=== PATIENT | female | born 1960 | race Caucasian/White ===

== ENCOUNTER 2016-09-19 15:50 | Emergency (ER) | payer BC ==
[2016-09-19 15:56] VITALS: BP 130/85
== END 2016-09-19 17:21 | disposition left against medical advice (07) ==
LOC: ED 15:50
DX: R10.30 Lower abdominal pain, unspecified (principal); Z53.21 Procedure and treatment not carried out due to patient leaving prior to being seen by health care provider
CPT/HCPCS: 99281

== ENCOUNTER 2016-09-19 17:24 | Emergency (ER) | payer BC ==
[2016-09-19 18:00] VITALS: BP 112/83
[2016-09-19] MEDS ORDERED: Ondansetron ODT TAB* 4 MG PO ONE (18:15)
[2016-09-19] MEDS ORDERED: Ketorolac INJ* 60 MG/2 ML VIAL IM ONE (18:15)
--- NOTE | 2016-09-19 18:58 | RAD ---
INDICATION: LEFT flank pain. History of kidney stones. COMPARISON: July 18, 2016 CT. TECHNIQUE: Multidetector CT images were obtained from the lung bases to the ischial tuberosities. Evaluation of the viscera is limited without IV contrast. Multiplanar reformation. REPORT: Mild peripheral and posterior airspace consolidation at the RIGHT lung base new compared with the prior exam most suspicious for atelectasis or possibly small inflammatory infiltrate at the anterior basal segment of the RIGHT lower lobe. Negative for pleural effusions. Decreased density of the liver consistent with fatty infiltration with focal subcapsular and gallbladder fossa sparing. Unremarkable gallbladder, pancreas, spleen. Small splenule visualized anterior to the spleen. Negative for CT abnormality of the upper GI, small bowel, or medially extending appendix. Moderate diverticulosis of the sigmoid colon without findings of diverticulitis. Negative for ascites, free air, hernias. Normal adrenal glands. Multiple bilateral small bilateral renal stones measuring 4 mm or smaller similar to the prior exam. Negative for hydronephrosis or ureteral stones. Cortical cyst mid pole LEFT kidney . Largely decompressed urinary bladder without abnormality. Unremarkable uterus and adnexal regions. Negative for lymphadenopathy. Normal diameter abdominal aorta and iliac arteries. Physiologic distention of the IVC. Negative for suspicious osseous lesions. IMPRESSION: 1. Fatty infiltration of the liver. 2. Nephrolithiasis without evidence for a ureteral stone or hydronephrosis. Previous distal LEFT ureteral stone is no longer visualized with associated resolution of previous LEFT hydronephrosis. 3. Normal appendix documented. Sigmoid diverticulosis without findings of diverticulitis.
--- NOTE | 2016-09-19 20:06 | UC ---
ajay Xie Timothy, scribed for Zhanna Pedraza MD on 09/19/16 at 1809 . Complaint Female HPI - HPI Summary HPI Summary: Shirley Barker is a 55 yo female presenting to [facility] with 7/10 lower back ache for the past week, worse on the left than the right and frequent and burning urination with left groin pain since 09/16/16. Per triage, she saw Dr. Harris on 09/16/16 for a complaint of right lower back pain, and has scheduled imaging on 09/23/16 for the right kidney. She has self-medicated with 1 percocet at 1700 today. She states that she has kidney stones frequently. She was seen by the ED earlier, but left due to long wait times. She states she vomited up an oxycoton earlier today. Her Hx includes "stiff heart", tachycardia, murmur, palpitations, HTN, migraines, temporal lobe seizures, asthma, pneumonia, sleep apnea, breast cancer and mastectomy, kidney stones, fibromylagia, depression, and anxiety. She is a former smoker. - History Of Current Complaint Stated Complaint: BACK PAIN,BURNING FREQ URINATING Time Seen by Provider: 09/19/16 17:47 Hx Obtained From: Patient ?: No Onset/Duration: Gradual Onset, Lasting Days, Still Present Timing: Constant, Lasting Days Severity Initially: Moderate Severity Currently: Moderate Pain Intensity: 7 Pain Scale Used: 0-10 Numeric Character: Burning Associated Signs And Symptoms: Positive: Back Pain. Negative: Fever, Nausea, Vomiting(# Of Episodes =) - Risk Factors Ectopic Risk Factor: Negative Ovarian Torsion Risk Factor: Negative - Allergies/Home Medications Allergies/Adverse Reactions: Allergies Allergy/AdvReac Type Severity Reaction Status Date / Time Penicillin V Allergy Severe Unknown Verified 09/19/16 17:49 [From Penicillin VK Reaction Potassium] Details Iodinated Contrast Media Allergy Mild Rash Verified 09/19/16 17:49 [CONTRAST DYE] Morphine Allergy Mild Rash And Verified 09/19/16 17:49 Itching Sulfa Drugs Allergy Mild Rash Verified 09/19/16 17:49 Molds & Smuts Allergy Hives Verified 09/19/16 17:49 Pregabalin [From Lyrica] AdvReac Severe See Comment Verified 09/19/16 17:49 Tramadol [From Ultram] AdvReac Severe See Comment Verified 09/19/16 17:49 Cyproheptadine AdvReac Intermediate See Comment Verified 09/19/16 17:49 [From Periactin] Chocolate AdvReac Headache Verified 09/19/16 17:49 Coconut Flavor AdvReac Headache Verified 09/19/16 17:49 Onion AdvReac Headache Verified 09/19/16 17:49 PMH/Surg Hx/FS Hx/Imm Hx Endocrine History Of: Reports: Thyroid Disease Denies: Diabetes Cardiovascular History Of: Reports: Cardiac Disorders - "stiff heart", tachycardia, Hypertension Denies: Pacemaker/ICD Respiratory History Of: Reports: Asthma, Pneumonia Denies: COPD GI/ History Of: Reports: Kidney Stones Denies: Ulcer, Renal Disease Neurological History Of: Reports: Seizures - Temporal Lobe Seizures, Migraine Psychological History Of: Reports: Anxiety, Depression Cancer History Of: Reports: Breast Cancer - 2001 Right - Surgical History Surgical History: Yes Surgery Procedure, Year, and Place: HX BREAST CA. - Rt MASECTOMY. HX BREAST IMPLANTS- SILICONE. KIDNEY STONES. CYST REMOVED FROM L-5 DONE IN [place] BY DR. BEASLEY in MARCH of 2015. 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 Lives: With Family Alcohol Use: Rare Substance Use Type: None Substance Use Comment - Amount & Last Used: oxycodone Smoking Status (MU): Former Smoker Type: Cigarettes When Did the Patient Quit Smoking/Using Tobacco: 1992 - Immunization History Most Recent Influenza Vaccination: never Most Recent Tetanus Shot: 2009 Most Recent Pneumonia Vaccination: unknown Review of Systems Constitutional: Negative Skin: Negative Eyes: Negative ENT: Negative Respiratory: Negative Cardiovascular: Negative Gastrointestinal: Vomiting Genitourinary: Dysuria, Frequency Motor: Negative Neurovascular: Negative Musculoskeletal: Other: - lower left back pain, some lower right back pain, radiating to groin Neurological: Negative Psychological: Negative All Other Systems Reviewed And Are Negative: Yes Physical Exam Triage Information Reviewed: Yes Appearance: Well-Appearing, Well-Nourished, Pain Distress Vital Signs: Initial Vital Signs Temp 98.9 F 09/19/16 17:52 Pulse 83 09/19/16 17:52 Resp 18 09/19/16 17:52 BP 112/83 09/19/16 17:52 Pulse Ox 99 09/19/16 17:52 Vital Signs Reviewed: Yes Eyes: Positive: Conjunctiva Clear ENT: Positive: Hearing grossly normal. Negative: Muffled/hoarse voice Neck: Positive: Supple, Nontender Respiratory: Positive: Lungs clear, Normal breath sounds, No respiratory distress Cardiovascular: Positive: RRR, No Murmur, Pulses Normal, Brisk Capillary Refill Abdomen Description: Positive: Nontender - left midquadrant tenderness, No Organomegaly, Soft, CVA Tenderness (L). Negative: CVA Tenderness (R), Distended , Guarding, McBurney's Point Tenderness, Peritoneal Signs, Pulsatile Mass Bowel Sounds: Positive: Present Musculoskeletal: Positive: Strength Intact, ROM Intact Neurological: Positive: Alert, Muscle Tone Normal Psychological Exam: Normal Skin Exam: Normal Diagnostics - Radiology CT A/P Xray Interpretation: No Acute Changes - IMPRESSION: 1. Fatty infiltration of the liver. 2. Nephrolithiasis without evidence for a ureteral stone or hydronephrosis. Previous distal LEFT ureteral stone is no longer visualized with associated resolution of previous LEFT hydronephrosis. 3. Normal appendix documented. Sigmoid diverticulosis without findings of diverticulitis. Radiology Interpretation Completed By: Radiologist Complaint Female Dx - Course Course Of Treatment: Shirley Barker is a 55 yo female presenting to [facility] with back pain, frequency and dysuria. Dr. Harris had ordered imaging for her right kidney for the . After review of her completely neg UA and CT, she will be discharged home with left flank pain, and instructions to follow up with Dr. Harris. UA results: Color: yellow. Character: clear. Odor: none. Bilirubin: negative. Urobinogen: normal. Ketones: negative. Ascorbic acid: negative. Glucose: negative. Protein: negative. Blood: negative. pH: 5. Nitrite: negative. Leukocytes: normal. Specific gravity: 1.015 - Differential Dx/Diagnosis Differential Diagnosis/HQI/PQRI: Ureteral Stone, Urinary Tract Infection, Other - pyelonephritis, diverticulitis Provider Diagnoses: Left flank pain. nephrolithiasis without obstruction or ureteral stone. fatty liver. atelectasis right base. diverticulosis Discharge - Discharge Plan Condition: Stable Disposition: HOME Patient Education Materials: Kidney Stones (ED), Flank Pain (ED) Referrals: Robby [facility] [employer] [Primary Care Provider] - Juan R Harris MD [Medical Doctor] - 2 Days Additional Instructions: You have multiple small kidney stones that are still up in the kidney. You do not have any stone in the ureter or any blockage of the kidney (no hydronephrosis). Follow up with Dr. Harris regarding your visit to urgent care within two days. Return to urgent care or the emergency department with any new or recurring symptoms. The documentation as recorded by the ajay dutta Timothy accurately reflects the service I personally performed and the decisions made by , Zhanna Pedraza MD.
== END 2016-09-19 19:11 | disposition home or self-care (01) ==
LOC: UCEAST 17:24
DX: N20.0 Calculus of kidney (principal); Z87.442 Personal history of urinary calculi; K57.30 Diverticulosis of large intestine without perforation or abscess without bleeding; K76.0 Fatty (change of) liver, not elsewhere classified; J98.11 Atelectasis; Z88.6 Allergy status to analgesic agent; Z88.0 Allergy status to penicillin; Z88.2 Allergy status to sulfonamides; Z91.041 Radiographic dye allergy status; Z87.891 Personal history of nicotine dependence
CPT/HCPCS: 74176; 81002; 96372; 99212; A9270-GY; G0463; J1885

== ENCOUNTER 2016-09-27 15:14 | Emergency (ER) | payer BC ==
[2016-09-27] MEDS ORDERED: NS 0.9% 1000 ML* 1,000 ML IV ONE (19:21)
[2016-09-27] MEDS ORDERED: Ondansetron INJ* 2 MG/ML VIAL IV ONE (19:21)
[2016-09-27] MEDS ORDERED: Morphine INJ* 4 MG/ML 1 ML CARPUJECT IV ONE (19:21)
--- NOTE | 2016-09-27 19:29 | ED ---
Abdominal Pain/Female - HPI Summary HPI Summary: PT PRESENTED TO ER FOR ABD PAINS FOR THE PAST ONE WEEK. PT HAD DIVERTICULOSIS AND WENT TO UC AND WAS REFFERED HERE TO HAVE CT TO R/O DIVERTICULITIS. PT STILL COMPLAINING OF ABD PAINS. - History of Current Complaint Chief Complaint: EDGeneral Stated Complaint: ABD PAIN Time Seen by Provider: 09/27/16 19:12 Hx Obtained From: Patient ?: No Onset/Duration: Gradual Onset, Lasting Days Timing: Constant Severity Initially: Moderate Severity Currently: Moderate Pain Intensity: 8 Pain Scale Used: 0-10 Numeric Location: Discrete At: LLQ Radiates: No Radiates to: Flank Character: Dull Aggravating Factor(s): Movement Alleviating Factor(s): Nothing Associated Signs and Symptoms: Positive: Decreased Appetite - Risk Factors Ectopic Risk Factor: Negative Allergies/Adverse Reactions: Allergies Allergy/AdvReac Type Severity Reaction Status Date / Time Penicillin V Allergy Severe Unknown Verified 09/23/16 11:19 [From Penicillin VK Reaction Potassium] Details Iodinated Contrast Media Allergy Mild Rash Verified 09/23/16 11:19 [CONTRAST DYE] Morphine Allergy Mild Rash And Verified 09/23/16 11:19 Itching Sulfa Drugs Allergy Mild Rash Verified 09/23/16 11:19 Molds & Smuts Allergy Hives Verified 09/23/16 11:19 Pregabalin [From Lyrica] AdvReac Severe See Comment Verified 09/23/16 11:19 Tramadol [From Ultram] AdvReac Severe See Comment Verified 09/23/16 11:19 Cyproheptadine AdvReac Intermediate See Comment Verified 09/23/16 11:19 [From Periactin] Chocolate AdvReac Headache Verified 09/23/16 11:19 Coconut Flavor AdvReac Headache Verified 09/23/16 11:19 Onion AdvReac Headache Verified 09/23/16 11:19 PMH/Surg Hx/FS Hx/Imm Hx Endocrine/Hematology History: Reports: Hx Thyroid Disease Denies: Hx Diabetes Cardiovascular History: Reports: Hx Hypertension, Other Cardiovascular Problems/ Disorders - "stiff heart" effecting tricuspid valve functioning; States she has Tachyca Denies: Hx Pacemaker/ICD Respiratory History: Reports: Hx Asthma, Hx Pneumonia, Hx Sleep Apnea Denies: Hx Chronic Obstructive Pulmonary Disease (COPD) GI History: Denies: Hx Ulcer History: Reports: Hx Kidney Stones Denies: Hx Dialysis, Hx Renal Disease Musculoskeletal History: Reports: Hx Fibromyalgia, Other Musculoskeletal History - Chronic Pain Denies: Hx Rheumatoid Arthritis, Hx Osteoporosis Sensory History: Denies: Hx Hearing Aid Neurological History: Reports: Hx Migraine, Hx Seizures - Temporal Lobe Seizures Psychiatric History: Reports: Hx Anxiety, Hx Depression Denies: Hx Panic Disorder - Cancer History Cancer Type, Location and Year: BREAST CANCER Hx Chemotherapy: No Hx Radiation Therapy: No - Surgical History Surgery Procedure, Year, and Place: HX BREAST CA. - Rt MASECTOMY. HX BREAST IMPLANTS- SILICONE. KIDNEY STONES. CYST REMOVED FROM L-5 DONE [address] [place] BY DR. BEASLEY in MARCH of 2015. - Immunization History Date of Tetanus Vaccine: Unknown Date of Influenza Vaccine: None in Fall 2011 Infectious Disease History: No Infectious Disease History: Denies: Hx Clostridium Difficile, Hx Hepatitis, Hx Human Immunodeficiency Virus (HIV), Hx of Known/Suspected MRSA, Hx Shingles, Hx Tuberculosis, Hx Known/ Suspected VRE, Hx Known/Suspected VRSA, History Other Infectious Disease, Traveled Outside the in Last 30 Days - Family History Known Family History: Negative: Cardiac Disease, Hypertension, Diabetes - Social History Alcohol Use: Rare Substance Use Type: Reports: None Substance Use Comment - Amount & Last Used: oxycodone Smoking Status (MU): Former Smoker Type: Cigarettes Review of Systems Positive: Abdominal Pain All Other Systems Reviewed And Are Negative: Yes Physical Exam Triage Information Reviewed: Yes Vital Signs On Initial Exam: Initial Vitals Temp Pulse Resp BP Pulse Ox 98.9 F 86 20 146/89 99 09/27/16 15:46 09/27/16 15:46 09/27/16 15:46 09/27/16 15:46 09/27/16 15:46 Vital Signs Reviewed: Yes Appearance: Positive: Well-Appearing Skin: Positive: Warm Head/Face: Positive: Normal Head/Face Inspection ENT: Positive: Normal ENT inspection Neck: Positive: Supple Respiratory/Lung Sounds: Positive: Clear to Auscultation, Breath Sounds Present Cardiovascular: Positive: Normal, RRR, Pulses are Symmetrical in both Upper and Lower Extremities Abdomen Description: Positive: Other: - TENDERNESS LF LOWER QUADRANT. Bowel Sounds: Positive: Present Musculoskeletal: Positive: Normal Neurological: Positive: Normal Diagnostics - Vital Signs Vital Signs Temp Pulse Resp BP Pulse Ox 09/27/16 18:44 99.4 F 83 20 153/87 97 09/27/16 17:48 100.0 F 93 20 152/82 98 09/27/16 16:39 99.6 F 82 20 127/69 100 09/27/16 15:49 98.9 F 86 20 146/89 99 09/27/16 15:46 98.9 F 86 20 146/89 99 - Laboratory Result Diagrams: 09/27/16 19:35 09/27/16 19:35 Lab Statement: Any lab studies that have been ordered have been reviewed, and results considered in the medical decision making process. - CT CT ABD/PEL CT Interpretation Completed By: Radiologist - 1. Hepatic steatosis. 2. Nonobstructive, bilateral renal calculi 3. Diverticulosis of the sigmoid colon. No CT evidence of acute diverticulitis. 4. No interval change since September 19, 2016 Abdominal Pain Fem Course/Dx - Course Course Of Treatment: PT STILL C/O ABD PAIN AND WANTS TO BE ADMITTED. DISCUSSED WITH DR. GAVIN AND HE RECOMMENDED TO DO A [facility] ADMISSION BUT PT REFUSED AND WANTED TO BE D/C. sO, ADVISED PT TO FOLLOWUP WITH PCP AND GI WITHIN THE NEXT 3-4 DAYS. - Diagnoses Differential Diagnosis: Positive: Diverticulitis Provider Diagnoses: Nonspecific abdominal pain - Provider Notifications Discussed Care Of Patient With: DR. GAVIN, WHO ADVISED A [facility] ADMISSION. Time Discussed With Above Provider: 22:30 Discharge - Discharge Plan Condition: Stable Disposition: HOME Prescriptions: Pantoprazole Sodium [Protonix] 40 mg PO ONCE #30 tab Patient Education Materials: Abdominal Pain (ED) Referrals: Santos Aguilar MD [Medical Doctor] - 4 Days (Follow up with Dr. aguilar, security business analyst, within the next 4 days. ) Radha Marinelli NP [Primary Care Provider] - Addendum entered and electronically signed by Erin French PA 09/30/16 08: 13: ED Addendum Addendum: Patient culture grew Enterococcus faecalis 10-25,000. Called patient and not having UTI symptoms. Patient currently on cipro and flagyl for diverticulitis.
[2016-09-27] MEDS ORDERED: HYDROmorphone INJ* 1 MG/ML CARPUJECT SYRINGE IV SLOW PU ONE ×2 (19:53→21:36)
[2016-09-27 19:54] LABS: Hematocrit 39 % (35-47); Hemoglobin 13.1 g/dl (12.0-16.0); Mean Corpuscular HGB Conc 33 g/dl (31-36); Mean Corpuscular Hemoglobin 29 pg (27-31); Mean Corpuscular Volume 88 fL (80-97); Mean Platelet Volume 10 um3 (7.4-10.4); Red Blood Count 4.47 10^6/ul (4.0-5.4); Red Cell Distribution Width 14 % (10.5-15); White Blood Count 6.2 10^3/ul (3.5-10.8)
[2016-09-27 20:12] LABS: Albumin 4.5 g/dL (3.2-5.2); BUN/Creatinine Ratio 15.7 (8-20); C Reactive Protein 3.69 mg/L (< 5.00); EGFR African American 63.2 (>60); EGFR Non-African American 49.2 (>60); Globulin 2.7 g/dL (2-4); Potassium 3.6 mmol/L (3.5-5.0); Total Bilirubin 0.3 mg/dL (0.2-1.0); Total Protein 7.2 g/dL (6.4-8.9)
[2016-09-27 20:52] LABS: Urine Bacteria Absent (Absent); Urine Bilirubin Negative (Negative); Urine Glucose Negative (Negative); Urine Nitrite Negative (Negative)
[2016-09-27 21:50] VITALS: BP 126/77
[2016-09-27 21:59] LABS: Calcium 9.3 mg/dL (8.6-10.3)
--- NOTE | 2016-09-27 22:08 | RAD ---
INDICATION: Diverticulitis COMPARISON: ; CT September 19, 2016 TECHNIQUE: Axial source images were obtained from the hemidiaphragms to the symphysis pubis following administration of oral contrast only as requested by the ED. Coronal and sagittal reconstructed images were acquired. Lung bases: The lung bases are clear. Liver: The noncontrast CT appearance of the liver is remarkable for suspected mild hepatic steatosis. Gallbladder: There are no calcified gallstones. There is no evidence of wall thickening or pericholecystic fluid. Spleen: The spleen is normal in size. There are no masses identified on noncontrast evaluation. Pancreas: There is no focal pancreatic mass or ductal dilatation. Adrenal glands: There is no evidence of adrenal mass. Kidneys: There are numerous, bilateral, nonobstructive renal calculi is recently described, unchanged. There is a probable cyst in the midpole region of the left kidney. Entity is incompletely evaluated without intravenous contrast. Adenopathy: There is no evidence of adenopathy by size criteria. Fluid collections: There are no free or localized fluid collections. Vessels:There are no significant atherosclerotic changes involving the aorta. There is no focal aneurysm. The iliac vessels are normal in caliber. The IVC appears normal. GI tract: There are no acute CT bowel findings. There is no obstruction. The stomach and small bowel appear normal. There are moderate diverticula of the sigmoid colon. There is no CT evidence of acute diverticulitis. Pelvic organs: The uterus and adnexa appear normal Bladder: There are no bladder masses. Abdominal and pelvic soft tissues: The extraperitoneal abdominal and pelvic soft tissues appear normal.. Osseous structures: There are no acute osseous findings. Other: None IMPRESSION: 1. Hepatic steatosis. 2. Nonobstructive, bilateral renal calculi 3. Diverticulosis of the sigmoid colon. No CT evidence of acute diverticulitis. 4. No interval change since September 19, 2016
== END 2016-09-27 22:55 | disposition home or self-care (01) ==
LOC: ED 15:14
DX: R10.9 Unspecified abdominal pain (principal); Z87.891 Personal history of nicotine dependence; Z88.0 Allergy status to penicillin; Z88.5 Allergy status to narcotic agent; Z88.2 Allergy status to sulfonamides
CPT/HCPCS: 36415; 74176; 80053; 81003; 81015; 83605; 83690; 84484; 84702; 85025; 86140; 87077; 87086; 87186; 99284; J1170; J2270; J2405

== ENCOUNTER 2017-01-27 18:29 | Emergency (ER) | payer BC ==
[2017-01-27 19:28] VITALS: BP 134/83
--- NOTE | 2017-01-27 19:57 | UC ---
Ear Complaint HPI - HPI Summary HPI Summary: 3 weeks of right ear pain seen PCP, rx with FLonase no has multiple small ulceration on sides of tongue and throat no fevers - History of Current Complaint Chief Complaint: UCEar Stated Complaint: EAR PAIN,ST,BLISTERS IN MOUTH Time Seen by Provider: 01/27/17 19:45 Hx Obtained From: Patient ?: No Onset/Duration: Lasting Days - sores in mouth, Lasting Weeks - 3weeks right ear pain, Still Present Severity Initially: Mild Severity Currently: Moderate Pain Intensity: 7 Pain Scale Used: 0-10 Numeric Aggravating Factors: Nothing Alleviating Factors: Nothing Related History: Seasonal Allergies - Allergies/Home Medications Allergies/Adverse Reactions: Allergies Allergy/AdvReac Type Severity Reaction Status Date / Time Penicillin V Allergy Severe Unknown Verified 01/27/17 19:29 [From Penicillin VK Reaction Potassium] Details Iodinated Contrast Media Allergy Mild Rash Verified 01/27/17 19:29 [CONTRAST DYE] Morphine Allergy Mild Rash And Verified 01/27/17 19:29 Itching Sulfa Drugs Allergy Mild Rash Verified 01/27/17 19:29 Molds & Smuts Allergy Hives Verified 01/27/17 19:29 Pregabalin [From Lyrica] AdvReac Severe See Comment Verified 01/27/17 19:29 Tramadol [From Ultram] AdvReac Severe See Comment Verified 01/27/17 19:29 Cyproheptadine AdvReac Intermediate See Comment Verified 01/27/17 19:29 [From Periactin] Chocolate AdvReac Headache Verified 01/27/17 19:29 Coconut Flavor AdvReac Headache Verified 01/27/17 19:29 Onion AdvReac Headache Verified 01/19/17 14:27 Home Medications: Home Medications DULoxetine CAP* [Cymbalta CAP*] 01/27/17 [History Confirmed 01/27/17] PMH/Surg Hx/FS Hx/Imm Hx Previously Healthy: No Endocrine History Of: Reports: Thyroid Disease Denies: Diabetes Cardiovascular History Of: Reports: Cardiac Disorders, Hypertension Denies: Pacemaker/ICD Respiratory History Of: Reports: Asthma, Pneumonia Denies: COPD GI/ History Of: Reports: Kidney Stones Denies: Ulcer, Renal Disease Neurological History Of: Reports: Seizures - Temporal Lobe Seizures, Migraine Psychological History Of: Reports: Anxiety, Depression Cancer History Of: Reports: Breast Cancer - 2002 Right - Surgical History Surgical History: Yes Surgery Procedure, Year, and Place: HX BREAST CA. - Rt MASECTOMY. HX BREAST IMPLANTS- SILICONE. KIDNEY STONES. CYST REMOVED FROM L-5 DONE IN [place] BY DR. BEASLEY in MARCH of 2015. LT LUMPECTOMY - Family History Known Family History: Negative: Cardiac Disease, Hypertension, Diabetes Family History: no reported cardio vascular issues in family lineage - Social History Occupation: Employed Full-time Lives: With Family Alcohol Use: Weekly Alcohol Amount: 1-2 Substance Use Type: None Substance Use Comment - Amount & Last Used: oxycodone Smoking Status (MU): Former Smoker Type: Cigarettes When Did the Patient Quit Smoking/Using Tobacco: 1992 - Immunization History Most Recent Influenza Vaccination: never Most Recent Tetanus Shot: 2009 Most Recent Pneumonia Vaccination: unknown Review of Systems Constitutional: Chills, Fatigue Skin: Negative Eyes: Negative ENT: Ear Ache - right Respiratory: Negative Cardiovascular: Negative Gastrointestinal: Negative Genitourinary: Negative Motor: Negative Neurovascular: Negative Musculoskeletal: Negative Neurological: Negative Psychological: Negative All Other Systems Reviewed And Are Negative: Yes Physical Exam Triage Information Reviewed: Yes Appearance: Ill-Appearing - mild, Pain Distress, Obese Vital Signs: Initial Vital Signs Temp 97.9 F 01/27/17 19:24 Pulse 81 01/27/17 19:24 Resp 12 01/27/17 19:24 BP 134/83 01/27/17 19:24 Pulse Ox 100 01/27/17 19:24 Vital Signs Reviewed: Yes Eye Exam: Normal Eyes: Positive: Conjunctiva Clear ENT Exam: Normal ENT: Positive: Normal ENT inspection, Hearing grossly normal, Pharyngeal erythema - erythema and ulceration along edges of tongue, Nasal congestion, Nasal drainage, TMs normal Dental Exam: Normal Neck exam: Normal Neck: Positive: Supple, Nontender, No Lymphadenopathy Respiratory Exam: Normal Respiratory: Positive: Chest non-tender, Lungs clear, Normal breath sounds, No respiratory distress, No accessory muscle use Cardiovascular Exam: Normal Cardiovascular: Positive: RRR, No Murmur, Pulses Normal, Brisk Capillary Refill Musculoskeletal Exam: Normal Musculoskeletal: Positive: Strength Intact, ROM Intact, No Edema Neurological Exam: Normal Neurological: Positive: Alert, Muscle Tone Normal Psychological Exam: Normal Skin Exam: Normal Ear Complaint Course/Dx - Course Course Of Treatment: amoxicillin, ibuprofen, magic mouth wash, follow with pcp - Differential Dx/Diagnosis Differential Diagnosis/HQI/PQRI: Otitis Externa, Otitis Media Provider Diagnoses: Right serrous otitis , gingival stomatitis Discharge - Discharge Plan Condition: Stable Disposition: HOME Prescriptions: Azithromycin TAB* [Zithromax TAB (Z-LALO) 250 mg #6 tabs] 2 tab PO DAILY #1 lalo Magic Mouth Was-ELAINE/MAAL/LIDO* 5 ml SWISH SPIT QID #240 ml Patient Education Materials: Serous Otitis Media (ED), Gingivostomatitis (ED) Referrals: Radha Marinelli [employer]EL ENGRAVER [Primary Care Provider] - 1 Week
== END 2017-01-27 20:11 | disposition home or self-care (01) ==
LOC: UCEAST 18:29
DX: H65.91 Unspecified nonsuppurative otitis media, right ear (principal); K05.10 Chronic gingivitis, plaque induced; E07.9 Disorder of thyroid, unspecified; Z88.5 Allergy status to narcotic agent; Z88.0 Allergy status to penicillin; Z88.2 Allergy status to sulfonamides; Z91.041 Radiographic dye allergy status; I10 Essential (primary) hypertension; J45.909 Unspecified asthma, uncomplicated; Z87.442 Personal history of urinary calculi; G40.909 Epilepsy, unspecified, not intractable, without status epilepticus; G43.909 Migraine, unspecified, not intractable, without status migrainosus; F41.9 Anxiety disorder, unspecified; F32.9 Major depressive disorder, single episode, unspecified; E66.9 Obesity, unspecified; Z85.3 Personal history of malignant neoplasm of breast; Z90.11 Acquired absence of right breast and nipple; Z87.891 Personal history of nicotine dependence
CPT/HCPCS: 99212; G0463

== ENCOUNTER 2017-02-21 15:04 | Day surgery (SDC) | payer BC ==
--- NOTE | 2017-02-21 14:48 | HP ---
CC: Tammy Sibley MD; Petra Lilly MD * ADMITTING HISTORY AND PHYSICAL: DATE OF ADMISSION: 02/21/17 ADMITTING DIAGNOSES: 1. Left ureteral calculus. 2. Left hydronephrosis. PLANNED PROCEDURE: Left ureteroscopy, possible laser and stent insertion. SURGEON: Juan R Harris MD ADMITTING HISTORY AND PHYSICAL: Shirley Powers is a 56-year-old lady with a history of recurrent bilateral renal calculi. She was evaluated for left flank pain and was noted to have what appears to be a 5-mm to 6-mm calculus in the left distal ureter with mild left hydronephrosis. She had been on Flomax 0.4 mg in an effort to try and promote passage of the calculus, but continues to have episodic left flank pain and is now being brought in for left ureteroscopy, possible laser and stent insertion. PAST MEDICAL HISTORY: Fairly extensive and is significant for: 1. Recurrent renal calculi. 2. Asthma. 3. Depression/anxiety. 4. History of spinal stenosis. 5. Breast cancer. 6. Fibromyalgia. 7. PTSD. MEDICATIONS ON ADMISSION: Include: 1. Cephalexin 500 mg t.i.d. 2. Gabapentin 300 mg q.h.s. and 100 mg q.a.m. 3. Cymbalta 1 tablet daily. 4. Flomax 0.4 mg once a day. 5. Topamax 100 mg b.i.d. 6. [place] Thyroid twice a day. 7. Diltiazem 1 tablet daily. ALLERGIES AND INTOLERANCES: 1. SULFA. 2. PENICILLIN. 3. INTRAVENOUSLY ADMINISTERED IODINATED CONTRAST. 4. LYRICA. 5. ULTRAM. 6. MORPHINE. REVIEW OF SYSTEMS: She denies any chest pain or shortness of breath. She has a history of diverticulitis approximately 6 months ago. PHYSICAL EXAMINATION GENERAL: Reveals a pleasant, uncomfortable-appearing, middle-aged lady. VITAL SIGNS: Blood pressure 132/96, pulse 77 per minute and regular, temperature 97.7, oxygen saturation 98% on room air. LUNGS: Clear bilaterally. CARDIOVASCULAR: Regular rate and rhythm. S1, S2. ABDOMEN: Soft with left flank tenderness. IMPRESSION: A 56-year-old lady with bilateral renal calculi and what appears to be a partially obstructing calculus in the left distal ureter. PLAN: Plan is for left ureteroscopy, possible laser and stent insertion. [id number]/[facility] #: [id number] [facility]PITAL[facility]bie
[~2017-02-21 15:04] MED LIST: Buffered Lidocaine 0.9% SYRIN* 5 ML/SYR SYRINGE INTRADERM ONE; Dexamethasone IV* 4 MG/ML 1 ML (4 MG) IV SLOW PU ONE; Famotidine IV* 10 MG/ML 2 ML (20 mg) IV ONE
[2017-02-21] MEDS ORDERED: Levofloxacin 500 MG IVPREMIX(* 500 MG/100 ML BAG IVPB ONE (15:13)
[2017-02-21] MEDS ORDERED: Buffered Lidocaine 0.9% SYRIN* 5 ML/SYR SYRINGE ONE (15:13)
[2017-02-21] MEDS ORDERED: Iohexol 180 (CONTRAST) 10 ML SDV IV ONE (15:49)
[2017-02-21] MEDS ORDERED: Dexamethasone IV* 4 MG/ML 1 ML (4 MG) ONE (15:50)
[2017-02-21] MEDS ORDERED: Famotidine IV* 10 MG/ML 2 ML (20 mg) ONE (15:50)
[2017-02-21] MEDS ORDERED: Midazolam* 1 MG/ML 2 ML VIAL (2 MG) ONE (16:40)
[2017-02-21] MEDS ORDERED: fentaNYL* 50 MCG/ML 5 ML VIAL (250 MCG VIAL) ONE (16:40)
[2017-02-21] MEDS ORDERED: Propofol* 10 MG/ML 20 ML BTL IV PUSH ONE (16:40)
[2017-02-21] MEDS ORDERED: Lidocaine 2% PF * 5 ML VIAL ONE (16:40)
[2017-02-21] MEDS ORDERED: HYDROcodone/ACETAMIN 5-325 MG* 1 TAB PO PRN (16:49)
[2017-02-21] MEDS ORDERED: PROCHLORPERAZINE INJ 5 MG/ML 2 ML VIAL IV PRN (16:49)
[2017-02-21] MEDS ORDERED: Ondansetron INJ* 2 MG/ML VIAL ONE (17:37)
[2017-02-21] MEDS ORDERED: EPHEDrine (Pressors)* 50 MG/ML VIAL ONE (18:05)
[2017-02-21] MEDS ORDERED: fentaNYL* 50 MCG/ML 2 ML VIAL (100 MCG VIAL) ONE ×2 (18:34→18:52)
[2017-02-21] MEDS: fentaNYL* 50 MCG/ML 2 ML VIAL (100 MCG VIAL) IV PRN ×4 (18:36→19:16)
[2017-02-21] MEDS ORDERED: oxyCODONE/Acetamin 5/325 MG* TAB ONE ×2 (18:39→19:53)
[2017-02-21] MEDS: oxyCODONE/Acetamin 5/325 MG* TAB PO PRN ×2 (18:45→19:54)
--- NOTE | 2017-02-21 19:22 | RAD ---
INDICATION: Left ureteral stent placement COMPARISON: None FINDINGS: 15 seconds of fluoroscopy were provided for the urology department. Fluoroscopic spot imaging of the abdomen were obtained for operative control and show left ureteral stent placement in expected position . CPT II Codes: 6045F (fluoro time doc)
[2017-02-21 19:53] VITALS: BP 120/60
[2017-02-21] MEDS ORDERED: Solifenacin(NF) 5 MG TAB PO ONE (20:00)
--- NOTE | 2017-02-21 20:42 | RAD ---
INDICATION: Stent insertion COMPARISON: KUB September 23, 2016 TECHNIQUE: A single view of the abdomen is submitted. FINDINGS: Bones: There are no acute bony findings. Soft tissues: The soft tissues appear normal. The psoas margins are sharp. Bowel gas pattern: Normal Calcifications: There are no abnormal calcifications. Other: There is a left ureteral stent in expected position IMPRESSION: LEFT URETERAL STENT PLACEMENT.
--- NOTE | 2017-02-22 08:37 | OP ---
CC: Radha Marinelli NP * DATE OF OPERATION: 02/21/17 - SDS DATE OF : [birth year] - AGE/SEX: 56 years/female. SURGEON: Juan R Harris MD ANESTHESIOLOGIST: David Phelan MD ANESTHESIA: General. PRE-OP DIAGNOSES: 1. Left hydronephrosis. 2. Left ureteral calculus. POST-OP DIAGNOSES: 1. Left hydronephrosis. 2. Left ureteral calculus. OPERATIVE PROCEDURE: Cystoscopy, left retrograde pyelogram, left ureteral dilatation, and left ureteroscopy, and left stent insertion. STENT USED: 7-Gambian stent, left ureter. OPERATIVE FINDINGS: 1. Left hydronephrosis. 2. Obstructing calculus, left distal ureter with associated stricture, left ureter. INDICATIONS: Shirley Barker is a 56-year-old lady with a history of recurrent renal calculi. She was recently evaluated and noted to have an obstructing calculus in the left distal ureter. DESCRIPTION OF PROCEDURE: After induction of general anesthesia, the patient was placed on dorsal lithotomy position. Sequential compression devices were in place and functioning. Initial cystoscopy revealed a normal-appearing bladder. Clear efflux of urine was noted from the right ureter. There was no efflux noted from the left ureter, suggesting a complete obstruction. Hydrophilic guidewire was introduced into the left orifice. Initially resistance was encountered about 1 cm above the ureterovesical junction and the wire was then manipulated proximally. An open ended catheter was advanced. The ureter was noted to be very narrow and even the 4-Gambian open-ended catheter was not easy to advance beyond the [id number] ureter. The 6-Gambian semi-rigid ureteroscope was introduced and advanced under direct vision. About a centimeter above the ureterovesical junction, a stricture was noted and the calculus could be seen just proximal to the stricture in the ureter. The ureter was dilated to 8-Gambian and the ureteroscope was reintroduced. In spite of this, it was not easy to negotiate the ureteroscope beyond the calculus and I did not want to risk traumatizing the ureter by forcing it. I made a decision to place a stent to allow for passive dilatation of the ureter, and then to repeat a ureteroscopy in a few weeks so as to minimize any potential trauma to the ureter. A 7-Gambian stent was introduced and positioned under fluoroscope with good proximal and distal positioning obtained. The bladder was emptied. The patient tolerated the procedure satisfactorily and was transferred back to the recovery area in stable condition. The plan being to bring her back within the next 1 to 2 weeks for a repeat ureteroscopy after the ureter has been allowed to dilate with the indwelling stent. [id number]/[facility] #: [id number] MTDD
== END 2017-02-21 20:15 | disposition home or self-care (01) ==
LOC: OR 15:04
PROVIDERS: ATTEND Urology
PROC: BT1FZZZ Fluoroscopy of Left Kidney, Ureter and Bladder (ICD-10-PCS; 2017-02-21)
PROC: 0T778DZ Dilation of Left Ureter with Intraluminal Device, Via Natural or Artificial Opening Endoscopic (ICD-10-PCS; principal; 2017-02-21 17:00)
DX: N13.2 Hydronephrosis with renal and ureteral calculous obstruction (principal); J45.909 Unspecified asthma, uncomplicated; Z85.3 Personal history of malignant neoplasm of breast; F43.10 Post-traumatic stress disorder, unspecified; Z79.899 Other long term (current) drug therapy; Z88.0 Allergy status to penicillin; Z88.2 Allergy status to sulfonamides
CPT/HCPCS: 74000; 74420; A9270-GY; J1100; J1956; J2250; J2405; J2704; J3010

== ENCOUNTER 2017-03-06 10:50 | Day surgery (SDC) | payer BC ==
[~2017-03-06 10:50] MED LIST changes: +Buffered Lidocaine 0.9% SYRIN* 5 ML/SYR SYRINGE ONE; -Dexamethasone IV* 4 MG/ML 1 ML (4 MG) IV SLOW PU ONE; -Famotidine IV* 10 MG/ML 2 ML (20 mg) IV ONE; +Levofloxacin 500 MG IVPREMIX(* 500 MG/100 ML BAG IVPB ONE; +Sodium Citrate/Citric Acid* 15 ML UDC ONE; +Sodium Citrate/Citric Acid* 15 ML UDC PO ONE
[2017-03-06] MEDS ORDERED: Iohexol 180 (CONTRAST) 10 ML SDV IV ONE (11:34)
[2017-03-06] MEDS ORDERED: fentaNYL* 50 MCG/ML 2 ML VIAL (100 MCG VIAL) ONE (12:40)
[2017-03-06] MEDS ORDERED: Propofol* 10 MG/ML 20 ML BTL IV PUSH ONE ×2 (12:45→13:11)
[2017-03-06] MEDS ORDERED: Lidocaine 2% PF * 5 ML VIAL ONE (12:45)
[2017-03-06] MEDS ORDERED: fentaNYL* 50 MCG/ML 2 ML VIAL (100 MCG VIAL) IV PRN (13:09)
[2017-03-06] MEDS ORDERED: DiMENhydriNATE IV* 50 MG/ML VIAL IV PUSH PRN (13:09)
[2017-03-06] MEDS ORDERED: oxyCODONE/Acetamin 5/325 MG* TAB ONE (13:35)
[2017-03-06 13:47] VITALS: BP 120/76
--- NOTE | 2017-03-07 11:10 | OP ---
CC: Radha Marinelli NP; Juan R Harris MD OPERATIVE SUMMARY: DATE OF OPERATION: 03/06/17 DATE OF : [birth year] AGE: 56 years, female. SURGEON: Juan R Harris MD ANESTHESIOLOGIST: Dr. Martinez. ANESTHESIA: General. PRE-OP DIAGNOSES: 1. Left ureteral calculus. 2. Left ureteral stricture. POST-OP DIAGNOSES: 1. Left ureteral calculus. 2. Left ureteral stricture. OPERATIVE PROCEDURE: Cystoscopy, left stent removal, left retrograde pyelogram, left ureteroscopy a nd stone removal, and left stent insertion. COMPLICATIONS: None. STENT USED: 7-Kyrgyz stent, left ureter. INDICATIONS: Shirley Barker is a 56-year-old lady who had undergone left stent insertion and had been noted at that time to have a stricture and a calculus in the left ureter. OPERATIVE FINDINGS: 1. Stricture, left distal ureter. 2. Two calculi in left distal to mid ureter with mild left hydronephrosis. POSTOPERATIVE CONDITION: Stable. DESCRIPTION OF PROCEDURE: After induction of general anesthesia, the patient was placed in dorsal l ithotomy position. Sequential compression devices were in place and functioning. Initial cystoscop y revealed a normal-appearing bladder. The previously placed left stent was removed. Left retrogra de pyelogram revealed mild fullness of the left collecting system. A 6-Kyrgyz semi-rigid ureterosco pe was introduced and advanced under direct vision. A stricture was noted in the distal 3 to 4 cm o f the left ureter. The ureteroscope was carefully advanced through the narrowed area and about 4 cm from the ureterovesical junction an approximately 3-mm calculus was noted. This was engaged using a 3-pronged grasper and removed. The ureteroscope was advanced more proximally and in the mid urete r an additional 3 to 4 mm calculus was noted. This was also removed. No additional calculi were no alfonzo. Once both the calculi had been removed successfully, a new 7-Kyrgyz stent was introduced and po sitioned under fluoroscopy with good proximal and distal positioning obtained. The bladder was empt ied. The patient tolerated the procedure satisfactorily and was transferred back to recovery area i n stable condition. [id number]/[facility] #: [id number]
--- NOTE | 2017-03-08 10:53 | RAD ---
Indication: Left renal calculi 8 seconds of fluoroscopy time was used. 8 spot images demonstrates placement of a left ureteral stent. IMPRESSION: Fluoroscopic services provided for referring physician. CPT II Codes: 6045F
== END 2017-03-06 14:10 | disposition home or self-care (01) ==
LOC: OR 10:50
PROVIDERS: ATTEND Urology
DX: N13.2 Hydronephrosis with renal and ureteral calculous obstruction (principal); N13.1 Hydronephrosis with ureteral stricture, not elsewhere classified; J45.909 Unspecified asthma, uncomplicated; R00.0 Tachycardia, unspecified; I10 Essential (primary) hypertension; Z87.891 Personal history of nicotine dependence; E03.9 Hypothyroidism, unspecified; G47.33 Obstructive sleep apnea (adult) (pediatric)
CPT/HCPCS: 74420; 82365; 88300; A9270-GY; C1876; J1580; J1956; J2704; J3010

== ENCOUNTER 2017-04-14 15:54 | Inpatient (IN) | payer BC ==
[2017-04-14] MEDS ORDERED: Aspirin Low Dose CHEW TAB* 81 MG PO ONE (17:29)
[2017-04-14 18:07] LABS: Hematocrit 40 % (35-47); Hemoglobin 13.2 g/dl (12.0-16.0); Mean Corpuscular HGB Conc 33 g/dl (31-36); Mean Corpuscular Hemoglobin 29 pg (27-31); Mean Corpuscular Volume 90 fL (80-97); Mean Platelet Volume 10 um3 (7.4-10.4); Red Cell Distribution Width 14 % (10.5-15); White Blood Count 6.5 10^3/ul (3.5-10.8)
[2017-04-14 18:26] LABS: Albumin 4.2 g/dL (3.2-5.2); Calcium 9.1 mg/dL (8.6-10.3); EGFR African American 84.7 (>60); EGFR Non-African American 65.8 (>60); Globulin 2.8 g/dL (2-4); Potassium 3.9 mmol/L (3.5-5.0); Total Bilirubin 0.4 mg/dL (0.2-1.0)
--- NOTE | 2017-04-14 19:00 | RAD ---
INDICATION: Chest pain COMPARISON: Chest x-ray dated October 21, 2013 TECHNIQUE: Single AP portable view of the chest was obtained. FINDINGS: Image quality is compromised due to the relative inferiority of a portable chest x-ray. The heart and mediastinum exhibit normal size and contour. The lungs are grossly clear. There is no evidence of a large pleural effusion. Visualized bones are normal for the patient's age. IMPRESSION: No radiographic evidence for acute cardiopulmonary abnormality on this portable chest x-ray.
--- NOTE | 2017-04-14 19:24 | ED ---
Jeff Xie Rebecca, scribed for Sarahi Salinas MD on 04/14/17 at 1733 . HPI Chest Pain - HPI Summary HPI Summary: Pt is a 56 y/o F who presents to ED c/o CP. Pain began at 1415 today while at the foreclosure specialist's office and has been constant since onset. Pain is currently moderate, ranked 5/10. Sx aggravated and alleviated by nothing. 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 Pt reports that while at the foreclosure specialist's office, she auscultated crackles and has an abnormal EKG so she sent her to [facility] ED. PMHx HTN, HLD and stiff heart syndrome. No PMHx ND. Is not on any blood thinners. - History of Current Complaint Chief Complaint: EDChestPainROMI Time Seen by Provider: 04/14/17 17:21 Hx Obtained From: Patient Onset/Duration: Still Present Time of Onset: 14:15 Timing: Constant Current Severity: Moderate Pain Intensity: 5 Pain Scale Used: 0-10 Numeric Aggravating Factor(s): Nothing Alleviating Factor(s): Nothing Associated Signs and Symptoms: Positive: Negative - Additional Pertinent History Primary Care Physician: MARIN - Allergy/Home Medications Allergies/Adverse Reactions: Allergies Allergy/AdvReac Type Severity Reaction Status Date / Time Penicillin V Allergy Severe Unknown Verified 04/14/17 16:07 [From Penicillin VK Reaction Potassium] Details Iodinated Contrast Media Allergy Mild Rash Verified 04/14/17 16:07 [CONTRAST DYE] Morphine Allergy Mild Nausea Verified 04/14/17 16:07 Sulfa Drugs Allergy Mild Rash Verified 04/14/17 16:07 Molds & Smuts Allergy Hives Verified 04/14/17 16:07 Pregabalin [From Lyrica] AdvReac Severe See Comment Verified 04/14/17 16:07 Tramadol [From Ultram] AdvReac Severe See Comment Verified 04/14/17 16:07 Cyproheptadine AdvReac Intermediate See Comment Verified 04/14/17 16:07 [From Periactin] Chocolate AdvReac Headache Verified 04/14/17 16:07 Coconut Flavor AdvReac Headache Verified 04/14/17 16:07 Onion AdvReac Headache Verified 04/14/17 16:07 Home Medications: Home Medications BuPROPion XL* [Bupropion XL*] 300 mg PO DAILY 04/14/17 [History Confirmed ] LORazepam TAB(*) [Ativan 0.5 MG TAB (*)] 0.5 mg PO TID PRN 04/14/17 [History Confirmed 04/14/17] SUMAtriptan TAB* [Imitrex TAB*] 100 mg PO BID PRN 04/14/17 [History Confirmed ] Thyroid [[place] Thyroid] 60 mg PO DAILY 04/14/17 [History Confirmed 04/14/17] metFORMIN* [Glucophage 500 MG TAB *] 500 mg PO DAILY 04/14/17 [History Confirmed 04/14/17] PMH/Surg Hx/FS Hx/Imm Hx Endocrine/Hematology History: Reports: Hx Diabetes - pre diabetic a1c within normal limits borderline, Hx Thyroid Disease - on meds pt. states controlled Cardiovascular History: Reports: Hx Hypertension - pt. 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 martino Denies: Hx Pacemaker/ICD Respiratory History: Reports: Hx Asthma - last episode 3 months ago r/t air contaim at work, Hx Pneumonia, Hx Sleep Apnea, Other Respiratory Problems/ Disorders - pnuemonia 2 months ago Denies: Hx Chronic Obstructive Pulmonary Disease (COPD) GI History: Reports: Hx Gastroesophageal Reflux Disease, Hx Hiatal Hernia, Hx Irritable Bowel - constipation and diarrhea no meds Denies: Hx Ulcer History: Reports: Hx Kidney Stones - recurring stones since 1999, Other Problems/Disorders - kidney function studies impaired Denies: Hx Dialysis, Hx Renal Disease Musculoskeletal History: Reports: Hx Arthritis - osteo, Hx Fibromyalgia, Hx Tendonitis - torn legament right wrist 02/2016, Other Musculoskeletal History - Chronic Pain Denies: Hx Rheumatoid Arthritis, Hx Osteoporosis Sensory History: Reports: Hx Contacts or Glasses - reading Denies: Hx Hearing Aid Opthamlomology History: Reports: Hx Contacts or Glasses - reading Neurological History: Reports: Hx Migraine, 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 - Rt MASECTOMY 2001. HX BREAST IMPLANTS- SILICONE [id number] bilat. KIDNEY STONES removed starting in 1999 x 3. CYST REMOVED FROM L-5 DONE IN [place] BY DR. BEASLEY in MARCH of 2015. LT LUMPECTOMY 2002 Hx Anesthesia Reactions: No - slow to awaken after several surgeries - Immunization History Date of Tetanus Vaccine: Unknown Date of Influenza Vaccine: None in Fall 2011 Infectious Disease History: Denies: Hx Clostridium Difficile, Hx Hepatitis, Hx Human Immunodeficiency Virus (HIV), Hx of Known/Suspected MRSA, Hx Shingles, Hx Tuberculosis, Hx Known/ Suspected VRE, Hx Known/Suspected VRSA, History Other Infectious Disease, Traveled Outside the [place] in Last 30 Days - Family History Known Family History: Negative: Cardiac Disease, Hypertension, Diabetes Family History: no reported cardio vascular issues in family lineage - Social History Alcohol Use: Occasionally Alcohol Amount: 1-2 drinks per week Substance Use Type: Reports: None Substance Use Comment - Amount & Last Used: oxycodone Smoking Status (MU): Never Smoked Tobacco Type: Cigarettes Have You Smoked in the Last Year: No Review of Systems Negative: Fever Positive: Chest Pain All Other Systems Reviewed And Are Negative: Yes Physical Exam - Summary Physical Exam Summary: General: Well appearing, no pain distress Skin: Warm, Skin Color Reflects Adequate Perfusion, Dry Eyes: EOMI, MONICA ENT: Pharynx normal, TMs normal Neck: Supple, nontender Respiratory: CTA, breath sounds present, no rhonchi, no wheezes, no rales Cardiovascular: RRR, no murmur, no rub, no gallop Abdomen: Soft, nontender, Non-distended, no guarding, no rebound Bowel: Present Musculoskeletal: DANIEL, No edema Neuro: Sensory/motor intact, A&Ox3, CN intact 2-12 Psych: Affect/mood appropriate Triage Information Reviewed: Yes Vital Signs On Initial Exam: Initial Vitals Temp Pulse Resp BP Pulse Ox 98.6 F 87 16 129/80 98 04/14/17 16:04 04/14/17 16:04 04/14/17 16:04 04/14/17 16:04 04/14/17 16:04 Vital Signs Reviewed: Yes Diagnostics - Vital Signs Vital Signs Temp Pulse Resp BP Pulse Ox 04/14/17 16:04 98.6 F 87 16 129/80 98 - Laboratory Lab Results: Lab Results 04/14/17 04/14/17 04/14/17 Range/Units 17:57 17:57 17:57 WBC 6.5 (3.5-10.8) 10^3/ul RBC 4.50 (4.0-5.4) 10^6/ul Hgb 13.2 (12.0-16.0) g/dl Hct 40 (35-47) % MCV 90 (80-97) fL MCH 29 (27-31) pg MCHC 33 (31-36) g/dl RDW 14 (10.5-15) % Plt Count 218 (150-450) 10^3/ul MPV 10 (7.4-10.4) um3 Neut % (Auto) 56.6 (38-83) % Lymph % (Auto) 33.3 (25-47) % Dillon % (Auto) 7.7 (1-9) % Eos % (Auto) 1.6 (0-6) % Baso % (Auto) 0.8 (0-2) % Absolute Neuts (auto) 3.7 (1.5-7.7) 10^3/ul Absolute Lymphs (auto) 2.2 (1.0-4.8) 10^3/ul Absolute Monos (auto) 0.5 (0-0.8) 10^3/ul Absolute Eos (auto) 0.1 (0-0.6) 10^3/ul Absolute Basos (auto) 0.1 (0-0.2) 10^3/ul Absolute Nucleated RBC 0 10^3/ul Nucleated RBC % 0.1 Sodium 137 (133-145) mmol/L Potassium 3.9 (3.5-5.0) mmol/L Chloride 105 (101-111) mmol/L Carbon Dioxide 26 (22-32) mmol/L Anion Gap 6 (2-11) mmol/L BUN 16 (6-24) mg/dL Creatinine 0.89 (0.51-0.95) mg/dL Est GFR ( Amer) 84.7 (>60) Est GFR (Non-Af Amer) 65.8 (>60) BUN/Creatinine Ratio 18.0 (8-20) Glucose 94 (70-100) mg/dL Lactic Acid 0.7 (0.5-2.0) mmol/L Calcium 9.1 (8.6-10.3) mg/dL Total Bilirubin 0.40 (0.2-1.0) mg/dL AST 22 (13-39) U/L ALT 26 (7-52) U/L Alkaline Phosphatase 65 (34-104) U/L Troponin I 0.00 (<0.04) ng/mL Total Protein 7.0 (6.4-8.9) g/dL Albumin 4.2 (3.2-5.2) g/dL Globulin 2.8 (2-4) g/dL Albumin/Globulin Ratio 1.5 (1-3) Result Diagrams: 04/14/17 17:57 04/14/17 17:57 Lab Statement: Any lab studies that have been ordered have been reviewed, and results considered in the medical decision making process. - Radiology CXR Xray Interpretation: No Acute Changes - No radiographic evidence for acute cardiopulmonary abnormality on this portable chest x-ray. Radiology Interpretation Completed By: Radiologist - EKG 1558 Cardiac Rate: NL - 85 bpm EKG Rhythm: Sinus Rhythm EKG Interpretation: Anterior T wave inversions EKG Comparison: No Significant Change - T wave inversions are new as compared with EKG on 09/01 Chest Pain Course/Dx - Course Course Of Treatment: 56 yo female with cp at cardiologists office with new ekg changes pt accepted for admission by Dr. Benz - Diagnoses Provider Diagnoses: Chest pain Discharge - Discharge Plan Condition: Stable Disposition: ADMITTED TO [facility] The documentation as recorded by the Jeff dutta Rebecca accurately reflects the service I personally performed and the decisions made by , Sarahi Salinas MD.
[2017-04-14] MEDS ORDERED: SUMAtriptan TAB* 100 MG PO PRN (20:43)
[2017-04-14] MEDS ORDERED: Dextrose 50% Syringe 50 ML* 25 GM/50 ML SYRINGE IV PUSH PRN (20:59)
[2017-04-14] MEDS: Atenolol TAB* 25 MG PO SCH (22:23)
[2017-04-14] MEDS: DULoxetine DR CAP* 30 MG CAP.DR PO SCH (22:23)
[2017-04-14] MEDS: LORazepam TAB(*) 0.5 MG PO PRN (22:23)
[2017-04-14] MEDS: Gabapentin CAP(*) 300 MG PO SCH (22:24)
[2017-04-14] MEDS: oxyCODONE TAB* 5 MG TAB PO PRN (22:25)
[2017-04-14] MEDS: Insulin LISPRO* 1 UNITS UNIT SUBCUT SCH (22:56)
--- NOTE | 2017-04-15 00:18 | HP ---
CC: Radha Marinelli NP; Petra Lilly MD * HISTORY AND PHYSICAL: DATE OF ADMISSION: 04/14/17 CHIEF COMPLAINT: Chest discomfort. HISTORY OF PRESENT ILLNESS: The patient is a 56-year-old woman, who was just seeing her bag shop worker today when her bag shop worker did an EKG and said it was slightly different from prior ones. It had inverted Ts in several leads. She then started feeling chest pain. The pain was actually initially on the left side below her left breast. It then moved to the top of her left side of her chest. It was worse when she coughed and was 7/10 in severity. Now, it is 3/ 10 in severity without any coughing. She said she then got dizzy, and they checked her blood sugar, it was 70, so they gave her some sugar. Her then drove her to the emergency department. Dr. Lilly wanted to evaluate it. She had some shortness of breath and some sweating with it as well. She said the sweating has actually been going on for over a month. She has occasional palpitations. She has also had nausea and vomiting, but said not with this, but prior to this. In the ED, the patient was evaluated and her initial troponin was 0.00. Her EKG did show the new flipped T waves. They were in leads V2 and V3. PAST MEDICAL HISTORY: Significant for asthma, anxiety, depression, nephrolithiasis, mild stenosis, tachycardia, hypothyroidism, fibromyalgia, breast cancer and posttraumatic stress disorder. PAST SURGICAL HISTORY: Back surgery, right mastectomy, left lumpectomy, nephrolithiasis and cystoscopy with stenting. CURRENT MEDICATIONS: 1. Lorazepam 0.5 mg 3 times a day as needed. 2. [place] Thyroid 60 mg daily. 3. Cholecalciferol 5000 units daily. 4. Bupropion 300 mg daily. 5. Atenolol 25 mg twice daily. 6. Gabapentin 300 mg at bedtime. 7. Duloxetine 1 tablet twice daily. 8. Metformin 500 mg daily. 9. Imitrex 100 mg twice a day as needed. 10. [place]-3 fatty acids 1 capsule daily. 11. Oxycodone 5 mg every 4 hours as needed. ALLERGIES: She has an allergy/adverse reaction to PENICILLIN, LYRICA, ULTRAM, PERIACTIN, INTRAVENOUS DYE, MORPHINE, SULFA DRUGS, CHOCOLATE, COCONUT, MOLD and ONION. FAMILY HISTORY: Mother had colon cancer. Father had pancreatic cancer. SOCIAL HISTORY: Ex-tobacco, occasional alcohol. She is . Surrogate decision maker is her , Twan Barker. REVIEW OF SYSTEMS: A 14-point review of systems was completed with the patient. All pertinent positives and negatives are in the history of present illness, otherwise negative. PHYSICAL EXAMINATION GENERAL: A pleasant woman, lying in bed, in no acute distress. VITAL SIGNS: Temperature 98 degrees, heart rate 89 beats per minute, respiratory rate 18 breaths per minute, blood pressure 103/75, pulse ox 97% on room air. HEENT: Normocephalic, atraumatic. Pupils equal, round, and reactive to light. Moist mucous membranes. NECK: Supple. No JVD, bruits, palpable thyroid, or lymphadenopathy. CHEST: Clear to auscultation and percussion bilaterally. CARDIOVASCULAR: S1 and S2 appreciated. ABDOMEN: Positive bowel sounds in all 4 quadrants. Soft, nontender, nondistended. No hepatosplenomegaly. EXTREMITIES: No cyanosis, clubbing or edema. +2 peripheral pulses bilaterally. NEURO: Alert and oriented x3. Moves all extremities. SKIN: No rashes or abnormalities. LABORATORY DATA/DIAGNOSTIC DATA: Sodium 137, potassium 3.9, chloride 105, CO2 26, BUN 16, creatinine 0.89, glucose is 94, troponin is 0.00. White count is 6.5, hemoglobin is 13.2, hematocrit 40, platelets 218. EKG shows normal sinus rhythm at 85 beats per minute, questionable left axis deviation or left anterior hemiblock, flipped Ts in V2 and V3. Chest x-ray was interpreted by Radiology as no radiographic evidence for acute cardiopulmonary abnormality on this portable chest x-ray. ASSESSMENT AND PLAN: 1. Chest pain, does not sound like it is cardiac, extremely atypical, slight change in her EKG, but I think this is unlikely to be secondary to a coronary artery disease. We will cycle her troponins. I have spoken to Cardiology to see her in the morning because she was sent over by the bag shop worker. I think when she rules out she probably can go home safely and follow with her bag shop worker as an outpatient. I think this is likely more anxiety than anything else at this juncture. 2. Hypothyroidism, stable, continue Synthroid. 3. Diabetes, hold metformin, fingerstick with sliding scale insulin. 4. Hypertension, good control, continue current regimen. 5. DVT prophylaxis, heparin subcu. 6. FEN, consistent carb diet. 8. The patient is a full code. TIME SPENT: Over 75 minutes were spent on this H and P, more than 40 minutes of which was spent in direct [id number] contact with the patient in evaluation , physical exam, counseling, and coordination of care. [id number]/[facility] #: [id number] MAGALIE
[2017-04-15] MEDS: LORazepam TAB(*) 0.5 MG PO PRN ×2 (05:40→15:08)
[2017-04-15] MEDS: Insulin LISPRO* 1 UNITS UNIT SUBCUT SCH ×4 (07:51→20:30)
[2017-04-15] MEDS: Thyroid TAB* 30 MG PO SCH (08:49)
[2017-04-15] MEDS: DULoxetine DR CAP* 30 MG CAP.DR PO SCH ×2 (08:50→20:29)
[2017-04-15] MEDS: Cholecalciferol TAB* 1000 UNITS PO SCH (08:50)
[2017-04-15] MEDS: BuPROPion XL* 300 MG TAB.XL PO SCH (08:51)
[2017-04-15] MEDS: Atenolol TAB* 25 MG PO SCH ×2 (08:51→20:29)
--- NOTE | 2017-04-15 11:40 | RAD ---
Indication: Pneumonia. CT of the abdomen and pelvis was performed without IV contrast. Coronal and sagittal reconstructed images were obtained. There is small mediastinal lymph nodes with 5 mm precarinal lymph nodes. Heart demonstrates no pericardial effusion. Trachea and major bronchi appear patent. The lung camp demonstrate no pleural fluid, and nodules or masses. No alveolar consolidation is noted. No pleural fluid is identified. Bilateral breast implants are noted. Hepatic steatosis is noted. IMPRESSION: No definite evidence of pneumonia is noted.
[2017-04-15] MEDS: oxyCODONE TAB* 5 MG TAB PO PRN ×3 (11:49→20:28)
[2017-04-15] MEDS: Enoxaparin(*) 40 MG/0.4 ML SYR SUBCUT SCH (11:50)
--- NOTE | 2017-04-15 14:13 | PN ---
Subjective Date of Service: 04/15/17 Interval History: Patient seen this morning. CP developed at Cardiology appointment and subsequent EKG had changes. Has numerous complaints this morning including persistent chest pain although this is improved. Is worse with coughing. Reports ongoing fatigue, often feels tired after showering in the morning. Says she has had night sweats for a few months. Reports hx of PNA diagnosed in the past with CT scan when infiltrate has not shown up on CXR, symptoms improved with ABx. Family History: Unchanged from Admission Social History: Unchanged from Admission Past Medical History: Unchanged from Admission Objective Active Medications: Atenolol (Tenormin Tab*) 25 mg PO BID ASHLEY Bupropion HCl (Bupropion Xl*) 300 mg PO DAILY ASHLEY Cholecalciferol (Vitamin D Tab*) 5,000 units PO DAILY ASHLYE Dextrose (D50w Syringe 50 Ml*) 12.5 gm IV PUSH .FOR FS < 60 - SS PRN Duloxetine HCl (Cymbalta Cap*) 30 mg PO BID ASHLEY Enoxaparin Sodium (Lovenox(*)) 40 mg SUBCUT Q24H ASHLEY Gabapentin (Neurontin Cap(*)) 300 mg PO BEDTIME ASHLEY Insulin Human Lispro (Humalog*) 0 units SUBCUT ACHS ASHLEY Lorazepam (Ativan Tab(*)) 0.5 mg PO TID PRN Oxycodone HCl (Roxycodone Tab*) 5 mg PO Q4H PRN Sumatriptan Succinate (Imitrex Tab*) 100 mg PO BID PRN Thyroid (Thyroid Tab*) 60 mg PO DAILY FOR[facility]LY [facility], [facility]1983 Vital Signs 04/15/17 04/15/17 11:32 11:49 Temperature 98.7 F Pulse Rate 81 Respiratory 16 16 Rate Blood Pressure 113/57 (mmHg) O2 Sat by Pulse 97 Oximetry Oxygen Devices in Use Now: None Appearance: Middle-aged, F, laying in bed in NAD Eyes: No Scleral Icterus Ears/Nose/Mouth/Throat: Mucous Membranes Moist Neck: NL Appearance and Movements; NL JVP Respiratory: Symmetrical Chest Expansion and Respiratory Effort, Clear to Auscultation Cardiovascular: NL Sounds; No Murmurs; No JVD, RRR Abdominal: NL Sounds; No Tenderness; No Distention Lymphatic: No Cervical Adenopathy Extremities: No Edema Skin: No Rash or Ulcers Neurological: Alert and Oriented x 3 Result Diagrams: 04/14/17 17:57 08/11/17 17:57 Assess/Plan/Problems-Billing Assessment: Chest pain, cough in a 56 yo F with hx of hypothyroidism, anxiety, depression, tachycardia, ?pre-diabetes - Patient Problems (1) Chest pain Current Visit: Yes Comment: Current pain does not seem consistent with cardiac pain, however does have new T wave inversions on EKG. Troponins have been negative. Continue to monitor on tele. Plan for stress test on Monday as per Cardiology. CT and procalitonin negative, does not seem to have any active pulmonary infection. (2) Hypothyroidism Current Visit: No Comment: Continue home dose of armour thyroid. (3) Prediabetes Current Visit: Yes Comment: Patient states she was placed on Metformin because of her weight and borderline elevated sugars. Continue HISS for now, has not needed. (4) Anxiety and depression Current Visit: No Comment: Continue Cymbalta and Bupropion (5) DVT prophylaxis Current Visit: No Comment: SQ heparin
[2017-04-15] MEDS ORDERED: Acetaminophen TAB* 325 MG PO PRN (14:33)
[2017-04-15] MEDS: Gabapentin CAP(*) 300 MG PO SCH (20:28)
[2017-04-16] MEDS: Insulin LISPRO* 1 UNITS UNIT SUBCUT SCH ×2 (07:14→11:12)
[2017-04-16] MEDS: Ondansetron ODT TAB* 4 MG PO SCH (07:19)
[2017-04-16] MEDS: Cholecalciferol TAB* 1000 UNITS PO SCH (08:27)
[2017-04-16] MEDS: DULoxetine DR CAP* 30 MG CAP.DR PO SCH ×2 (08:27→20:14)
[2017-04-16] MEDS: BuPROPion XL* 300 MG TAB.XL PO SCH (08:27)
[2017-04-16] MEDS: Atenolol TAB* 25 MG PO SCH ×2 (08:30→20:14)
[2017-04-16] MEDS: Thyroid TAB* 30 MG PO SCH (08:30)
[2017-04-16] MEDS: oxyCODONE TAB* 5 MG TAB PO PRN ×4 (08:34→22:48)
--- NOTE | 2017-04-16 09:11 | PN ---
Subjective Date of Service: 04/16/17 Interval History: Patient seen this morning. Says she did not sleep well overnight due to her roommate. Denies fever or chills. Still with dry cough. Chest pain still present but just a light ache. Reviewed CT and blood work, understands she has no infection but "hoping she did" as antibiotics may make her feel better. Said her sister who is a nurse looked up side effects of atenolol and dry cough was listed, wondering if this is the cause of her cough over the past few days. I told her I thought a viral infection was much more likely. Family History: Unchanged from Admission Social History: Unchanged from Admission Past Medical History: Unchanged from Admission Objective Active Medications: Acetaminophen (Tylenol Tab*) 650 mg PO Q6H PRN Atenolol (Tenormin Tab*) 25 mg PO BID ASHLEY Bupropion HCl (Bupropion Xl*) 300 mg PO DAILY ASHLEY Cholecalciferol (Vitamin D Tab*) 5,000 units PO DAILY ASHLEY Dextrose (D50w Syringe 50 Ml*) 12.5 gm IV PUSH .FOR FS < 60 - SS PRN Duloxetine HCl (Cymbalta Cap*) 30 mg PO BID ASHLEY Enoxaparin Sodium (Lovenox(*)) 40 mg SUBCUT Q24H ASHLEY Gabapentin (Neurontin Cap(*)) 300 mg PO BEDTIME ASHLEY Insulin Human Lispro (Humalog*) 0 units SUBCUT ACHS ASHLEY Lorazepam (Ativan Tab(*)) 0.5 mg PO TID PRN Ondansetron HCl (Zofran Odt Tab*) 4 mg PO 0730 ASHLEY Oxycodone HCl (Roxycodone Tab*) 5 mg PO Q4H PRN Sumatriptan Succinate (Imitrex Tab*) 100 mg PO BID PRN Thyroid (Thyroid Tab*) 60 mg PO DAILY ASHLEY Vital Signs 04/15/17 04/15/17 04/15/17 11:32 11:49 11:53 Temperature 98.7 F 98.8 F Pulse Rate 81 77 Respiratory 16 16 16 Rate Blood Pressure 113/57 105/69 (mmHg) O2 Sat by Pulse 97 97 Oximetry 04/16/17 04/16/17 04/16/17 07:24 08:00 08:34 Temperature 98.5 F Pulse Rate 74 Respiratory 18 16 18 Rate Blood Pressure 109/59 (mmHg) O2 Sat by Pulse 97 Oximetry Oxygen Devices in Use Now: None Appearance: Middle-aged, F, laying in bed in NAD Eyes: No Scleral Icterus Ears/Nose/Mouth/Throat: Mucous Membranes Moist Neck: NL Appearance and Movements; NL JVP Respiratory: Symmetrical Chest Expansion and Respiratory Effort, Clear to Auscultation Cardiovascular: NL Sounds; No Murmurs; No JVD, RRR Abdominal: NL Sounds; No Tenderness; No Distention Lymphatic: No Cervical Adenopathy Extremities: No Edema Skin: No Rash or Ulcers Neurological: Alert and Oriented x 3 Result Diagrams: 04/14/17 17:57 04/14/17 17:57 Assess/Plan/Problems-Billing Assessment: Chest pain, cough in a 56 yo F with hx of hypothyroidism, anxiety, depression, tachycardia, ?pre-diabetes - Patient Problems (1) Chest pain Current Visit: Yes Comment: Current pain does not seem consistent with cardiac pain, however does have new T wave inversions on EKG. Troponins have been negative. Continue to monitor on tele. Plan for stress test on Monday as per Cardiology. CT and procalitonin negative, does not seem to have any active pulmonary infection. (2) Hypothyroidism Current Visit: No Comment: Continue home dose of armour thyroid. (3) Prediabetes Current Visit: Yes Comment: Patient states she was placed on Metformin because of her weight and borderline elevated sugars. Continue HISS for now, has not needed. (4) Anxiety and depression Current Visit: No Comment: Continue Cymbalta, Bupropion and prn ativan. (5) DVT prophylaxis Current Visit: No Comment: SQ heparin
[2017-04-16] MEDS: Enoxaparin(*) 40 MG/0.4 ML SYR SUBCUT SCH (10:58)
--- NOTE | 2017-04-16 12:21 | CONS ---
CC: Petra Lilly MD; Zuri Lopez MD * CARDIOLOGY CONSULTATION: DATE OF CONSULT: 04/15/17 INDICATION FOR CONSULTATION: Chest pain. HISTORY OF PRESENT ILLNESS: The patient is a 56-year-old female with a history of diabetes, sleep apnea, obesity, who was admitted to the hospital with chest pain. The patient was seen by Dr. ePtra Lilly at her office on Monday, . While patient was in the office, patient started having chest pain. She described it as severe pain in the center of her chest radiating to her back. It did not radiate anywhere else. She did have some diaphoresis and shortness of breath. The patient did have a blood glucose level checked in our office and it was registered at 70. The patient had an EKG in our office, which showed normal sinus rhythm with T wave inversions in the anterior leads. The patient was sent to the emergency room for evaluation. The patient was admitted to the hospital overnight. The patient continued to have intermittent chest pain overnight. She had no other changes in her EKG. Her troponin levels have been normal overnight. In speaking with the patient today, the patient is placing her hand over her chest during the interview. The patient states that she has continued to have chest pain. It is worse with deep inspiration, it is worse with cough. She denies any radiation of the chest pain to her jaw or shoulder. The patient denies any shortness of breath. She has not had any further episodes of diaphoresis except for the one in my office. The patient does have a history of frequent pneumonia, which in the past had been treated with antibiotics. She has not had any chest pain associated with her episodes of pneumonia, mostly shortness of breath. PAST MEDICAL HISTORY: Significant for asthma, anxiety, depression, diabetes, fibromyalgia, breast cancer. PAST SURGICAL HISTORY: Right mastectomy, left lumpectomy, frequent kidney stones with cystoscopies. OUTPATIENT MEDICATIONS: 1. Lorazepam 0.5 mg as needed. 2. [place] Thyroid 60 mg a day. 3. Calciferol 5000 units a day. 4. Bupropion 300 mg a day. 5. Atenolol 25 mg b.i.d. 6. Gabapentin 300 mg q.h.s. 7. Duloxetine 10 mg twice a day. 8. Metformin 500 mg daily. 9. Imitrex 100 mg twice a day. 10. Oxycodone p.r.n. ALLERGIES: PENICILLIN, LYRICA, IVP DYE, MORPHINE. FAMILY HISTORY: Mother had colon cancer, father had pancreatic cancer. SOCIAL HISTORY: She is , she is a previous smoker. She quit many years ago. Occasional alcohol intake. PHYSICAL EXAM: Height is 5 feet 4 inches, weight 201 pounds, temperature 98.5, heart rate is 76, respiratory rate is 18, blood pressure 109/57, oxygen saturation 97% on room air. Sclerae anicteric. Oropharynx is pink without erythema. Carotids are 2+ without bruits. JVD is normal. Thyroid is normal. Cardiac Exam: S1, S2, without any murmurs, rubs or gallops. Lungs: Clear to auscultation bilaterally. There is no dullness to percussion. Abdomen: Obese , soft, nontender, nondistended with normoactive bowel sounds. Extremities: Show no edema. She has 2+ pulses throughout. Patient is awake, alert, oriented. She moves all 4 extremities equally. DIAGNOSTIC STUDIES/LAB DATA: Chemistries within normal limits. Troponins are negative x3. AST and ALT are normal. CBC within normal limits. EKG demonstrates normal sinus rhythm with T wave inversions in leads V3, V4 and V5, which are new compared to EKG a year ago. In May of 2016, the patient underwent an exercise nuclear stress test, which demonstrated normal perfusion and no evidence of LV dysfunction. Her EF was 58%. The patient had an echocardiogram in June of 2015, which showed an ejection fraction of 55%, left ventricular hypertrophy, mild tricuspid regurgitation. IMPRESSION: This is a 56-year-old female with a history of diabetes, who came to Dr. Lilly's office for evaluation of her cardiac status. While in the office, she did have chest pain and she had an EKG which showed new T wave inversions to the anterior leads. The patient is ruled out for a myocardial infarction. Her troponin levels are negative. PLAN/RECOMMENDATIONS: For now, my recommendation is the patient be evaluated with a chemical nuclear stress test. Even though she had an evaluation in May of 2016, I think it is important to repeat this study given her presentation and changes in her EKG. This has been described in great detail to the patient and she is willing to proceed. This case was discussed with Sony Person. [id number]/[facility] #: [id number] [facility] CENTERRobbie
[2017-04-16] MEDS: Gabapentin CAP(*) 300 MG PO SCH (20:13)
[2017-04-16] MEDS: LORazepam TAB(*) 0.5 MG PO PRN (20:14)
[2017-04-17] MEDS: oxyCODONE TAB* 5 MG TAB PO PRN ×2 (03:47→11:56)
[2017-04-17] MEDS: LORazepam TAB(*) 0.5 MG PO PRN (03:47)
[2017-04-17] MEDS: Ondansetron ODT TAB* 4 MG PO SCH (08:25)
--- NOTE | 2017-04-17 10:12 | RAD ---
HISTORY: Chest pain, EKG changes, shortness of breath, obesity, diabetes COMPARISONS: None TECHNIQUE: A 1 day stress/rest myocardial perfusion study was performed, with pharmacologic stress. The stress portion was monitored by Dr. Joseph. Gated SPECT imaging was performed, with CT-based attenuation correction DOSE: Stress: Technetium 99m tetrofosmin, 25.34 millicuries, injected at 8:54 AM on April 17, 2017 Rest: Technetium 99m tetrofosmin, 10.4 millicuries, injected at 7:24 AM on April 17, 2017 Pharmacologic agent: Lexiscan FINDINGS: CARDIAC MONITORING: Baseline T-wave inversions EF: 67 % TID: 1.25 MOTION: Normal motion, with normal wall thickening. PERFUSION: There are no definite fixed or reversible perfusion defects. There is a fixed defect of the septum on the attenuation corrected images which may be artifactual. OTHER: None IMPRESSION: NO DEFINITE FIXED OR REVERSIBLE PERFUSION DEFECTS ASSESSMENT: LOW RISK. Based on imaging criteria from ACC/AHA 2002. Guideline Update for the Management of Patient's with Chronic Stable Angina, table 23. Noninvasive Risk Stratification.
--- NOTE | 2017-04-17 10:50 | DCNOTE ---
Patient seen this morning. Still some chest pain, stable. No new complaints. On exam, RRR, s1 and s2 present, no m/g/r, lungs CTA B/L, abd obese, soft, NTND , BS+ NST negative. Plan to discharge home today with PCP and Cardiology f/u
[2017-04-17] MEDS: BuPROPion XL* 300 MG TAB.XL PO SCH (11:50)
[2017-04-17] MEDS: Cholecalciferol TAB* 1000 UNITS PO SCH (11:50)
[2017-04-17] MEDS: DULoxetine DR CAP* 30 MG CAP.DR PO SCH (11:50)
[2017-04-17] MEDS: Atenolol TAB* 25 MG PO SCH (11:50)
[2017-04-17] MEDS: Thyroid TAB* 30 MG PO SCH (11:50)
[2017-04-17] MEDS: Enoxaparin(*) 40 MG/0.4 ML SYR SUBCUT SCH (11:52)
[2017-04-17 12:57] VITALS: BP 123/67
[2017-04-17] MEDS ORDERED: Regadenoson* 0.4 MG/5 ML SYRINGE ONE (14:08)
--- NOTE | 2017-04-18 02:38 | DS ---
CC: Radha Marinelli NP; Dr. Petra Lilly * DISCHARGE SUMMARY: DATE OF ADMISSION: 04/14/17 DATE OF DISCHARGE: 04/17/17 PCP: Radha Marinelli NP PRINCIPAL DISCHARGE DIAGNOSIS: Chest pain. SECONDARY DIAGNOSES: 1. Asthma. 2. Anxiety. 3. Depression. 4. Tachycardia. 5. Hypothyroidism. 6. Fibromyalgia. 7. Chronic pain. JUDICIAL REGISTRAR DURING HOSPITALIZATION: Dr. Judd Sanz, Cardiology. STUDIES DONE DURING HOSPITALIZATION: 1. Chest x-ray, impression: No radiographic evidence for acute cardiopulmonary abnormality on this portable chest x-ray. 2. CT of the chest without contrast, impression: No definite evidence of pneumonia is noted. 3. Nuclear cardiac stress test, impression: No definite fixed or reversible perfusion defects. Assessment: Low risk. DISCHARGE MEDICATION REGIMEN: 1. Oxycodone 5 mg by mouth every 4 hours as needed for pain. 2. Fish oil 1 capsule by mouth daily. 3. Sumatriptan 100 mg by mouth 2 times daily as needed for migraine. 4. Metformin 500 mg by mouth daily. 5. Duloxetine 1 tablet by mouth 2 times daily. 6. Gabapentin 300 mg by mouth at bedtime. 7. Atenolol 25 mg by mouth 2 times daily. 8. Bupropion 300 mg by mouth daily. 9. Vitamin D3 5000 units by mouth daily. 10. Thyroid 60 mg by mouth daily. 11. Lorazepam 0.5 mg by mouth 3 times daily as needed for anxiety. HISTORY OF PRESENT ILLNESS AND HOSPITAL SUMMARY: Please see the full history and physical by Dr. Ajit Vang for full details. Briefly, Ms. Gio Barker is a 56-year-old female who presented to the hospital after she was sent in by Dr. Lilly's office, where she was for a routine visit when she developed chest pain as well as a cough. EKG was done there that showed some T- wave inversions in the anterior leads that was not there presently. She was sent to the hospital for further evaluation. Her chest pain persisted throughout most of the hospitalization, it was worse with coughing. The patient underwent additional imaging with CT scan that was also negative for any signs of infection. She was monitored on telemetry and troponins were trended, they remained negative. She was evaluated by Dr. Sanz, who felt that with her EKG changes, we should keep her until the weekend for a cardiac stress test, which was done on 04/17/17 and was unremarkable. It was felt the patient' s symptoms are likely due to a viral infection and perhaps some costochondritis. She will be discharged home with outpatient followup with her PCP and Dr. Lilly. No medication changes were made at this time. TIME SPENT: Total time spent on this discharge was 45 minutes. This is a summary of the hospitalization. Please see the full medical record for further details. [id number]/[facility] #: [id number] MAGALIE
== END 2017-04-17 12:30 | disposition home or self-care (01) | DRG 723 ==
LOC: ED 15:54 → MEDTELE 19:20 → OBSVTOIN 04-15 10:12 → MEDTELE 04-17 00:26
PROVIDERS: ADMIT Internal Medicine; ATTEND Hospitalist
PROC: 4A12XM4 Monitoring of Cardiac Stress, External Approach (ICD-10-PCS; principal; 2017-04-17)
DX: B34.9 Viral infection, unspecified (principal); E11.9 Type 2 diabetes mellitus without complications; I10 Essential (primary) hypertension; M94.0 Chondrocostal junction syndrome [Tietze]; E78.5 Hyperlipidemia, unspecified; Z88.0 Allergy status to penicillin; Z88.2 Allergy status to sulfonamides; Z91.041 Radiographic dye allergy status; K21.9 Gastro-esophageal reflux disease without esophagitis; K58.9 Irritable bowel syndrome, unspecified; Z87.442 Personal history of urinary calculi; M19.90 Unspecified osteoarthritis, unspecified site; M79.7 Fibromyalgia; G43.909 Migraine, unspecified, not intractable, without status migrainosus; F41.9 Anxiety disorder, unspecified; F32.9 Major depressive disorder, single episode, unspecified; Z85.3 Personal history of malignant neoplasm of breast; Z72.89 Other problems related to lifestyle; E03.9 Hypothyroidism, unspecified; F43.10 Post-traumatic stress disorder, unspecified; Z80.0 Family history of malignant neoplasm of digestive organs; Z87.891 Personal history of nicotine dependence; G47.30 Sleep apnea, unspecified; E66.9 Obesity, unspecified; Z87.01 Personal history of pneumonia (recurrent); J45.909 Unspecified asthma, uncomplicated; R00.0 Tachycardia, unspecified; G89.29 Other chronic pain; Z79.84 Long term (current) use of oral hypoglycemic drugs; Z68.34 Body mass index [BMI] 34.0-34.9, adult
CPT/HCPCS: 36415; 71010; 71250; 78452; 80053; 83605; 84145; 84484; 85025; 93005; 93017; 94660; 94760; A9270-GY; A9502; J1650; J2785

== ENCOUNTER 2017-05-22 16:55 | Emergency (ER) | payer BC, OTHER ==
--- NOTE | 2017-05-22 17:21 | UC ---
Lower Extremity/Ankle HPI - HPI Summary HPI Summary: 56 YEAR OLD FEMALE PRESENTS WITH COMPLAINS OF RIGHT ANKLE PAIN SECONDARY TO A FALL. - History of Current Complaint Stated Complaint: ankle injury Time Seen by Provider: 05/22/17 17:20 Hx Obtained From: Patient Onset/Duration: Sudden Onset Severity Initially: Moderate Severity Currently: Moderate Pain Scale Used: 0-10 Numeric - 5 Aggravating Factor(s): Standing Alleviating Factor(s): Rest - Allergies/Home Medications Allergies/Adverse Reactions: Allergies Allergy/AdvReac Type Severity Reaction Status Date / Time Penicillin V Allergy Severe Unknown Verified 05/22/17 17:26 [From Penicillin VK Reaction Potassium] Details Iodinated Contrast Media Allergy Mild Rash Verified 05/22/17 17:26 [CONTRAST DYE] Morphine Allergy Mild Nausea Verified 05/22/17 17:26 Sulfa Drugs Allergy Mild Rash Verified 05/22/17 17:26 Molds & Smuts Allergy Hives Verified 05/22/17 17:26 Pregabalin [From Lyrica] AdvReac Severe See Comment Verified 05/22/17 17:26 Tramadol [From Ultram] AdvReac Severe See Comment Verified 05/22/17 17:26 Cyproheptadine AdvReac Intermediate See Comment Verified 05/22/17 17:26 [From Periactin] Chocolate AdvReac Headache Verified 05/22/17 17:26 Coconut Flavor AdvReac Headache Verified 05/22/17 17:26 Onion AdvReac Headache Verified 05/22/17 17:26 PMH/Surg Hx/FS Hx/Imm Hx Previously Healthy: Yes - Surgical History Surgical History: Yes Surgery Procedure, Year, and Place: HX BREAST CA. - Rt MASECTOMY 2001. HX BREAST IMPLANTS- SILICONE [id number] bilat. KIDNEY STONES removed starting in 1999 x 3. CYST REMOVED FROM L-5 DONE IN [place] BY DR. BEASLEY in MARCH of 2015. LT LUMPECTOMY 2001 - Family History Known Family History: Negative: Cardiac Disease, Hypertension, Diabetes Family History: no reported cardio vascular issues in family lineage - Social History Alcohol Use: Occasionally Alcohol Amount: 1-2 drinks per week Substance Use Type: None Substance Use Comment - Amount & Last Used: oxycodone Smoking Status (MU): Former Smoker Type: Cigarettes Amount Used/How Often: about 1 pack a week Have You Smoked in the Last Year: No When Did the Patient Quit Smoking/Using Tobacco: 1992 - Immunization History Most Recent Influenza Vaccination: never Most Recent Tetanus Shot: 2009 Most Recent Pneumonia Vaccination: received in past Review of Systems Constitutional: Negative Skin: Negative Eyes: Negative ENT: Negative Respiratory: Negative Cardiovascular: Negative Gastrointestinal: Negative Genitourinary: Negative Motor: Negative Neurovascular: Negative Musculoskeletal: Other: - RIHGHT ANKLE PAIN/SWELLING Neurological: Negative Psychological: Negative All Other Systems Reviewed And Are Negative: Yes Physical Exam Triage Information Reviewed: Yes Eye Exam: Normal ENT Exam: Normal Dental Exam: Normal Neck exam: Normal Neck: Positive: 1 Respiratory Exam: Normal Cardiovascular Exam: Normal Abdominal Exam: Normal Musculoskeletal: Positive: Other: - RIGHT ANKLE PAIN/SWELLING Neurological Exam: Normal Psychological Exam: Normal Skin Exam: Normal Lower Extremity Course/Dx - Differential Dx/Diagnosis Provider Diagnoses: RIGHT ANKLE SPRAIN Discharge - Discharge Plan Condition: Stable Disposition: HOME Prescriptions: Ibuprofen TAB* [Motrin TAB* 800 MG] 800 mg PO TID PRN #30 tab PRN Reason: Pain Patient Education Materials: Ankle Sprain (ED) Referrals: Radha Marinelli NP [Primary Care Provider] - Kelli Krishnamurthy MD [Medical Doctor] -
[2017-05-22 17:26] VITALS: BP 136/86
--- NOTE | 2017-05-22 17:56 | RAD ---
HISTORY: Fall, right ankle and foot injury COMPARISONS: None VIEWS: 3, Frontal, lateral, and oblique views of the right ankle and of the right foot FINDINGS: BONE DENSITY: Normal. BONES: There is no displaced fracture. JOINTS: There is osteoarthritis of the first MTP joint ALIGNMENT: There is a valgus. SOFT TISSUES: Unremarkable. OTHER FINDINGS: None. IMPRESSION: HALLUX VALGUS WITH OSTEOARTHRITIS OF THE FIRST MTP JOINT. NO ACUTE OSSEOUS INJURY OF THE RIGHT ANKLE ARE OF THE RIGHT FOOT.. IF SYMPTOMS PERSIST, RECOMMEND REPEAT IMAGING.
== END 2017-05-22 18:17 | disposition home or self-care (01) ==
LOC: UCEAST 16:55
DX: S93.401A Sprain of unspecified ligament of right ankle, initial encounter (principal); W19.XXXA Unspecified fall, initial encounter; Y93.9 Activity, unspecified; Y92.9 Unspecified place or not applicable; Z90.11 Acquired absence of right breast and nipple; Z85.3 Personal history of malignant neoplasm of breast; Z87.442 Personal history of urinary calculi; Z88.5 Allergy status to narcotic agent; Z88.0 Allergy status to penicillin; Z88.2 Allergy status to sulfonamides; Z91.041 Radiographic dye allergy status; Z87.891 Personal history of nicotine dependence
CPT/HCPCS: 99212; G0463

== ENCOUNTER 2017-06-12 13:40 | Emergency (ER) | payer BC | END 2017-06-12 14:35 | disposition left against medical advice (07) | LOC: UCEAST 13:40 | DX: S89.90XA Unspecified injury of unspecified lower leg, initial encounter (principal); X58.XXXA Exposure to other specified factors, initial encounter; Y93.9 Activity, unspecified; Y92.9 Unspecified place or not applicable; Z53.21 Procedure and treatment not carried out due to patient leaving prior to being seen by health care provider ==

== ENCOUNTER 2017-12-02 11:51 | Emergency (ER) | payer BC ==
[2017-12-02] MEDS ORDERED: NS 0.9% 1000 ML* 3,000 ML IV ONE (12:18)
[2017-12-02] MEDS ORDERED: Dexamethasone IV* 4 MG/ML 1 ML (4 MG) IV SLOW PU ONE (12:19)
[2017-12-02 12:43] LABS: ABS Basophils 0.1 10^3/ul (0-0.2); ABS Eosinophils 0.1 10^3/ul (0-0.6); ABS Lymphocytes 2.1 10^3/ul (1.0-4.8); ABS Monocytes 0.4 10^3/ul (0-0.8); ABS Neutrophils 3.6 10^3/ul (1.5-7.7); ABS Nucleated RBC 0 10^3/ul; Eosinophil % 1.7 % (0-6); Hematocrit 42 % (35-47); Hemoglobin 13.9 g/dl (12.0-16.0); Mean Corpuscular HGB Conc 33 g/dl (31-36); Mean Corpuscular Hemoglobin 30 pg (27-31); Mean Corpuscular Volume 90 fL (80-97); Mean Platelet Volume 9.5 um3 (7.4-10.4); Nucleated Red Blood Cells % 0.2; Platelet Count 235 10^3/ul (150-450); Red Blood Count 4.64 10^6/ul (4.0-5.4); Red Cell Distribution Width 14 % (10.5-15); White Blood Count 6.3 10^3/ul (3.5-10.8)
[2017-12-02 12:45] LABS: INR 0.81 (0.77-1.02)
[2017-12-02 12:45] LABS: Urine Appearance Cloudy; Urine Blood Negative (Negative); Urine Color Yellow; Urine Ketones Negative (Negative); Urine Protein Negative (Negative); Urine Specific Gravity 1.016 (1.010-1.030); Urine Urobilinogen Negative (Negative)
[2017-12-02 12:54] LABS: EGFR Non-African American 63.4 (>60)
[2017-12-02] MEDS ORDERED: Meclizine TAB* 12.5 MG PO ONE (13:58)
--- NOTE | 2017-12-02 14:21 | RAD ---
Indication: Dizziness and cramping. Asthma. Pneumonia 2 months ago. Pneumonia 2 months ago. Comparison: No relevant prior exams available on the [facility] [place]. Technique: April 15, 2017 CT. April 14, 2017 chest radiograph. Report: Accounting for superimposed soft tissues including bilateral breast augmentation prostheses the lungs and pleural spaces are clear. Negative for pneumothorax. The heart, pulmonary vasculature, and mediastinal contours are unremarkable. IMPRESSION: No evidence for acute intrathoracic disease.
--- NOTE | 2017-12-02 14:38 | RAD ---
Indication: Dizziness, headache, off balance. Comparison: August 20, 2004 MRI. Technique: Noncontrast CT vertex of skull through foramen magnum. Report: The sulci, ventricles, and basal cisterns are normal for age. Perez matter white matter differentiation is preserved without evidence for edema. No intra or extra axial hemorrhage, mass, or fluid collection detected. Unremarkable visualized orbital contents. Unremarkable calvarium and skull base. Unremarkable scalp. The visualized paranasal sinuses and mastoid air spaces are clear. IMPRESSION: Negative unenhanced head CT.
[2017-12-02 16:28] VITALS: BP 136/64
--- NOTE | 2017-12-02 18:51 | ED ---
Otoniel Xie Natalie, scribed for Remy Augustin MD on 12/02/17 at 1230 . Neurological HPI - HPI Summary HPI Summary: The pt is a 56 y/o F presenting to the [facility] from [facility] c/o muscle spasms all over body starting yesterday. The cramping started in her toes , and has worsened today moving to her shoulders, calves, back, and buttocks. Pt additionally c/o dizziness, shaking, headache, nausea, unsteady gait, and gagging. She has taken potassium and magnesium pills [employer]. She has had similar episodes before, and has been tested for Cushings syndrome because of a lump in the posterior of her head. Results showed hypocortisolism. She has an appointment on 12/22/[address] Finn concerning possible Addisons disease. She has gotten Botox for migraines two days ago to some relief. - History of Current Complaint Chief Complaint: EDDizziness Stated Complaint: CRAMPING NASUEA Time Seen by Provider: 12/02/17 12:10 Hx Obtained From: Patient Onset/Duration: Sudden Onset, Started hours ago - starting yesterday, Still Present Timing: Constant Onset Severity: Severe Current Severity: Severe Neurological Deficit Location: Generalized Pain Intensity: 9 Pain Scale Used: 0-10 Numeric Character: Dizzy, Other: - nausea, muscle spasms in toes, calves, shoulders, and buttocks Aggravating: Nothing Alleviating: Nothing Associated Signs and Symptoms: Positive: Unsteady Gait, Headache, Nausea/ Vomiting - Additional Pertinent History Primary Care Physician: [id number] - Allergy/Home Medications Allergies/Adverse Reactions: Allergies Allergy/AdvReac Type Severity Reaction Status Date / Time cyproheptadine Allergy Nausea And Verified 12/02/17 11:57 [From Periactin] Vomiting Iodinated Contrast- Oral and Allergy Rash Verified 12/02/17 11:57 IV Dye Penicillins Allergy Unknown Verified 12/02/17 11:57 Reaction Details pregabalin [From Lyrica] Allergy suicidal Verified 12/02/17 11:57 Sulfa (Sulfonamide Allergy Rash Verified 12/02/17 11:57 Antibiotics) tramadol Allergy psychosis Verified 12/02/17 11:57 chocolate flavor AdvReac Headache Verified 12/02/17 11:57 morphine AdvReac Nausea Verified 12/02/17 11:57 mold Allergy Hives Uncoded 12/02/17 11:57 coconut flavor AdvReac Headache Uncoded 12/02/17 11:57 onion AdvReac Headache Uncoded 12/02/17 11:57 Home Medications: Home Medications Atenolol TAB* [Tenormin TAB* 50 MG] 25 mg PO BID 12/02/17 [History Confirmed ] BuPROPion XL* [Bupropion XL*] 300 mg PO DAILY 12/02/17 [History Confirmed ] Clindamycin Cap(NF) [Clindamycin Cap 300 mg Cap(NF)] 150 mg PO Q6H 12/02/17 [ History Confirmed 12/02/17] DULoxetine DR CAP* [Cymbalta CAP*] 30 mg PO QAM 12/02/17 [History Confirmed ] DULoxetine DR CAP* [Cymbalta CAP*] 60 mg PO BEDTIME 12/02/17 [History Confirmed 12/02/17] Diflunisal TAB* [Dolobid TAB*] 500 mg PO Q8H PRN 12/02/17 [History Confirmed ] LORazepam TAB(*) [Ativan 0.5 MG TAB (*)] 0.5 mg PO TID PRN 12/02/17 [History Confirmed 12/02/17] Meloxicam(NF) [Mobic(NF)] 7.5 mg PO BID PRN 12/02/17 [History Confirmed 12/02/17 ] SUMAtriptan TAB* [Imitrex TAB*] 100 mg PO DAILY PRN 12/02/17 [History Confirmed 12/02/17] Terbinafine HCl 250 mg PO DAILY 12/02/17 [History Confirmed 12/02/17] oxyCODONE TAB* [Roxycodone TAB 5 mg*] 5 mg PO Q6H PRN 12/02/17 [History Confirmed 12/02/17] PMH/Surg Hx/FS Hx/Imm Hx Previously Healthy: No Endocrine/Hematology History: Denies: Hx Diabetes - pre diabetic a1c within normal limits borderline,HX of , Hx Thyroid Disease Cardiovascular History: Reports: Hx Angina, Hx Hypertension, Other Cardiovascular Problems/Disorders - 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 gunner Denies: Hx Pacemaker/ICD Respiratory History: Reports: Hx Asthma - last episode 3 months ago r/t air contaim at work, Hx Pneumonia, Hx Sleep Apnea, Other Respiratory Problems/ Disorders - pnuemonia 2 months ago Denies: Hx Chronic Obstructive Pulmonary Disease (COPD) GI History: Reports: Hx Diverticulosis, Hx Gastroesophageal Reflux Disease, Hx Hiatal Hernia, Hx Irritable Bowel - constipation and diarrhea no meds Denies: Hx Ulcer History: Reports: Hx Kidney Stones, Other Problems/Disorders - kidney function studies impaired Denies: Hx Dialysis, Hx Renal Disease Musculoskeletal History: Reports: Hx Arthritis - osteo, Hx Fibromyalgia, Hx Orthopedic Injury - LEFT PATELLA DISLOCATION WITH LIGAMENT TEAR, Hx Tendonitis - torn legament right wrist 02/2016, Other Musculoskeletal History - Chronic Pain Denies: Hx Rheumatoid Arthritis, Hx Osteoporosis Sensory History: Reports: Hx Contacts or Glasses - reading Denies: Hx Hearing Aid Opthamlomology History: Reports: Hx Contacts or Glasses - reading Neurological History: Reports: Hx Migraine, Hx Seizures - 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 L4-5 - CYST REMOVED. KIDNEY STONES Hx Anesthesia Reactions: No - slow to awaken after several surgeries - Immunization History Date of Tetanus Vaccine: Unknown Date of Influenza Vaccine: None in Fall 2011 Infectious Disease History: No Infectious Disease History: Denies: Hx Clostridium Difficile, Hx Hepatitis, Hx Human Immunodeficiency Virus (HIV), Hx of Known/Suspected MRSA, Hx Shingles, Hx Tuberculosis, Hx Known/ Suspected VRE, Hx Known/Suspected VRSA, History Other Infectious Disease, Traveled Outside the [place] in Last 30 Days - Family History Known Family History: Negative: Cardiac Disease, Hypertension, Diabetes Family History: no reported cardio vascular issues in family lineage - Social History Alcohol Use: None Alcohol Amount: 1-2 monthly Substance Use Type: Reports: None Substance Use Comment - Amount & Last Used: oxycodone Smoking Status (MU): Former Smoker Type: Cigarettes Amount Used/How Often: about 1 pack a week Have You Smoked in the Last Year: No Review of Systems Positive: Nausea, Other - gagging Neurological: Other - dizziness, body shaking, muscle spasms in toes, calves, shoulders, buttocks Positive: Headache All Other Systems Reviewed And Are Negative: Yes Physical Exam Triage Information Reviewed: Yes Vital Signs On Initial Exam: Initial Vitals Temp Pulse Resp BP Pulse Ox 97.8 F 91 20 113/94 100 12/02/17 11:55 12/02/17 11:55 12/02/17 11:55 12/02/17 11:55 12/02/17 11:55 Vital Signs Reviewed: Yes Appearance: Positive: Well-Appearing, No Pain Distress Skin: Positive: Warm, Skin Color Reflects Adequate Perfusion, Dry Head/Face: Positive: Normal Head/Face Inspection Eyes: Positive: EOMI, MONICA ENT: Positive: Normal ENT inspection, Other - positive rhinorrhea Neck: Positive: Supple, Nontender Respiratory/Lung Sounds: Positive: Clear to Auscultation, Breath Sounds Present Cardiovascular: Positive: RRR Abdomen Description: Positive: Nontender, Soft Bowel Sounds: Positive: Present Musculoskeletal: Positive: Normal, Strength/ROM Intact Neurological: Positive: Normal, Sensory/Motor Intact, Alert, Oriented to Person Place, Time Psychiatric: Positive: Affect/Mood Appropriate Diagnostics - Vital Signs Vital Signs Temp Pulse Resp BP Pulse Ox 12/02/17 11:55 97.8 F 91 20 113/94 100 - Laboratory Lab Results: Lab Results 12/02/17 12/02/17 12/02/17 Range/Units 12:10 12:18 12:18 WBC (3.5-10.8) 10^3/ul RBC (4.0-5.4) 10^6/ul Hgb (12.0-16.0) g/dl Hct (35-47) % MCV (80-97) fL MCH (27-31) pg MCHC (31-36) g/dl RDW (10.5-15) % Plt Count (150-450) 10^3/ul MPV (7.4-10.4) um3 Neut % (Auto) (38-83) % Lymph % (Auto) (25-47) % [place] % (Auto) (0-7) % Eos % (Auto) (0-6) % Baso % (Auto) (0-2) % Absolute Neuts (auto) (1.5-7.7) 10^3/ul Absolute Lymphs (auto) (1.0-4.8) 10^3/ul Absolute Monos (auto) (0-0.8) 10^3/ul Absolute Eos (auto) (0-0.6) 10^3/ul Absolute Basos (auto) (0-0.2) 10^3/ul Absolute Nucleated RBC 10^3/ul Nucleated RBC % INR (Anticoag Therapy) 0.81 (0.77-1.02) APTT 30.6 (26.0-36.3) seconds Sodium 140 (139-145) mmol/L Potassium 4.1 (3.5-5.0) mmol/L Chloride 104 (101-111) mmol/L Carbon Dioxide 29 (22-32) mmol/L Anion Gap 7 (2-11) mmol/L BUN 19 (6-24) mg/dL Creatinine 0.92 (0.51-0.95) mg/dL Est GFR ( Amer) 81.5 (>60) Est GFR (Non-Af Amer) 63.4 (>60) BUN/Creatinine Ratio 20.7 H (8-20) Glucose 105 H (70-100) mg/dL Lactic Acid (0.5-2.0) mmol/L Calcium 9.4 (8.6-10.3) mg/dL Total Bilirubin 0.40 (0.2-1.0) mg/dL AST 24 (13-39) U/L ALT 33 (7-52) U/L Alkaline Phosphatase 67 (34-104) U/L Troponin I 0.00 (<0.04) ng/mL C-Reactive Protein 4.02 (< 5.00) mg/L Total Protein 6.9 (6.4-8.9) g/dL Albumin 4.3 (3.2-5.2) g/dL Globulin 2.6 (2-4) g/dL Albumin/Globulin Ratio 1.7 (1-3) Lipase 40 (11.0-82.0) U/L TSH 2.30 (0.34-5.60) mcIU/mL Cortisol 5.84 mcg/dL Urine Color Yellow Urine Appearance Cloudy Urine pH 7.0 (5-9) Ur Specific [place] 1.016 (1.010-1.030) Urine Protein Negative (Negative) Urine Ketones Negative (Negative) Urine Blood Negative (Negative) Urine Nitrate Negative (Negative) Urine Bilirubin Negative (Negative) Urine Urobilinogen Negative (Negative) Ur Leukocyte Esterase Negative (Negative) Urine Glucose Negative (Negative) Urine Ascorbic Acid * A (Negative) 12/02/17 12/02/17 Range/Units 12:18 12:18 WBC 6.3 (3.5-10.8) 10^3/ul RBC 4.64 (4.0-5.4) 10^6/ul Hgb 13.9 (12.0-16.0) g/dl Hct 42 (35-47) % MCV 90 (80-97) fL MCH 30 (27-31) pg MCHC 33 (31-36) g/dl RDW 14 (10.5-15) % Plt Count 235 (150-450) 10^3/ul MPV 9.5 (7.4-10.4) um3 Neut % (Auto) 57.9 (38-83) % Lymph % (Auto) 33.0 (25-47) % [place] % (Auto) 6.5 (0-7) % Eos % (Auto) 1.7 (0-6) % Baso % (Auto) 0.9 (0-2) % Absolute Neuts (auto) 3.6 (1.5-7.7) 10^3/ul Absolute Lymphs (auto) 2.1 (1.0-4.8) 10^3/ul Absolute Monos (auto) 0.4 (0-0.8) 10^3/ul Absolute Eos (auto) 0.1 (0-0.6) 10^3/ul Absolute Basos (auto) 0.1 (0-0.2) 10^3/ul Absolute Nucleated RBC 0 10^3/ul Nucleated RBC % 0.2 INR (Anticoag Therapy) (0.77-1.02) APTT (26.0-36.3) seconds Sodium (139-145) mmol/L Potassium (3.5-5.0) mmol/L Chloride (101-111) mmol/L Carbon Dioxide (22-32) mmol/L Anion Gap (2-11) mmol/L BUN (6-24) mg/dL Creatinine (0.51-0.95) mg/dL Est GFR ( Amer) (>60) Est GFR (Non-Af Amer) (>60) BUN/Creatinine Ratio (8-20) Glucose (70-100) mg/dL Lactic Acid 0.8 (0.5-2.0) mmol/L Calcium (8.6-10.3) mg/dL Total Bilirubin (0.2-1.0) mg/dL AST (13-39) U/L ALT (7-52) U/L Alkaline Phosphatase (34-104) U/L Troponin I (<0.04) ng/mL C-Reactive Protein (< 5.00) mg/L Total Protein (6.4-8.9) g/dL Albumin (3.2-5.2) g/dL Globulin (2-4) g/dL Albumin/Globulin Ratio (1-3) Lipase (11.0-82.0) U/L TSH (0.34-5.60) mcIU/mL Cortisol mcg/dL Urine Color Urine Appearance Urine pH (5-9) Ur Specific [place] (1.010-1.030) Urine Protein (Negative) Urine Ketones (Negative) Urine Blood (Negative) Urine Nitrate (Negative) Urine Bilirubin (Negative) Urine Urobilinogen (Negative) Ur Leukocyte Esterase (Negative) Urine Glucose (Negative) Urine Ascorbic Acid (Negative) Result Diagrams: 12/02/17 12:18 12/02/17 12:18 Lab Statement: Any lab studies that have been ordered have been reviewed, and results considered in the medical decision making process. - Radiology Chest XR Xray Interpretation: No Acute Changes - No evidence for acute intrathoracic disease. ED physician has reviewed this report. Radiology Interpretation Completed By: Radiologist - CT Brain CT CT Interpretation: No Acute Changes CT Interpretation Completed By: Radiologist - EKG 14:03 Cardiac Rate: NL EKG Rhythm: Sinus Rhythm - [address] Segment: Non-Specific - Non-specific anterior leads. Ectopy: None EKG Comparison: No Significant Change - Similar to prior on 04/16/17 Course/Dx - Course Course Of Treatment: Medications reviewed. Allergies noted. INITIALLY SODIUM OF 111 REPORTED FROM [facility]. TREAT FOR THIS AND POSSIBLE ADRENAL CRISIS STARTED. DR ZHONG, ICU, SAW THE PATIENT IN THE ED WHE OUR SODIUM CAME BACK NORMAL. IT IS MOST LIKELY THE [facility] SODIUM WAS INCORRECT. DIZZINESS IMPROVED WITH MECLIZINE. LESS CRAMPS IN ED AFETER IVF. F/U PMD; RETURN IF WORSE. - Diagnoses Provider Diagnoses: Dizziness, Muscle cramps Discharge - Sign-Out/Discharge Documenting (check all that apply): Discharge - Discharge Plan Condition: Stable Disposition: HOME Discharge Disposition Comment: The pt will be discharged home under stable conditions. Prescriptions: Meclizine HCl [Motion Sickness Relief] 25 mg PO Q6H PRN #20 tablet PRN Reason: Dizziness Patient Education Materials: Dizziness (ED), Muscle Cramp (ED) Referrals: Zuri Lopez MD [Primary Care Provider] - Additional Instructions: FOLLOW UP WITH YOUR DOCTOR. RETURN TO THE EMERGENCY DEPARTMENT FOR ANY WORSENING OF YOUR CONDITION OR QUESTIONS OR CONCERNS. - Billing Disposition and Condition Condition: STABLE Disposition: HOME The documentation as recorded by the Otoniel dutta Natalie accurately reflects the service I personally performed and the decisions made by me, Remy Augustin MD.
== END 2017-12-02 16:27 | disposition home or self-care (01) ==
LOC: ED 11:51
DX: R42 Dizziness and giddiness (principal); R25.2 Cramp and spasm; R51 Headache; R11.2 Nausea with vomiting, unspecified; Z87.891 Personal history of nicotine dependence
CPT/HCPCS: 36415; 70450; 71045; 80053; 81003; 82024; 82533; 83605; 83690; 84443; 84484; 85025; 85610; 85730; 86140; 93005; 96361; 96374; 99282; A9270-GY; J1100

== ENCOUNTER → 2018-02-22 14:53 | Day surgery (SDC) | payer BC ==
--- NOTE | 2018-02-21 22:58 | HP ---
CC: Dr. Joey Rincon; Dr. Petra Lilly; Dr. Sotero Finn; Jenny Ortiz NP , [facility] * ADMITTING HISTORY AND PHYSICAL: DATE OF ADMISSION: 02/22/18 ADMITTING DIAGNOSES: 1. Right hydronephrosis. 2. Calculus, right mid ureter. PLANNED PROCEDURE: Right ureteroscopy, possible laser and stent insertion. SURGEON: Dr. Harris. HISTORY OF PRESENT ILLNESS: Shirley Zaman is a 57-year-old lady with a history of recurrent renal calculi. She had originally been evaluated approximately 10 days ago for right-sided flank pain, vomiting, and gross hematuria. She had been noted to have right hydronephrosis and had been managed conservatively, but recently has been having increasing right flank pain and also left-sided pain and a CT scan was obtained, which revealed 5-mm calculus in the mid right ureter with right hydronephrosis. She was given the option of continuing conservative management, but because this has been going on for more than 10 days and because of the severity of the pain, she would like to proceed with right ureteroscopy. PAST MEDICAL HISTORY: Fairly extensive and includes: 1. History of recently diagnosed immune deficiency for which she has been seeing Dr. Rincon, also primary osteoarthritis of the shoulder region. 2. Tricuspid valve disorder (nonrheumatic). 3. Palpitations. 4. BRCA2 gene mutation positive. 5. History of chronic diastolic heart failure. 6. Obstructive sleep apnea. 7. Gastroesophageal reflux. 8. History of recurrent renal calculi. 9. History of spinal stenosis of lumbar region. 10. Common variable agammaglobulinemia. MEDICATIONS ON ADMISSION: Include: 1. Meloxicam 7.5 mg 1 tablet twice daily as needed for pain. 2. Atenolol 25 mg b.i.d. 3. Zofran 4 mg every 8 hours as needed for nausea. 4. Omeprazole 20 mg a day. 5. Wellbutrin XL 300 mg daily. 6. Lorazepam 0.5 mg 1 tablet up to 3 times a day if needed. 7. Nucynta twice a day for pain. 8. Cymbalta 60 mg q.h.s. and 30 mg q.a.m. 9. Meclizine 25 mg q.6 hours as needed for dizziness. 10. Oxycodone p.r.n. ALLERGIES AND INTOLERANCES: SULFA, PENICILLIN, INTRAVENOUS CONTRAST, ULTRAM. PHYSICAL EXAMINATION GENERAL: Reveals a pleasant, anxious, uncomfortable appearing middle-aged lady. VITAL SIGNS: Blood pressure is 150/90, pulse 97 per minute and regular, oxygen saturation 97% on room air, temperature 96.9. LUNGS: Clear bilaterally. CARDIOVASCULAR: Regular rate and rhythm. S1, S2. ABDOMEN: Soft with right flank tenderness. IMPRESSION: A 57-year-old lady with episodic right flank pain and gross hematuria and a 5-mm calculus in the mid right ureter. PLAN: Right ureteroscopy, possible laser and stent insertion. [id number]/[facility]PS #: [id number] [facility] CENTERRobbie
[~2018-02-22 14:53] MED LIST changes: -Buffered Lidocaine 0.9% SYRIN* 5 ML/SYR SYRINGE INTRADERM ONE; +Gentamicin ADULT (*) 160 MG in NS 0.9% 100 ML* 100 ML IVPB ONE; +Iohexol 180 (CONTRAST) 10 ML SDV IV ONE; +Lidocaine 2% PF * 5 ML VIAL ONE; +Naloxone* 0.4 MG/ML 1 ML VIAL IV PRN; +Ondansetron SYRINGE* 4 MG/2 ML SYRINGE (from 40mg/20ml vial) IV PRN; +Propofol* 10 MG/ML 20 ML BTL IV PUSH ONE; +fentaNYL* 50 MCG/ML 2 ML VIAL (100 MCG VIAL) IV PRN; +fentaNYL* 50 MCG/ML 2 ML VIAL (100 MCG VIAL) ONE
--- NOTE | 2018-02-22 18:30 | RAD ---
INDICATION: Right ureteroscopy and stent insertion. COMPARISON: There are no prior studies available for comparison. TECHNIQUE: 11 seconds of intermittent fluoroscopic guidance were provided and 6 spot films of the abdomen were centered on the right side. FINDINGS: There is partial opacification of the right renal collecting system. Subsequently there is placement of a double-J stent catheter on the right side which demonstrates normal course. IMPRESSION: INTRAOPERATIVE CONTROL FILMS. CPT II Codes: G9500
[2018-02-22 19:03] VITALS: BP 127/72
--- NOTE | 2018-02-22 19:59 | RAD ---
Indication: Right ureteral stent placement. Single view of the abdomen demonstrates right ureteral stent in place. Calcification overlying the left psoas margin appears to be quite dense and is consistent with a metallic foreign body. Clinical correlation is suggested. This was not present on prior study of February 13, 2018. IMPRESSION: Right ureteral stent in place. There is a very dense metallic fragment overlying the left psoas margin which was not identified previously. Metallic artifact cannot BE excluded.
--- NOTE | 2018-02-23 15:16 | OP ---
CC: Radha Marinelli, MARIA ELENA; Jenny Ortiz, LEROY; Dr. Lilly * DATE OF OPERATION: 02/22/18 - [facility] DATE OF : 62 SURGEON: Dr. Harris. ANESTHESIOLOGIST: Dr. Martinez. ANESTHESIA: General. PRE-OP DIAGNOSES: 1. Right hydronephrosis. 2. Calculus, right ureter. POST-OP DIAGNOSES: 1. Right hydronephrosis. 2. Calculus, right ureter, plus multiple calculi, right ureter. OPERATIVE PROCEDURE: Cystoscopy, right retrograde pyelogram, right ureteroscopy , and laser lithotripsy of right ureteral calculi, and right stent insertion. COMPLICATIONS: None. STENT USED: 8-Salvadorean stent, right ureter. POSTOPERATIVE CONDITION: Stable. OPERATIVE FINDINGS: Multiple calculi, right mid ureter with right hydronephrosis, and fairly narrow right ureter. INDICATIONS: Shirley Zaman is a 57-year-old lady with a history of recurrent bilateral renal calculi. She was evaluated for recurrent episodes of gross hematuria and right flank pain. DESCRIPTION OF PROCEDURE: After induction of general anesthesia, the patient was placed in dorsal lithotomy position. Sequential compression devices were in place and functioning. Initial cystoscopy revealed a normal-appearing bladder. Right retrograde pyelogram revealed fullness of the right collecting system and proximal ureter. A 6-Salvadorean semi-rigid ureteroscope was introduced and advanced under direct vision into the right ureter. The entire ureter was fairly narrow and the ureteroscope was carefully manipulated to the level of the mid ureter where there were multiple ureteral calculi noted. Some of these were about 5 to 6 mm in size and using a 550 micron Holmium laser, these were broken up into small fragments. All of the sizeable fragments were removed. The ureteroscope was advanced more proximally to make sure there were no additional large calculi, and none were noted. The ureteroscope was carefully withdrawn under direct vision and an 8- Salvadorean stent was introduced and positioned under fluoroscopy with good proximal and distal positioning obtained. My plan is to leave the stent in for at least a week or so to allow for passive dilatation of the ureter so that any remaining small fragments should be easier to pass after the stent removal. The patient tolerated the procedure satisfactorily and was transferred back to the recovery area in stable condition. [id number]/[facility] #: [id number] [facility]
== END | disposition home or self-care (01) ==
LOC: OR 14:53
PROVIDERS: ATTEND Urology
DX: N20.1 Calculus of ureter (principal); N13.30 Unspecified hydronephrosis; Z79.899 Other long term (current) drug therapy; Z51.81 Encounter for therapeutic drug level monitoring; Z88.2 Allergy status to sulfonamides; Z88.0 Allergy status to penicillin; Z88.8 Allergy status to other drugs, medicaments and biological substances; Z91.041 Radiographic dye allergy status
CPT/HCPCS: 74018; 74420; 82365; 88300; A9270-GY; J1580; J1956; J2704; J3010

== ENCOUNTER 2018-03-06 08:04 | Emergency (ER) | payer BC ==
--- NOTE | 2018-03-06 08:42 | UC ---
Truncal Trauma HPI - HPI Summary HPI Summary: Patient is a 57-year-old female who tripped and fell on an uneven sidewalk yesterday afternoon. She landed on her chest and abdomen. Platelets of bilateral lower rib pain upper abdominal pain and neck pain. She denies any jaw pain or dental injury. Not short of breath but her pain markedly increases with a deep breath. - History Of Current Complaint Chief Complaint: UCChestPain Stated Complaint: RIB INJURY Time Seen by Provider: 03/06/18 08:22 Hx Obtained From: Patient Onset/Duration: Sudden Onset Onset Of Pain: Immediate Severity Initially: Severe Severity Currently: Severe Pain Intensity: 7 Pain Scale Used: 0-10 Numeric Mechanism Of Injury: Fall From A Standing Position Aggravating Factor(s): Movement, Deep Breathing Alleviating factor(s): Nothing, OTC Medication Associated Signs And Symptoms: Positive: Chest Pain, Abdominal Pain - Allergies/Home Medications Allergies/Adverse Reactions: Allergies Allergy/AdvReac Type Severity Reaction Status Date / Time cyproheptadine Allergy Nausea And Verified 03/02/18 11:32 [From Periactin] Vomiting Iodinated Contrast- Oral and Allergy Rash Verified 03/02/18 11:32 IV Dye Penicillins Allergy Unknown Verified 03/02/18 11:32 Reaction Details pregabalin [From Lyrica] Allergy suicidal Verified 03/02/18 11:32 Sulfa (Sulfonamide Allergy Rash Verified 03/02/18 11:32 Antibiotics) tramadol Allergy psychosis Verified 03/02/18 11:32 chocolate flavor AdvReac Headache Verified 03/02/18 11:32 morphine AdvReac Nausea Verified 03/02/18 11:32 mold Allergy Hives Uncoded 03/02/18 11:32 coconut flavor AdvReac Headache Uncoded 03/02/18 11:32 onion AdvReac Headache Uncoded 03/02/18 11:32 Home Medications: Home Medications Ibuprofen TAB* [Motrin TAB* 600 MG] 03/06/18 [History] Pramipexole TAB* [Mirapex TAB*] 03/06/18 [History] PMH/Surg Hx/FS Hx/Imm Hx Endocrine History: Other Other Endocrine History: pre diabetic Cardiovascular History: Hypertension, Other Other Cardiovascular History: no rheumatic valvular disease GI/ History: Kidney Stones Cancer History: Breast Cancer - Surgical History Surgical History: Yes Surgery Procedure, Year, and Place: RIGHT MASTECTOMY left lumpectomy. L4-5 - CYST REMOVED. KIDNEY STONES - 02/19, surgical removal w/ stent placement w/ Dr Falk - Family History Known Family History: Negative: Cardiac Disease, Hypertension, Diabetes Family History: no reported cardio vascular issues in family lineage - Social History Alcohol Use: None Alcohol Amount: 1 drink per week Substance Use Type: Prescribed Substance Use Comment - Amount & Last Used: oxycodone-follows with pain clinic Smoking Status (MU): Former Smoker Type: Cigarettes Amount Used/How Often: about 1 pack a week Have You Smoked in the Last Year: No When Did the Patient Quit Smoking/Using Tobacco: quit 1992 - Immunization History Most Recent Influenza Vaccination: never Most Recent Tetanus Shot: 2009 Most Recent Pneumonia Vaccination: received in past Review of Systems Constitutional: Negative Skin: Negative Eyes: Negative ENT: Negative Respiratory: Negative Cardiovascular: Chest Pain Gastrointestinal: Abdominal Pain Genitourinary: Negative Motor: Negative Neurovascular: Negative Musculoskeletal: Arthralgia Neurological: Negative Psychological: Negative Is Patient Immunocompromised?: No All Other Systems Reviewed And Are Negative: Yes Physical Exam Triage Information Reviewed: Yes Appearance: Well-Appearing, No Pain Distress, Well-Nourished Vital Signs: Initial Vital Signs Temp 97.3 F 03/06/18 08:12 Pulse 90 03/06/18 08:12 Resp 16 03/06/18 08:12 BP 150/89 03/06/18 08:12 Pulse Ox 100 03/06/18 08:12 Vital Signs Reviewed: Yes Eyes: Positive: Conjunctiva Clear ENT: Positive: Normal ENT inspection Neck: Positive: Tenderness @ - c2-c7 midline Respiratory: Positive: No respiratory distress, No accessory muscle use. Negative: Chest non-tender Cardiovascular: Positive: RRR, No Murmur Abdomen Description: Negative: Nontender - tender left UQ >RUQ, CVA Tenderness ( R), CVA Tenderness (L) Musculoskeletal: Positive: No Edema Neurological: Positive: Alert Psychological Exam: Normal Skin Exam: Normal Diagnostics - Radiology No standard instances Xray Interpretation: No Acute Changes - ct CS-no fx CT ABD/PELVIS- no liver or splenic injury Bilat ribs and PA chest XR -no fx Truncal Trauma Course/Dx - Differential Dx/Diagnosis Provider Diagnoses: blunt abdominal trauma. rib /chest contusion. cervical strain Discharge - Sign-Out/Discharge Documenting (check all that apply): Discharge/Admit/Transfer - Discharge Plan Condition: Stable Disposition: HOME Patient Education Materials: Cervical Strain (ED), Blunt Abdominal Injury (ED) , Rib Contusion (ED) Forms: *Work Release Referrals: Radha Marinelli NP [Primary Care Provider] - 3 Days (recheck later this week or early next) Additional Instructions: take you pain pill as directed RECHECK FOR NEW OR WORSENING SYMPTOMS - Billing Disposition and Condition Condition: STABLE Disposition: Home
--- NOTE | 2018-03-06 09:26 | RAD ---
HISTORY: fall rib injury COMPARISONS: None TECHNIQUE: Multiple contiguous axial CT scans were obtained of the cervical spine without intravenous contrast, with coronal and sagittal multiplanar reformations. FINDINGS: BRAIN: The visualized brain is unremarkable CENTRAL CANAL: Evaluation of the central canal is limited on CT technique; however, there is no obvious canalicular mass or epidural hemorrhage. ALIGNMENT: There is straightening of the cervical lordosis. VERTEBRAL BODIES: The odontoid process is intact. The atlantoaxial intervals are symmetric. The vertebral bodies are normal in attenuation, without fracture. JOINTS: There is mild osteoarthritis of the uncovertebral joints. MUSCULATURE: Unremarkable INTERVERTEBRAL DISCS: There is diffuse loss of intervertebral disc height. AXIAL IMAGES: C2-C3: There is no osseous neural foraminal narrowing or central canal stenosis. C3-C4: There is no osseous neural foraminal narrowing or central canal stenosis. C4-C5: There is no osseous neural foraminal narrowing or central canal stenosis. C5-C6: There is no osseous neural foraminal narrowing or central canal stenosis. C6-C7: There is no osseous neural foraminal narrowing or central canal stenosis. C7-T1: There is no osseous neural foraminal narrowing or central canal stenosis. SOFT TISSUES: The visualized soft tissues of the neck are unremarkable. The prevertebral fat stripe is preserved. OTHER: None. IMPRESSION: NO ACUTE OSSEOUS INJURY TO THE CERVICAL SPINE.
[2018-03-06 09:51] VITALS: BP 133/78
--- NOTE | 2018-03-06 09:54 | RAD ---
HISTORY: fall, chest trauma COMPARISONS: None relevant VIEWS: 8, Frontal and oblique views of the left and right hemithorax. FINDINGS: There is no displaced rib fracture or pneumothorax. The visualized lungs are clear. A right ureteral stent is noted. IMPRESSION: NO DISPLACED RIB FRACTURE OR PNEUMOTHORAX.
--- NOTE | 2018-03-06 10:40 | RAD ---
INDICATION: Fell on sidewalk. COMPARISON: Noncontrast CT abdomen pelvis February 21, 2018 TECHNIQUE: Noncontrast axial source images were obtained from the hemidiaphragms to the symphysis pubis. There are coronal and sagittal reconstructions. This examination was ordered using a renal stone protocol which is performed without oral or intravenous contrast and therefore has inherent limitations when used to evaluate other intra-abdominal or intrapelvic pathology. Consider conventional contrast enhanced imaging if clinically. Lung bases: The lung bases are clear. There are bilateral breast implants Liver: The liver is enlarged with findings of hepatic steatosis. There is an incompletely characterized, low suspicion 1 cm hypodensity in the inferior right hepatic lobe, unchanged. Gallbladder: There are no calcified gallstones. There is no evidence of wall thickening or pericholecystic fluid.. Spleen: The spleen is normal in size. The noncontrast CT appearance is normal. Pancreas: Noncontrast imaging shows no pancreatic mass or ductal dilitation. Adrenal glands: No masses are identified. Kidneys/Bladder: There are multiple nonobstructive lower pole left renal calculi. There is interval stenting of the right kidney with resolution of hydronephrotic changes. Adenopathy: There is no evidence of intraperitoneal or retroperitoneal adenopathy. Evaluation is limited without oral contrast. Fluid collections: There are no free or localized fluid collections. Vessels: The aorta and iliac vessels are normal in caliber. There are no significant atherosclerotic changes. The IVC appears normal Pelvic organs: The uterus and adnexa appear normal GI tract: Evaluation of the bowel is limited without oral contrast. The stomach, small bowel, and lower GI tract appear grossly normal. There are no obstructive findings. The metallic density at the level of the cecum is no longer present. Soft tissues: No soft tissue abnormalities of the extraperitoneal abdomen or pelvis are identified. Osseous structures: There are no acute osseous findings. IMPRESSION: 1. Noncontrast imaging demonstrates no acute CT findings. 2. Interval placement of right ureteral stent with resolution of hydronephrotic changes. Nonobstructive left-sided nephrolithiasis. 3. Hepatomegaly with hepatic steatosis
== END 2018-03-06 10:57 | disposition home or self-care (01) ==
LOC: UCEAST 08:04
DX: S20.219A Contusion of unspecified front wall of thorax, initial encounter (principal); S39.91XA Unspecified injury of abdomen, initial encounter; S16.1XXA Strain of muscle, fascia and tendon at neck level, initial encounter; I10 Essential (primary) hypertension; Z88.0 Allergy status to penicillin; Z88.2 Allergy status to sulfonamides; Z91.041 Radiographic dye allergy status; Z88.8 Allergy status to other drugs, medicaments and biological substances; Z87.891 Personal history of nicotine dependence; W01.0XXA Fall on same level from slipping, tripping and stumbling without subsequent striking against object, initial encounter; Y92.480 Sidewalk as the place of occurrence of the external cause
CPT/HCPCS: 71111; 72125; 74176; 99213; G0463

== ENCOUNTER 2019-01-20 14:19 | Emergency (ER) | payer BC ==
--- OUTSIDE RECORDS SUMMARY | 2019-01-20 14:54 | XMS REPORT | Continuity of Care Document ---
:1960 External Reference #:[id number] Author Name Chester Coronado M.D. Address [address] [facility] [place] [address] Care Team Providers Name Role Phone Tammy Sibley M.D. Primary Care Physician Unavailable Payers Date Identification Numbers Payment Provider Subscriber Policy Number: [id number] [facility] Shirley Powers PayID: [id number] [address] [address] [place] [address] Advance Directives Description No Information Available Problems Active Problems Provider Date Essential hypertension Onset: Tachycardia Onset: Anxiety Onset: Moderate depression Onset: Spasm of back muscles Onset: Muscle spasms of head AND/OR neck Onset: Rosacea Onset: Acid reflux Onset: Restless legs Onset: Hypercholesterolemia Onset: Migraine Onset: Malignant neoplasm of female breast Onset: Note: 2001 Third [oculomotor] nerve palsy, left eye Chester Coronado M.D. 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 Prazosin HCL Unknown 1mg Capsules Sumatriptan Succinate Unknown 100mg Tablets Ondansetron HCL take 1 tablet by Unknown 4mg Tablets mouth every 8 hours if needed for nausea Lidocaine apply to affected Unknown 5% Ointment area three times a day Cyclobenzaprine HCL take 1 tablet by Unknown 5mg mouth three times Tablets a day if needed Meloxicam take 1 tablet by Unknown 7.5mg Tablets mouth twice a day with food or milk Aczone Unknown 7.5% Gel Lorazepam take 1/2 to 1 Unknown 1mg Tablets tablet by mouth three times a day if needed for anxiety Buspirone HCL take 1 tablet by Unknown 15mg Tablets mouth twice a day Atenolol Unknown 50mg Tablets Pramipexole Unknown Dihydrochloride 0.125mg Tablets Duloxetine HCL take 1 capsule by Unknown 60mg Caps DR mouth once daily Part Bupropion Hydrochloride take 1 tablet by Unknown ER (XL) mouth daily 300mg Tablets ER 24HR Oxycodone HCL take 1 tablet by Unknown 5mg Tablets mouth every 4 hours if needed for pain Nucynta ER take 1 tablet by Unknown 150mg Tablets ER mouth twice a day 12HR if needed Rosuvastatin Calcium take 1 tablet by Unknown 5mg mouth at bedtime Tablets Doxycycline Hyclate Unknown 50mg Capsules Immunizations Description No Information Available Vital Signs Description No Information Available Results Description No Information Available Procedures Date Code Description Status 09/26/2005 37752 Determination Of Refractive State Completed 09/26/2005 88807 Est Patient Comprehensive Exam Completed 09/21/2005 94662 Rescheduled Appointment Completed 06/10/2004 49813 Determination Of Refractive State Completed Encounters Type Date Location Provider Dx Diagnosis Office Visit 06/10/2004 Jacques Billings, 372.72 Conjunctival 9:00a , mateusz Crow. Hemorrhage Plan of Treatment 01/03/2019 - Chester Coronado M.D.H49.02 Third [oculomotor] nerve palsy, left eyeComments:Smoking can increase the risk of developing or worsening any eye related disease, as well as affect your overall health. If you are a smoker, we strongly recommend that you quit.If you are not a smoker, we strongly recommend that you do not start.Follow up:1 Week Follow Up DIPLOPIA CHECK At your next visit, we are not planning to dilate your eyes. However, if you have any changes in your vision or new symptoms, there are certain situations that require us to dilate your eyes. If Dr. Coronado requests any additional testing , that may require extra time.If you have any questions before your next appointment, please call our office at .
--- OUTSIDE RECORDS SUMMARY | 2019-01-20 14:55 | XMS REPORT | Continuity of Care Document ---
:1960 External Reference #:[id number] Author Name Anny Chanel Care Team Providers Name Role Phone Radha Marinelli NP Primary Care Physician Unavailable Payers Date Identification Numbers Payment Provider Subscriber Effective: Policy Number: [id number] [employer] Shirley 2015 Junie PayID: [id number] [address] [address] [place] [address] Expires: 2016 PayID: [id number] Bankruptcy Shirley Zaman [address] [address] Advance Directives Description No Information Available Problems Active Problems Provider Date Chronic diastolic heart failure Petra Lilly M.D. Onset: 12/18/2015 Tricuspid valve disorder, Petra Lilly M.D. Onset: 09/29/2017 non-rheumatic Obstructive sleep apnea syndrome Samira Nino DNP, RN, Onset: 12/18/2015 [facility] BRCA2 gene mutation positive Robby Carbajal NP Onset: 10/04/2016 Refractory migraine Adilia Dawson M.D. Onset: 09/15/2014 Spinal stenosis of lumbar region Twan Deras M.D. Onset: 11/13/2014 Kidney stone Petra Lilly M.D. Onset: 09/17/2015 Obesity Samantha Oconnell MD Onset: 09/23/2015 Gastroesophageal reflux disease Samantha Oconnell MD Onset: 09/23/2015 Dyspnea Petra Lilly M.D. Onset: 10/27/2015 Hypersomnia Samira Nino DNP, RN, Onset: 12/18/2015 [facility] Sprain of cruciate ligament of knee Nito Cardoza MD Onset: 07/14/2017 Electrocardiogram abnormal Petra Lilly M.D. Onset: 07/25/2017 Unspecified injury of muscle(s) and Vijay Hugo MD Onset: 08/11/2017 tendon(s) of the rotator cuff of right shoulder, subsequent encounter Knee joint effusion Nito Cardoza MD Onset: 08/25/2017 Sprain of other ligament of right Nito Cardoza MD Onset: 08/25/2017 ankle, subsequent encounter Palpitations Petra Lilly M.D. Onset: 09/29/2017 Localized, primary osteoarthritis of Vijay Hugo MD Onset: 11/21/2017 the shoulder region Preoperative cardiovascular Petra Lilly M.D. Onset: 12/04/2017 examination Essential hypertension Petra Lilly M.D. Onset: 11/09/2018 Family History Date Family Member(s) Observation Comments General Hyperlipidemia General [place] Maternal aunt age 52 General Breast Cancer General Lupus General Rheumatoid Arthritis General Sleep Apnea General Kidney Cancer Father Pancreatic Cancer age 52 Father Lupus Father Rheumatoid Arthritis Mother Colon Cancer age 66 Siblings 3 1 Brother - Bladder Cancer (doing well), High cholesterol 1 Brother - High Cholesterol 1 Sister - Early onset Parkinson's Disease Social History Type Date Description Comments Sex Unknown Marital Status Lives With Occupation Currently Working Occupation [employer] Tobacco Use Start: Unknown End: Former Cigarette Unknown Smoker Tobacco Use Start: Unknown Quit in 1992 Smoking Status Reviewed: 12/31/18 Quit in 1992 ETOH Use Currently consumes 1-2 per week (wine alcohol coolers), sometimes none. Tobacco Use Start: Unknown End: Patient is a former Unknown smoker Recreational Drug Use Denies Drug Use Quit in her 20s Tobacco Use Start: Unknown End: Patient is a former Quit in 1992 Unknown smoker Exercise Type/Frequency Does not exercise Allergies, Adverse Reactions, Alerts Active Allergies Reaction Severity Comments Date Penicillin unknown 02/11/2013 Ultram Urticaria 02/11/2013 Periactin Urticaria 02/11/2013 Contrast Dye Urticaria 02/11/2013 Lyrica mental issuses 11/13/2014 Chocolate, Coconut 06/05/2015 Molds hives 06/05/2015 Metoprolol diarrhea 09/17/2015 Topiramate kidney stones 07/31/2017 Abilifdeandre manic 12/21/2018 Medications Active Medications SIG Qnty Indications Ordering Date Provider Rosuvastatin Calcium take 1 tablet by 90tabs E78.2 Radha Marinelli, 2018 5mg mouth at bedtime N.P. Tablets Lidocaine apply externally 50ml R07.89 Radha Marinelli, 03/12/2018 5% Ointment three times a day as N.P. needed Duloxetine HCL take 1 capsule by Lila Courtney, 01/03/2018 60mg Caps mouth daily ( MD DR Kirk downs since 6 months ago) Buspirone HCL take 1 tablet by Lila Courtney, 12/22/2017 15mg mouth twice a MD Tablets day(Taken only in PM) takes as needed Atenolol 1/2 by mouth twice a 90tabs R00.0 Petra Lilly, 09/29/2017 50mg Tablets day M.D. Pramipexole take 1-2 tablets by 30tabs G25.81 Radha Marinelli, 09/26/2017 Dihydrochloride mouth once daily 1 N.P. 0.125mg hour before bedtime Tablets Zofran take 1 tablet by 30tabs Radha Marinelli, 06/01/2017 4mg Tablets mouth every 8 hours N.P. as needed for nausea Omeprazole 1 by mouth every day 30caps Radha Marinelli, 05/12/2017 20mg Capsules as needed N.P. DR Dunbar injected q 3 months Adilia Dawson, 11/14/2013 100Unit Solution for intractable M.D. Rec migraines Sumatriptan Succinate 1 tab as needed 12tabs Adilia Dawson, 04/10/2013 migraine headache; M.D. 100mg Tablets may repeat after two hours, max 2 a day, max 2 days a week mdd 2.. Flexeril take 1-2po [id number] 60tabs Adilia Dawson, 05/03/2012 5mg Tablets prn muscle spasm M.D. Nucynta ER take 1 by mouth Unknown 150mg Tablets twice a day ER 12HR Prazosin HCL 1 @ at bedtime Unknown 1mg Capsules Uricalm 1 po as needed when Unknown passing kidney stone (not taking) Meloxicam 1 by mouth as needed Unknown 7.5mg Tablets Bupropion 1 tablet po daily Am Sherwin Lila, Hydrochloride ER (XL) 300mg Tablets ER 24HR Aspercreme Max Roll-On apply daily as Unknown Arthritis Strength needed 16% Liquid Ivig IV infusion every 3 Unknown weeks for immunoglobulin therapy Oxycodone HCL prn Unknown 5mg Tablets Bipap vs Cpap,( hasnt been Unknown Device using d/t freezing face) Vitamin D-3 1 by mouth every Unknown 5000Units day- Not taking on a Capsules daily bases. 12/21/18 Lorazepam Take 1 Tablet By Unknown 0.5mg Tablets Mouth 3 Times A Day If Needed For Anxiety ( taken 1/2 tablet po as needed) History Medications Nystatin 4 milliliters four 120ml B37.0 Radha Marinelli, 01/30/2018 - 373207Ykoj/ML times a day, swish N.P. 03/22/2018 Suspension and swallow for 14 days (pt not using) Doxycycline Hyclate take 1 tablet by Simon Tyler, 12/15/2017 - mouth twice a day 11/08/2018 100mg Tablets Cyclobenzaprine HCL take 1 tablet by Angel, 12/13/2017 - 5mg mouth three times Jenny, 11/08/2018 Tablets a day as Needed ( [facility] taking 1 tablet po as needed every 3 days) Meloxicam take one tab twice 30tabs M79.7 Wan Salazar, 11/20/2017 - 7.5mg Tablets daily as needed M.D. 03/22/2018 for pain, avoid other nsaids Doxycycline Hyclate one po bid x 7 14tabs L03.115 Radha Marinelli, 2017 - days N.P. 11/07/2017 100mg Tablets Mupirocin apply intranasally 44gm J34.81 Radha Marinelli, 10/31/2017 - 2% Ointment bid for 5 days5 N.P. 11/08/2018 Ketoconazole apply once daily 60units B35.3 Radha Marinelli, 10/31/2017 - 2% Cream to affected area N.P. 10/07/2018 Wellbutrin XL 1 po qd in am 90tabs Lila Courtney, 08/03/2017 - 100 MD 11/08/2018 Tablets ER 24HR Caltrate 600+D Plus take one 180units Wan Salazar, 07/16/2017 - Minerals capsule/tablet by Chloe 09/28/2017 [id number] mouth twice daily Chewtabs B12 Fast Dissolve sl daily 90tabs Wan Salazar, 07/05/2017 - Chloe 12/18/2018 5000mcg Tablets Dispers Naltrexone HCL 4.5 mg compounded 15gm M79.1 Wan Salazar, 07/05/2017 - Powder in capsules by Chloe 07/25/2017 mouth every day ( pt stop taking ) Celebrex 1 by mouth every 30caps M79.7 Zuri 05/22/2017 - 200mg Capsules day Chloe Lopez 11/20/2017 Zofran take 1 tablet by 30tabs Radha Marinelli, 05/12/2017 - 4mg Tablets mouth every 8 N.P. 05/26/2017 hours as needed for nausea Cipro 1 by mouth twice a 28tabs R10.84 Radha Marinelli, 05/05/2017 - 500mg Tablets day for 14 days N.P. 05/19/2017 Metronidazole one tablet by 21tabs R10.84 Radha Marinelli, 05/05/2017 - 500mg mouth 3 times N.P. 05/12/2017 Tablets daily for 7 days Gabapentin one po tid ( Pt 90caps N95.1 Radha Marinelli, 02/09/2017 - 300mg stop taking 1 week N.P. 07/25/2017 Capsules ago ) Nystatin 4 milliliters four 120ml B37.0 Radha Marinelli, 02/09/2017 - 706264Adpf/ML times a day, swish N.P. 07/30/2017 Suspension and swallow for 14 days (pt not using) Cephalexin 1 by mouth three 30caps H66.91 Rdaha Marinelli, 02/09/2017 - 500mg times a day for 10 N.P. 02/19/2017 Capsules days Tizanidine HCL take 1 to by mouth 30caps Z00.00 Adilia Dawson, 01/23/2017 - 2mg at bed time,prn M.D. 03/22/2018 Capsules muscle spasm while botox is wearing off.(no longer taking per pt) Metformin HCL Not Taking 30tabs R73.01 Radha Marinelli, 01/09/2017 - 500mg N.P. 07/25/2017 Tablets Medrol 6 by mouth day 1, 21units M25.511 Radha Marinelli, 11/23/2016 - 4mg TBPK 5 by mouth day 2, N.P. 11/29/2016 4 by mouth day 3, 3 by mouth day 4, 2 by mouth day 5, 1 by mouth day 6 Valium 1 tablet by mouth 1tabs M54.5 Radha Marinelli, 09/30/2016 - 10mg Tablets 30 minutes before N.P. 10/01/2016 mri Cipro 1 by mouth twice a 20tabs Radha Marinelli, 09/28/2016 - 500mg Tablets day for 10 days N.P. 10/08/2016 Metronidazole one tablet by 21tabs Radha Marinelli, 09/28/2016 - 500mg mouth 3 times N.P. 10/05/2016 Tablets daily for 7 days Levaquin 1 by mouth daily 10tabs J18.9 Radha Marinelli, 09/20/2016 - 500mg Tablets for 10 days N.P. 09/28/2016 Benzonatate one by mouth three 30caps J18.9 Radha Marinelli, 09/20/2016 - 200mg times daily as N.P. 10/04/2016 Capsules needed for cough Benzonatate take one or two 20caps J01.90 Robby Carbajal NP 06/15/2016 - 100mg capsules every 8 06/27/2016 Capsules hours as needed for cough. Doxycycline Hyclate one tablet twice 20caps J01.90 Robby Carbajal NP 2015 - daily for 10 days. 06/25/2016 100mg Capsules Azelastine HCL spray 2 spray in 30ml J01.90 Robby Carbajal NP 06/15/2016 - (Nasal) each nostril two 06/27/2016 0.1% Solution times a day as needed [place] 1 by mouth q6 hour 25tabs Magdalene 04/21/2016 - 5-325mg Tablets as needed pain Osorio, M.D. 06/15/2016 Atenolol 1 by mouth twice a 180tabs R00.0 Petra Graysonsher, 09/17/2015 - 25mg Tablets day M.D. 09/29/2017 Cardizem CD 1 by mouth once a 30caps R00.0 Petra Lilly, 08/17/2015 - 120mg Caps day, Pt not taking M.D. 09/18/2015 ER 24HR Toprol XL 1 and 1/2 by 90tabs R94.39 Petra Lilly, 07/22/2015 - 25mg Tablets mouth every day M.D. 08/17/2015 ER 24HR Prednisone 1 po 13 hrs before 3tabs Twan Deras, 11/26/2014 - 50mg Tablets ct contrast, then M.D. 12/03/2014 1 po [address] contrast, then 1 po [address] contrast [place] Thyroid 1 by mouth twice 90tabs Twan Deras, 11/13/2014 - 30mg day M.D. 06/03/2015 Tablets Topamax 1 by mouth twice a Adilia Dawson, 09/15/2014 - 100mg Tablets day ( Not Taking ) M.D. 01/09/2017 Depakote ER take 1 po q am, 90tabs Adilia Dawson, 10/22/2012 - 250mg and 2 po qpm M.D. 02/15/2013 Tablets ER 24HR Nitrofurantoin take 1 capsule by Unknown - Monohyd Macro mouth twice a day 04/10/2017 100mg for 7 days Capsules Nitrofurantoin take 1 capsule by Unknown - Monohyd Macro mouth twice a day 03/24/2017 100mg for 7 days Capsules Fish Oil 1 by mouth Unknown - 500mg Capsules qd.....(hasnt been 12/18/2017 taking per pt d/t makes sick to stomache) Cymbalta 1 tabs qhs and 1 Unknown - 30mg Caps tab q am 01/11/2018 Part Oxycodone HCL 1 capsule every 8 Unknown - 5mg hours as needed 07/24/2017 Capsules for pain (stop taking 1 month ago) Naproxen DR Take 1 tab tid as Unknown - 500mg directed 01/22/[address] Oxycodone HCL 1-2 tabs by mouth Unknown - 5mg every 4-6 hours as 09/20/2016 Capsules needed pain Flonase Allergy spray 1 spray in Unknown - Relief each nostril twice 12/18/2017 50mcg/Act daily OTC As Suspension needed ( ran out ) Aripiprazole take 1 tablet by Unknown - 5mg mouth once daily 05/05/2016 Tablets Bactrim DS 1 by mouth twice a Unknown - 800-160mg day 05/11/2016 Tablets Vesicare Unknown - 10mg Tablets 04/10/2017 Hydrocodone-Acetamino 1 po every 4-6 Unknown - phen hours for back and 12/03/2017 7.5-325mg Tablets neck pain Magnesium 1 by mouth every Unknown - 500mg Tablets day 01/30/2018 Meclizine HCL hasnt cotton picker from [place], - 25mg phar steven Del Toro MD 11/08/2018 Tablets Terbinafine HCL take 1 tablet by Unknown - 250mg mouth once daily ( 03/19/2018 Tablets stop taking 1 week ago ) Rexulti 1 by mouth every Unknown - 4mg Tablets day 05/10/2018 Biotin 1 tab daily otc Unknown - 5000mcg Capsules 12/18/2018 Nucynta ER 1 by mouth twice a Unknown - Tablets ER day 02/28/2018 12HR Clindamycin HCL take one tab twice Unknown - daily 02/28/2018 Capsules Nucynta 1 1/2 tabs twice Unknown - Tablets a day 12/18/2018 Nucynta ER 1 tab by mouth Unknown - 100mg twice a day (pill 12/17/2018 Tablets ER 12HR bottle with 150mg pills) Neurontin 1 tab po bid 60caps Unknown - 100mg 06/03/2014 Capsules Abilify 1 po qd at hs 30tabs Unknown - 5mg Tablets 01/09/2017 Paxil 1 tab qam 30tabs Unknown - 10mg Tablets 02/09/2017 Phentermine HCL 1/2 po bid 30caps Unknown - 30mg 11/14/2013 Capsules Vicodin take 1 po q6 hours 240tabs Unknown - 5-300mg Tablets prn for pain. 08/14/2013 Ibuprofen 1 po Q6 prn pain 90tabs Unknown - 600mg Tablets 02/02/2014 Tizanidine HCL 1 cap po hs prn 150caps Unknown - 2mg insomnia 11/13/2014 Capsules Voltaren Apply topically to Unknown - 1% Gel shoulder prn 05/22/2015 Naproxen taking 2 po q 4 Unknown - 250mg Tablets days (self 02/02/2014 perscribed) Acetaminophen take 2 po every Unknown - 500mg 4th day (self 02/02/2014 Tablets perscribed) Topamax 1 by mouth twice a 60tabs Unknown - 50mg Tablets day 09/15/2014 Phentermine HCL 1/2 bid Unknown - 30mg 11/13/2014 Capsules Butrans topical patch 4units Unknown - 5mcg/HR Patches every week 05/22/2015 Weekly Clonidine HCL 1 by mouth qd 30tabs Unknown - 0.1mg 05/31/2015 Tablets Oxycodone HCL 1 by mouth q4-6 Unknown - 5mg hours prn pain 04/20/2016 Capsules Vitamin D3 Maximum 1 by mouth every Unknown - Strength day(pt has not 10/25/2016 5000Unit been taking) Capsules Chromium Picolinate one tab twice a Unknown - Ultra day 05/22/2015 500mcg Tablets [place] Thyroid take one by mouth Unknown - 60mg in the morning 04/20/2017 Tablets Ciprofloxacin HCL take 1 tablet by Unknown - 500mg mouth twice a day 09/06/2015 Tablets until gone Nitrofurantoin 1 by mouth twice a Unknown - Macrocrystal day 10/26/2015 100mg Capsules Vesicare 1 by mouth every Unknown - 10mg Tablets day 10/26/2015 Fish Oil 1 by mouth every Unknown - 1000mg day(patient has 10/25/2016 Capsules not been taking) Medications Administered in Office Medication SIG Qnty Indications Ordering Provider Date Technetium TC 99M Tetrofosmin, Davin Gillette, 12/11/2018 Per Unit Dose Up To 40 [facility] Triamcinolone (Kenalog) Nito Cardoza MD 09/07/2018 Injection No Injection Wan Salazar M.D. 05/10/2018 Injection No Injection Wan Salazar M.D. 05/10/2018 Injection Triamcinolone (Kenalog) Nito Cardoza MD 01/12/2018 Injection Triamcinolone (Kenalog) Nito Cardoza MD 10/27/2017 Injection Depomedrol 40MG Vijay Hugo MD 09/15/2017 Injection Celestone 3 mg and 3mg Vijay Hugo MD 08/11/2017 Injection Injection Onabotulinumtoxin A, Twan Eli M.D. 10/25/2016 1 Unit Injection Injection Onabotulinumtoxin A, Twan Eli M.D. 06/24/2016 1 Unit Injection Technetium TC 99M Tetrofosmin, Davin Gillette, 05/24/2016 Per Unit Dose Up To 40 [facility].D., [facility] In[facility] Injection Onabotulinumtoxin AAdilia M.D. 03/09/2016 1 Unit Injection Injection Onabotulinumtoxin A, Adilia Dawson M.D. 12/07/2015 1 Unit Injection Injection Onabotulinumtoxin A, Adilia Dawson M.D. 09/07/2015 1 Unit Injection Inj, Regadenoson, 0.1 MG Judd Sanz M.D. 07/17/2015 Injection Technetium TC 99M Tetrofosmin, Judd Sanz M.D. 07/17/2015 Per Unit Dose Up To 40 Millicuries Injection Technetium TC 99M Tetrofosmin, WARD Marquez 07/17/2015 Per Unit Dose Up To 40 Millicuries Injection Injection Onabotulinumtoxin A, Adilia Dawson M.D. 06/01/2015 1 Unit Injection Injection Onabotulinumtoxin A, Jenny Redmond NP 02/17/2015 1 Unit Injection Injection Onabotulinumtoxin A, Adilia Dawson M.D. 09/15/2014 1 Unit Injection Injection Onabotulinumtoxin A, Adilia Dawson M.D. 06/04/2014 1 Unit Injection Injection Onabotulinumtoxin A, Adilia Dawson M.D. 02/20/2014 1 Unit Injection Injection Onabotulinumtoxin A, Adilia Dawson M.D. 11/14/2013 1 Unit Injection Injection Onabotulinumtoxin AAdilia M.D. 08/14/2013 1 Unit Injection Injection Onabotulinumtoxin AAdilia M.D. 05/16/2013 1 Unit Injection Injection Onabotulinumtoxin AAdilia M.D. 02/11/2013 1 Unit Injection Injection Onabotulinumtoxin AAdilia M.D. 10/22/2012 1 Unit Injection Injection Onabotulinumtoxin AAdilia M.D. 07/18/2012 1 Unit Injection Injection Onabotulinumtoxin AAdilia M.D. 04/16/2012 1 Unit Injection Immunizations Description No Information Available Vital Signs Date Vital Result Comment 12/31/2018 3:20pm Height 64 inches 5'4" Weight 200.12 lb Heart Rate 83 /min BP Systolic 110 mmHg BP Diastolic 69 mmHg Body Temperature 98.9 F O2 % BldC Oximetry 95 % BMI (Body Mass Index) 34.3 kg/m2 12/21/2018 10:32am Height 64 inches 5'4" Weight 200.00 lb Heart Rate 68 /min BP Systolic Sitting 106 mmHg BP Diastolic Sitting 62 mmHg Respiratory Rate 14 /min O2 % BldC Oximetry 96 % BMI (Body Mass Index) 34.3 kg/m2 12/19/2018 9:09am Height 64 inches 5'4" Weight 202.00 lb Heart Rate 82 /min BP Systolic Sitting 142 mmHg BP Diastolic Sitting 90 mmHg BMI (Body Mass Index) 34.7 kg/m2 12/17/2018 3:04pm Height 64 inches 5'4" Weight 204.00 lb with shoes Heart Rate 80 /min BP Systolic Sitting 150 mmHg Lue reg cuff BP Diastolic Sitting 100 mmHg Lue reg cuff BP Systolic Standing 150 mmHg Lue reg cuff BP Diastolic Standing 100 mmHg Lue reg cuff Respiratory Rate 16 /min BMI (Body Mass Index) 35.0 kg/m2 11/09/2018 2:23pm Height 64 inches 5'4" Weight 199.00 lb with out shoes Heart Rate 64 /min BP Systolic Sitting 162 mmHg Lue reg cuff BP Diastolic Sitting 100 mmHg Lue reg cuff BP Systolic Standing 154 mmHg Lue reg cuff BP Diastolic Standing 100 mmHg Lue reg cuff Respiratory Rate 16 /min BMI (Body Mass Index) 34.2 kg/m2 Ejection Fraction 55-60% date 09/21/2017 echo 10/03/2018 9:21am Height 64 inches 5'4" Weight 199.00 lb Heart Rate 80 /min BP Systolic Sitting 105 mmHg BP Diastolic Sitting 74 mmHg Body Temperature 99.5 F O2 % BldC Oximetry 96 % BMI (Body Mass Index) 34.2 kg/m2 09/07/2018 1:13pm Height 64 inches 5'4" Weight 200.00 lb BP Systolic 127 mmHg BP Diastolic 82 mmHg Respiratory Rate 17 /min Pain Level 5 BMI (Body Mass Index) 34.3 kg/m2 07/06/2018 1:08pm Height 64 inches 5'4" Weight 200.00 lb Heart Rate 84 /min Respiratory Rate 12 /min Body Temperature 98.6 F Pain Level 7 BMI (Body Mass Index) 34.3 kg/m2 05/10/2018 3:48pm Height 64 inches 5'4" Weight 213.50 lb Heart Rate 87 /min BP Systolic Sitting 124 mmHg BP Diastolic Sitting 82 mmHg Pain Level 4 O2 % BldC Oximetry 97 % BMI (Body Mass Index) 36.6 kg/m2 03/23/2018 4:33pm Height 64 inches 5'4" Weight 212.00 lb Heart Rate 88 /min BP Systolic Sitting 122 mmHg BP Diastolic Sitting 86 mmHg Pain Level 6 O2 % BldC Oximetry 96 % BMI (Body Mass Index) 36.4 kg/m2 03/12/2018 10:06am Heart Rate 98 /min BP Systolic 132 mmHg BP Diastolic 80 mmHg Body Temperature 98.2 F O2 % BldC Oximetry 97 % 03/08/2018 10:40am Height 63 inches 5'3" Weight 202.00 lb Heart Rate 83 /min BP Systolic 128 mmHg BP Diastolic 80 mmHg Body Temperature 97.1 F O2 % BldC Oximetry 98 % BMI (Body Mass Index) 35.8 kg/m2 02/28/2018 4:46pm Height 63 inches 5'3" Weight 210.00 lb Heart Rate 90 /min BP Systolic Sitting 112 mmHg BP Diastolic Sitting 74 mmHg Respiratory Rate 14 /min Pain Level 5 BMI (Body Mass Index) 37.2 kg/m2 01/30/2018 3:39pm Height 63 inches 5'3" Weight 210.00 lb Heart Rate 89 /min BP Systolic 110 mmHg BP Diastolic 68 mmHg Body Temperature 98.0 F O2 % BldC Oximetry 97 % BMI (Body Mass Index) 37.2 kg/m2 01/12/2018 10:39am Height 64 inches 5'4" Weight 207.00 lb Heart Rate 78 /min Respiratory Rate 16 /min Pain Level 4 BMI (Body Mass Index) 35.5 kg/m2 01/05/2018 9:01am Height 64 inches 5'4" Weight 207.00 lb BP Systolic Sitting 118 mmHg BP Diastolic Sitting 80 mmHg Pain Level 5 at times 05/14 BMI (Body Mass Index) 35.5 kg/m2 12/19/2017 1:46pm Height 64 inches 5'4" Weight 207.00 lb with shoes Heart Rate 88 /min BP Systolic Sitting 110 mmHg Lue lg cuff BP Diastolic Sitting 80 mmHg Lue lg cuff BP Systolic Standing 120 mmHg Lue lg cuff BP Diastolic Standing 80 mmHg Lue lg cuff Respiratory Rate 18 /min BMI (Body Mass Index) 35.5 kg/m2 Ejection Fraction 55-60% date 09/21/17 ECHO 12/15/2017 1:27pm Heart Rate 134 /min BP Systolic 118 mmHg BP Diastolic 80 mmHg Body Temperature 97.2 F O2 % BldC Oximetry 99 % 12/04/2017 3:47pm Height 64 inches 5'4" Weight 205.12 lb Heart Rate 72 /min BP Systolic Sitting 140 mmHg lue reg cuff BP Diastolic Sitting 70 mmHg lue reg cuff BP Systolic Standing 135 mmHg lue lg cuff BP Diastolic Standing 75 mmHg lue lg cuff Respiratory Rate 16 /min BMI (Body Mass Index) 35.2 kg/m2 Ejection Fraction 50-55% echo 09/21/2017 11/21/2017 4:09pm Height 64 inches 5'4" Heart Rate 83 /min BP Systolic 128 mmHg BP Diastolic 76 mmHg Respiratory Rate 16 /min Body Temperature 98.1 F Pain Level 4 11/20/2017 11:35am Height 64 inches 5'4" Weight 204.00 lb Heart Rate 67 /min BP Systolic Sitting 140 mmHg BP Diastolic Sitting 93 mmHg Respiratory Rate 14 /min Pain Level 5 BMI (Body Mass Index) 35.0 kg/m2 10/31/2017 11:29am Weight 198.00 lb Heart Rate 97 /min BP Systolic 130 mmHg BP Diastolic 90 mmHg Body Temperature 98.4 F O2 % BldC Oximetry 98 % 10/27/2017 1:05pm Height 64 inches 5'4" Weight 195.00 lb per pt Heart Rate 94 /min reg Respiratory Rate 16 /min Pain Level 4 left knee, 0/10 right ankle BMI (Body Mass Index) 33.5 kg/m2 09/29/2017 8:42am Height 64 inches 5'4" Weight 206.00 lb w/boots Heart Rate 88 /min BP Systolic Sitting 122 mmHg lue reg cuff BP Diastolic Sitting 92 mmHg lue reg cuff Respiratory Rate 16 /min Pain Level 6 right shoulder BMI (Body Mass Index) 35.4 kg/m2 Ejection Fraction 55-60% 09/21/17 09/26/2017 4:31pm Height 64 inches 5'4" Weight 206.50 lb Heart Rate 84 /min BP Systolic 122 mmHg BP Diastolic 82 mmHg O2 % BldC Oximetry 97 % BMI (Body Mass Index) 35.4 kg/m2 09/15/2017 11:28am Height 64 inches 5'4" Weight 202.00 lb BP Systolic 120 mmHg BP Diastolic 76 mmHg Respiratory Rate 18 /min Pain Level 5 BMI (Body Mass Index) 34.7 kg/m2 08/25/2017 1:00pm Height 64 inches 5'4" Weight 209.00 lb BP Systolic 122 mmHg BP Diastolic 84 mmHg Respiratory Rate 18 /min Body Temperature 96.8 F Pain Level 5 BMI (Body Mass Index) 35.9 kg/m2 08/22/2017 10:01am Height 64 inches 5'4" Weight 209.00 lb Heart Rate 76 /min BP Systolic Sitting 115 mmHg BP Diastolic Sitting 80 mmHg Respiratory Rate 14 /min Pain Level 7 BMI (Body Mass Index) 35.9 kg/m2 08/11/2017 1:45pm Height 64 inches 5'4" Weight 202.00 lb Heart Rate 100 /min BP Systolic Sitting 118 mmHg BP Diastolic Sitting 88 mmHg Body Temperature 99.0 F Pain Level 6 BMI (Body Mass Index) 34.7 kg/m2 07/31/2017 1:39pm Height 64 inches 5'4" Weight 208.00 lb Heart Rate 96 /min BP Systolic Sitting 132 mmHg BP Diastolic Sitting 78 mmHg Respiratory Rate 16 /min BMI (Body Mass Index) 35.7 kg/m2 07/25/2017 2:24pm Height 64 inches 5'4" Weight 206.00 lb without shoes Heart Rate 76 /min BP Systolic Sitting 112 mmHg Lue lg cuff BP Diastolic Sitting 80 mmHg Lue lg cuff BP Systolic Lying Down 110 mmHg Lue lg cuff BP Diastolic Lying Down 74 mmHg Lue lg cuff Respiratory Rate 16 /min Body Temperature 98.7 F O2 % BldC Oximetry 97 % at room air BMI (Body Mass Index) 35.4 kg/m2 Ejection Fraction 55-60% date 06/10/2015 ECHO 07/14/2017 2:47pm Height 64 inches 5'4" Weight 202.00 lb BP Systolic 110 mmHg BP Diastolic 76 mmHg Respiratory Rate 18 /min Pain Level 5 BMI (Body Mass Index) 34.7 kg/m2 07/05/2017 1:57pm Height 64 inches 5'4" Weight 210.00 lb Heart Rate 79 /min BP Systolic Sitting 123 mmHg BP Diastolic Sitting 77 mmHg Respiratory Rate 14 /min Body Temperature 98.7 F Pain Level 7 BMI (Body Mass Index) 36.0 kg/m2 06/20/2017 1:48pm Height 64 inches 5'4" Weight 202.00 lb BP Systolic 132 mmHg BP Diastolic 84 mmHg Respiratory Rate 20 /min Pain Level 7 BMI (Body Mass Index) 34.7 kg/m2 06/13/2017 1:12pm Height 64 inches 5'4" Weight 202.00 lb Heart Rate 87 /min BP Systolic 144 mmHg BP Diastolic 93 mmHg Body Temperature 98.6 F BMI (Body Mass Index) 34.7 kg/m2 06/07/2017 8:06am Height 64 inches 5'4" Weight 202.00 lb Heart Rate 72 /min BP Systolic 128 mmHg BP Diastolic 78 mmHg Respiratory Rate 16 /min Body Temperature 97.9 F Pain Level 4 BMI (Body Mass Index) 34.7 kg/m2 05/30/2017 2:32pm Height 64 inches 5'4" Weight 202.00 lb Heart Rate 96 /min BP Systolic 120 mmHg BP Diastolic 72 mmHg Body Temperature 97.5 F Pain Level 6 BMI (Body Mass Index) 34.7 kg/m2 05/22/2017 11:29am Weight 202.25 lb 05/05/2017 11:16am Weight 203.50 lb Heart Rate 82 /min BP Systolic 130 mmHg BP Diastolic 78 mmHg Body Temperature 99.2 F O2 % BldC Oximetry 98 % 04/21/2017 2:12pm Height 64 inches 5'4" Weight 202.00 lb with shoes Heart Rate 70 /min BP Systolic Sitting 138 mmHg LA reg cuff BP Diastolic Sitting 78 mmHg LA reg cuff BMI (Body Mass Index) 34.7 kg/m2 Ejection Fraction 55% - 60% echo 06/10/15 04/19/2017 1:18pm Height 64 inches 5'4" Weight 201.75 lb Heart Rate 81 /min BP Systolic 110 mmHg BP Diastolic 70 mmHg Body Temperature 99.1 F O2 % BldC Oximetry 98 % BMI (Body Mass Index) 34.6 kg/m2 04/14/2017 2:03pm Height 64 inches 5'4" Weight 200.00 lb no shoes Heart Rate 72 /min BP Systolic Sitting 120 mmHg Lue lrg cuff BP Diastolic Sitting 78 mmHg Lue lrg cuff BP Systolic Standing 116 mmHg Lue lrg cuff BP Diastolic Standing 70 mmHg Lue lrg cuff Respiratory Rate 16 /min BMI (Body Mass Index) 34.3 kg/m2 Ejection Fraction 55-60% 06/10/2015-echo 03/24/2017 2:44pm Weight 202.75 lb Heart Rate 84 /min BP Systolic 120 mmHg BP Diastolic 80 mmHg Body Temperature 98.2 F O2 % BldC Oximetry 98 % 02/17/2017 10:26am Height 64 inches 5'4" Weight 210.00 lb Heart Rate 76 /min BP Systolic Sitting 128 mmHg BP Diastolic Sitting 78 mmHg Respiratory Rate 14 /min BMI (Body Mass Index) 36.0 kg/m2 02/09/2017 10:18am Weight 212.50 lb Heart Rate 85 /min BP Systolic 112 mmHg BP Diastolic 70 mmHg Body Temperature 98.7 F O2 % BldC Oximetry 97 % 01/23/2017 1:23pm Height 64 inches 5'4" Weight 215.00 lb Heart Rate 76 /min BP Systolic Sitting 106 mmHg BP Diastolic Sitting 72 mmHg Respiratory Rate 14 /min BMI (Body Mass Index) 36.9 kg/m2 01/09/2017 12:59pm Heart Rate 91 /min BP Systolic 108 mmHg BP Diastolic 70 mmHg Body Temperature 97.0 F O2 % BldC Oximetry 98 % 11/23/2016 10:09am Heart Rate 84 /min BP Systolic 124 mmHg BP Diastolic 82 mmHg O2 % BldC Oximetry 98 % 10/25/2016 3:15pm Height 64 inches 5'4" Weight 200.00 lb Heart Rate 74 /min BP Systolic Sitting 120 mmHg BP Diastolic Sitting 74 mmHg Respiratory Rate 16 /min BMI (Body Mass Index) 34.3 kg/m2 09/30/2016 9:38am Heart Rate 79 /min BP Systolic 120 mmHg BP Diastolic 80 mmHg Body Temperature 97.6 F O2 % BldC Oximetry 98 % 09/27/2016 2:16pm Heart Rate 76 /min BP Systolic Sitting 132 mmHg BP Diastolic Sitting 78 mmHg Body Temperature 98.0 F O2 % BldC Oximetry 98 % 09/20/2016 3:34pm Height 64 inches 5'4" Heart Rate 75 /min BP Systolic 104 mmHg BP Diastolic 72 mmHg Body Temperature 98.7 F O2 % BldC Oximetry 98 % 08/05/2016 9:11am Height 64 inches 5'4" Heart Rate 84 /min BP Systolic Sitting 122 mmHg LA lrg cuff BP Diastolic Sitting 78 mmHg LA lrg cuff Ejection Fraction 55% - 60% echo 06/10/15 07/26/2016 2:40pm Weight 209.00 lb Heart Rate 80 /min BP Systolic Sitting 118 mmHg BP Diastolic Sitting 80 mmHg O2 % BldC Oximetry 98 % 06/24/2016 10:36am Height 64 inches 5'4" Weight 192.00 lb Heart Rate 84 /min BP Systolic Sitting 108 mmHg BP Diastolic Sitting 72 mmHg BMI (Body Mass Index) 33.0 kg/m2 06/23/2016 11:20am Height 64 inches 5'4" Weight 205.00 lb Pain Level 4 BMI (Body Mass Index) 35.2 kg/m2 06/15/2016 2:07pm Height 64 inches 5'4" Weight 205.00 lb Heart Rate 76 /min BP Systolic 112 mmHg BP Diastolic 72 mmHg Body Temperature 99.1 F O2 % BldC Oximetry 97 % BMI (Body Mass Index) 35.2 kg/m2 05/31/2016 2:40pm Height 64 inches 5'4" Weight 205.00 lb Heart Rate 84 /min BP Systolic Sitting 114 mmHg LA large cuff BP Diastolic Sitting 70 mmHg LA large cuff BP Systolic Standing 112 mmHg LA BP Diastolic Standing 74 mmHg LA Respiratory Rate 16 /min BMI (Body Mass Index) 35.2 kg/m2 Ejection Fraction 55-60% 06/10/15 05/16/2016 11:13am Height 64 inches 5'4" Weight 200.00 lb Heart Rate 60 /min Respiratory Rate 16 /min Pain Level 5 BMI (Body Mass Index) 34.3 kg/m2 05/13/2016 11:26am Height 64 inches 5'4" Weight 200.00 lb Heart Rate 74 /min BP Systolic Sitting 116 mmHg left arm, reg cuff BP Diastolic Sitting 76 mmHg left arm, reg cuff BP Systolic Standing 112 mmHg left arm, reg cuff BP Diastolic Standing 76 mmHg left arm, reg cuff Respiratory Rate 16 /min BMI (Body Mass Index) 34.3 kg/m2 Ejection Fraction 55-60% 06/10/15 04/27/2016 9:11am Height 64 inches 5'4" Weight 200.00 lb Heart Rate 84 /min BP Systolic Sitting 118 mmHg BP Diastolic Sitting 68 mmHg BMI (Body Mass Index) 34.3 kg/m2 04/21/2016 8:53am Height 64 inches 5'4" Weight 202.00 lb Heart Rate 85 /min BP Systolic 103 mmHg BP Diastolic 66 mmHg Pain Level 5 BMI (Body Mass Index) 34.7 kg/m2 03/09/2016 3:15pm Height 64 inches 5'4" Weight 192.00 lb Heart Rate 84 /min BP Systolic Sitting 118 mmHg BP Diastolic Sitting 78 mmHg Respiratory Rate 16 /min BMI (Body Mass Index) 33.0 kg/m2 12/18/2015 3:12pm Height 64 inches 5'4" Weight 200.00 lb w/o shoes Heart Rate 86 /min BP Systolic Sitting 108 mmHg LA reg cuff BP Diastolic Sitting 70 mmHg LA reg cuff BP Systolic Standing 110 mmHg LA reg cuff BP Diastolic Standing 78 mmHg LA reg cuff BMI (Body Mass Index) 34.3 kg/m2 Ejection Fraction 55-60% echo 06/10/15 12/18/2015 9:27am Height 64 inches 5'4" Weight 192.00 lb Heart Rate 84 /min BP Systolic 120 mmHg BP Diastolic 78 mmHg Respiratory Rate 14 /min O2 % BldC Oximetry 98 % BMI (Body Mass Index) 33.0 kg/m2 12/07/2015 3:31pm Height 64 inches 5'4" Weight 192.00 lb Heart Rate 68 /min BP Systolic Sitting 118 mmHg BP Diastolic Sitting 84 mmHg Respiratory Rate 14 /min BMI (Body Mass Index) 33.0 kg/m2 10/27/2015 3:16pm Height 64 inches 5'4" Weight 201.00 lb no shoes Heart Rate 86 /min BP Systolic Sitting 112 mmHg LA lrg cuff BP Diastolic Sitting 72 mmHg LA lrg cuff BP Systolic Standing 114 mmHg LA lrg cuff BP Diastolic Standing 68 mmHg LA lrg cuff Respiratory Rate 16 /min BMI (Body Mass Index) 34.5 kg/m2 Ejection Fraction 55-60% 06/10/15 09/23/2015 8:31am Height 64 inches 5'4" Weight 197.25 lb Heart Rate 92 /min BP Systolic Sitting 124 mmHg BP Diastolic Sitting 64 mmHg Respiratory Rate 18 /min O2 % BldC Oximetry 93 % BMI (Body Mass Index) 33.9 kg/m2 Neck Circumference in inches 15.25 09/17/2015 3:50pm Height 65 inches 5'5" Heart Rate 90 /min reg BP Systolic Sitting 114 mmHg Lue, lg cuff BP Diastolic Sitting 76 mmHg Lue, lg cuff BP Systolic Standing 116 mmHg Lue BP Diastolic Standing 76 mmHg Lue Respiratory Rate 18 /min Ejection Fraction 55-60% as of 06/10/15 echo 09/07/2015 3:23pm Height 65 inches 5'5" Weight 190.00 lb Heart Rate 88 /min BP Systolic Sitting 114 mmHg BP Diastolic Sitting 76 mmHg Respiratory Rate 16 /min BMI (Body Mass Index) 31.6 kg/m2 08/17/2015 2:49pm Height 65 inches 5'5" Heart Rate 66 /min BP Systolic Sitting 124 mmHg LA lg cuff TM BP Diastolic Sitting 82 mmHg LA lg cuff TM BP Systolic Standing 120 mmHg LA lg cuff TM BP Diastolic Standing 70 mmHg LA lg cuff TM Pain Level 3 Ejection Fraction 55-60% date 06/10/15 ECHO 08/03/2015 3:34pm Height 65 inches 5'5" Heart Rate 96 /min reg BP Systolic Sitting 130 mmHg Lue, reg cuff BP Diastolic Sitting 90 mmHg Lue, reg cuff BP Systolic Standing 132 mmHg Lue BP Diastolic Standing 96 mmHg Lue Respiratory Rate 18 /min Ejection Fraction 55-60% as of 06/10/15 echo 07/22/2015 2:43pm Height 65 inches 5'5" Weight 199.00 lb w/o shoes Heart Rate 84 /min irreg BP Systolic Sitting 128 mmHg Lue, lg cuff BP Diastolic Sitting 88 mmHg Lue, lg cuff BP Systolic Standing 130 mmHg Lue BP Diastolic Standing 86 mmHg Lue Respiratory Rate 18 /min BMI (Body Mass Index) 33.1 kg/m2 Ejection Fraction 55-60% as of 06/10/15 echo 06/05/2015 9:59am Height 65 inches 5'5" Weight 195.00 lb with shoes Heart Rate 102 /min BP Systolic 118 mmHg Ra, Lg cuff BP Diastolic 80 mmHg Ra, Lg cuff BP Systolic Sitting 114 mmHg LA, Lg cuff BP Diastolic Sitting 84 mmHg LA, Lg cuff BP Systolic Standing 110 mmHg LA BP Diastolic Standing 84 mmHg LA Respiratory Rate 16 /min BMI (Body Mass Index) 32.4 kg/m2 06/01/2015 3:44pm Height 64 inches 5'4" Weight 193.00 lb Heart Rate 104 /min BP Systolic Sitting 128 mmHg BP Diastolic Sitting 84 mmHg Respiratory Rate 16 /min BMI (Body Mass Index) 33.1 kg/m2 03/23/2015 3:26pm Height 64 inches 5'4" Weight 182.00 lb Heart Rate 110 /min BP Systolic Sitting 116 mmHg BP Diastolic Sitting 86 mmHg Respiratory Rate 16 /min BMI (Body Mass Index) 31.2 kg/m2 02/17/2015 1:12pm Height 64 inches 5'4" Heart Rate 84 /min BP Systolic Sitting 136 mmHg BP Diastolic Sitting 74 mmHg Respiratory Rate 16 /min 12/03/2014 10:54am Height 64 inches 5'4" Weight 197.00 lb Heart Rate 86 /min BP Systolic Sitting 150 mmHg BP Diastolic Sitting 90 mmHg Pain Level 4 back/L buttock & L leg BMI (Body Mass Index) 33.8 kg/m2 11/13/2014 2:28pm Height 64 inches 5'4" Weight 197.00 lb Heart Rate 78 /min BP Systolic Sitting 122 mmHg BP Diastolic Sitting 80 mmHg Pain Level 4 back/neck BMI (Body Mass Index) 33.8 kg/m2 09/15/2014 8:44am Height 64 inches 5'4" Weight 195.00 lb Heart Rate 64 /min BP Systolic Sitting 112 mmHg BP Diastolic Sitting 66 mmHg Respiratory Rate 16 /min BMI (Body Mass Index) 33.5 kg/m2 06/04/2014 1:14pm Height 64 inches 5'4" Weight 199.00 lb Heart Rate 70 /min BP Systolic Sitting 110 mmHg BP Diastolic Sitting 70 mmHg Respiratory Rate 16 /min BMI (Body Mass Index) 34.2 kg/m2 02/20/2014 9:32am Height 64 inches 5'4" Weight 192.00 lb Heart Rate 96 /min BP Systolic Sitting 110 mmHg BP Diastolic Sitting 76 mmHg Respiratory Rate 16 /min BMI (Body Mass Index) 33.0 kg/m2 11/14/2013 8:49am Heart Rate 96 /min BP Systolic Sitting 128 mmHg BP Diastolic Sitting 76 mmHg Respiratory Rate 16 /min 08/14/2013 11:54am Heart Rate 67 /min BP Systolic Sitting 110 mmHg BP Diastolic Sitting 60 mmHg Respiratory Rate 18 /min 02/11/2013 2:16pm Height 64 inches 5'4" Weight 176.00 lb Heart Rate 84 /min BP Systolic 148 mmHg BP Diastolic 80 mmHg Respiratory Rate 12 /min BMI (Body Mass Index) 30.2 kg/m2 Results Test Date Facility Test Result H/L Range Note Lipid Profile 12/24/2018 [facility] Triglycerides 243 mg/dL 1 (Trig/Chol/HDL) [address] [place] [address] [phone] Cholesterol 271 mg/dL 2 HDL Cholesterol 46.1 mg/dL 3 LDL Cholesterol 176 mg/dL 4 Comp Metabolic Panel 12/24/2018 [facility] Sodium 140 mmol/L N 135-145 [address] [place] [address] [phone] Potassium 4.4 mmol/L N 3.5-5.0 Chloride 105 mmol/L N 101-111 Co2 Carbon Dioxide 31 mmol/L N 22-32 Anion Gap 4 mmol/L N 2-11 Glucose 107 mg/dL High 70-100 Blood Urea Nitrogen 19 mg/dL N 6-24 Creatinine 1.07 mg/dL High 0.51-0.95 BUN/Creatinine Ratio 17.8 N 8-20 Calcium 8.9 mg/dL N 8.6-10.3 Total Protein 6.4 g/dL N 6.4-8.9 Albumin 3.9 g/dL N 3.2-5.2 Globulin 2.5 g/dL N 2-4 Albumin/Globulin Ratio 1.6 N 1-3 Total Bilirubin 0.30 mg/dL N 0.2-1.0 Alkaline Phosphatase 64 U/L N 34-104 Alt 21 U/L N 7-52 Ast 17 U/L N 13-39 Egfr Non- 52.9 >60 Egfr 64.0 >60 5 Laboratory test 12/24/2018 [facility] Hemoglobin A1c 5.5 % N 4.0-5.6 [address] (Glyco HGB) [place] [address] [phone] Vitamin B12 323 pg/mL N 180-914 7 Tapentadol 12/07/2018 [facility] Tapentadol >[id number] Cutoff: [address] Urine ng/[place] [address] [phone] N-desmethyltapentadol Present ng/mL Cutoff:25 8 Drug Abuse 20 12/07/2018 [facility] Urine Amphetamine Negative ng/mL [address] [place] [address] [phone] Urine Barbiturates Negative ng/mL 10 Urine Benzodiazepines Presumptive Posi <SEE NOTE> Abnormal 11 ng/mL Urine Cocaine Negative ng/mL 12 Urine Phencyclidine Negative ng/mL Cutoff: 25 Urine Tetrahydrocannabinol Negative ng/mL Cutoff: 50 13 Creatinine, Urine 218.9 mg/dL Specific [place] 1.011 pH 7.5 Oxidants Negative 14 Adulterants Comment Normal Codeine, Ur Not Detected ng/mL Cutoff: 25 15 Bftcorw-5-tueh-glucuronide, Ur Not Detected ng/mL 16 Morphine, Ur Not Detected ng/mL Cutoff: 25 17 Cjtkauiv-1-hkxj-glucuronide, U Not Detected ng/mL 18 6-monoacetylmorphine, Ur Not Detected ng/mL Cutoff: 25 19 Hydrocodone, Ur Not Detected ng/mL Cutoff: 25 20 Norhydrocodone, Ur Not Detected ng/mL Cutoff: 25 21 Dihydrocodeine, Ur Not Detected ng/mL Cutoff: 25 22 Hydromorphone, Ur Not Detected ng/mL Cutoff: 25 23 Sozuvfyddvhte0lpfmavlbtipfdyh Not Detected ng/mL 24 Oxycodone, Ur Present ng/mL Abnormal Cutoff: 25 25 Noroxycodone, Ur Present ng/mL Abnormal Cutoff: 25 26 Oxymorphone, Ur Not Detected ng/mL Cutoff: 25 27 Zzkvewdtpel-9-ixor-glucuronide Present ng/mL Abnormal 28 Noroxymorphone, Ur Present ng/mL Abnormal Cutoff: 25 29 Fentanyl, Ur Not Detected ng/mL Cutoff: 2 30 Norfentanyl, Ur Not Detected ng/mL Cutoff: 2 31 Meperidine, Ur Not Detected ng/mL Cutoff: 25 32 Normeperidine, Ur Not Detected ng/mL Cutoff: 25 33 Naloxone, Ur Not Detected ng/mL Cutoff: 25 34 Sbynjtul-8-srre-glucuronide, U Not Detected ng/mL 35 Methadone, Ur Not Detected ng/mL Cutoff: 25 36 Eddp, Ur Not Detected ng/mL Cutoff: 25 37 Propoxyphene, Ur Not Detected ng/mL Cutoff: 25 38 Norpropoxyphene, Ur Not Detected ng/mL Cutoff: 25 39 Tramadol, Ur Not Detected ng/mL Cutoff: 25 40 O-desmethyltramadol, Ur Not Detected ng/mL Cutoff: 25 41 Tapentadol, Ur Present ng/mL Abnormal Cutoff: 25 42 N-desmethyltapentadol, Ur Present ng/mL Abnormal Cutoff: 50 43 Gugwbycoer-grwm-dendkyoypmt, U Present ng/mL Abnormal 44 Buprenorphine, Ur Not Detected ng/mL Cutoff: 5 45 Norbuprenorphine, Ur Not Detected ng/mL Cutoff: 5 46 Norbuprenorphine glucuronide Not Detected ng/mL Cutoff: 20 47 Opioid Interpretation See Comment 48 Urine Benzodiazepines 12/07/2018 [facility] Urine Lorazepam 243 ng/mL [address] GC/MS [place], [place] [address] [phone] Urine Nordiazepam GC/MS Negative ng/mL 50 Urine Oxazepam GC/MS 107 ng/mL 51 Urine Temazepam GC/MS Negative ng/mL 52 Ur Oh Ethyl Flurazepam GC/MS Negative ng/mL 53 Ur 7 [place] Clonazepam GC/MS Negative ng/mL 54 Ur 7 [place] Flunitrazepam GC/MS Negative ng/mL Cutoff: 50 Ur Alpha Oh Alprazolam GC/MS Negative ng/mL 55 Ur Alpha Oh Triazolam GC/MS Negative ng/mL 56 Ur Benzodiazepine Interp Positive. 57 Laboratory test 10/03/2018 [facility] Cytology SEE RESULT 58, [address] [place] [address] [phone] Comp Metabolic 08/20/2018 [facility] Sodium 139 mmol/L N 135- 14 [address] [place] [address] [phone] Potassium 4.5 mmol/L N 3.5-5.0 Chloride 104 mmol/L N 101-111 Co2 Carbon Dioxide 30 mmol/L N 22-32 Anion Gap 5 mmol/L N 2-11 Glucose 101 mg/dL High 70-100 Blood Urea Nitrogen 19 mg/dL N 6-24 Creatinine 0.90 mg/dL N 0.51-0.95 BUN/Creatinine Ratio 21.1 High 8-20 Calcium 9.2 mg/dL N 8.6-10.3 Total Protein 7.1 g/dL N 6.4-8.9 Albumin 4.3 g/dL N 3.2-5.2 Globulin 2.8 g/dL N 2-4 Albumin/Globulin Ratio 1.5 N 1-3 Total Bilirubin 0.40 mg/dL N 0.2-1.0 Alkaline Phosphatase 72 U/L N 34-104 Alt 26 U/L N 7-52 Ast 23 U/L N 13-39 Egfr Non- 64.8 >60 Egfr 78.4 >60 61 Liver Function 08/20/2018 [facility] Direct 0.10 mg/dL N 0.03- 0.[address] [place] [address] [phone] Indirect Bilirubin 0.3 mg/dL N 0.3-1.0 Immunoglobulins 08/20/2018 [facility] Immunoglobulin G 1100 767 - 62 Serum Quant [address] mg/dL [address] [place] [address] [phone] Immunoglobulin M 70 mg/dL 37 - 286 Immunoglobulin A 207 mg/dL 61 - 356 Comp Metabolic Panel 03/20/2018 [facility] Sodium 140 mmol/L N 135-[address] [place] [address] [phone] Potassium 3.8 mmol/L N 3.5-5.0 Chloride 104 mmol/L N 101-111 Co2 Carbon Dioxide 28 mmol/L N 22-32 Anion Gap 8 mmol/L N 2-11 Glucose 94 mg/dL N 70-100 Blood Urea Nitrogen 16 mg/dL N 6-24 Creatinine 0.93 mg/dL N 0.51-0.95 BUN/Creatinine Ratio 17.2 N 8-20 Calcium 9.2 mg/dL N 8.6-10.3 Total Protein 6.8 g/dL N 6.4-8.9 Albumin 4.2 g/dL N 3.2-5.2 Globulin 2.6 g/dL N 2-4 Albumin/Globulin Ratio 1.6 N 1-3 Total Bilirubin 0.30 mg/dL N 0.2-1.0 Alkaline Phosphatase 95 U/L N 34-104 Alt 26 U/L N 7-52 Ast 20 U/L N 13-39 Egfr Non- 62.4 >60 Egfr 75.5 >60 63 Liver Function 03/20/2018 [facility] Direct 0.00 mg/dL Low 0.03-0.[address] [place] [address] [phone] Laboratory test 03/20/2018 [facility] Folic Acid 9.12 ng/mL > 3.[address] (Folate) [place] [address] [phone] Vitamin B12 738 pg/mL N 180-914 64 Immunoglobulins 03/20/2018 [facility] Immunoglobulin G 970 767 - 65 Serum Quant [address] mg/dL 15[address] [place] [address] [phone] Immunoglobulin M 64 mg/dL 37 - 286 Immunoglobulin A 206 mg/dL 61 - 356 S.Pneumoniae Igg 01/12/2018 [facility] S. pneumoniae 1.4 g/mL >=2.3 AB [address] Type 1 [place] [address] [phone] S. pneumoniae Type 2 IgG AB 25.7 g/mL >=1.0 S. pneumoniae Type 3 IgG AB 3.4 g/mL >=1.8 S. pneumoniae Type 4 IgG AB 1.6 g/mL >=0.6 S. pneumoniae Type 5 IgG AB 1.4 g/mL >=10.7 S. pneumoniae Type 8 IgG AB 0.9 g/mL >=2.9 S. pneumoniae Type 9N IgG AB 0.8 g/mL >=9.2 S. pneumoniae Type 12F IgG AB 2.3 g/mL >=0.6 S. pneumoniae Type 14 IgG AB 5.9 g/mL >=7.0 S. pneumoniae Type 17F IgG AB 2.6 g/mL >=7.8 S. pneumoniae Type 19F IgG AB 6.7 g/mL >=15.0 S. pneumoniae Type 20 IgG AB 0.8 g/mL >=1.3 S. pneumoniae Type 22F IgG AB 6.6 g/mL >=7.2 S. pneumoniae Type 23F IgG AB 5.2 g/mL >=8.0 S. pneumoniae Type 6B IgG AB 0.5 g/mL >=4.7 S. pneumoniae Type 10A IgG AB <0.2 g/mL >=2.9 S. pneumoniae Type 11A IgG AB 1.2 g/mL >=2.4 S. pneumoniae Type 7F IgG AB 2.0 g/mL >=3.2 S. pneumoniae Type 15B IgG AB 1.7 g/mL >=3.3 S. pneumoniae Type 18C IgG AB 3.7 g/mL >=3.3 S. pneumoniae Type 19A IgG AB 0.5 g/mL >=17.1 S. pneumoniae Type 9V IgG AB 5.8 g/mL >=2.6 S. pneumoniae Type 33F IgG AB 7.2 g/mL >=1.7 66 Laboratory test 12/21/2017 [facility] Cortisol 28.81 g/dL 67, 68 finding [address] [place] [address] [phone] Laboratory test 12/21/2017 [facility] Cortisol 26.63 g/dL 69, 70 finding [address] [place] [address] [phone] Laboratory test 12/21/2017 [facility] Cortisol 20.39 g/dL 71, [address] [place] [address] [phone] Comp Metabolic 12/18/2017 [facility] Sodium 139 mmol/L N 139- [address] [place] [address] [phone] Potassium 4.6 mmol/L N 3.5-5.0 Chloride 103 mmol/L N 101-111 Co2 Carbon Dioxide 28 mmol/L N 22-32 Anion Gap 8 mmol/L N 2-11 Glucose 102 mg/dL High 70-100 Blood Urea Nitrogen 16 mg/dL N 6-24 Creatinine 0.96 mg/dL High 0.51-0.95 BUN/Creatinine Ratio 16.7 N 8-20 Calcium 9.3 mg/dL N 8.6-10.3 Total Protein 6.3 g/dL Low 6.4-8.9 Albumin 4.1 g/dL N 3.2-5.2 Globulin 2.2 g/dL N 2-4 Albumin/Globulin Ratio 1.9 N 1-3 Total Bilirubin 0.30 mg/dL N 0.2-1.0 Alkaline Phosphatase 58 U/L N 34-104 Alt 29 U/L N 7-52 Ast 20 U/L N 13-39 Egfr Non- 60.1 >60 Egfr 77.3 >60 73 Inr/Protime 12/02/2017 [facility] Inr 0.81 N 0.77-1.[address] [place] [address] [phone] Laboratory test 12/02/2017 [facility] Partial 30.6 seconds N 26.0-36.[address] [place] [address] [phone] CBC Auto Diff 12/02/2017 [facility] White Blood 6.3 10^3/uL N 3.5-10.[address] [place] [address] [phone] Red Blood Count 4.64 10^6/uL N 4.0-5.4 Hemoglobin 13.9 g/dL N 12.0-16.0 Hematocrit 42 % N 35-47 Mean Corpuscular Volume 90 fL N 80-97 Mean Corpuscular Hemoglobin 30 pg N 27-31 Mean Corpuscular HGB Conc 33 g/dL N 31-36 Red Cell Distribution Width 14 % N 10.5-15 Platelet Count 235 10^3/uL N 150-450 Mean Platelet Volume 9.5 um3 N 7.4-10.4 Abs Neutrophils 3.6 10^3/uL N 1.5-7.7 Abs Lymphocytes 2.1 10^3/uL N 1.0-4.8 Abs Monocytes 0.4 10^3/uL N 0-0.8 Abs Eosinophils 0.1 10^3/uL N 0-0.6 Abs Basophils 0.1 10^3/uL N 0-0.2 Abs Nucleated RBC 0 10^3/uL Granulocyte % 57.9 % N 38-83 Lymphocyte % 33.0 % N 25-47 Monocyte % 6.5 % N 0-7 Eosinophil % 1.7 % N 0-6 Basophil % 0.9 % N 0-2 Nucleated Red Blood Cells % 0.2 Laboratory test 12/02/2017 [facility] Lactic Acid 0.8 mmol/L N 0.5-2.0 74 finding [address] [place] [address] [phone] Troponin-I (TnI) 0.00 ng/mL <0.04 Comp Metabolic Panel 12/02/2017 [facility] Sodium 140 mmol/L N 139-145 [address] [place] [address] [phone] Potassium 4.1 mmol/L N 3.5-5.0 Chloride 104 mmol/L N 101-111 Co2 Carbon Dioxide 29 mmol/L N 22-32 Anion Gap 7 mmol/L N 2-11 Glucose 105 mg/dL High 70-100 Blood Urea Nitrogen 19 mg/dL N 6-24 Creatinine 0.92 mg/dL N 0.51-0.95 BUN/Creatinine Ratio 20.7 High 8-20 Calcium 9.4 mg/dL N 8.6-10.3 Total Protein 6.9 g/dL N 6.4-8.9 Albumin 4.3 g/dL N 3.2-5.2 Globulin 2.6 g/dL N 2-4 Albumin/Globulin Ratio 1.7 N 1-3 Total Bilirubin 0.40 mg/dL N 0.2-1.0 Alkaline Phosphatase 67 U/L N 34-104 Alt 33 U/L N 7-52 Ast 24 U/L N 13-39 Egfr Non- 63.4 >60 Egfr 81.5 >60 75 Laboratory test finding 12/02/2017 [facility] Lipase 40 U/L N 11.0-82.[address] [place] [address] [phone] C Reactive Protein 4.02 mg/L N < 5.00 76 Cortisol 5.84 g/dL 77 TSH (Thyroid Stim Horm) 2.30 mcIU/mL N 0.34-5.60 Acth 19 pg/mL 78 Urinalysis Profile 12/02/2017 [facility] Urine Color Yellow [address] [place] [address] [phone] Urine Appearance Cloudy Urine Specific [place] 1.016 N 1.010-1.030 Urine pH 7.0 N 5-9 Urine Urobilinogen Negative Negative Urine Ketones Negative Negative Urine Protein Negative Negative Urine Leukocytes Negative Negative Urine Blood Negative Negative * * Abnormal Negative 79 Urine Nitrite Negative Negative Urine Bilirubin Negative Negative Urine Glucose Negative Negative Igg Subclasses 11/20/2017 [facility] Total IgG 721 mg/dL Abnormal 767 - [address] [place] [address] [phone] Immunoglobulin G1 372 mg/dL 341 - 894 Immunoglobulin G2 277 mg/dL 171 - 632 Immunoglobulin G3 16.3 mg/dL Abnormal 80 Immunoglobulin G4 11.5 mg/dL 81 Laboratory test 11/20/2017 [facility] Free Cortisol 0.101 Abnormal [address] Serum g/[place] [address] [phone] TSH (Thyroid Stim Horm) 3.62 mcIU/mL N 0.34-5.60 Thyroperoxidase AB 0.34 IU/mL N <9 Immunoglobulin G (Igg) TNP () 83 Comp Metabolic Panel 11/20/2017 [facility] Sodium 138 mmol/L N 133-[address] [place] [address] [phone] Potassium 4.4 mmol/L N 3.5-5.0 Chloride 103 mmol/L N 101-111 Co2 Carbon Dioxide 29 mmol/L N 22-32 Anion Gap 6 mmol/L N 2-11 Glucose 96 mg/dL N 70-100 Blood Urea Nitrogen 21 mg/dL N 6-24 Creatinine 0.97 mg/dL High 0.51-0.95 BUN/Creatinine Ratio 21.6 High 8-20 Calcium 9.2 mg/dL N 8.6-10.3 Total Protein 6.5 g/dL N 6.4-8.9 Albumin 4.1 g/dL N 3.2-5.2 Globulin 2.4 g/dL N 2-4 Albumin/Globulin Ratio 1.7 N 1-3 Total Bilirubin 0.40 mg/dL N 0.2-1.0 Alkaline Phosphatase 62 U/L N 34-104 Alt 29 U/L N 7-52 Ast 22 U/L N 13-39 Egfr Non- 59.6 >60 Egfr 76.7 >60 84 Laboratory test 11/20/2017 [facility] Creatine 113 U/L N 10- [address] Kinase(CK) [place] [address] [phone] Ssa/SSB Abs Igg 11/20/2017 [facility] SS-A/Ro Antibody <0.2 U [address] [place] [address] [phone] SS-B/La Antibody <0.2 U 86 Laboratory test 11/20/2017 [facility] Erythrocyte Sed 17 mm/Hr N 0-[address] [place] [address] [phone] CBC Auto Diff 09/27/2017 [facility] White Blood 7.8 N 3.5- 10.[address] Count 10^3/[place] [address] [phone] Red Blood Count 4.43 10^6/uL N 4.0-5.4 Hemoglobin 13.3 g/dL N 12.0-16.0 Hematocrit 40 % N 35-47 Mean Corpuscular Volume 90 fL N 80-97 Mean Corpuscular Hemoglobin 30 pg N 27-31 Mean Corpuscular HGB Conc 34 g/dL N 31-36 Red Cell Distribution Width 14 % N 10.5-15 Platelet Count 247 10^3/uL N 150-450 Mean Platelet Volume 10 um3 N 7.4-10.4 Abs Neutrophils 4.8 10^3/uL N 1.5-7.7 Abs Lymphocytes 2.3 10^3/uL N 1.0-4.8 Abs Monocytes 0.4 10^3/uL N 0-0.8 Abs Eosinophils 0.2 10^3/uL N 0-0.6 Abs Basophils 0.1 10^3/uL N 0-0.2 Abs Nucleated RBC 0 10^3/uL Granulocyte % 61.9 % N 38-83 Lymphocyte % 29.8 % N 25-47 Monocyte % 5.0 % N 1-9 Eosinophil % 2.2 % N 0-6 Basophil % 1.1 % N 0-2 Nucleated Red Blood Cells % 0 Laboratory test 09/27/2017 [facility] Ferritin 72.5 ng/mL N 11 -[address] [place] [address] [phone] Iron & Iron Binding 09/27/2017 [facility] Iron 133 g/dL N 50 -[address] [place] [address] [phone] Unsaturated Iron Binding 242 g/dL Total Iron Binding Capacity 375 g/dL N 250-450 % Iron Saturation 35 % N 15-55 Hiaa,5- 08/07/2017 [facility] Urine 5Hiaa 3.7 mg/24h <=8.[address] [place] [address] [phone] Urine Collection Duration 24 h Urine Total Volume 1000 mL 88 Urine Vma 24HR 08/07/2017 [facility] Urine Vma, Adult 3.1 mg/ 24h <8.[address] [place] [address] [phone] Urine Collection Duration 24 h Urine Total Volume 1000 mL 89 Catecholamine 24HR 08/07/2017 [facility] Urine Collection 24 h Urine Fract [address] [place] [address] [phone] Urine Total Volume 1000 mL Urine Norepinephrine 47 mcg/24h 15-80 Urine Epinephrine 7.7 mcg/24h <21 Urine Dopamine 134 mcg/24h 65-400 90 Laboratory test 07/07/2017 [facility] Creatine 154 U/L N 10- 223 91 finding 101 [facility] Kinase(CK) [place] [address] [phone] Tick-Borne Panel 07/07/2017 [facility] Babesia microti Negative N Negative PCR Blood [address] [place] [address] [phone] Babesia ducani Negative N Negative Babesia divergens/Mo-1 Negative N Negative 92 Anaplasma phagocytophilum Negative N Negative Ehrlichia chaffeensis Negative N Negative Ehrlichia ewingii/canis Negative N Negative Ehrlichia muris-like Negative N Negative 93 B. miyamotoi PCR, B Negative N Negative 94 Laboratory test 07/07/2017 [facility] T3 Free 3.60 pg/mL N 2.5 -3.9 [address] [place] [address] [phone] Free T4 (Free Thyroxine) 0.75 ng/dL N 0.61-1.12 96 Thyroperoxidase AB 0.34 IU/mL N <9 97 Hla B27 07/07/2017 [facility] Hla B27 Negative N [address] [place], [place] [id number] [phone] Hla B27 Interp See Comment N 99 Celiac Panel 07/07/2017 [facility] Tissue <1.2 U/mL N [address] [place] [address] Ab [phone] Immunoglobulin A 207 mg/dL N 61 - 356 Celiac Interpretation See Comment N 101 Celiac Hla 07/07/2017 [facility] Hla-Dqa1 SEE BELOW N [address] [place] [address] [phone] [id number] SEE BELOW N 103 Celiac Gene Pairs Present? No N Celiac Gene Interpretation See Comment N 104 Immunoglobulins 07/07/2017 [facility] Immunoglobulin G 765 Abnormal 767 - 105 Serum Quant [address] mg/dL 1590 [place] [address] [phone] Immunoglobulin M 67 mg/dL N 37 - 286 Immunoglobulin A 200 mg/dL N 61 - 356 Ssa/SSB Abs Igg 07/07/2017 [facility] SS-A/Ro Antibody <0.2 U N [address] [place] [address] [phone] SS-B/La Antibody <0.2 U N 107 Anca AB Ser If 07/07/2017 [facility] C-Anca Negative N Negative [address] [place], [place] [id number] [phone] P-Anca Negative N Negative 108 Laboratory test 07/07/2017 [facility] Angiotensin 41 U/L N 8 - 53 [address] [place] [place] [address] [phone] Homocysteine 9 mcmol/L N 110 Laboratory test 05/22/2017 [facility] C Reactive 3.08 mg/L N < 5.00 [address] [place] [address] [phone] Cyclic Citrullinated Pep Igg <15.6 U N 112 Anti Nuclear Antibody 0.2 U N 113 Lyme Disease Serology Negative N Negative 114 Rheumatoid Factor <15 IU/mL N <15 115 Erythrocyte Sed Rate 18 mm/Hr N 0-30 Laboratory test 05/05/2017 [facility] Erythrocyte Sed 19 mm/Hr N 0-[address] [place] [address] [phone] C Reactive Protein 7.59 mg/L High < 5.00 116 CBC Auto Diff 05/05/2017 [facility] White Blood 5.8 10^3/uL N 3.5-10.[address] [place] [address] [phone] Red Blood Count 4.37 10^6/uL N 4.0-5.4 Hemoglobin 12.8 g/dL N 12.0-16.0 Hematocrit 38 % N 35-47 Mean Corpuscular Volume 87 fL N 80-97 Mean Corpuscular Hemoglobin 29 pg N 27-31 Mean Corpuscular HGB Conc 34 g/dL N 31-36 Red Cell Distribution Width 14 % N 10.5-15 Platelet Count 226 10^3/uL N 150-450 Mean Platelet Volume 10 um3 N 7.4-10.4 Abs Neutrophils 3.4 10^3/uL N 1.5-7.7 Abs Lymphocytes 1.8 10^3/uL N 1.0-4.8 Abs Monocytes 0.3 10^3/uL N 0-0.8 Abs Eosinophils 0.2 10^3/uL N 0-0.6 Abs Basophils 0.1 10^3/uL N 0-0.2 Abs Nucleated RBC 0 10^3/uL N Granulocyte % 59.0 % N 38-83 Lymphocyte % 31.6 % N 25-47 Monocyte % 5.8 % N 1-9 Eosinophil % 2.7 % N 0-6 Basophil % 0.9 % N 0-2 Nucleated Red Blood Cells % 0 N Comp Metabolic Panel 05/05/2017 [facility] Sodium 139 mmol/L N 133-[address] [place] [address] [phone] Potassium 4.2 mmol/L N 3.5-5.0 Chloride 106 mmol/L N 101-111 Co2 Carbon Dioxide 28 mmol/L N 22-32 Anion Gap 5 mmol/L N 2-11 Glucose 96 mg/dL N 70-100 Blood Urea Nitrogen 15 mg/dL N 6-24 Creatinine 0.86 mg/dL N 0.51-0.95 BUN/Creatinine Ratio 17.4 N 8-20 Calcium 9.1 mg/dL N 8.6-10.3 Total Protein 6.6 g/dL N 6.4-8.9 Albumin 4.1 g/dL N 3.2-5.2 Globulin 2.5 g/dL N 2-4 Albumin/Globulin Ratio 1.6 N 1-3 Total Bilirubin 0.50 mg/dL N 0.2-1.0 Alkaline Phosphatase 64 U/L N 34-104 Alt 32 U/L N 7-52 Ast 23 U/L N 13-39 Egfr Non- 68.5 N >60 Egfr 88.1 N >60 117 [address]uma Key 05/05/2017 [facility] Ebv Capsid Positive N Negative Comprehensive [address] [place] [address] [phone] Ebv Capsid Ag IgM Ab Negative N Negative Fatuma-Key Nuclear Antigen Positive N Negative Fatuma-Key Virus Interp See Comment N 118 Laboratory test 04/19/2017 [facility] TSH (Thyroid 1.29 mcIU/mL N 0.34-5.[address] Stim Horm) [place] [address] [phone] CBC Auto Diff 04/19/2017 [facility] White Blood 5.5 10^3/uL N 3.5-10.[address] [place] [address] [phone] Red Blood Count 4.49 10^6/uL N 4.0-5.4 Hemoglobin 13.0 g/dL N 12.0-16.0 Hematocrit 40 % N 35-47 Mean Corpuscular Volume 88 fL N 80-97 Mean Corpuscular Hemoglobin 29 pg N 27-31 Mean Corpuscular HGB Conc 33 g/dL N 31-36 Red Cell Distribution Width 14 % N 10.5-15 Platelet Count 227 10^3/uL N 150-450 Mean Platelet Volume 11 um3 High 7.4-10.4 Abs Neutrophils 3.1 10^3/uL N 1.5-7.7 Abs Lymphocytes 1.8 10^3/uL N 1.0-4.8 Abs Monocytes 0.4 10^3/uL N 0-0.8 Abs Eosinophils 0.2 10^3/uL N 0-0.6 Abs Basophils 0.1 10^3/uL N 0-0.2 Abs Nucleated RBC 0 10^3/uL N Granulocyte % 55.7 % N 38-83 Lymphocyte % 33.3 % N 25-47 Monocyte % 6.8 % N 1-9 Eosinophil % 3.2 % N 0-6 Basophil % 1.0 % N 0-2 Nucleated Red Blood Cells % 0.1 N Laboratory test 04/19/2017 [facility] Vitamin B12 264 pg/mL N 180-914 [address] [place] [address] [phone] Lyme Disease Serology Negative N Negative 120 Protein 04/19/2017 [facility] Total 6.9 g/dL N 6.3 - Electrophoresis [address] Protein(Pep) 7.9 [place] [address] [phone] Albumin 3.5 g/dL N 3.4-4.7 Alpha-1 Globulin 0.2 g/dL N 0.1-0.3 Alpha-2 Globulin 1.1 g/dL Abnormal 0.6-1.0 Beta Globulin 1.1 g/dL N 0.7-1.2 Gamma Globulin 0.9 g/dL N 0.6-1.6 Albumin/Globulin Ratio 1.05 N Impression See Comment N 121 Laboratory test finding 04/19/2017 [facility] Amylase 27 U/L Low 29-[address] [place] [address] [phone] Lipase 42 U/L N 11.0-82.0 Monospot Negative N Negative 122 CMV Igg/Igm 04/19/2017 [facility] Cytomegalovirus IgG Negative N Negative [address] [place] [address] [phone] Cytomegalovirus IgM Antibody Negative N Negative Laboratory test 04/19/2017 [facility] C Reactive 6.47 mg/L High < 5.00 [address] [place] [address] [phone] Laboratory test 04/14/2017 [facility] Lactic Acid 0.7 N 0.5- 2.0 [address] mmol/[place] [address] [phone] Comp Metabolic 04/14/2017 [facility] Sodium 137 N 133-[address] mmol/[place] [address] [phone] Potassium 3.9 mmol/L N 3.5-5.0 Chloride 105 mmol/L N 101-111 Co2 Carbon Dioxide 26 mmol/L N 22-32 Anion Gap 6 mmol/L N 2-11 Glucose 94 mg/dL N 70-100 Blood Urea Nitrogen 16 mg/dL N 6-24 Creatinine 0.89 mg/dL N 0.51-0.95 BUN/Creatinine Ratio 18.0 N 8-20 Calcium 9.1 mg/dL N 8.6-10.3 Total Protein 7.0 g/dL N 6.4-8.9 Albumin 4.2 g/dL N 3.2-5.2 Globulin 2.8 g/dL N 2-4 Albumin/Globulin Ratio 1.5 N 1-3 Total Bilirubin 0.40 mg/dL N 0.2-1.0 Alkaline Phosphatase 65 U/L N 34-104 Alt 26 U/L N 7-52 Ast 22 U/L N 13-39 Egfr Non- 65.8 N >60 Egfr 84.7 N >60 126 Laboratory test 04/14/2017 [facility] Troponin-I 0.00 ng/mL N <0.[address] (TnI) [place] [address] [phone] CBC Auto Diff 04/14/2017 [facility] White Blood 6.5 N 3.5- 10.[address] Count 10^3/[place] [address] [phone] Red Blood Count 4.50 10^6/uL N 4.0-5.4 Hemoglobin 13.2 g/dL N 12.0-16.0 Hematocrit 40 % N 35-47 Mean Corpuscular Volume 90 fL N 80-97 Mean Corpuscular Hemoglobin 29 pg N 27-31 Mean Corpuscular HGB Conc 33 g/dL N 31-36 Red Cell Distribution Width 14 % N 10.5-15 Platelet Count 218 10^3/uL N 150-450 Mean Platelet Volume 10 um3 N 7.4-10.4 Abs Neutrophils 3.7 10^3/uL N 1.5-7.7 Abs Lymphocytes 2.2 10^3/uL N 1.0-4.8 Abs Monocytes 0.5 10^3/uL N 0-0.8 Abs Eosinophils 0.1 10^3/uL N 0-0.6 Abs Basophils 0.1 10^3/uL N 0-0.2 Abs Nucleated RBC 0 10^3/uL N Granulocyte % 56.6 % N 38-83 Lymphocyte % 33.3 % N 25-47 Monocyte % 7.7 % N 1-9 Eosinophil % 1.6 % N 0-6 Basophil % 0.8 % N 0-2 Nucleated Red Blood Cells % 0.1 N CBC Auto Diff 03/24/2017 [facility] White Blood 7.1 10^3/uL N 3.5-10.[address] [place] [address] [phone] Red Blood Count 4.62 10^6/uL N 4.0-5.4 Hemoglobin 13.4 g/dL N 12.0-16.0 Hematocrit 42 % N 35-47 Mean Corpuscular Volume 90 fL N 80-97 Mean Corpuscular Hemoglobin 29 pg N 27-31 Mean Corpuscular HGB Conc 32 g/dL N 31-36 Red Cell Distribution Width 14 % N 10.5-15 Platelet Count 238 10^3/uL N 150-450 Mean Platelet Volume 11 um3 High 7.4-10.4 Abs Neutrophils 3.9 10^3/uL N 1.5-7.7 Abs Lymphocytes 2.5 10^3/uL N 1.0-4.8 Abs Monocytes 0.4 10^3/uL N 0-0.8 Abs Eosinophils 0.2 10^3/uL N 0-0.6 Abs Basophils 0.1 10^3/uL N 0-0.2 Abs Nucleated RBC 0.01 10^3/uL N Granulocyte % 55.1 % N 38-83 Lymphocyte % 35.5 % N 25-47 Monocyte % 6.1 % N 1-9 Eosinophil % 2.4 % N 0-6 Basophil % 0.9 % N 0-2 Nucleated Red Blood Cells % 0.1 N Comp Metabolic Panel 03/24/2017 [facility] Sodium 140 mmol/L N 133-[address] [place] [address] [phone] Potassium 4.2 mmol/L N 3.5-5.0 Chloride 104 mmol/L N 101-111 Co2 Carbon Dioxide 30 mmol/L N 22-32 Anion Gap 6 mmol/L N 2-11 Glucose 98 mg/dL N 70-100 Blood Urea Nitrogen 17 mg/dL N 6-24 Creatinine 1.21 mg/dL High 0.51-0.95 BUN/Creatinine Ratio 14.0 N 8-20 Calcium 9.4 mg/dL N 8.6-10.3 Total Protein 6.5 g/dL N 6.4-8.9 Albumin 4.1 g/dL N 3.2-5.2 Globulin 2.4 g/dL N 2-4 Albumin/Globulin Ratio 1.7 N 1-3 Total Bilirubin 0.50 mg/dL N 0.2-1.0 Alkaline Phosphatase 70 U/L N 34-104 Alt 28 U/L N 7-52 Ast 20 U/L N 13-39 Egfr Non- 46.2 N >60 Egfr 59.4 N >60 127 Laboratory test 03/24/2017 [facility] Ferritin 57.0 ng/mL N 11 -307 finding [address] [place] [address] [phone] Lyme Disease Serology Negative N Negative 128 Laboratory test 03/06/2017 [facility] Point of 108 mg/dL High 74-106 129 finding 101 [facility] [place] [address] [phone] CBC No Diff 01/02/2017 [facility] White Blood 7.0 N 3.5-10.8 [address] [facility] Count 10^3/[place] [address] [phone] Red Blood Count 4.65 10^6/uL N 4.0-5.4 Hemoglobin 13.4 g/dL N 12.0-16.0 Hematocrit 41 % N 35-47 Mean Corpuscular Volume 88 fL N 80-97 Mean Corpuscular Hemoglobin 29 pg N 27-31 Mean Corpuscular HGB Conc 33 g/dL N 31-36 Red Cell Distribution Width 14 % N 10.5-15 Platelet Count 222 10^3/uL N 150-450 Mean Platelet Volume 10 um3 N 7.4-10.4 Comp Metabolic Panel 01/02/2017 [facility] Sodium 140 mmol/L N 133-145 [address] [place] [address] [phone] Potassium 4.3 mmol/L N 3.5-5.0 Chloride 106 mmol/L N 101-111 Co2 Carbon Dioxide 29 mmol/L N 22-32 Anion Gap 5 mmol/L N 2-11 Glucose 114 mg/dL High 70-100 Blood Urea Nitrogen 17 mg/dL N 6-24 Creatinine 0.96 mg/dL High 0.51-0.95 BUN/Creatinine Ratio 17.7 N 8-20 Calcium 9.1 mg/dL N 8.6-10.3 Total Protein 6.7 g/dL N 6.4-8.9 Albumin 4.1 g/dL N 3.2-5.2 Globulin 2.6 g/dL N 2-4 Albumin/Globulin Ratio 1.6 N 1-3 Total Bilirubin 0.40 mg/dL N 0.2-1.0 Alkaline Phosphatase 70 U/L N 34-104 Alt 32 U/L N 7-52 Ast 23 U/L N 13-39 Egfr Non- 60.3 N >60 Egfr 77.6 N >60 130 Lipid Profile 01/02/2017 [facility] Triglycerides 257 mg/dL N 131 (Trig/Chol/HDL) 101 [place] [address] [phone] Cholesterol 251 mg/dL N 132 HDL Cholesterol 46.5 mg/dL N 133 LDL Cholesterol 153 mg/dL N 134 Iron & Iron Binding 01/02/2017 [facility] Iron 98 g/dL N 50- 212 [address]acity [address] [place] [address] [phone] Unsaturated Iron Binding 311 g/dL N Total Iron Binding Capacity 409 g/dL N 250-450 % Iron Saturation 24 % N 15-55 Laboratory test 01/02/2017 [facility] Folic Acid 13.85 ng/mL N >3.99 finding 101 [facility] (Folate) [place] [address] [phone] Vitamin B12 297 pg/mL N 180-204 135 Vitamin D Total 25(Oh) 24.6 ng/mL Low 30-50 Hemoglobin A1c 5.8 % N Less than 6.0 136 Vitamin B1 (Whole Blood) 160 nmol/L N 70-180 137 Vitamin B6 01/02/2017 [facility] Pyridoxal 5-Phosphate 21 g/L N 5-[address] [place] [address] [phone] Pyridoxic Acid 14 g/L N 3-30 139 Laboratory test 01/02/2017 [facility] Vitamin B1 160 nmol/L N 70-180 [address] [place] [address] [phone] Vitamin B6 01/02/2017 [facility] Pyridoxal 21 g/L N 5-[address] 5[place] [address] [phone] Pyridoxic Acid 14 g/L N 3-30 142 Urine Culture And 09/27/2016 [facility] Urine Culture SEE RESULT [address] [place] [address] [phone] Laboratory test 09/27/2016 [facility] Lipase 35 U/L N 11.0- finding [address] 82.0 [place] [address] [phone] C Reactive Protein 3.69 mg/L N < 5.00 144 Troponin-I (TnI) 0.00 ng/mL N <0.04 145 HCG 2.54 mIU/mL N 146 Comp Metabolic Panel 09/27/2016 [facility] Sodium 137 mmol/L N 133-[address] [place] [address] [phone] Potassium 3.6 mmol/L N 3.5-5.0 Chloride 107 mmol/L N 101-111 Co2 Carbon Dioxide 26 mmol/L N 22-32 Anion Gap 4 mmol/L N 2-11 Glucose 116 mg/dL High 70-100 Blood Urea Nitrogen 18 mg/dL N 6-24 Creatinine 1.15 mg/dL High 0.51-0.95 BUN/Creatinine Ratio 15.7 N 8-20 Total Protein 7.2 g/dL N 6.4-8.9 Albumin 4.5 g/dL N 3.2-5.2 Globulin 2.7 g/dL N 2-4 Albumin/Globulin Ratio 1.7 N 1-3 Total Bilirubin 0.30 mg/dL N 0.2-1.0 Alkaline Phosphatase 78 U/L N 34-104 Alt 22 U/L N 7-52 Ast 17 U/L N 13-39 Egfr Non- 49.2 N >60 Egfr 63.2 N >60 147 Calcium 9.3 mg/dL N 8.6-10.3 CBC Auto Diff 09/27/2016 [facility] White Blood 6.2 10^3/uL N 3.5-10.[address] [place] [address] [phone] Red Blood Count 4.47 10^6/uL N 4.0-5.4 Hemoglobin 13.1 g/dL N 12.0-16.0 Hematocrit 39 % N 35-47 Mean Corpuscular Volume 88 fL N 80-97 Mean Corpuscular Hemoglobin 29 pg N 27-31 Mean Corpuscular HGB Conc 33 g/dL N 31-36 Red Cell Distribution Width 14 % N 10.5-15 Platelet Count 204 10^3/uL N 150-450 Mean Platelet Volume 10 um3 N 7.4-10.4 Abs Neutrophils 3.1 10^3/uL N 1.5-7.7 Abs Lymphocytes 2.5 10^3/uL N 1.0-4.8 Abs Monocytes 0.4 10^3/uL N 0-0.8 Abs Eosinophils 0.1 10^3/uL N 0-0.6 Abs Basophils 0 10^3/uL N 0-0.2 Abs Nucleated RBC 0 10^3/uL N Granulocyte % 50.5 % N 38-83 Lymphocyte % 41.0 % N 25-47 Monocyte % 5.8 % N 1-9 Eosinophil % 2.0 % N 0-6 Basophil % 0.7 % N 0-2 Nucleated Red Blood Cells % 0 N Laboratory test 09/27/2016 [facility] Lactic Acid 1.1 mmol/L N 0.5-2.0 148 finding [address] [place] [address] [phone] Urinalysis 09/27/2016 [facility] Urine Color Yellow N Profile [address] [place] [address] [phone] Urine Appearance Cloudy N Urine Specific [place] 1.017 N 1.010-1.030 Urine pH 7.0 N 5-9 Urine Urobilinogen Negative N Negative Urine Ketones Negative N Negative Urine Protein Negative N Negative Urine Leukocytes Trace Abnormal Negative Urine Blood Negative N Negative * * Abnormal Negative 149 Urine Nitrite Negative N Negative Urine Bilirubin Negative N Negative Urine Glucose Negative N Negative Urine White Blood Cell 1+(6-10/hpf) Abnormal Absent Urine Red Blood Cell 1+(3-5/hpf) Abnormal Absent Urine Bacteria Absent N Absent Urine Squamous Epithelial Cell Present Abnormal Absent Urine Amorphous Crystals Present Abnormal Absent Laboratory test 08/09/2016 [facility] Surgical SEE RESULT [address] [place] [address] [phone] Laboratory test 08/05/2016 [facility] TSH (Thyroid 1.44 mcIU/mL N 0.34- finding [address] Stim Horm) 5.60 [place] [address] [phone] Hepatitis C Antibody Nonreactive N Nonreactive Laboratory test 07/18/2016 [facility] Lactic Acid 1.5 mmol/L N 0.5-2.[address] [place] [address] [phone] Comp Metabolic 07/18/2016 [facility] Sodium 138 mmol/L N 133- [address] [place] [address] [phone] Potassium 4.3 mmol/L N 3.5-5.0 Chloride 109 mmol/L N 101-111 Co2 Carbon Dioxide 23 mmol/L N 22-32 Anion Gap 6 mmol/L N 2-11 Glucose 107 mg/dL High 70-100 Blood Urea Nitrogen 22 mg/dL N 6-24 Creatinine 1.26 mg/dL High 0.51-0.95 BUN/Creatinine Ratio 17.5 N 8-20 Calcium 9.2 mg/dL N 8.6-10.3 Total Protein 7.2 g/dL N 6.4-8.9 Albumin 4.2 g/dL N 3.2-5.2 Globulin 3.0 g/dL N 2-4 Albumin/Globulin Ratio 1.4 N 1-3 Total Bilirubin 0.30 mg/dL N 0.2-1.0 Alkaline Phosphatase 70 U/L N 34-104 Alt 27 U/L N 7-52 Ast 20 U/L N 13-39 Egfr Non- 44.3 N >60 Egfr 56.9 N >60 152 Laboratory test finding 07/18/2016 [facility] Lipase 37 U/L N 11.0-82.[address] [place] [address] [phone] C Reactive Protein 2.83 mg/L N < 5.00 153 CBC Auto Diff 07/18/2016 [facility] White Blood 7.6 10^3/uL N 3.5-10.[address] Count [place], [place] [id number] [phone] Red Blood Count 4.37 10^6/uL N 4.0-5.4 Hemoglobin 12.9 g/dL N 12.0-16.0 Hematocrit 38 % N 35-47 Mean Corpuscular Volume 88 fL N 80-97 Mean Corpuscular Hemoglobin 30 pg N 27-31 Mean Corpuscular HGB Conc 34 g/dL N 31-36 Red Cell Distribution Width 14 % N 10.5-15 Platelet Count 249 10^3/uL N 150-450 Mean Platelet Volume 10 um3 N 7.4-10.4 Abs Neutrophils 4.6 10^3/uL N 1.5-7.7 Abs Lymphocytes 2.3 10^3/uL N 1.0-4.8 Abs Monocytes 0.4 10^3/uL N 0-0.8 Abs Eosinophils 0.2 10^3/uL N 0-0.6 Abs Basophils 0.1 10^3/uL N 0-0.2 Abs Nucleated RBC 0.01 10^3/uL N Granulocyte % 60.8 % N 38-83 Lymphocyte % 29.8 % N 25-47 Monocyte % 5.8 % N 1-9 Eosinophil % 2.7 % N 0-6 Basophil % 0.9 % N 0-2 Nucleated Red Blood Cells % 0.1 N Urinalysis Profile 07/18/2016 [facility] Urine Color Yellow N [address] [place], [place] [id number] [phone] Urine Appearance Cloudy N Urine Specific [place] 1.019 N 1.010-1.030 Urine pH 6.0 N 5-9 Urine Urobilinogen Negative N Negative Urine Ketones Negative N Negative Urine Protein Negative N Negative Urine Leukocytes 1+ Abnormal Negative Urine Blood Negative N Negative * * Abnormal Negative 154 Urine Nitrite Negative N Negative Urine Bilirubin Negative N Negative Urine Glucose Negative N Negative Urine White Blood Cell 2+(11-20/hpf) Abnormal Absent Urine Red Blood Cell Absent N Absent Urine Bacteria Absent N Absent Urine Squamous Epithelial Cell Present Abnormal Absent Urine Culture And 07/18/2016 [facility] Urine Culture SEE RESULT [address] [place] [address] [phone] Urinalysis Profile 07/18/2016 [facility] Urine Color Yellow N [address] [place] [address] [phone] Urine Appearance Clear N Urine Specific [place] 1.011 N 1.010-1.030 Urine pH 7.0 N 5-9 Urine Urobilinogen Negative N Negative Urine Ketones Negative N Negative Urine Protein Negative N Negative Urine Leukocytes Negative N Negative Urine Blood Negative N Negative * * Abnormal Negative 156 Urine Nitrite Negative N Negative Urine Bilirubin Negative N Negative Urine Glucose Negative N Negative Xray 06/08/2016 [facility] MRI Wrist Right <pending> [address] [place] [address] [phone] Laboratory test 05/13/2016 [facility] C Reactive 1.43 mg/L N < [address] Protein 5.00 [place] [address] [phone] Erythrocyte Sed Rate 11 mm/Hr N 0-30 158 Troponin-I (TnI) 0.00 ng/mL N <0.03 159 Basic Metabolic Panel 08/24/2015 [facility] Sodium 141 mmol/L N 133-[address] [place] [address] [phone] Potassium 4.1 mmol/L N 3.5-5.0 Chloride 110 mmol/L N 101-111 Co2 Carbon Dioxide 26 mmol/L N 22-32 Anion Gap 5 mmol/L N 2-11 Glucose 88 mg/dL N 70-100 Blood Urea Nitrogen 14 mg/dL N 6-24 Creatinine 0.97 mg/dL High 0.51-0.95 BUN/Creatinine Ratio 14.4 N 8-20 Calcium 8.6 mg/dL N 8.6-10.3 Egfr Non- 60.1 N >60 Egfr 77.3 N >60 160 Laboratory test 08/24/2015 [facility] TSH (Thyroid 1.14 ?IU/mL N 0.34-5.[address] Stim Horm) [place] [address] [phone] T3 Free 3.20 pg/mL N 2.5-3.9 Free T4 (Free Thyroxine) 0.58 ng/mL Low 0.61-1.12 Urine Culture And Sensitivities SEE RESULT BELOW 161 Protein 08/05/2015 [facility] Total 6.6 g/dL N 6.3 - Electrophoresis 101 [facility] Protein(Pep) 7.9 [place] [address] [phone] Albumin 3.5 g/dL N 3.4-4.7 Alpha-1 Globulin 0.2 g/dL N 0.1-0.3 Alpha-2 Globulin 1.1 g/dL Abnormal 0.6-1.0 Beta Globulin 1.0 g/dL N 0.7-1.2 Gamma Globulin 0.8 g/dL N 0.6-1.6 Albumin/Globulin Ratio 1.12 N Impression See Comment N 162 Comp Metabolic Panel 05/19/2015 [facility] Sodium 139 mmol/L N 133-145 163 [address] [place] [address] [phone] Potassium 4.2 mmol/L N 3.5-5.0 Chloride 109 mmol/L N 101-111 Co2 Carbon Dioxide 24 mmol/L N 22-32 Anion Gap 6 mmol/L N 2-11 Glucose 105 mg/dL High 70-100 Blood Urea Nitrogen 13 mg/dL N 6-24 Creatinine 0.78 mg/dL N 0.51-0.95 BUN/Creatinine Ratio 16.7 N 8-20 Calcium 8.9 mg/dL N 8.6-10.3 Total Protein 6.5 g/dL N 6.4-8.9 Albumin 4.2 g/dL N 3.2-5.2 Globulin 2.3 g/dL N 2-4 Albumin/Globulin Ratio 1.8 N 1-3 Total Bilirubin 0.20 mg/dL N 0.2-1.0 Alkaline Phosphatase 77 U/L N 34-104 Alt 22 U/L N 7-52 Ast 16 U/L N 13-39 Egfr Non- 77.3 N >60 Egfr 99.4 N >60 164 Lipid Profile 05/19/2015 [facility] Triglycerides 216 mg/dL N 165 (Trig/Chol/HDL) [address] [place] [address] [phone] Cholesterol 280 mg/dL N 166 HDL Cholesterol 52.8 mg/dL N 167 LDL Cholesterol 184 mg/dL N 168 Laboratory test 05/19/2015 [facility] C Reactive 1.26 mg/L N < 5.00 169 finding 101 [facility] [place] [address] [phone] Free T4 (Free Thyroxine) 0.60 ng/mL Low 0.61-1.12 170 Vitamin D Total 25(Oh) 31.5 ng/mL N 30-50 Erythrocyte Sed Rate 12 mm/Hr N 0-30 171 Huma (Antinuclear Antibodies) Negative N Negative 172 Laboratory test 05/19/2015 [facility] TSH (Thyroid 2.17 ?IU/mL N 0.34-5.60 [address] Stim Horm) [place] [address] [phone] T3 Free 2.40 pg/mL Low 2.5-3.9 174 CBC Auto Diff 05/19/2015 [facility] White Blood 5.5 10^3/uL N 4.8-10.[address] [place] [address] [phone] Red Blood Count 4.38 10^6/uL N 4.0-5.4 Hemoglobin 13.0 g/dL N 12.0-16.0 Hematocrit 39 % N 35-47 Mean Corpuscular Volume 90 fL N 80-97 Mean Corpuscular Hemoglobin 30 pg N 27-31 Mean Corpuscular HGB Conc 33 g/dL N 31-36 Red Cell Distribution Width 14 % N 10.5-15 Platelet Count 218 10^3/uL N 150-450 Mean Platelet Volume 9 um3 N 7.4-10.4 Abs Neutrophils 3.0 10^3/uL N 1.5-7.7 Abs Lymphocytes 2.1 10^3/uL N 1.0-4.8 Abs Monocytes 0.3 10^3/uL N 0-0.8 Abs Eosinophils 0.1 10^3/uL N 0-0.6 Abs Basophils 0 10^3/uL N 0-0.2 Abs Nucleated RBC 0 10^3/uL N Granulocyte % 54.1 % N 38-83 Lymphocyte % 38.8 % N 25-47 Monocyte % 5.0 % N 1-9 Eosinophil % 1.3 % N 0-6 Basophil % 0.8 % N 0-2 Nucleated Red Blood Cells % 0 N Laboratory test 05/19/2015 [facility] Vitamin D 31.5 ng/mL N 30-[address] Total 25(Oh) [place] [address] [phone] Erythrocyte Sed Rate 12 mm/Hr N 0-30 175 Huma (Antinuclear Antibodies) Negative N Negative 176 CBC Auto Diff 05/19/2015 [facility] White Blood 5.5 10^3/uL N 4.8-10.[address] [place] [address] [phone] Red Blood Count 4.38 10^6/uL N 4.0-5.4 Hemoglobin 13.0 g/dL N 12.0-16.0 Hematocrit 39 % N 35-47 Mean Corpuscular Volume 90 fL N 80-97 Mean Corpuscular Hemoglobin 30 pg N 27-31 Mean Corpuscular HGB Conc 33 g/dL N 31-36 Red Cell Distribution Width 14 % N 10.5-15 Platelet Count 218 10^3/uL N 150-450 Mean Platelet Volume 9 um3 N 7.4-10.4 Abs Neutrophils 3.0 10^3/uL N 1.5-7.7 Abs Lymphocytes 2.1 10^3/uL N 1.0-4.8 Abs Monocytes 0.3 10^3/uL N 0-0.8 Abs Eosinophils 0.1 10^3/uL N 0-0.6 Abs Basophils 0 10^3/uL N 0-0.2 Abs Nucleated RBC 0 10^3/uL N Granulocyte % 54.1 % N 38-83 Lymphocyte % 38.8 % N 25-47 Monocyte % 5.0 % N 1-9 Eosinophil % 1.3 % N 0-6 Basophil % 0.8 % N 0-2 Nucleated Red Blood Cells % 0 N Laboratory test 05/19/2015 [facility] C Reactive 1.26 mg/L N < 5.00 [address] [place] [address] [phone] Free T4 (Free Thyroxine) 0.60 ng/mL Low 0.61-1.12 178 Lipid Profile 05/19/2015 [facility] Triglycerides 216 mg/dL N 179 (Trig/Chol/HDL) [address] [place] [address] [phone] Cholesterol 280 mg/dL N 180 HDL Cholesterol 52.8 mg/dL N 181 LDL Cholesterol 184 mg/dL N 182 Laboratory test 05/19/2015 [facility] TSH (Thyroid 2.17 ?IU/mL N 0.34-5.60 [address] Stim Horm) [place] [address] [phone] T3 Free 2.40 pg/mL Low 2.5-3.9 184 Comp Metabolic Panel 05/19/2015 [facility] Sodium 139 mmol/L N 133-[address] [place] [address] [phone] Potassium 4.2 mmol/L N 3.5-5.0 Chloride 109 mmol/L N 101-111 Co2 Carbon Dioxide 24 mmol/L N 22-32 Anion Gap 6 mmol/L N 2-11 Glucose 105 mg/dL High 70-100 Blood Urea Nitrogen 13 mg/dL N 6-24 Creatinine 0.78 mg/dL N 0.51-0.95 BUN/Creatinine Ratio 16.7 N 8-20 Calcium 8.9 mg/dL N 8.6-10.3 Total Protein 6.5 g/dL N 6.4-8.9 Albumin 4.2 g/dL N 3.2-5.2 Globulin 2.3 g/dL N 2-4 Albumin/Globulin Ratio 1.8 N 1-3 Total Bilirubin 0.20 mg/dL N 0.2-1.0 Alkaline Phosphatase 77 U/L N 34-104 Alt 22 U/L N 7-52 Ast 16 U/L N 13-39 Egfr Non- 77.3 N >60 Egfr 99.4 N >60 185 Laboratory test 11/20/2014 [facility] Activated 31.7 N 26.0- 36.3 [address] [place] [address] Thrombo Time [phone] CBC Auto Diff 11/20/2014 [facility] White Blood 7.4 10^3/uL N 4.8-10.[address] [place] [address] [phone] Red Blood Count 4.67 10^6/uL N 4.0-5.4 Hemoglobin 13.9 g/dL N 12.0-16.0 Hematocrit 42 % N 35-47 Mean Corpuscular Volume 89 fL N 80-97 Mean Corpuscular Hemoglobin 30 pg N 27-31 Mean Corpuscular HGB Conc 33 g/dL N 31-36 Red Cell Distribution Width 14 % N 10.5-15 Platelet Count 229 10^3/uL N 150-450 Mean Platelet Volume 10 um3 N 7.4-10.4 Abs Neutrophils 6.5 10^3/uL N 1.5-7.7 Abs Lymphocytes 0.8 10^3/uL Low 1.0-4.8 Abs Monocytes 0.1 10^3/uL N 0-0.8 Abs Eosinophils 0 10^3/uL N 0-0.6 Abs Basophils 0 10^3/uL N 0-0.2 Abs Nucleated RBC 0 10^3/uL N Granulocyte % 87.9 % High 38-83 Lymphocyte % 10.9 % Low 25-47 Monocyte % 0.9 % Low 1-9 Eosinophil % 0 % N 0-6 Basophil % 0.3 % N 0-2 Nucleated Red Blood Cells % 0 N Laboratory test 11/20/2014 [facility] Blood Urea 15 mg/dL N 6- [address] [place] [address] [phone] Creatinine 11/20/2014 [facility] Creatinine 0.85 mg/dL N 0.51- 0.[address] [place] [address] [phone] Egfr Non- 70.2 N >60 Egfr 90.3 N >60 187 Inr/Protime 11/20/2014 [facility] Inr 0.86 N 0.78-1.[address] [place] [address] [phone] 1 Desirable: <150 Borderline High: 150-199 High: 200-499 Very High: >500 2 Desirable: <200 Borderline High: 200-239 High: >239 3 Low: <40 Desirable: 40-60 High: >60 4 Desirable: <100 Near Optimal: 100-129 Borderline High: 130-159 High: 160-189 Very High: >189 5 Because ethnic data is not always readily available, this report includes an eGFR for both -Americans and non- Americans. The National Kidney Disease Education Program (NKDEP) does not endorse the use of the MDRD equation for patients that are not between the ages of 18 and 70, are , have extremes of body size, muscle mass, or nutritional status, or are non- or non-. According to the National Kidney Foundation, irrespective of diagnosis, the stage of the disease is based on the level of kidney function: Stage Description GFR(mL/min/1.73 m(2)) 1 Kidney damage with normal or decreased GFR 90 2 Kidney damage with mild decrease in GFR 60-89 3 Moderate decrease in GFR 30-59 4 Severe decrease in GFR 15-29 5 Kidney failure <15 (or dialysis) 6 Therapeutic target for the treatment of diabetes mellitus patients is <7% HBA1C, and in selective patients <6.0%. Please refer to [place] [employer] Association diabetic care guidelines for further information. 7 Normal Range 180 to 914 Indeterminate Range 145 to 180 Deficient Range <145 8 ADDITIONAL INFORMATION Testing performed by Liquid Chromatography-Tandem Mass Spectrometry (LC-MS/MS). This test was developed and its performance characteristics determined by [facility] in a manner consistent with CLIA requirements. This test has not been cleared or approved by the U.S. Food and Drug Administration. Test Performed by: [facility] [employer] [facility] [address] [place] [address] 9 REFERENCE VALUE Cutoff: 500 10 REFERENCE VALUE Cutoff: 200 11 Presumptive Positive Drug confirmation to follow. Presumptive Positive means that the screening method is positive, but the test needs to be run by a confirmatory method before being finalized. REFERENCE VALUE Cutoff: 100 12 REFERENCE VALUE Cutoff: 150 13 ADDITIONAL INFORMATION This report is intended for use in clinical monitoring or management of patients. It is not intended for use in employment-related testing. 14 REFERENCE VALUE Cutoff: 200 mg/L 15 Tylenol 3 16 Metabolite of codeine REFERENCE VALUE Cutoff: 100 17 Briana Henderson, Contin; Also a minor metabolite (10%) of codeine and can be seen in low concentrations (<2,000 ng/mL) with poppy seed ingestion. 18 Metabolite of morphine REFERENCE VALUE Cutoff: 100 19 Metabolite of heroin 20 Lortab, [place], Vicodin; Also a very minor metabolite of codeine and impurity (<1%) of oxycodone. 21 Metabolite of hydrocodone 22 Metabolite of hydrocodone 23 Dilaudid, Exalgo; Also a metabolite of hydrocodone and a minor (<5%) metabolite of morphine. 24 Metabolite of hydromorphone REFERENCE VALUE Cutoff: 100 25 Endocet, Percocet, Oxycontin 26 Metabolite of oxycodone 27 Numorphan, Opana; Also a metabolite of oxycodone. 28 Metabolite of oxymorphone REFERENCE VALUE Cutoff: 100 29 Metabolite of oxymorphone 30 Actiq, Duragesic, Fentora 31 Metabolite of fentanyl 32 Demerol 33 Metabolite of meperidine 34 Narcan 35 Metabolite of naloxone REFERENCE VALUE Cutoff: 100 36 Dolophine 37 Metabolite of methadone 38 Darvon, Darvocet 39 Metabolite of propoxyphene 40 Tradol, Ultram, Ultracet 41 Metabolite of tramadol 42 Nucynta 43 Metabolite of tapentadol 44 Metabolite of tapentadol REFERENCE VALUE Cutoff: 100 45 Buprenex, Suboxone 46 Metabolite of buprenorphine 47 Metabolite of buprenorphine 48 Test detected the presence of oxycodone and several metabolites (noroxycodone, noroxymorphone, and yrgsmqbeoug-6-mfch-glucuronide). Suspect use of oxycodone and/or oxymorphone within the past three days. Test detected the presence of tapentadol and two of its metabolites (n-desmethyltapentadol and ltkbtagjzq-ltoz-mzcfzdjyhje). Suspect use of tapentadol within the past three days. ADDITIONAL INFORMATION This test was developed and its performance characteristics determined by [facility] in a manner consistent with CLIA requirements. This test has not been cleared or approved by the U.S. Food and Drug Administration. Test Performed by: [facility] [address] [facility], [place] [address] 49 REFERENCE VALUE Cutoff: 100 50 REFERENCE VALUE Cutoff: 100 51 REFERENCE VALUE Cutoff: 100 52 REFERENCE VALUE Cutoff: 100 53 REFERENCE VALUE Cutoff: 100 54 REFERENCE VALUE Cutoff: 100 55 REFERENCE VALUE Cutoff: 100 56 REFERENCE VALUE Cutoff: 100 57 ADDITIONAL INFORMATION This report is intended for use in clinical monitoring and management of patients. It is not intended for use in employment-related testing. This test was developed and its performance characteristics determined by [facility] in a manner consistent with CLIA requirements. This test has not been cleared or approved by the U.S. Food and Drug Administration. Test Performed by: [facility] [address] [place] [address] 58 [id number] SEE RESULT BELOW Name: SHIRLEY ZAMAN : [address]: Radha Marinelli NP Acct: [id number] Unit: [id number] AGE: 57 Location: [facility] Re10/03/18 SEX: F Status: REG REF SPEC: [id number] TONY: 10/03/18-[address]: Radha Marinelli NP REQ: [id number] RECD: 10/03/18 STATUS: SOUT _ ORDERED: TP IMAGE ANALYS, HPV/Thin Prep, HPV 16/18 GENE COMMENTS: [id number] Negative for Intraepithelial lesion or Malignancy Date Time Test Result Flag (u) Normal Range 10/03/18 1416 @ HPV RNA RFLX GE Negative Negative @ @ The high-risk HPV types detected by the assay include: 16, @ 18, 31, 33, 35, 39, 45, 51, 52, 56, 58, 59, 66, and 68. A. Ectocervical/Endocervical Specimen Adequacy: Satisfactory of evaluation Transformation zone component cannot be definitely identified due to presence of atrophy or other hormonal changes Patient Information: HPV: High risk HPV RNA testing regardless of pap results. HPV 16/18 Genotype Reflex Actual Specimen Date: 10/03/18 Spec Date if unknown: unknown ?: N Post Menopausal?: Y Hysterectomy?: N Previous Abnormal Pap Smears?:N Signed by and Reported on: DENISE Shahid(ASCP) 917 This Pap test was evaluated with the assistance of the [employer] Test Imaging System. Due to cytologic findings at the oracle engineer microscope, comprehensive manual rescreening by a Seed Core Operator may be required. The Pap Smear is a screening test designed to aid in the detection of premalignant and malignant conditions of the uterine cervix. It is not a diagnostic procedure and should not be used as the sole means of detecting cervical cancer. Both false- positive and false- negative reports do occur. Depending on your risk status, a Pap smear should be obtained and evaluated every 1-3 years. END OF REPORT DEPARTMENT OF PATHOLOGY, [address] [place] [address] Ole Martin M.D. Director [facility] # [id number] 60 FAX:[phone] 61 Because ethnic data is not always readily available, this report includes an eGFR for both -Americans and non- Americans. The National Kidney Disease Education Program (NKDEP) does not endorse the use of the MDRD equation for patients that are not between the ages of 18 and 70, are , have extremes of body size, muscle mass, or nutritional status, or are non- or non-. According to the National Kidney Foundation, irrespective of diagnosis, the stage of the disease is based on the level of kidney function: Stage Description GFR(mL/min/1.73 m(2)) 1 Kidney damage with normal or decreased GFR 90 2 Kidney damage with mild decrease in GFR 60-89 3 Moderate decrease in GFR 30-59 4 Severe decrease in GFR 15-29 5 Kidney failure <15 (or dialysis) 62 Test Performed by: [address] [address] 63 Because ethnic data is not always readily available, this report includes an eGFR for both -Americans and non- Americans. The National Kidney Disease Education Program (NKDEP) does not endorse the use of the MDRD equation for patients that are not between the ages of 18 and 70, are , have extremes of body size, muscle mass, or nutritional status, or are non- or non-. According to the National Kidney Foundation, irrespective of diagnosis, the stage of the disease is based on the level of kidney function: Stage Description GFR(mL/min/1.73 m(2)) 1 Kidney damage with normal or decreased GFR 90 2 Kidney damage with mild decrease in GFR 60-89 3 Moderate decrease in GFR 30-59 4 Severe decrease in GFR 15-29 5 Kidney failure <15 (or dialysis) 64 Normal Range 180 to 914 Indeterminate Range 145 to 180 Deficient Range <145 65 Test Performed by: [address] [address] 66 Either of the two following conditions would be consistent with a normal response to Streptococcus pneumoniae vaccination: Antibody concentrations greater than or equal to the reference value for at least 50% of serotypes in either a pre- or post-vaccination sample. Antibody concentrations increased by 2-fold or greater for at least 50% of serotypes when comparing the pre- to the post-vaccination results. Optimal cut-offs (reference values) were derived by measuring serotype-specific IgG antibody levels in an adult cohort of 100 healthy individuals (previously unvaccinated) before and after pneumococcal vaccination and identifying the antibody level for each serotype that included the largest number of individuals with a negative response (below cut-off) pre-vaccination and a positive response (above cut-off) post-vaccination. ADDITIONAL INFORMATION All 23 serotypes assessed by this assay are included in the Pneumovax 23 vaccine. IgG antibody concentrations following Pneumovax 23 administration are a reflection of an individual's humoral immune response to polysaccharide antigens. Serotypes 1, 3, 4, 5, 6A (6), 14, 19F (19), 23F (23), 6B (26), 7F (51), 18C (56), 19A (57) and 9V (68) are included in the Prevnar-13 conjugate vaccine. Antibody concentrations following Prevnar-13 administration are a reflection of an individual's response to protein-conjugated antigens. Serotypes 2, 8, 9N (9), 12F (12), 17F (17), 20, 22F (22), 10A (34), 11A (43), 15B (54) and 33F (70) are present only in the Pneumovax 23 vaccine and not in Prevnar-13. Responses to these 11 serotypes are a reflection of an individual's response to polysaccharide antigens. Serotype 6A is only present in Prevnar-13. This test was developed and its performance characteristics determined by [facility] in a manner consistent with CLIA requirements. This test has not been cleared or approved by the U.S. Food and Drug Administration. Test Performed by: [facility] [address] [address] 67 Comment: 60 minute 68 AM 8.7-22.4 PM <10 69 Comment: 30 minutes 70 AM 8.7-22.4 PM <10 71 Comment: baseline 72 AM 8.7-22.4 PM <10 73 Because ethnic data is not always readily available, this report includes an eGFR for both -Americans and non- Americans. The National Kidney Disease Education Program (NKDEP) does not endorse the use of the MDRD equation for patients that are not between the ages of 18 and 70, are , have extremes of body size, muscle mass, or nutritional status, or are non- or non-. According to the National Kidney Foundation, irrespective of diagnosis, the stage of the disease is based on the level of kidney function: Stage Description GFR(mL/min/1.73 m(2)) 1 Kidney damage with normal or decreased GFR 90 2 Kidney damage with mild decrease in GFR 60-89 3 Moderate decrease in GFR 30-59 4 Severe decrease in GFR 15-29 5 Kidney failure <15 (or dialysis) 74 [facility] Severe Sepsis and Septic Shock Management Bundle Measure requires all lactic acids initially measuring >2.0 mmol/L be repeated. 75 Because ethnic data is not always readily available, this report includes an eGFR for both -Americans and non- Americans. The National Kidney Disease Education Program (NKDEP) does not endorse the use of the MDRD equation for patients that are not between the ages of 18 and 70, are , have extremes of body size, muscle mass, or nutritional status, or are non- or non-. According to the National Kidney Foundation, irrespective of diagnosis, the stage of the disease is based on the level of kidney function: Stage Description GFR(mL/min/1.73 m(2)) 1 Kidney damage with normal or decreased GFR 90 2 Kidney damage with mild decrease in GFR 60-89 3 Moderate decrease in GFR 30-59 4 Severe decrease in GFR 15-29 5 Kidney failure <15 (or dialysis) 76 Acute inflammation: >10.00 77 AM 8.7-22.4 PM <10 78 REFERENCE VALUE 7.2-63 (a.m. collection) Test Performed by: [facility] [address] [place] [address] 79 *Ascorbic acid is present which may interfere with detection of blood. 80 REFERENCE VALUE 18.4 - 106.0 81 REFERENCE VALUE 2.4 - 121.0 Test Performed by: [facility] [address] [place] [address] 82 REFERENCE VALUE 6:00-10:30 AM Collection 0.121-1.065 mcg/dL ADDITIONAL INFORMATION This test was developed and its performance characteristics determined by [facility] in a manner consistent with CLIA requirements. This test has not been cleared or approved by the U.S. Food and Drug Administration. Test Performed by: [facility] [address] [place] [address] 83 Immunoglobulin G (IgG), S was cancelled on 11/21/2017 at 10:09; Reason: Test IGG is cancelled due to be ordered with Test IGGS Test Performed by: [facility] - [address] [address] 84 Because ethnic data is not always readily available, this report includes an eGFR for both -Americans and non- Americans. The National Kidney Disease Education Program (NKDEP) does not endorse the use of the MDRD equation for patients that are not between the ages of 18 and 70, are , have extremes of body size, muscle mass, or nutritional status, or are non- or non-. According to the National Kidney Foundation, irrespective of diagnosis, the stage of the disease is based on the level of kidney function: Stage Description GFR(mL/min/1.73 m(2)) 1 Kidney damage with normal or decreased GFR 90 2 Kidney damage with mild decrease in GFR 60-89 3 Moderate decrease in GFR 30-59 4 Severe decrease in GFR 15-29 5 Kidney failure <15 (or dialysis) 85 REFERENCE VALUE <1.0 (Negative) 86 REFERENCE VALUE <1.0 (Negative) Test Performed by: [facility] - [address] [address] 87 TV: 1000ML START COLLECTION TIME 08/06/17 @0600 END COLLECTION TIME @ 0800 88 ADDITIONAL INFORMATION Liquid Chromatography-Tandem Mass Spectrometry (LC-MS/MS). Values obtained from different assay methods or kits may be different and cannot be used interchangeably. The results cannot be interpreted as absolute evidence for the presence or absence of malignant disease. This test was developed and its performance characteristics determined by [facility] in a manner consistent with CLIA requirements. This test has not been cleared or approved by the U.S. Food and Drug Administration. Test Performed by: [facility] - [address] [address] 89 ADDITIONAL INFORMATION Liquid Chromatography-Tandem Mass Spectrometry (LC-MS/MS). Values obtained from different assay methods or kits may be different and cannot be used interchangeably. The results cannot be interpreted as absolute evidence for the presence or absence of malignant disease. This test was developed and its performance characteristics determined by [facility] in a manner consistent with CLIA requirements. This test has not been cleared or approved by the U.S. Food and Drug Administration. Test Performed by: [facility] - [address] [address] 90 ADDITIONAL INFORMATION This test was developed and its performance characteristics determined by [facility] in a manner consistent with CLIA requirements. This test has not been cleared or approved by the U.S. Food and Drug Administration. Test Performed by: [facility] [employer] [facility] [address] [place] [address] 91 Please check this week 92 ADDITIONAL INFORMATION This test was developed and its performance characteristics determined by [facility] in a manner consistent with CLIA requirements. This test has not been cleared or approved by the U.S. Food and Drug Administration. 93 ADDITIONAL INFORMATION This test was developed and its performance characteristics determined by [facility] in a manner consistent with CLIA requirements. This test has not been cleared or approved by the U.S. Food and Drug Administration. 94 ADDITIONAL INFORMATION This test was developed and its performance characteristics determined by [facility] in a manner consistent with CLIA requirements. This test has not been cleared or approved by the U.S. Food and Drug Administration. Test Performed by: [facility] [employer] [facility] [address] [place] [address] 95 Please check this week 96 Please check this week 97 Please check this week 98 REFERENCE VALUE Not Applicable 99 RESULT: HLA-B27 antigen was not detected. ADDITIONAL INFORMATION Method: Flow Cytometry Performing Laboratory CLIA# [id number] Test Performed by: [facility] [employer] [facility] [address] [place] [address] 100 REFERENCE VALUE <4.0 (Negative) Test Performed by: [place] [address] 101 Negative serology. Celiac disease unlikely. However, approximately 10% of patients with celiac disease are seronegative. Also, patients who are already adhering to a gluten-free diet may be seronegative. If celiac disease is highly clinically suspected, consider HLA-DQ typing. Test Performed by: [place] [id number] RESULT: 01:02,01:03 REFERENCE VALUE Not Applicable 103 RESULT: 06:02,06:03 DQ Serologic Equivalent: 6,6 REFERENCE VALUE Not Applicable 104 The absence of HLA celiac permissive genes would make the presence of celiac disease unlikely. ADDITIONAL INFORMATION Method: Molecular typing of HLA antigens performed using reverse SSOP and/or SSP methods, reported as serological equivalents and low to medium resolution molecular values. Performing Laboratory CLIA# [id number] Test Performed by: [place] [address] 105 Test Performed by: [place] [address] 106 REFERENCE VALUE <1.0 (Negative) 107 REFERENCE VALUE <1.0 (Negative) Test Performed by: [address] [address] 108 Negative for cANCA and pANCA patterns by immunofluorescence. ADDITIONAL INFORMATION This test was developed and its performance characteristics determined by [facility] in a manner consistent with CLIA requirements. This test has not been cleared or approved by the U.S. Food and Drug Administration. Test Performed by: [facility] - [address] [address] 109 Test Performed by: [address] [address] 110 REFERENCE VALUE <=13 (Fasting) ADDITIONAL INFORMATION This test was developed and its performance characteristics determined by [facility] in a manner consistent with CLIA requirements. This test has not been cleared or approved by the U.S. Food and Drug Administration. Test Performed by: [address] [address] 111 Acute inflammation: >10.00 112 REFERENCE VALUE <20.0 (Negative) Test Performed by: [address] [address] 113 REFERENCE VALUE <=1.0 (Negative) Test Performed by: [address] [address] 114 Serologic response to B. burgdorferi infection is not detected, but cannot rule out early infection during which low or undetectable antibody levels to B. burgdorferi may be present. If clinically indicated, a new serum specimen should be submitted in 7-14 days. Test Performed by: [facility] - [address] [address] 115 Test Performed by: [facility] - [address] [address] 116 Acute inflammation: >10.00 117 Because ethnic data is not always readily available, this report includes an eGFR for both -Americans and non- Americans. The National Kidney Disease Education Program (NKDEP) does not endorse the use of the MDRD equation for patients that are not between the ages of 18 and 70, are , have extremes of body size, muscle mass, or nutritional status, or are non- or non-. According to the National Kidney Foundation, irrespective of diagnosis, the stage of the disease is based on the level of kidney function: Stage Description GFR(mL/min/1.73 m(2)) 1 Kidney damage with normal or decreased GFR 90 2 Kidney damage with mild decrease in GFR 60-89 3 Moderate decrease in GFR 30-59 4 Severe decrease in GFR 15-29 5 Kidney failure <15 (or dialysis) 118 RESULT: Results suggest past infection. ADDITIONAL INFORMATION In most populations, at least 90% of the adult population will have been infected with EBV sometime in the past and therefore, will be positive for anti-VCA/IgG and anti- EBNA. Antibodies to EBNA develop 6-8 weeks after primary infection and remain present for life. Presence of VCA/ IgM antibodies indicates recent primary infection with EBV. Test Performed by: [facility] - [address] [address] 119 Normal Range 180 to 914 Indeterminate Range 145 to 180 Deficient Range <145 120 Serologic response to B. burgdorferi infection is not detected, but cannot rule out early infection during which low or undetectable antibody levels to B. burgdorferi may be present. If clinically indicated, a new serum specimen should be submitted in 7-14 days. Test Performed by: [address] [address] 121 RESULT: No apparent monoclonal protein on serum electrophoresis. Test Performed by: [facility] - [facility] [address] [place] [address] 122 Would you like an EBV if Monospot is Negative?: N 123 Test Performed by: [facility] - [facility] [address] [place] [address] 124 Acute inflammation: >10.00 125 [facility] Severe Sepsis and Septic Shock Management Bundle Measure requires all lactic acids initially measuring >2.0 mmol/L be repeated. 126 Because ethnic data is not always readily available, this report includes an eGFR for both -Americans and non- Americans. The National Kidney Disease Education Program (NKDEP) does not endorse the use of the MDRD equation for patients that are not between the ages of 18 and 70, are , have extremes of body size, muscle mass, or nutritional status, or are non- or non-. According to the National Kidney Foundation, irrespective of diagnosis, the stage of the disease is based on the level of kidney function: Stage Description GFR(mL/min/1.73 m(2)) 1 Kidney damage with normal or decreased GFR 90 2 Kidney damage with mild decrease in GFR 60-89 3 Moderate decrease in GFR 30-59 4 Severe decrease in GFR 15-29 5 Kidney failure <15 (or dialysis) 127 Because ethnic data is not always readily available, this report includes an eGFR for both -Americans and non- Americans. The National Kidney Disease Education Program (NKDEP) does not endorse the use of the MDRD equation for patients that are not between the ages of 18 and 70, are , have extremes of body size, muscle mass, or nutritional status, or are non- or non-. According to the National Kidney Foundation, irrespective of diagnosis, the stage of the disease is based on the level of kidney function: Stage Description GFR(mL/min/1.73 m(2)) 1 Kidney damage with normal or decreased GFR 90 2 Kidney damage with mild decrease in GFR 60-89 3 Moderate decrease in GFR 30-59 4 Severe decrease in GFR 15-29 5 Kidney failure <15 (or dialysis) 128 Serologic response to B. burgdorferi infection is not detected, but cannot rule out early infection during which low or undetectable antibody levels to B. burgdorferi may be present. If clinically indicated, a new serum specimen should be submitted in 7-14 days. Test Performed by: [facility] [employer] - [address] [address] 129 Oracle Technical Developer: [id number] 130 Because ethnic data is not always readily available, this report includes an eGFR for both -Americans and non- Americans. The National Kidney Disease Education Program (NKDEP) does not endorse the use of the MDRD equation for patients that are not between the ages of 18 and 70, are , have extremes of body size, muscle mass, or nutritional status, or are non- or non-. According to the National Kidney Foundation, irrespective of diagnosis, the stage of the disease is based on the level of kidney function: Stage Description GFR(mL/min/1.73 m(2)) 1 Kidney damage with normal or decreased GFR 90 2 Kidney damage with mild decrease in GFR 60-89 3 Moderate decrease in GFR 30-59 4 Severe decrease in GFR 15-29 5 Kidney failure <15 (or dialysis) 131 Desirable <150 Borderline high 150-199 High 200-499 Very High >500 132 Desirable <200 Borderline high 200-239 High >239 133 Low <40 Desirable: 40-60 High: >60 134 Desirable: <100 mg/dL Near Optimal: 100-129 mg/dL Borderline High: 130-159 mg/dL High: 160-189 mg/dL Very High: >189 mg/dL 135 Normal Range 180 to 914 Indeterminate Range 145 to 180 Deficient Range <145 136 Therapeutic target for the treatment of diabetes Mellitus patients is <7% HBA1C, and in selective patients <6.0%.Please refer to [place] [employer] Diabetic care guidelines for further information. 137 ADDITIONAL INFORMATION This test was developed and its performance characteristics determined by [facility] in a manner consistent with CLIA requirements. This test has not been cleared or approved by the U.S. Food and Drug Administration. Test Performed by: [facility] [employer] - [facility] [address] [place] [address] 138 ADDITIONAL INFORMATION This test was developed and its performance characteristics determined by [facility] in a manner consistent with CLIA requirements. This test has not been cleared or approved by the U.S. Food and Drug Administration. 139 ADDITIONAL INFORMATION This test was developed and its performance characteristics determined by [facility] in a manner consistent with CLIA requirements. This test has not been cleared or approved by the U.S. Food and Drug Administration. Test Performed by: [facility] - [facility] [employer] [address] [place] [id number] 140 ADDITIONAL INFORMATION This test was developed and its performance characteristics determined by [facility] in a manner consistent with CLIA requirements. This test has not been cleared or approved by the U.S. Food and Drug Administration. Test Performed by: [facility] - [address] [address] 141 ADDITIONAL INFORMATION This test was developed and its performance characteristics determined by [facility] in a manner consistent with CLIA requirements. This test has not been cleared or approved by the U.S. Food and Drug Administration. 142 ADDITIONAL INFORMATION This test was developed and its performance characteristics determined by [facility] in a manner consistent with CLIA requirements. This test has not been cleared or approved by the U.S. Food and Drug Administration. Test Performed by: [facility] - [address] [address] 143 SEE RESULT BELOW Name: SHIRLEY ZARAGOZA : [address]: Momo Jewell MD Acct: [id number] Unit: [id number] AGE: 55 Location: ED Re09/27/16 SEX: F Status: DEP ER SPEC: [id number] TONY: 09/27/16 [facility] DR: Peter Rodriguez MD REQ: [id number] RECD: 09/27/16 STATUS: KARY HUERTA DR: [facility] Radha Marinelli HEALTH DIRECTOR _ SOURCE: URINE SPDESC: ORDERED: Urine Culture Procedure Result Reported Site Urine Culture Final 09/30/16- 0820 ML Organism 1 ENTEROCOCCUS FAECALIS [place] Count 10-25,000 (Moderate) CFU/ML Organism 2 NORMAL JASMIN [place] Count 1-10,000 (Few) CFU/ML 1. ENTEROCOCCUS FAECALIS M.I.C. RX --------- ------ Ampicillin <=2 S Penicillin 2 S Ciprofloxacin >=8 R Gentamicin High Level S Levofloxacin >=8 R Linezolid 2 S Nitrofurantoin <=16 S * Quinupristin/Dalfopristin 4 R * Streptomycin High Level R Tetracycline >=16 R Tigecycline <=0.12 S Vancomycin 1 S Imipenem-Deduced S * Ampicillin/Sulbactam-Deduced S CONTINUED ON NEXT PAGE * ML=Testing performed at Main Lab DEPARTMENT OF PATHOLOGY, [address] [place] [address] Ole Martin M.D. Director MATTHEW # [id number] Patient: SHIRLEY ZARAGOZA [id number] (Continued) Specimen: [id number] Collected: 09/27/16 Received: 09/27/16 (Continued) Procedure Result Reported Site Urine Culture Final (continued) * These antibiotics are not available in the [facility] Formulary Contact the Microbiology Department for any additional antibiotic reporting. * ML - MAIN LAB ([facility]) . END OF REPORT * ML=Testing performed at Main Lab DEPARTMENT OF PATHOLOGY, [address] [place] [address] Ole Martin M.D. Director [facility] # [id number] 144 Acute inflammation: >10.00 145 99th percentile=0.04 ng/mL Troponin results at [facility] and [facility] are not interchangeable. 146 <5.0 Negative 5.0 - 25.0 Indeterminate (Repeat testing recommended after 72 hours) >25.0 Positive Perimenopausal women can display HCG levels of up to 20 mIU/mL 147 Because ethnic data is not always readily available, this report includes an eGFR for both -Americans and non- Americans. The National Kidney Disease Education Program (NKDEP) does not endorse the use of the MDRD equation for patients that are not between the ages of 18 and 70, are , have extremes of body size, muscle mass, or nutritional status, or are non- or non-. According to the National Kidney Foundation, irrespective of diagnosis, the stage of the disease is based on the level of kidney function: Stage Description GFR(mL/min/1.73 m(2)) 1 Kidney damage with normal or decreased GFR 90 2 Kidney damage with mild decrease in GFR 60-89 3 Moderate decrease in GFR 30-59 4 Severe decrease in GFR 15-29 5 Kidney failure <15 (or dialysis) 148 [facility] Severe Sepsis and Septic Shock Management Bundle Measure requires all lactic acids initially measuring >2.0 mmol/L be repeated. 149 *Ascorbic acid is present which may interfere with detection of blood. 150 SEE RESULT BELOW Name: SHIRLEY ALVAREZ : [address]: Nigel Hilliard MD Acct: [id number] Unit: [id number] AGE: 55 Location: ENDO Re08/09/16 SEX: F Status: DEP REF SPEC: [id number] TONY: 08/09/16- SUBM DR: Nigel Hilliard MD REQ: [id number] RECD: 08/09/168464 STATUS: OMER HUERTA DR: Radha Marinelli HEALTH DIRECTOR _ ORDERED: LEVEL IV/2 FINAL DIAGNOSIS 1. Colon, right, biopsy: -- Large intestinal mucosa with no significant pathologic abnormality. -- No evidence of microscopic/lymphocytic colitis, collagenous colitis or other chronic inflammatory bowel process identified. 2. Colon, left, biopsy: -- Large intestinal mucosa with no significant pathologic abnormality. -- No evidence of microscopic/lymphocytic colitis, collagenous colitis or other chronic inflammatory bowel process identified. CLINICAL HISTORY Mother at 66 colorectal cancer, father pancreatic. Bowels - diarrhea after eating without blood POST-OPERATIVE DIAGNOSIS Larynx - narrow; esophagus - UES at 16 cm normal to 39, small hiatal hernia; stomach - normal; duodenum - normal x35. Colonoscopy - normal. Conclusions/Plan: Small hiatal hernia, normal gastric/duodenal mucosa; diverticulosis, normal colon and terminal ileum GROSS DESCRIPTION 1. The specimen is received in formalin labeled, Biopsies Right Colon, and consists of two yellow-white irregular to polypoid soft tissue fragments measuring 0.4 x 0.2 x 0.1 cm and 0.6 x 0.4 x 0.1 cm, which are entirely submitted in one cassette. 2. The specimen is received in formalin labeled, Biopsies Left Colon, and consists of two barboza-white irregular to polypoid soft tissue fragments measuring 0.5 x 0.2 x 0.1 cm and 0.6 x 0.4 x 0.1 cm, which are entirely submitted in one cassette. CONTINUED ON NEXT PAGE * ML=Testing performed at Main Lab DEPARTMENT OF PATHOLOGY, [address] [place] [address] Ole Martin M.D. Director [facility] # [id number] RUN DATE: 08/10/16 [facility] LAB LIVE PAGE 2 Patient: MILA GREENESHIRLEY [id number] (Continued) GROSS DESCRIPTION (Continued) Signed (signature on file) Ole Martin MD 1522 END OF REPORT * ML=Testing performed at Main Lab DEPARTMENT OF PATHOLOGY, [address] [place] [address] Ole Martin M.D. Director [facility] # [id number] [address] [place] [address] Severe Sepsis and Septic Shock Management Bundle Measure requires all lactic acids initially measuring >2.0 mmol/L be repeated. 152 Because ethnic data is not always readily available, this report includes an eGFR for both -Americans and non- Americans. The National Kidney Disease Education Program (NKDEP) does not endorse the use of the MDRD equation for patients that are not between the ages of 18 and 70, are , have extremes of body size, muscle mass, or nutritional status, or are non- or non-. According to the National Kidney Foundation, irrespective of diagnosis, the stage of the disease is based on the level of kidney function: Stage Description GFR(mL/min/1.73 m(2)) 1 Kidney damage with normal or decreased GFR 90 2 Kidney damage with mild decrease in GFR 60-89 3 Moderate decrease in GFR 30-59 4 Severe decrease in GFR 15-29 5 Kidney failure <15 (or dialysis) 153 Acute inflammation: >10.00 154 *Ascorbic acid is present which may interfere with detection of blood. 155 SEE RESULT BELOW Name: SHIRLEY ZARAGOZA : [address]: Cordell Davison MD Acct: [id number] Unit: [id number] AGE: 55 Location: ED Re07/18/16 SEX: F Status: DEP ER SPEC: [id number] TONY: 07/18/16 [facility] DR: Elizabeth HOPPER REQ: [id number] RECD: 07/18/16 STATUS: KARY HUERTA DR: Cordell Carbajal HEALTH DIRECTOR _ SOURCE: URINE SPDESC: ORDERED: Urine Culture Procedure Result Reported Site Urine Culture Final 07/19/16- 0833 ML No growth of clinically significant organisms * ML - [facility] LAB ([facility]) . END OF REPORT * ML=Testing performed at Main Lab DEPARTMENT OF PATHOLOGY, [address] [place] [address] Ole Martin M.D. Director [facility] # [id number] 156 *Ascorbic acid is present which may interfere with detection of blood. 157 Acute inflammation: >10.00 158 Copy Result to: TAMMY SIBLEY ([id number]) 159 Reference Range and Interpretation: TnI (ng/mL) Interpretation Less Than 0.03 ng/mL Not supportive of diagnosis of AK 0.03 - 0.50 ng/mL Indeterminate: suggest serial studies if clinically indicated. Greater than 0.5 ng/mL Consistent with diagnosis of [place] 160 Because ethnic data is not always readily available, this report includes an eGFR for both -Americans and non- Americans. The National Kidney Disease Education Program (NKDEP) does not endorse the use of the MDRD equation for patients that are not between the ages of 18 and 70, are , have extremes of body size, muscle mass, or nutritional status, or are non- or non-. According to the National Kidney Foundation, irrespective of diagnosis, the stage of the disease is based on the level of kidney function: Stage Description GFR(mL/min/1.73 m(2)) 1 Kidney damage with normal or decreased GFR 90 2 Kidney damage with mild decrease in GFR 60-89 3 Moderate decrease in GFR 30-59 4 Severe decrease in GFR 15-29 5 Kidney failure <15 (or dialysis) 161 SEE RESULT BELOW Name: SHIRLEY ZARAGOZA : [address]: Tammy Sibley MD Acct: [id number] Unit: [id number] AGE: 54 Location: [facility] Re08/24/15 SEX: F Status: REG REF SPEC: [id number] TONY: 08/24/15-1539 [facility] DR: Tammy Sibley MD REQ: [id number] RECD: 08/24/15 STATUS: KARY HUERTA DR: Petra Lilly MD _ SOURCE: URINE SPDESC: ORDERED: Urine Culture Procedure Result Reported Site Urine Culture Final 08/26/15- 0846 ML No Growth (<1,000 CFU/mL) * ML - MAIN LAB ([facility]) . END OF REPORT * ML=Testing performed at Main Lab DEPARTMENT OF PATHOLOGY, [address] [place] [address] Ole Martin M.D. Director [facility] # [id number] 162 RESULT: No apparent monoclonal protein on serum electrophoresis. Test Performed by: [place] [address] Cook Supervisor: Remy Garcia II, M.D., Ph.D. 163 PT IS FASTING 164 Because ethnic data is not always readily available, this report includes an eGFR for both -Americans and non- Americans. The National Kidney Disease Education Program (NKDEP) does not endorse the use of the MDRD equation for patients that are not between the ages of 18 and 70, are , have extremes of body size, muscle mass, or nutritional status, or are non- or non-. According to the National Kidney Foundation, irrespective of diagnosis, the stage of the disease is based on the level of kidney function: Stage Description GFR(mL/min/1.73 m(2)) 1 Kidney damage with normal or decreased GFR 90 2 Kidney damage with mild decrease in GFR 60-89 3 Moderate decrease in GFR 30-59 4 Severe decrease in GFR 15-29 5 Kidney failure <15 (or dialysis) 165 Desirable <150 Borderline high 150-199 High 200-499 Very High >500 166 Desirable <200 Borderline high 200-239 High >239 167 Low <40 Desirable: 40-60 High: >60 168 Desirable: <100 mg/dL Near Optimal: 100-129 mg/dL Borderline High: 130-159 mg/dL High: 160-189 mg/dL Very High: >189 mg/dL 169 Acute inflammation: >10.00 170 PT IS FASTING 171 PT IS FASTING 172 PT IS FASTING 173 PT IS FASTING 174 PT IS FASTING 175 PT IS FASTING 176 PT IS FASTING 177 Acute inflammation: >10.00 178 PT IS FASTING 179 Desirable <150 Borderline high 150-199 High 200-499 Very High >500 180 Desirable <200 Borderline high 200-239 High >239 181 Low <40 Desirable: 40-60 High: >60 182 Desirable: <100 mg/dL Near Optimal: 100-129 mg/dL Borderline High: 130-159 mg/dL High: 160-189 mg/dL Very High: >189 mg/dL 183 PT IS FASTING 184 PT IS FASTING 185 Because ethnic data is not always readily available, this report includes an eGFR for both -Americans and non- Americans. The National Kidney Disease Education Program (NKDEP) does not endorse the use of the MDRD equation for patients that are not between the ages of 18 and 70, are , have extremes of body size, muscle mass, or nutritional status, or are non- or non-. According to the National Kidney Foundation, irrespective of diagnosis, the stage of the disease is based on the level of kidney function: Stage Description GFR(mL/min/1.73 m(2)) 1 Kidney damage with normal or decreased GFR 90 2 Kidney damage with mild decrease in GFR 60-89 3 Moderate decrease in GFR 30-59 4 Severe decrease in GFR 15-29 5 Kidney failure <15 (or dialysis) 186 Effective October 31, 2014 at 12:00pm there is an updated reference range. 187 Because ethnic data is not always readily available, this report includes an eGFR for both -Americans and non- Americans. The National Kidney Disease Education Program (NKDEP) does not endorse the use of the MDRD equation for patients that are not between the ages of 18 and 70, are , have extremes of body size, muscle mass, or nutritional status, or are non- or non-. According to the National Kidney Foundation, irrespective of diagnosis, the stage of the disease is based on the level of kidney function: Stage Description GFR(mL/min/1.73 m(2)) 1 Kidney damage with normal or decreased GFR 90 2 Kidney damage with mild decrease in GFR 60-89 3 Moderate decrease in GFR 30-59 4 Severe decrease in GFR 15-29 5 Kidney failure <15 (or dialysis) Procedures Date Code Description Status 12/24/2018 11778 Holter Monitor Review (24 hr)dr review & interp only Completed 12/24/2018 83579 ECG Monitor/Recording W/Visual Superimposition Completed Scanning 12/11/2018 79849 Stress Test Completed 12/11/2018 15942 Myocardial Perfusion Imaging Tomographic (Spect) Completed Multiple Studies 11/09/2018 64357 EKG Tracing & Interpretation Completed 09/07/2018 46890 Inject/Drain Joint/Bursa Major W/O US Completed 05/28/2018 55209 Destruction Of Benign Lesions Any Method 1-14 lesions Completed 05/10/2018 51095 Trigger PT Inj(S) Single Or Multiple Points 1 Or 2 Completed Muscles 04/30/2018 08458 Allergy Test, Patch Or Application Completed 04/30/2018 27125 Allergy Test, Patch Or Application Completed 04/25/2018 82270 Destruction Of Benign Lesions Any Method 1-14 lesions Completed 03/02/2018 [id number] Mammogram Completed 01/18/2018 00080 Holter Monitor Review (24 hr)dr review & interp only Completed 01/12/2018 99067 ECG Monitor/Recording W/Visual Superimposition Completed Scanning 01/12/2018 29769 ECG Monitor/Recording W/Visual Superimposition Completed Scanning 01/12/2018 09380 Inject/Drain Joint/Bursa Major W/O US Completed 12/19/2017 52196 EKG Tracing & Interpretation Completed 12/15/2017 87855 Destruction Of Benign Lesions Any Method 1-14 lesions Completed 12/04/2017 71348 EKG Tracing & Interpretation Completed 11/07/2017 24310 Echocardiogram, Limited Study Completed 10/27/2017 32747 Inject/Drain Joint/Bursa Major W/O US Completed 09/21/2017 91444 ECHO Transthoracic, Real-Time 2D With Doppler And Completed Color Flow 09/21/2017 53052 ECHO Transthoracic, Real-Time 2D With Doppler And Completed Color Flow 09/15/2017 40207 Inject/Drain Joint/Bursa Major W/O US Completed 08/11/2017 14281 Inject/Drain Joint/Bursa Major W/O US Completed 07/25/2017 84387 EKG Tracing & Interpretation Completed 07/07/2017 [id number] Bone Mineral Density Test Completed 04/21/2017 09397 EKG Tracing & Interpretation Completed 04/17/2017 55139 Stress Test Supervsn W/Out I/R Completed 04/17/2017 41956 Treadmill Interp/Report Only Completed 04/16/2017 90644 EKG, Interpretation Only Completed 04/15/2017 77927 EKG, Interpretation Only Completed 04/14/2017 34833 EKG, Interpretation Only Completed 04/14/2017 70811 EKG Tracing & Interpretation Completed 02/17/2017 63696 Nerve Conduction 03-04 Studies Completed 02/17/2017 03055 Needle Electromyography Each Extremity W/Related Completed Paraspinal Areas 02/14/2017 [id number] Mammogram Completed 10/25/2016 58955 Chemodenervation Of Muscles Innervated By Facial Completed Nerves, Bilat 08/09/2016 [id number] Colonoscopy Completed 06/26/2016 30514 Event Monitor/Phys Review/Interp. Completed 06/24/2016 94374 Chemodenervation Of Muscles Innervated By Facial Completed Nerves, Bilat 05/24/2016 52120 Stress Test Completed 05/24/2016 57416 Myocardial Perfusion Imaging Tomographic (Spect) Completed Multiple Studies 05/17/2016 40868 ECHO Stress Test Incl Perf Contiuous ekg Monitoring Completed W/Phys Superv 05/13/2016 70281 EKG Tracing & Interpretation Completed 04/21/2016 60356 Closed TX Scaphoid (Navicular) W/O Manipulation Completed 03/09/2016 59691 Chemodenervation Of Muscles Innervated By Facial Completed Nerves, Bilat 01/13/2016 [id number] Mammogram Completed 12/07/2015 45116 Chemodenervation Of Muscles Innervated By Facial Completed Nerves, Bilat 11/16/2015 28774 Polysomnography Sleep Staging 4+ Parameters Completed 09/07/2015 40013 Chemodenervation Of Muscles Innervated By Facial Completed Nerves, Bilat 09/01/2015 58875 EKG, Interpretation Only Completed 08/17/2015 19785 EKG Tracing & Interpretation Completed 08/17/2015 96156 EKG Tracing & Interpretation Completed 07/17/2015 13145 Stress Test Completed 07/17/2015 00585 Myocardial Perfusion Imaging Tomographic (Spect) Completed Multiple Studies 06/10/2015 66896 ECHO Transthoracic, Real-Time 2D With Doppler And Completed Color Flow 06/05/2015 09058 EKG Tracing & Interpretation Completed 06/04/2015 94596 Holter Monitoring 24 HR New Completed 06/01/2015 46447 Chemodenervation Of Muscles Innervated By Facial Completed Nerves, Bilat 05/28/2015 44831 Holter Monitoring 24 HR New Completed 02/17/2015 22766 Chemodenervation Of Muscles Innervated By Facial Completed Nerves, Bilat 09/15/2014 40494 Chemodenervation Of Muscles Innervated By Facial Completed Nerves, Bilat 06/04/2014 28050 Chemodenervation Of Muscles Innervated By Facial Completed Nerves, Bilat 02/20/2014 03584 Chemodenervation Of Muscles Innervated By Facial Completed Nerves, Bilat 11/14/2013 70694 Chemodenervation Of Muscles Innervated By Facial Completed Nerves, Bilat 08/14/2013 03773 Chemodenervation Of Muscles Innervated By Facial Completed Nerves, Bilat 05/16/2013 52259 Chemodenervation Of Muscles Innervated By Facial Completed Nerves, Bilat 02/11/2013 26616 Chemodenervation Of Muscles Innervated By Facial Completed Nerves, Bilat 10/22/2012 74680 Chemodenervation Of Muscles Innervated By Facial Completed Nerves, Bilat 07/18/2012 57229 Destruction W/Neurolytic Agent,Neck Muscles Completed 07/18/2012 39899 Destruction W/Neurolytic Agent, Facial Nerve Muscle, Completed Unilateral 04/16/2012 36559 Destruction W/Neurolytic Agent,Neck Muscles Completed 04/16/2012 11316 Destruction W/Neurolytic Agent, Facial Nerve Muscle, Completed Unilateral Encounters Type Date Location Provider Dx Diagnosis Office Visit 12/21/2018 Pulmonology And Samira Nino, G47.33 Obstructive sleep 10:00a Sleep Services Of SHARIFA RN, COUNTER HAND-BC apnea (adult) [facility] (pediatric) G47.14 Hypersomnia due to medical condition F51.04 Psychophysiologic insomnia Office Visit 12/17/2018 3:20p [facility] Petra Lilly, R07.9 Chest pain, Of Jamey Corona unspecified I10 Essential (primary) hypertension R00.0 Tachycardia, unspecified H57.12 Ocular pain, left eye Office Visit 11/09/2018 [facility] Petra Lilly, R94.31 Abnormal 2:20p Cardiology Of Chloe electrocardiogram Jamey [ECG] [EKG] I10 Essential (primary) hypertension R00.0 Tachycardia, unspecified R07.9 Chest pain, unspecified Office Visit 10/03/2018 9:20a [facility] Internal Radha Marinelli, Z00.01 Encounter for Medicine N.P. general adult medical exam w abnormal findings G47.33 Obstructive sleep apnea (adult) (pediatric) I36.1 Nonrheumatic tricuspid (valve) insufficiency K21.9 Gastro-esophageal reflux disease without esophagitis M35.01 Sicca syndrome with keratoconjunctivitis N94.10 Unspecified dyspareunia H53.2 Diplopia R25.1 Tremor, unspecified J06.9 Acute upper respiratory infection, unspecified Z11.51 Encounter for screening for human papillomavirus (HPV) R73.01 Impaired fasting glucose E78.2 Mixed hyperlipidemia Z85.3 Personal history of malignant neoplasm of breast G43.909 Migraine, unsp, not intractable, without status migrainosus F33.9 Major depressive disorder, recurrent, unspecified Office Visit 09/10/2018 4:10p Jamey Tyler L71.8 Other rosacea Office Visit 09/07/2018 1:00p [facility]opedic [facility] Sony, S83.221A Prph tear of Services Of Riana MARTINEZ medial meniscus, current injury, r knee, init S83.411A Sprain of medial collateral ligament of right knee, init Office Visit 07/06/2018 Orthopedic Nito Sony, S83.411A Sprain of medial 1:00p Services Of MD heather Del ToroMAshleyAAshley ligament of right knee, init W01.0xxA Fall same lev from slip/trip w/o strike against object, init Office Visit 05/28/2018 3:40p Jamey Tyler MD L71.8 Other rosacea L23.9 Allergic contact dermatitis, unspecified cause 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, unspecified L82.0 Inflamed seborrheic keratosis Z78.9 Other specified health status R20.8 Other disturbances of skin sensation L29.8 Other pruritus Office Visit 05/10/2018 3:40p Rheumatology Services Wan Salazar M54.2 Cervicalgia Of Jamey Corona M79.1 Myalgia L50.1 Idiopathic urticaria R22.31 Localized swelling, mass and lump, right upper limb Office Visit 05/04/2018 10:30a Jamey Tyler L23.9 Allergic contact MD dermatitis, unspecified cause Office Visit 05/02/2018 3:40p Instructional Services Librarian Dermatology Simon Yentzer, L23.9 Allergic contact MD dermatitis, unspecified cause Office Visit 04/25/2018 9:20a [facility] Dermatology Simon Tyler, L30.8 Other specified MD dermatitis L20.84 Intrinsic (allergic) eczema L82.0 Inflamed seborrheic keratosis L53.8 Other specified erythematous conditions Z78.9 Other specified health status Office Visit 03/30/2018 8:50a [facility] Dermatology Simon Tyler MD L71.8 Other rosacea L23.9 Allergic contact dermatitis, unspecified cause Office Visit 03/23/2018 [facility] Internal Zuri R07.89 Other chest pain 4:00p Medicine Chloe Lopez Office Visit 03/12/2018 [facility] Internal Radha Marinelli, R07.89 Other chest pain 10:00a Medicine N.P. Office Visit 03/08/2018 [facility] Internal Radha Marinelli, R07.89 Other chest pain 10:40a Medicine N.P. 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 preprocedural examination M75.101 Unsp rotatr-cuff tear/ruptr of right shoulder, not trauma G47.33 Obstructive sleep apnea (adult) (pediatric) G89.29 Other chronic pain I36.1 Nonrheumatic tricuspid (valve) insufficiency E03.9 Hypothyroidism, unspecified K21.9 Gastro-esophageal reflux disease without esophagitis G43.919 Migraine, unsp, intractable, without status migrainosus Office Visit 01/12/2018 11:00a Orthopedic Nito Cardoza, S83.512A Sprain of Services Of anterior KateyM.A. cruciate ligament of left knee, init Office Visit 01/05/2018 8:45a Orthopedic Vijay Hugo, M19.011 Primary Services Of osteoarthritis C.M.A. , right shoulder S46.001D Unsp inj musc/tend the rotator cuff of r shoulder, subs Office Visit 12/19/2017 2:00p [facility] Priyanka S. R07.9 Chest pain, Of [facility] Foster, N.P. unspecified R06.09 Other forms of dyspnea G47.33 Obstructive sleep apnea (adult) (pediatric) R00.2 Palpitations Office Visit 12/15/2017 1:20p [facility] Internal Radha Marinelli, G89.29 Other chronic Medicine N.P. pain E87.1 Hypo-osmolality and hyponatremia Office Visit 12/15/2017 10:20a [facility] Dermatology Simon Tyler MD L71.8 Other rosacea L82.0 Inflamed seborrheic keratosis L53.8 Other specified erythematous conditions L29.8 Other pruritus R20.8 Other disturbances of skin sensation R58 Hemorrhage, not elsewhere classified Z78.9 Other specified health status Office Visit 12/04/2017 [facility] Petra Lilly, Z01.810 Encounter for 4:00p Cardiology Of Chloe preprocedural [facility] cardiovascular examination M75.101 Unsp rotatr-cuff tear/ruptr of right shoulder, not trauma M19.011 Primary osteoarthritis, right shoulder R07.9 Chest pain, unspecified R06.09 Other forms of dyspnea G47.33 Obstructive sleep apnea (adult) (pediatric) Office Visit 11/21/2017 Orthopedic Vijay M19.011 Primary 3:30p Services Of MD Oanh osteoarthritis, C.M.A. 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 L03.115 Cellulitis of right lower limb J34.81 Nasal mucositis (ulcerative) B35.3 Tinea pedis Office Visit 10/27/2017 1:00p Orthopedic Nito Cardoza, S83.512A Sprain of Services Of anterior C.M.A. cruciate ligament of left knee, init S93.491D Sprain of other ligament of right ankle, subs encntr M25.462 Effusion, left knee Office Visit 09/29/2017 8:40a [facility] Petra Lilly, R07.9 Chest pain, Of [facility] Chloe unspecified R00.2 Palpitations I36.1 Nonrheumatic tricuspid (valve) insufficiency Office Visit 09/26/2017 4:00p [facility] Internal Zuri G25.81 Restless legs Medicine Chloe Lopez syndrome Office Visit 08/25/2017 1:00p Orthopedic Nito Cardoza, S93.491D Sprain of Services Of other ligament C.M.A. of right ankle, subs encntr S83.512A Sprain of anterior cruciate ligament of left knee, init M25.462 Effusion, left knee Office Visit 08/22/2017 10:00a Rheumatology Wan S46.001D Unsp inj Services Of Jamey Salazar M.D. musc/tend the rotator cuff of r shoulder, subs R22.31 Localized swelling, mass and lump, right upper limb M79.7 Fibromyalgia M85.89 Oth disrd of bone density and structure, multiple sites M19.079 Primary osteoarthritis, unspecified ankle and foot Office Visit 08/11/2017 Orthopedic Vijay S46.001D Unsp inj musc/tend the 1:30p Services Of MD Oanh rotator cuff of r C.M.A. shoulder, subs Office Visit 07/31/2017 [place] Sanders[place] G43.919 Migraine, unsp, 1:30p Neurologic Cowdery, intractable, without Services Of Jamey Corona status migrainosus Office Visit 07/25/2017 [facility] Petra R94.31 Abnormal 2:30p Cardiology Of [place], electrocardiogram Jamey M.Fidelina [ECG] [EKG] R07.9 Chest pain, unspecified R11.0 Nausea R11.10 Vomiting, unspecified R00.0 Tachycardia, unspecified R00.2 Palpitations Office Visit 07/14/2017 2:45p Orthopedic Nito Cardoza S83.512A Sprain of Services Of anterior C.M.A. cruciate ligament of left knee, init S93.491D Sprain of other ligament of right ankle, subs encntr Office Visit 07/05/2017 2:00p Rheumatology Services Wan Salazar M79.1 Myalgia Of Jamey M.Fidelina R79.82 Elevated C-reactive protein (CRP) M54.6 Pain in thoracic spine L30.9 Dermatitis, unspecified R20.8 Other disturbances of skin sensation D84.9 Immunodeficiency, unspecified M35.01 Sicca syndrome with keratoconjunctivitis E53.8 Deficiency of other specified B group vitamins M25.579 Pain in unspecified ankle and joints of unspecified foot Z78.0 Asymptomatic menopausal state I73.00 Raynaud's syndrome without gangrene G89.29 Other chronic pain Office Visit 06/20/2017 Orthopedic Nito Cardoza, S83.402A Sprain of unsp 1:45p Services Of collateral C.M.A. ligament of left knee, init encntr S93.491D Sprain of other ligament of right ankle, subs encntr M25.362 Other instability, left knee M25.562 Pain in left knee Office Visit 06/13/2017 Orthopedic Nito Cardoza S83.402A Sprain of unsp 1:00p Services Of collateral C.M.A. ligament of left knee, init encntr M25.462 Effusion, left knee S93.491A Sprain of other ligament of right ankle, initial encounter Office Visit 06/07/2017 8:00a Orthopedic Vijay S63.501A Unspecified Services Of MD Oanh sprain of right C.M.A. wrist, initial encounter S43.401A Unspecified sprain of right shoulder joint, init encntr Office Visit 05/30/2017 1:00p Orthopedic Nito Cardzoa S93.491A Sprain of other Services Of MD martin of C.M.AAshley right ankle, initial encounter M76.71 Peroneal tendinitis, right leg Office Visit 05/22/2017 11:40a [facility] Internal Radha Marinelli, M79.7 Fibromyalgia Medicine N.P. R11.0 Nausea R51 Headache M25.50 Pain in unspecified joint L98.9 Disorder of the skin and subcutaneous tissue, unspecified Office Visit 05/05/2017 11:20a [facility] Internal Radha Isis, R10.84 Generalized Medicine N.P. abdominal pain R53.83 Other fatigue R21 Rash and other nonspecific skin eruption Office Visit 04/21/2017 2:30p [facility] Effie Gaitan, R07.9 Chest pain, Of [facility] [place] unspecified R53.83 Other fatigue R06.02 Shortness of breath G47.33 Obstructive sleep apnea (adult) (pediatric) Office Visit 04/19/2017 1:20p [facility] Internal Robby Solomon, R07.9 Chest pain, Medicine HEALTH DIRECTOR unspecified R53.83 Other fatigue M54.5 Low back pain R10.819 Abdominal tenderness, unspecified site Office Visit 04/17/2017 10:53a [facility] Sony R07.9 Chest pain, Assoc,mateusz Person MD unspecified Hospitalists E03.8 Other specified hypothyroidism G47.33 Obstructive sleep apnea (adult) (pediatric) F41.8 Other specified anxiety disorders Office Visit 04/16/2017 10:52a [facility] Sony R07.9 Chest pain, Assoc,mateusz Person MD unspecified Hospitalists G47.33 Obstructive sleep apnea (adult) (pediatric) E03.8 Other specified hypothyroidism F41.8 Other specified anxiety disorders Office Visit 04/15/2017 11:45a [facility] Judd Kitchen R07.9 Chest pain, Of Jamey Sanz M.D. unspecified R94.31 Abnormal electrocardiogram [ECG] [EKG] Office Visit 04/15/2017 10:52a [facility] Sony R07.9 Chest pain, Assoc,mateusz Person MD unspecified Hospitalists G47.33 Obstructive sleep apnea (adult) (pediatric) E03.8 Other specified hypothyroidism F41.8 Other specified anxiety disorders Office Visit 04/14/2017 10:51a [facility] Ajit Vang, R07.9 Chest pain, Assoc,pc M.D. unspecified Hospitalists G47.33 Obstructive sleep apnea (adult) (pediatric) Office Visit 04/14/2017 1:45p [facility] Petra Lilly, R06.02 Shortness of Of [facility] M.D. breath K57.92 Dvtrcli of intest, part unsp, w/o perf or abscess w/o bleed Z82.49 Family hx of ischem heart dis and oth dis of the circ sys R07.9 Chest pain, unspecified E16.2 Hypoglycemia, unspecified Office Visit 03/24/2017 2:40p [facility] Internal Radha Marinelli, R53.81 Other malaise Medicine N.P. Office Visit 02/09/2017 10:20a [facility] Internal Radha Marinelli, H66.91 Otitis media, Medicine N.P. unspecified, right ear B37.0 Candidal stomatitis R21 Rash and other nonspecific skin eruption N95.1 Menopausal and female climacteric states Office Visit 01/23/2017 [place] Ad[facility] Dawson, G43.919 Migraine, unsp, 1:30p Neurologic M.D. intractable, Services Of [facility] without status migrainosus R20.2 Paresthesia of skin Office Visit 01/09/2017 1:00p [facility] Internal Radha Marinelli, R73.01 Impaired Medicine N.P. fasting glucose M54.5 Low back pain E78.2 Mixed hyperlipidemia H92.01 Otalgia, right ear Office Visit 11/23/2016 10:20a [facility] Internal Radha Marinelli, M25.511 Pain in right Medicine N.P. shoulder M25.512 Pain in left shoulder E66.9 Obesity, unspecified Office Visit 09/30/2016 9:40a [facility] Internal Radha Marinelli, R10.32 Left lower Medicine N.P. quadrant pain M54.5 Low back pain J18.9 Pneumonia, unspecified organism M46.06 Spinal enthesopathy, lumbar region Office Visit 09/27/2016 2:20p [facility] Internal Radha Marinelli, R10.12 Left upper Medicine N.P. quadrant pain R10.32 Left lower quadrant pain R10.817 Generalized abdominal tenderness K57.92 Dvtrcli of intest, part unsp, w/o perf or abscess w/o bleed Office Visit 09/20/2016 3:40p [facility] Internal Radha Marinelli, J18.9 Pneumonia , Medicine N.P. unspecified organism N20.0 Calculus of kidney Office Visit 08/05/2016 9:15a [facility] Effie Gaitan, R07.9 Chest pain, Of Instructional Services Librarian [place] unspecified G47.33 Obstructive sleep apnea (adult) (pediatric) Office Visit 07/26/2016 2:40p [facility] Internal Radha Marinelli, E03.9 Hypothyroidism, Medicine N.P. unspecified N90.7 Vulvar cyst Office Visit 06/15/2016 2:00p [facility] Internal Robby Carbajal, J01.90 Acute sinusitis, Medicine HEALTH DIRECTOR unspecified Office Visit 05/31/2016 2:45p [facility] Petra R07.9 Chest pain, Of Instructional Services Librarian Vijaya, unspecified M.D. R00.2 Palpitations G47.33 Obstructive sleep apnea (adult) (pediatric) Office Visit 05/13/2016 11:00a [facility] Petra Lilly, R06.02 Shortness of Of Instructional Services Librarian AT [facility] M.D. breath R00.0 Tachycardia, unspecified G47.33 Obstructive sleep apnea (adult) (pediatric) R07.9 Chest pain, unspecified Office Visit 12/18/2015 3:15p [facility] Petra Lilly, R06.02 Shortness of Of Instructional Services Librarian M.D. breath I50.32 Chronic diastolic (congestive) heart failure G47.33 Obstructive sleep apnea (adult) (pediatric) Office Visit 12/18/2015 Pulmonology And Samira G47.33 Obstructive sleep 9:15a Sleep Services Of SHARIFA Nino, RN, apnea (adult) [facility] COUNTER HAND-BC (pediatric) G47.10 Hypersomnia, unspecified Office Visit 10/27/2015 3:30p [facility] Petra Lilly, R06.02 Shortness of Of Instructional Services Librarian M.D. breath R00.0 Tachycardia, unspecified Office Visit 09/23/2015 8:15a Pulmonology And Samantha G47.9 Sleep disorder, Sleep Services Of MD Kourtney unspecified [facility] E66.09 Other obesity due to excess calories K21.9 Gastro-esophageal reflux disease without esophagitis Office Visit 09/17/2015 3:30p [facility] Petra Lilly, N20.0 Calculus of Of Instructional Services Librarian M.D. kidney R00.0 Tachycardia, unspecified R06.00 Dyspnea, unspecified R00.2 Palpitations G47.9 Sleep disorder, unspecified Office Visit 09/02/2015 2:16p [facility] Lexus N20.0 Calculus of Assoc,pc Carlin Moreno 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 F32.9 Major depressive disorder, single episode, unspecified Office Visit 09/01/2015 2:14p [facility] Jose C Yanez, N20.0 Calculus of Assoc,pc N.P. 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 F32.9 Major depressive disorder, single episode, unspecified Office Visit 08/17/2015 3:00p [facility] Effie Gaitan, R00.0 Tachycardia, Of Instructional Services Librarian [place] unspecified R06.00 Dyspnea, unspecified G47.9 Sleep disorder, unspecified I36.1 Nonrheumatic tricuspid (valve) insufficiency R07.9 Chest pain, unspecified Office Visit 08/03/2015 3:30p [facility] Effie Gaitan, R00.0 Tachycardia, Of Instructional Services Librarian [place] unspecified I36.1 Nonrheumatic tricuspid (valve) insufficiency G47.9 Sleep disorder, unspecified R06.00 Dyspnea, unspecified Office Visit 07/22/2015 3:00p [facility] Petra Lilly, R06.00 Dyspnea, Of Instructional Services Librarian M.D. unspecified G47.9 Sleep disorder, unspecified R94.39 Abnormal result of other cardiovascular function study Office Visit 06/05/2015 10:00a [facility] Petra Lilly, R00.0 Tachycardia, Of Instructional Services Librarian M.D. unspecified R06.02 Shortness of breath R01.1 Cardiac murmur, unspecified Office Visit 03/23/2015 3:15p [facility] Adilia Samir, 346.91 Migraine Unspec Services Of Instructional Services Librarian M.D. W/ Intractable W/O Status Migrainosus 785.0 Tachycardia Unspec 724.03 Spinal Stenosis, Lumbar Region W/ Neurogenic Claudication Office Visit 12/03/2014 Neurosurgery Twan Deras, 724.03 Spinal Stenosis , 11:00a Services Of Instructional Services Librarian M.D. Lumbar Region W/ Neurogenic Claudication Office Visit 11/13/2014 Neurosurgery Twan Deras, 724.03 Spinal Stenosis , 2:30p Services Of Instructional Services Librarian M.D. Lumbar Region W/ Neurogenic Claudication Office Visit 02/11/2013 [facility] Adilia Dawson, 346.91 Migraine Unspec W/ 2:15p Services Of Instructional Services Librarian M.D. Intractable W/O Status Migrainosus Office Visit 10/22/2012 [facility] Adilia Dawson, 346.91 Migraine Unspec W/ 11:00a Services Of Instructional Services Librarian M.D. Intractable W/O Status Migrainosus Office Visit 07/18/2012 [facility] Adilia Dawson, 346.91 Migraine Unspec W/ 3:00p Services Of Instructional Services Librarian M.D. Intractable W/O Status Migrainosus 728.85 Spasm Muscle Office Visit 05/03/2012 4:15p [facility] Adilia Dawson, 723.1 Cervicalgia Services Of Instructional Services Librarian M.D. Office Visit 04/26/2012 4:00p [facility] Adilia Dawson, 723.1 Cervicalgia Services Of [facility] M.D. 850.0 Concussion W/ No Loss Of Consciousness Office Visit 04/16/2012 1:30p [facility] Adilia Dawson, 346.91 Migraine Unspec Services Of Instructional Services Librarian M.D. W/ Intractable W/O Status Migrainosus Plan of Treatment Future Appointment(s):01/18/2019 2:00 pm - Radha Marinelli, N.P. at [facility] Internal Jbjkxzao62/24/2019 11:30 am - Simon Tyler MD at [facility] Aceebmhbbfw22/21/2019 10: 30 am - Samira Nino DNP, RN, COUNTER HAND- at Pul[facility]ology [facility] Sleep Services Of [facility]04/10/2019 10:00 am - Adilia Dawson M.D. at [facility] [id number] 11:00 am - Adilia Dawson M.D. at [facility] [id number]/04/2019 9:20 am - Radha Marinelli N.Peter at [facility] Internal Knkxzeau56/29/2019 - Radha Marinelli N.P.E78.2 Mixed hyperlipidemiaNew Medication:Rosuvastatin Calcium 5 mg - take 1 tablet by mouth at bedtimeNew Labs:Lipid Profile (Trig/Chol/HDL), Ordered: 12/31Liver Function Panel, Ordered: 12/31/18Comments:For your high cholesterol: I have prescribed Rosuvastatin 5 mg. Take 1 tablet at bedtime. I encourage you to follow a low cholesterol diet. I want to repeat your levels the week of February 11.I will contact you with your results.R94.4 Abnormal results of kidney function studiesNew Labs:Total Protein 24HR Urine, Ordered: 12/31/18Creatinine Clearance, Ordered: 12/31/18Comments:To be sure your kidneys are working well I have ordered 24 hour urine screenings for creatinine and total protein. I will contact you with your results.
[2019-01-20 14:58] VITALS: BP 114/75
--- NOTE | 2019-01-20 15:18 | UC ---
Back Pain HPI - HPI Summary HPI Summary: Slipped and fell in the shower this morning landing on a marble stool with her mid back and right arm---pain right elbow/upper arm and t/l spine-- - History of Current Complaint Chief Complaint: UCUpperExtremity Stated Complaint: BACK AND ELBOW INJURY Time Seen by Provider: 01/20/19 14:49 Hx Obtained From: Patient ?: No Onset/Duration: Sudden Onset, Lasting Hours Timing: Constant Pain Intensity: 8 Pain Scale Used: 0-10 Numeric Back Pain: Is Discrete @ - right elbow/humerous and t/l back Character: Unable to Describe Aggravating Factor(s): Movement, Bending Alleviating Factor(s): Nothing Associated Signs And Symptoms: Positive: Negative - Allergies/Home Medications Allergies/Adverse Reactions: Allergies Allergy/AdvReac Type Severity Reaction Status Date / Time cyproheptadine Allergy Nausea And Verified 01/20/19 14:59 [From Periactin] Vomiting Iodinated Contrast- Oral and Allergy Rash Verified 01/20/19 14:59 IV Dye Penicillins Allergy Unknown Verified 01/20/19 14:59 Reaction Details pregabalin [From Lyrica] Allergy suicidal Verified 01/20/19 14:59 Sulfa (Sulfonamide Allergy Rash Verified 01/20/19 14:59 Antibiotics) tramadol Allergy psychosis Verified 01/20/19 14:59 chocolate flavor AdvReac Headache Verified 01/20/19 14:59 morphine AdvReac Nausea Verified 01/20/19 14:59 mold Allergy Hives Uncoded 01/01/19 11:08 coconut flavor AdvReac Headache Uncoded 01/01/19 11:08 onion AdvReac Headache Uncoded 01/01/19 11:08 Home Medications: Home Medications Duloxetine HCl [Cymbalta] 60 mg PO DAILY 01/20/19 [History Confirmed 01/20/19] Onabotulinimtoxina 100 UNITS* [Botox 100 UNITS*] 100 units INJ MONTHLY 01/20/19 [History Confirmed 01/20/19] Prazosin CAP* [Minipress CAP*] 1 mg PO DAILY 01/20/19 [History Confirmed ] busPIRone TAB* [Buspar TAB *] 15 mg PO BID 01/20/19 [History Confirmed 01/20/19] PMH/Surg Hx/FS Hx/Imm Hx Previously Healthy: No Cardiovascular History: Hypertension Neurological History: Migraine Psychological History: Anxiety, Depression Cancer History: Breast Cancer - Surgical History Surgical History: Yes Surgery Procedure, Year, and Place: RIGHT MASTECTOMY left lumpectomy. L4-5 - CYST REMOVED. KIDNEY STONES - 02/19, surgical removal w/ stent placement w/ Dr Falk - Family History Known Family History: Negative: Cardiac Disease, Hypertension, Diabetes Family History: no reported cardio vascular issues in family lineage - Social History Occupation: Disabled Lives: With Family Alcohol Use: Occasionally Alcohol Amount: 1-2 drinks per week Substance Use Type: None Substance Use Comment - Amount & Last Used: oxycodone-follows with pain clinic Smoking Status (MU): Former Smoker Type: Cigarettes Amount Used/How Often: about 1 pack a week Have You Smoked in the Last Year: No When Did the Patient Quit Smoking/Using Tobacco: quit 1992 - Immunization History Most Recent Influenza Vaccination: never Most Recent Tetanus Shot: 2009 Most Recent Pneumonia Vaccination: received in past Review of Systems All Other Systems Reviewed And Are Negative: Yes Constitutional: Positive: Negative Skin: Positive: Negative Eyes: Positive: Negative ENT: Positive: Negative Respiratory: Positive: Negative Cardiovascular: Positive: Negative Gastrointestinal: Positive: Negative Genitourinary: Positive: Negative Motor: Positive: Negative Neurovascular: Positive: Negative Musculoskeletal: Positive: Arthralgia - back and right elbow/arm Neurological: Positive: Negative Psychological: Positive: Negative Is Patient Immunocompromised?: No Physical Exam Triage Information Reviewed: Yes Appearance: Well-Appearing, Well-Nourished, Pain Distress Vital Signs: Initial Vital Signs Temp 98.5 F 01/20/19 14:53 Pulse 79 01/20/19 14:53 Resp 16 01/20/19 14:53 BP 114/75 01/20/19 14:53 Pulse Ox 99 01/20/19 14:53 Vital Signs Reviewed: Yes Eye Exam: Normal Eyes: Positive: Conjunctiva Clear ENT Exam: Normal ENT: Positive: Normal ENT inspection, Hearing grossly normal. Negative: Nasal congestion, Trismus, Muffled voice, Hoarse voice Neck exam: Normal Neck: Positive: Supple, Nontender, No Lymphadenopathy Respiratory Exam: Normal Respiratory: Positive: Chest non-tender, Lungs clear, Normal breath sounds, No respiratory distress, No accessory muscle use Cardiovascular Exam: Normal Cardiovascular: Positive: RRR, No Murmur, Pulses Normal, Brisk Capillary Refill Abdomen Description: Positive: Nontender. Negative: CVA Tenderness (R), CVA Tenderness (L) Musculoskeletal Exam: Normal Musculoskeletal: Positive: Strength Intact, ROM Intact, No Edema, Other: - pain radiating Neurological Exam: Normal Neurological: Positive: Alert, Muscle Tone Normal Psychological Exam: Normal Skin Exam: Normal Diagnostics - Radiology No standard instances Radiology Interpretation Completed By: Radiologist - no evidence of fracture Back Pain Course/Dx - Course Course Of Treatment: add ibuprofen to routine oxycodone---follow with Dr. hugo this week, ice to areas of pain - Differential Dx/Diagnosis Provider Diagnosis: Contusion, multiple sites Discharge - Sign-Out/Discharge Documenting (check all that apply): Patient Departure All imaging exams completed and their final reports reviewed: Yes - Discharge Plan Condition: Stable Disposition: HOME Patient Education Materials: Ibuprofen (By mouth), Contusion in Adults (ED), Ice Pack Application (ED) Referrals: Vijay Hugo MD [Medical Doctor] - (this week as planned ) - Billing Disposition and Condition Condition: STABLE Disposition: Home - Attestation Statements Provider Attestation: I was available for consult. This patient was seen by the [facility]. The patient was not presented to , seen by or examined by nj -Liliya Paulson MD
[2019-01-20] MEDS ORDERED: HYDROcodone/ACETAMIN 5-325 MG* 1 TAB PO ONE (15:34)
== END 2019-01-20 16:45 | disposition home or self-care (01) ==
LOC: UCEAST 14:19
DX: S20.229A Contusion of unspecified back wall of thorax, initial encounter (principal); S50.01XA Contusion of right elbow, initial encounter; W01.198A Fall on same level from slipping, tripping and stumbling with subsequent striking against other object, initial encounter; Y93.E1 Activity, personal bathing and showering; Y92.002 Bathroom of unspecified non-institutional (private) residence as the place of occurrence of the external cause; I10 Essential (primary) hypertension; F41.9 Anxiety disorder, unspecified; F32.9 Major depressive disorder, single episode, unspecified; Z91.041 Radiographic dye allergy status; Z88.5 Allergy status to narcotic agent; Z88.0 Allergy status to penicillin; Z88.2 Allergy status to sulfonamides; Z88.8 Allergy status to other drugs, medicaments and biological substances; Z91.018 Allergy to other foods; Z87.891 Personal history of nicotine dependence
CPT/HCPCS: 72070; 72110; 99213; G0463

== ENCOUNTER 2019-02-10 12:43 | Emergency (ER) | payer BC ==
--- OUTSIDE RECORDS SUMMARY | 2019-02-10 13:48 | XMS REPORT | Continuity of Care Document ---
:1960 External Reference #:[id number] Author Name Lina Omalley Care Team Providers Name Role Phone Radha Marinelli NP Primary Care Physician Unavailable Payers Date Identification Numbers Payment Provider Subscriber Effective: Policy Number: [id number] [employer]ets Shirley 2015 Junie PayID: [id number] [address] [address] [place] [address] Expires: 2016 PayID: [id number] Bankruptcy Shirley Zaman [address] [address] Problems Active Problems Provider Date Chronic diastolic heart failure Petra Lilly M.D. Onset: 12/18/2015 Tricuspid valve disorder, Petra Lilly M.D. Onset: 09/29/2017 non-rheumatic Obstructive sleep apnea syndrome Samira Nino DNP, RN, Onset: 12/18/2015 [facility] BRCA2 gene mutation positive Robby Carbajal NP Onset: 10/04/2016 Refractory migraine Adilia Dawson M.D. Onset: 09/15/2014 Spinal stenosis of lumbar region Twan Deras M.D. Onset: 11/13/2014 Kidney stone Petra Lilly M.D. Onset: 09/17/2015 Obesity Samantha Oconnell MD Onset: 09/23/2015 Gastroesophageal reflux disease Samantha Oconnell MD Onset: 09/23/2015 Dyspnea Petra Lilly M.D. Onset: 10/27/2015 Hypersomnia Samira Nino DNP, RN, Onset: 12/18/2015 [employer] Sprain of cruciate ligament of knee Nito [...] Essential hypertension Petra Lilly M.D. Onset: 11/09/2018 Central sleep apnea syndrome Samira Nino DNP, RN, Onset: 01/22/2019 [facility] Psychophysiologic insomnia Samira Nino DNP RN, Onset: 01/22/2019 [facility] Family History Date Family Member(s) Observation Comments General Hyperlipidemia General [place] Maternal aunt age 52 General Breast Cancer [...] Status Lives With Occupation Currently Working Occupation [employer] Right-handed Tobacco Use Start: Unknown End: Former Cigarette Unknown Smoker Tobacco Use Start: Unknown Quit in 1992 Smoking Status Reviewed: 01/30/19 Quit in 1992 ETOH Use Currently consumes [...] Metoprolol diarrhea 09/17/2015 Topiramate kidney stones 07/31/2017 Abilify manic 12/21/2018 Medications Active Medications SIG Qnty [...] Pramipexole take 1-2 tablets by 30tabs G25.81 Robby Carbajal, MARIA ELENA 09/26/2017 Dihydrochloride mouth once daily 1 0.125mg hour before bedtime Tablets Zofran take 1 tablet by 30tabs Radha Marinleli, 06/01/2017 4mg Tablets mouth every 8 hours [...] a week mdd 2.. Flexeril take 1-2po [id number] 60tabs Adilia Dawson, 05/03/2012 5mg Tablets prn muscle spasm M.D. Nucynta ER take 1 by mouth Unknown 150mg Tablets twice a day ER 12HR Prazosin HCL 1 @ at bedtime Unknown 1mg Capsules Uricalm 1 po as needed when Unknown passing kidney stone (not taking) Meloxicam 1 by mouth as needed Unknown 7.5mg Tablets Bupropion 1 tablet po daily Am Lila Courtney, Hydrochloride ER (XL) MD 300mg Tablets ER 24HR Aspercreme Max Roll-On [...] four 120ml B37.0 Radha Marinelli, 01/30/2018 - [id number]/ML times a day, swish N.P. 03/22/2018 Suspension and swallow for 14 days (pt not using) Doxycycline Hyclate take 1 tablet by Simon Tyler, 12/15/2017 - mouth twice a day 11/08/2018 100mg Tablets Cyclobenzaprine HCL take 1 tablet by Angel 12/13/2017 - 5mg mouth three times Jenny 11/08/2018 Tablets a day as Needed ( [employer] taking 1 tablet po as needed every [...] XL 1 po qd in am 90tabs Sherwin Lila, 08/03/2017 - 100 MD 11/08/2018 Tablets ER 24HR Caltrate 600+D Plus take one 180units Wan Salazar, 07/16/2017 - Minerals capsule/tablet by Chloe 09/28/2017 [id number] mouth twice daily Chewtabs B12 Fast Dissolve [...] four 120ml B37.0 Radha Marinelli, 02/09/2017 - [id number]/ML times a day, swish N.P. 07/30/2017 Suspension and swallow for 14 days (pt not using) Cephalexin 1 by mouth three 30caps H66.91 Radha Marinelli, 02/09/2017 - 500mg times a day [...] 1 by mouth daily 10tabs J18.9 Radha Isis, 09/20/2016 - 500mg Tablets for 10 days N.P. 09/28/2016 Benzonatate one by mouth three 30caps J18.9 Radha Isis, 09/20/2016 - 200mg times daily as N.P. [...] 0.1% Solution times a day as needed [place] 1 by mouth q6 hour 25tabs Magdalene 04/21/2016 - 5-325mg Tablets as needed pain Osorio, M.D. 06/15/2016 Atenolol 1 by mouth twice a 180tabs R00.0 Petra Lilly, 09/17/2015 - 25mg Tablets day M.D. 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 03/09/2016 1 Unit Injection Injection Onabotulinumtoxin A, Adilia Dawson M.D. 12/07/2015 1 Unit Injection Injection Onabotulinumtoxin A, Adilia Dawson M.D. 09/07/2015 1 Unit Injection Inj, Regadenoson, 0.1 MG Judd Sanz M.D. 07/17/2015 Injection Technetium TC 99M Tetrofosmin, Judd Kitchen Brand, M.D. 07/17/2015 Per Unit Dose Up To 40 Millicuries Injection Technetium TC 99M TetrofosminEffie PA 07/17/2015 Per Unit Dose Up To 40 Millicuries Injection Injection Onabotulinumtoxin A, Adilia Dawson M.D. 06/01/2015 1 Unit Injection Injection Onabotulinumtoxin A, Jenny Redmond NP 02/17/2015 1 Unit Injection Injection Onabotulinumtoxin A, Adilia Dawson M.D. 09/15/2014 1 Unit Injection Injection Onabotulinumtoxin A, Adilia Dawson M.D. 06/04/2014 1 Unit Injection Injection Onabotulinumtoxin A, Adilia Dawson M.D. 02/20/2014 1 Unit Injection Injection Onabotulinumtoxin Adilia Mcginnis M.D. 11/14/2013 1 Unit Injection Injection Onabotulinumtoxin A, Adilia Dawosn M.D. 08/14/2013 1 Unit Injection Injection Onabotulinumtoxin Ras, Adilia Dawson M.D. 05/16/2013 1 Unit Injection Injection Onabotulinumtoxin Ras, Adilia Dawson M.D. 02/11/2013 1 Unit Injection Injection Onabotulinumtoxin Ras, Adilia Dawson M.D. 10/22/2012 1 Unit Injection Injection Onabotulinumtoxin Adilia Mcginnis M.D. 07/18/2012 1 Unit Injection Injection Onabotulinumtoxin A, Adilia Dawson M.D. 04/16/2012 1 Unit Injection Vital Signs Date Vital Result Comment 01/30/2019 11:19am Height 64 inches 5'4" Weight 203.25 lb Heart Rate 72 /min BP Systolic Sitting 122 mmHg BP Diastolic Sitting 80 mmHg Respiratory Rate 16 /min BMI (Body Mass Index) 34.9 kg/m2 01/23/2019 11:08am Height 64 inches 5'4" Weight 200.00 lb Heart Rate 76 /min BP Systolic 138 mmHg BP Diastolic 80 mmHg Respiratory Rate 18 /min Pain Level 6 BMI (Body Mass Index) 34.3 kg/m2 01/22/2019 10:32am Height 64 inches 5'4" Heart Rate 86 /min BP Systolic Sitting 104 mmHg Lue large cuff BP Diastolic Sitting 82 mmHg Lue large cuff Respiratory Rate 22 /min O2 % BldC Oximetry 97 % On Ra 12/31/2018 3:20pm Height 64 inches 5'4" Weight [...] 80 mmHg Pain Level 5 at times / BMI (Body Mass Index) 35.5 kg/m2 12/19/2017 [...] Result H/L Range Note Lipid Profile 12/24/2018 [facility] Triglycerides 243 mg/dL 1 (Trig/Chol/HDL) [address] [place] [address] [phone] Cholesterol 271 mg/dL 2 HDL Cholesterol 46.1 mg/dL 3 LDL Cholesterol 176 mg/dL 4 Comp Metabolic Panel 12/24/2018 [facility] Sodium 140 mmol/L N 135-[address] [place] [address] [phone] Potassium 4.4 mmol/L N 3.5-5.0 Chloride 105 [...] Egfr 64.0 >60 5 Laboratory test 12/24/2018 [facility] Hemoglobin A1c 5.5 % N 4.0-5.[address] (Glyco HGB) [place] [address] [phone] Vitamin B12 323 pg/mL N 180-914 7 Tapentadol 12/07/2018 [facility] Tapentadol >[id number] Cutoff: [address] Urine ng/[place] [address] [phone] N-desmethyltapentadol Present ng/mL Cutoff:25 8 Drug Abuse 20 12/07/2018 [facility] Urine Amphetamine Negative ng/mL [address] [place] [address] [phone] Urine Barbiturates Negative ng/mL 10 Urine Benzodiazepines Presumptive Posi <SEE NOTE> Abnormal 11 ng/mL Urine Cocaine Negative ng/mL 12 Urine Phencyclidine Negative ng/mL Cutoff: 25 Urine Tetrahydrocannabinol Negative ng/mL Cutoff: 50 13 Creatinine, Urine 218.9 mg/dL Specific [place]man 1.011 pH 7.5 Oxidants Negative 14 Adulterants Comment Normal Codeine, Ur Not Detected ng/mL Cutoff: 25 15 Cuqnxwk-8-anwd-glucuronide, Ur Not Detected ng/mL 16 Morphine, Ur Not Detected ng/mL Cutoff: 25 17 Wcoubwtk-0-nwix-glucuronide, U Not Detected ng/mL 18 6-monoacetylmorphine, Ur Not Detected ng/mL Cutoff: 25 19 Hydrocodone, Ur Not Detected ng/mL Cutoff: 25 20 Norhydrocodone, Ur Not Detected ng/mL Cutoff: 25 21 Dihydrocodeine, Ur Not Detected ng/mL Cutoff: 25 22 Hydromorphone, Ur Not Detected ng/mL Cutoff: 25 23 Vlmvrpeuigvhc0kknrkvpldauoztk Not Detected ng/mL 24 Oxycodone, Ur Present ng/mL Abnormal Cutoff: 25 25 Noroxycodone, Ur Present ng/mL Abnormal Cutoff: 25 26 Oxymorphone, Ur Not Detected ng/mL Cutoff: 25 27 Pphwijwwzky-5-ofvj-glucuronide Present ng/mL Abnormal 28 Noroxymorphone, Ur Present ng/mL Abnormal Cutoff: 25 29 Fentanyl, Ur Not Detected ng/mL Cutoff: 2 30 Norfentanyl, Ur Not Detected ng/mL Cutoff: 2 31 Meperidine, Ur Not Detected ng/mL Cutoff: 25 32 Normeperidine, Ur Not Detected ng/mL Cutoff: 25 33 Naloxone, Ur Not Detected ng/mL Cutoff: 25 34 Iiqiwpvz-3-cvsd-glucuronide, U Not Detected ng/mL 35 Methadone, Ur [...] Ur Present ng/mL Abnormal Cutoff: 50 43 Xuunrwrdkn-migh-vwndexrzpun, U Present ng/mL Abnormal 44 Buprenorphine, Ur Not Detected ng/mL Cutoff: 5 45 Norbuprenorphine, Ur Not Detected ng/mL Cutoff: 5 46 Norbuprenorphine glucuronide Not Detected ng/mL Cutoff: 20 47 Opioid Interpretation See Comment 48 Urine Benzodiazepines 12/07/2018 [facility] Urine Lorazepam 243 ng/mL [address] GC/[place] [address] [phone] Urine Nordiazepam GC/MS Negative ng/mL 50 Urine [...] Benzodiazepine Interp Positive. 57 Laboratory test 10/03/2018 [facility] Cytology SEE RESULT 58, [address] [place] [address] [phone] Comp Metabolic 08/20/2018 [facility] Sodium 139 mmol/L N 135- 14 [address] [place] [address] [phone] Potassium 4.5 mmol/L N 3.5-5.0 Chloride 104 [...] Egfr 78.4 >60 61 Liver Function 08/20/2018 [facility] Direct 0.10 mg/dL N 0.03- 0.[address] [place] [address] [phone] Indirect Bilirubin 0.3 mg/dL N 0.3-1.0 Immunoglobulins 08/20/2018 [facility] Immunoglobulin G 1100 767 - [address] mg/dL 1590 [place] [address] [phone] Immunoglobulin M 70 mg/dL 37 - 286 Immunoglobulin A 207 mg/dL 61 - 356 Comp Metabolic Panel 03/20/2018 [facility] Sodium 140 mmol/L N 135-[address] [place] [address] [phone] Potassium 3.8 mmol/L N 3.5-5.0 Chloride 104 [...] Egfr 75.5 >60 63 Liver Function 03/20/2018 [facility] Direct 0.00 mg/dL Low 0.03-0.[address] [place] [address] [phone] Laboratory test 03/20/2018 [facility] Folic Acid 9.12 ng/mL > 3.[address] (Folate) [place] [address] [phone] Vitamin B12 738 pg/mL N 180-914 64 Immunoglobulins 03/20/2018 [facility] Immunoglobulin G 970 767 - 65 Serum Quant [address] mg/dL 1590 [place] [address] [phone] Immunoglobulin M 64 mg/dL 37 - 286 Immunoglobulin A 206 mg/dL 61 - 356 S.Pneumoniae Igg 01/12/2018 [facility] S. pneumoniae 1.4 g/mL >=2.3 AB [address] Type 1 [place] [address] [phone] S. pneumoniae Type 2 IgG AB 25.7 [...] 7.2 g/mL >=1.7 66 Laboratory test 12/21/2017 [facility] Cortisol 28.81 g/dL 67, 68 finding [address] [place] [address] [phone] Laboratory test 12/21/2017 [facility] Cortisol 26.63 g/dL 69, 70 finding 101 [place] [address] [phone] Laboratory test 12/21/2017 [facility] Cortisol 20.39 g/dL 71, 72 finding [address] [place] [address] [phone] Comp Metabolic 12/18/2017 [facility] Sodium 139 mmol/L N 139- [address] [place] [address] [phone] Potassium 4.6 mmol/L N 3.5-5.0 Chloride 103 [...] Non- 60.1 >60 Egfr 77.3 >60 73 Urinalysis Profile 12/02/2017 [facility] Urine Color Yellow [address] [place] [address] [phone] Urine Appearance Cloudy Urine Specific [place] 1.016 N 1.010-1.030 Urine pH 7.0 N 5-9 Urine Urobilinogen Negative Negative Urine Ketones Negative Negative Urine Protein Negative Negative Urine Leukocytes Negative Negative Urine Blood Negative Negative * * Abnormal Negative 74 Urine Nitrite Negative Negative Urine Bilirubin Negative Negative Urine Glucose Negative Negative Laboratory test finding 12/02/2017 [facility] Lipase 40 U/L N 11.0-82.0 [address] [place] [address] [phone] C Reactive Protein 4.02 mg/L N < 5.00 75 Cortisol 5.84 g/dL 76 TSH (Thyroid Stim Horm) 2.30 mcIU/mL N 0.34-5.60 Acth 19 pg/mL 77 Comp Metabolic Panel 12/02/2017 [facility] Sodium 140 mmol/L N 139-145 [address] [place] [address] [phone] Potassium 4.1 mmol/L N 3.5-5.0 Chloride 104 [...] Egfr Non- 63.4 >60 Egfr 81.5 >60 78 Laboratory test 12/02/2017 [facility] Lactic Acid 0.8 mmol/L N 0.5-2.0 79 finding [address] [place] [address] [phone] Troponin-I (TnI) 0.00 ng/mL <0.04 CBC Auto Diff 12/02/2017 [facility] White Blood 6.3 10^3/uL N 3.5-10.[address] [place] [address] [phone] Red Blood Count 4.64 10^6/uL N 4.0-5.4 [...] Blood Cells % 0.2 Laboratory test 12/02/2017 [facility] Partial Thrombo 30.6 N 26.0-36.[address] [place] [address] [phone] Inr/Protime 12/02/2017 [facility] Inr 0.81 N 0.77-1.[address] [place] [address] [phone] Laboratory test 11/20/2017 [facility] Erythrocyte Sed 17 mm/Hr N 0-[address] [place] [address] [phone] Ssa/SSB Abs Igg 11/20/2017 [facility] SS-A/Ro <0.2 U [address] [place] [address] [phone] SS-B/La Antibody <0.2 U 81 Laboratory test 11/20/2017 [facility] Creatine 113 U/L N 10- [address] Kinase(CK) [place] [address] [phone] Comp Metabolic 11/20/2017 [facility] Sodium 138 N 133-[address] mmol/[place] [address] [phone] Potassium 4.4 mmol/L N 3.5-5.0 Chloride 103 [...] Egfr Non- 59.6 >60 Egfr 76.7 >60 82 Laboratory test 11/20/2017 [facility] Free Cortisol 0.101 Abnormal [address] Serum g/[place] [address] [phone] TSH (Thyroid Stim Horm) 3.62 mcIU/mL N 0.34-5.60 Thyroperoxidase AB 0.34 IU/mL N <9 Immunoglobulin G (Igg) TNP () 84 Igg Subclasses 11/20/2017 [facility] Total IgG 721 mg/dL Abnormal 767 - [address] [place] [address] [phone] Immunoglobulin G1 372 mg/dL 341 - 894 Immunoglobulin G2 277 mg/dL 171 - 632 Immunoglobulin G3 16.3 mg/dL Abnormal 85 Immunoglobulin G4 11.5 mg/dL 86 Iron & Iron Binding 09/27/2017 [facility] Iron 133 g/dL N 50 -[address] [place] [address] [phone] Unsaturated Iron Binding 242 g/dL Total Iron Binding Capacity 375 g/dL N 250-450 % Iron Saturation 35 % N 15-55 CBC Auto Diff 09/27/2017 [facility] White Blood 7.8 10^3/uL N 3.5-10.[address] [place] [address] [phone] Red Blood Count 4.43 10^6/uL N 4.0-5.4 [...] Blood Cells % 0 Laboratory test 09/27/2017 [facility] Ferritin 72.5 ng/mL N 11 -[address] [place] [address] [phone] Catecholamine 24HR 08/07/2017 [facility] Urine 24 h 87 Urine Fract [address] [place] [address] Duration [phone] Urine Total Volume 1000 mL Urine Norepinephrine 47 mcg/24h 15-80 Urine Epinephrine 7.7 mcg/24h <21 Urine Dopamine 134 mcg/24h 65-400 88 Urine Vma 24HR 08/07/2017 [facility] Urine Vma, Adult 3.1 mg/ 24h <8.[address] [place] [address] [phone] Urine Collection Duration 24 h Urine Total Volume 1000 mL 89 Hiaa,5- 08/07/2017 [facility] Urine 5Hiaa 3.7 mg/24h <=8.0 [address] [place], [place] [address] [phone] Urine Collection Duration 24 h Urine Total Volume 1000 mL 90 Laboratory test 07/07/2017 [facility] Angiotensin 41 U/L N 8 - 53 [address] Converting Enzyme [place], [place] [address] [phone] Homocysteine 9 mcmol/L N 92 Anca AB Ser If 07/07/2017 [facility] C-Anca Negative N Negative [address] [place], [place] [address] [phone] P-Anca Negative N Negative 93 Ssa/SSB Abs Igg 07/07/2017 [facility] SS-A/Ro Antibody <0.2 U N [address] [place] [address] [phone] SS-B/La Antibody <0.2 U N 95 Immunoglobulins 07/07/2017 [facility] Immunoglobulin G 765 Abnormal 767 - 96 Serum Quant [address] mg/dL 1590 [place] [address] [phone] Immunoglobulin M 67 mg/dL N 37 - 286 Immunoglobulin A 200 mg/dL N 61 - 356 Celiac Hla 07/07/2017 [facility] Hla-Dqa1 SEE BELOW N [address] [place] [address] [phone] Hla-DQB1 SEE BELOW N 98 Celiac Gene Pairs Present? No N Celiac Gene Interpretation See Comment N 99 Celiac Panel 07/07/2017 [facility] Tissue <1.2 U/mL N [address] [place] [address] Ab [phone] Immunoglobulin A 207 mg/dL N 61 - 356 Celiac Interpretation See Comment N 101 Hla B27 07/07/2017 [facility] Hla B27 Negative N [address] [place] [address] [phone] Hla B27 Interp See Comment N 103 Laboratory test 07/07/2017 [facility] T3 Free 3.60 pg/mL N 2.5 -3.9 [address] [place] [address] [phone] Free T4 (Free Thyroxine) 0.75 ng/dL N 0.61-1.12 105 Thyroperoxidase AB 0.34 IU/mL N <9 106 Tick-Borne Panel 07/07/2017 [facility] Babesia Negative N Negative PCR Blood [address] [place] [address] [phone] Babesia ducani Negative N Negative Babesia divergens/Mo-1 Negative N Negative 107 Anaplasma phagocytophilum Negative N Negative Ehrlichia chaffeensis Negative N Negative Ehrlichia ewingii/canis Negative N Negative Ehrlichia muris-like Negative N Negative 108 B. miyamotoi PCR, B Negative N Negative 109 Laboratory test 07/07/2017 [facility] Creatine 154 U/L N 10- 223 [address] Kinase(CK) [place] [address] [phone] Laboratory test 05/22/2017 [facility] C Reactive 3.08 mg/L N < 5.00 [address] [place] [address] [phone] Cyclic Citrullinated Pep Igg <15.6 U N 112 Anti Nuclear Antibody 0.2 U N 113 Lyme Disease Serology Negative N Negative 114 Rheumatoid Factor <15 IU/mL N <15 115 Erythrocyte Sed Rate 18 mm/Hr N 0-30 Fatuma Key 05/05/2017 [facility] Ebv Capsid Positive N Negative Comprehensive [address] [place] [address] [phone] Ebv Capsid Ag IgM Ab Negative N Negative Fatuma-Key Nuclear Antigen Positive N Negative Fatuma-Key Virus Interp See Comment N 116 Comp Metabolic Panel 05/05/2017 [facility] Sodium 139 mmol/L N 133-[address] [place] [address] [phone] Potassium 4.2 mmol/L N 3.5-5.0 Chloride 106 [...] N >60 Egfr 88.1 N >60 117 CBC Auto Diff 05/05/2017 [facility] White Blood 5.8 10^3/uL N 3.5-10.[address] [place] [address] [phone] Red Blood Count 4.37 10^6/uL N 4.0-5.4 [...] Blood Cells % 0 N Laboratory test 05/05/2017 [facility] Erythrocyte Sed 19 mm/Hr N 0-[address] [place] [address] [phone] C Reactive Protein 7.59 mg/L High < 5.00 118 Laboratory 04/19/2017 [facility] C Reactive 6.47 mg/L High < 5.00 119 test finding [address] [place] [address] [phone] CMV Igg/Igm 04/19/2017 [facility] Cytomegalovirus Negative N Negative [address] [place] [address] [phone] Cytomegalovirus IgM Antibody Negative N Negative Laboratory test finding 04/19/2017 [facility] Amylase 27 U/L Low 29-[address] [place] [address] [phone] Lipase 42 U/L N 11.0-82.0 Monospot Negative N Negative 121 Protein 04/19/2017 [facility] Total 6.9 g/dL N 6.3 - Electrophoresis 101 Protein(Pep) 7.9 [place] [address] [phone] Albumin 3.5 g/dL N 3.4-4.7 Alpha-1 Globulin 0.2 g/dL N 0.1-0.3 Alpha-2 Globulin 1.1 g/dL Abnormal 0.6-1.0 Beta Globulin 1.1 g/dL N 0.7-1.2 Gamma Globulin 0.9 g/dL N 0.6-1.6 Albumin/Globulin Ratio 1.05 N Impression See Comment N 122 Laboratory test 04/19/2017 [facility] Vitamin B12 264 pg/mL N 180-[address] [place] [address] [phone] Lyme Disease Serology Negative N Negative 124 CBC Auto Diff 04/19/2017 [facility] White Blood 5.5 10^3/uL N 3.5-10.8 [address] [place] [address] [phone] Red Blood Count 4.49 10^6/uL N 4.0-5.4 [...] Cells % 0.1 N Laboratory test 04/19/2017 [facility] TSH (Thyroid 1.29 mcIU/mL N 0.34-5.[address] Stim Horm) [place] [address] [phone] CBC Auto Diff 04/14/2017 [facility] White Blood 6.5 10^3/uL N 3.5-10.[address] [place] [address] [phone] Red Blood Count 4.50 10^6/uL N 4.0-5.4 [...] Blood Cells % 0.1 N Laboratory test 04/14/2017 [facility] Troponin-I (TnI) 0.00 ng/ mL N <0.[address] [place] [address] [phone] Comp Metabolic 04/14/2017 [facility] Sodium 137 mmol/L N 133- 145 Panel [address] [place] [address] [phone] Potassium 3.9 mmol/L N 3.5-5.0 Chloride 105 [...] 65.8 N >60 Egfr 84.7 N >60 125 Laboratory test 04/14/2017 [facility] Lactic Acid 0.7 mmol/L N 0.5-2.0 126 finding [address] [place] [address] [phone] Laboratory test 03/24/2017 [facility] Ferritin 57.0 ng/mL N 11 -307 finding [address] [place] [address] [phone] Lyme Disease Serology Negative N Negative 127 Comp Metabolic Panel 03/24/2017 [facility] Sodium 140 mmol/L N 133-145 [address] [place] [address] [phone] Potassium 4.2 mmol/L N 3.5-5.0 Chloride 104 [...] 46.2 N >60 Egfr 59.4 N >60 128 CBC Auto Diff 03/24/2017 [facility] White Blood 7.1 10^3/uL N 3.5-10.[address] [place] [address] [phone] Red Blood Count 4.62 10^6/uL N 4.0-5.4 [...] Blood Cells % 0.1 N Laboratory test 03/06/2017 [facility] Point of Care 108 mg/dL High 74-106 [address] [place] [address] [phone] Vitamin B6 01/02/2017 [facility] Pyridoxal 21 g/L N 5-[address] 5-[place] [address] [phone] Pyridoxic Acid 14 g/L N 3-30 131 Laboratory test 01/02/2017 [facility] Vitamin B1 160 nmol/L N 70-[address] [place] [address] [phone] Laboratory test 01/02/2017 [facility] Folic Acid 13.85 ng/mL N >3.[address] (Folate) [place] [address] [phone] Vitamin B12 297 pg/mL N 180-914 133 Vitamin D Total 25(Oh) 24.6 ng/mL Low 30-50 Hemoglobin A1c 5.8 % N Less than 6.0 134 Vitamin B1 (Whole Blood) 160 nmol/L N 70-180 135 Iron & Iron Binding 01/02/2017 [facility] Iron 98 g/dL N 50- 212 Capacity [address] [place] [address] [phone] Unsaturated Iron Binding 311 g/dL N Total Iron Binding Capacity 409 g/dL N 250-450 % Iron Saturation 24 % N 15-55 Lipid Profile 01/02/2017 [facility] Triglycerides 257 mg/dL N 136 (Trig/Chol/HDL) [address] [place] [address] [phone] Cholesterol 251 mg/dL N 137 HDL Cholesterol 46.5 mg/dL N 138 LDL Cholesterol 153 mg/dL N 139 Comp Metabolic Panel 01/02/2017 [facility] Sodium 140 mmol/L N 133-145 [address] [place] [address] [phone] Potassium 4.3 mmol/L N 3.5-5.0 Chloride 106 [...] 60.3 N >60 Egfr 77.6 N >60 140 CBC No Diff 01/02/2017 [facility] White Blood 7.0 10^3/uL N 3.5-10.[address] [place] [address] [phone] Red Blood Count 4.65 10^6/uL N 4.0-5.4 Hemoglobin 13.4 g/dL N 12.0-16.0 Hematocrit 41 % N 35-47 Mean Corpuscular Volume 88 fL N 80-97 Mean Corpuscular Hemoglobin 29 pg N 27-31 Mean Corpuscular HGB Conc 33 g/dL N 31-36 Red Cell Distribution Width 14 % N 10.5-15 Platelet Count 222 10^3/uL N 150-450 Mean Platelet Volume 10 um3 N 7.4-10.4 Vitamin B6 01/02/2017 [facility] Pyridoxal 5-Phosphate 21 g/L N 5-50 141 [address] [place] [address] [phone] Pyridoxic Acid 14 g/L N 3-30 142 Comp Metabolic Panel 09/27/2016 [facility] Sodium 137 mmol/L N 133-145 [address] [place] [address] [phone] Potassium 3.6 mmol/L N 3.5-5.0 Chloride 107 [...] 49.2 N >60 Egfr 63.2 N >60 143 Calcium 9.3 mg/dL N 8.6-10.3 Laboratory test finding 09/27/2016 [facility] Lipase 35 U/L N 11.0-82.[address] [place] [address] [phone] C Reactive Protein 3.69 mg/L N < 5.00 144 Troponin-I (TnI) 0.00 ng/mL N <0.04 145 HCG 2.54 mIU/mL N 146 Urine Culture And 09/27/2016 [facility] Urine Culture SEE RESULT [address] [place] [address] [phone] Urinalysis Profile 09/27/2016 [facility] Urine Color Yellow N [address] [place] [address] [phone] Urine Appearance Cloudy N Urine Specific Gilman 1.017 N 1.010-1.030 Urine pH 7.0 N 5-9 Urine Urobilinogen Negative N Negative Urine Ketones Negative N Negative Urine Protein Negative N Negative Urine Leukocytes Trace Abnormal Negative Urine Blood Negative N Negative * * Abnormal Negative 148 Urine Nitrite Negative N Negative Urine Bilirubin Negative N Negative Urine Glucose Negative N Negative Urine White Blood Cell 1+(6-10/hpf) Abnormal Absent Urine Red Blood Cell 1+(3-5/hpf) Abnormal Absent Urine Bacteria Absent N Absent Urine Squamous Epithelial Cell Present Abnormal Absent Urine Amorphous Crystals Present Abnormal Absent Laboratory test 09/27/2016 [facility] Lactic Acid 1.1 mmol/L N 0.5-2.[address] [place] [address] [phone] CBC Auto Diff 09/27/2016 [facility] White Blood 6.2 10^3/uL N 3.5-10.[address] [place] [address] [phone] Red Blood Count 4.47 10^6/uL N 4.0-5.4 [...] Blood Cells % 0 N Laboratory test 08/09/2016 [facility] Surgical SEE RESULT [address] [place] [address] [phone] Laboratory test 08/05/2016 [facility] TSH (Thyroid 1.44 mcIU/mL N 0.34- finding [address] Stim Horm) 5.60 [place] [address] [phone] Hepatitis C Antibody Nonreactive N Nonreactive Comp Metabolic Panel 07/18/2016 [facility] Sodium 138 mmol/L N [address] [place] [address] [phone] Potassium 4.3 mmol/L N 3.5-5.0 Chloride 109 [...] 44.3 N >60 Egfr 56.9 N >60 151 Laboratory test finding 07/18/2016 [facility] Lipase 37 U/L N 11.0-82.[address] [place] [address] [phone] C Reactive Protein 2.83 mg/L N < 5.00 152 CBC Auto Diff 07/18/2016 [facility] White Blood 7.6 10^3/uL N 3.5-10.[address] [place] [address] [phone] Red Blood Count 4.37 10^6/uL N 4.0-5.4 [...] Cells % 0.1 N Urinalysis Profile 07/18/2016 [facility] Urine Color Yellow N [address] [place] [address] [phone] Urine Appearance Cloudy N Urine Specific Gilman 1.019 N 1.010-1.030 Urine pH 6.0 N 5-9 Urine Urobilinogen Negative N Negative Urine Ketones Negative N Negative Urine Protein Negative N Negative Urine Leukocytes 1+ Abnormal Negative Urine Blood Negative N Negative * * Abnormal Negative 153 Urine Nitrite Negative N Negative Urine Bilirubin Negative N Negative Urine Glucose Negative N Negative Urine White Blood Cell 2+(11-20/hpf) Abnormal Absent Urine Red Blood Cell Absent N Absent Urine Bacteria Absent N Absent Urine Squamous Epithelial Cell Present Abnormal Absent Urine Culture And 07/18/2016 [facility] Urine Culture SEE RESULT [address] [place] [address] [phone] Laboratory test 07/18/2016 [facility] Lactic Acid 1.5 mmol/L N 0.5-[address] [place] [address] [phone] Urinalysis Profile 07/18/2016 [facility] Urine Color Yellow [address] [place] [address] [phone] Urine Appearance Clear N Urine Specific Gilman 1.011 N 1.010-1.030 Urine pH 7.0 N 5-9 Urine Urobilinogen Negative N Negative Urine Ketones Negative N Negative Urine Protein Negative N Negative Urine Leukocytes Negative N Negative Urine Blood Negative N Negative * * Abnormal Negative 156 Urine Nitrite Negative N Negative Urine Bilirubin Negative N Negative Urine Glucose Negative N Negative Xray 06/08/2016 [facility] MRI Wrist Right <pending> [address] [place] [address] [phone] Laboratory test 05/13/2016 [facility] C Reactive 1.43 mg/L N < [address] Protein 5.00 [place] [address] [phone] Erythrocyte Sed Rate 11 mm/Hr N 0-30 158 Troponin-I (TnI) 0.00 ng/mL N <0.03 159 Basic Metabolic Panel 08/24/2015 [facility] Sodium 141 mmol/L N 133-[address] [place] [address] [phone] Potassium 4.1 mmol/L N 3.5-5.0 Chloride 110 mmol/L N 101-111 Co2 Carbon Dioxide 26 mmol/L N 22-32 Anion Gap 5 mmol/L N 2-11 Glucose 88 mg/dL N 70-100 Blood Urea Nitrogen 14 mg/dL N 6-24 Creatinine 0.97 mg/dL High 0.51-0.95 BUN/Creatinine Ratio 14.4 N 8-20 Calcium 8.6 mg/dL N 8.6-10.3 Egfr Non- 60.1 N >60 Egfr 77.3 N >60 160 Laboratory test 08/24/2015 [facility] TSH (Thyroid 1.14 ?IU/mL N 0.34-5.[address] Stim [place]orm) [place] [address] [phone] T3 Free 3.20 pg/mL N 2.5-3.9 Free T4 (Free Thyroxine) 0.58 ng/mL Low 0.61-1.12 Urine Culture And Sensitivities SEE RESULT BELOW 161 Protein 08/05/2015 [facility] Total 6.6 g/dL N 6.3 - Electrophoresis [address] Protein(Pep) 7.9 [place] [address] [phone] Albumin 3.5 g/dL N 3.4-4.7 Alpha-1 Globulin 0.2 g/dL N 0.1-0.3 Alpha-2 Globulin 1.1 g/dL Abnormal 0.6-1.0 Beta Globulin 1.0 g/dL N 0.7-1.2 Gamma Globulin 0.8 g/dL N 0.6-1.6 Albumin/Globulin Ratio 1.12 N Impression See Comment N 162 Laboratory test 05/19/2015 [facility] C Reactive 1.26 mg/L N < 5.00 163, [address] [place] [address] [phone] Free T4 (Free Thyroxine) 0.60 ng/mL Low 0.61-1.12 165 Vitamin D Total 25(Oh) 31.5 ng/mL N 30-50 Erythrocyte Sed Rate 12 mm/Hr N 0-30 166 Huma (Antinuclear Antibodies) Negative N Negative 167 Lipid Profile 05/19/2015 [facility] Triglycerides 216 mg/dL N 168 (Trig/Chol/HDL) [address] [place] [address] [phone] Cholesterol 280 mg/dL N 169 HDL Cholesterol 52.8 mg/dL N 170 LDL Cholesterol 184 mg/dL N 171 Laboratory test 05/19/2015 [facility] TSH (Thyroid 2.17 ?IU/mL N 0.34-5.[address] Stim [place]orm) [place] [address] [phone] T3 Free 2.40 pg/mL Low 2.5-3.9 173 Comp Metabolic Panel 05/19/2015 [facility] Sodium 139 mmol/L N 133-[address] [place] [address] [phone] Potassium 4.2 mmol/L N 3.5-5.0 Chloride 109 [...] 77.3 N >60 Egfr 99.4 N >60 174 Lipid Profile 05/19/2015 [facility] Triglycerides 216 mg/dL N 175 (Trig/Chol/HDL) [address] [place] [address] [phone] Cholesterol 280 mg/dL N 176 HDL Cholesterol 52.8 mg/dL N 177 LDL Cholesterol 184 mg/dL N 178 Laboratory test 05/19/2015 [facility] C Reactive 1.26 mg/L N < 5.[address] [place] [address] [phone] Free T4 (Free Thyroxine) 0.60 ng/mL Low 0.61-1.12 180 CBC Auto Diff 05/19/2015 [facility] White Blood 5.5 10^3/uL N 4.8-10.[address] [place] [address] [phone] Red Blood Count 4.38 10^6/uL N 4.0-5.4 [...] Cells % 0 N Laboratory test 05/19/2015 [facility] Vitamin D 31.5 ng/mL N 30-[address] Total 25(Oh) [place] [address] [phone] Erythrocyte Sed Rate 12 mm/Hr N 0-30 181 Huma (Antinuclear Antibodies) Negative N Negative 182 CBC Auto Diff 05/19/2015 [facility] White Blood 5.5 10^3/uL N 4.8-10.[address] [place] [address] [phone] Red Blood Count 4.38 10^6/uL N 4.0-5.4 [...] Cells % 0 N Laboratory test 05/19/2015 [facility] TSH (Thyroid 2.17 ?IU/mL N 0.34-5.60 [address] Stim [place]orm) [place] [address] [phone] T3 Free 2.40 pg/mL Low 2.5-3.9 184 Comp Metabolic Panel 05/19/2015 [facility] Sodium 139 mmol/L N 133-[address] [place] [address] [phone] Potassium 4.2 mmol/L N 3.5-5.0 Chloride 109 [...] 99.4 N >60 185 Laboratory test 11/20/2014 [facility] Activated 31.7 N 26.0- 36.3 [address] [place] [address] Thrombo Time [phone] Inr/Protime 11/20/2014 [facility] Inr 0.86 N 0.78-1.[address] [place] [address] [phone] CBC Auto Diff 11/20/2014 [facility] White Blood 7.4 10^3/uL N 4.8-10.[address] [place] [address] [phone] Red Blood Count 4.67 10^6/uL N 4.0-5.4 [...] Cells % 0 N Laboratory test 11/20/2014 [facility] Blood Urea 15 mg/dL N 6- [address] [place] [address] [phone] Creatinine 11/20/2014 [facility] Creatinine 0.85 mg/dL N 0.51- 0.[address] [place] [address] [phone] Egfr Non- 70.2 N >60 Egfr 90.3 N >60 187 1 Desirable: <150 Borderline High: 150-199 High: [...] in selective patients <6.0%. Please refer to [place] [employer] diabetic care guidelines for further information. 7 Normal Range 180 to 914 Indeterminate Range 145 to 180 Deficient Range <145 8 ADDITIONAL INFORMATION Testing performed by Liquid Chromatography-Tandem Mass Spectrometry (LC-MS/MS). This test was developed and its performance characteristics determined by [facility] in a manner consistent with CLIA requirements. This test has not been cleared or approved by the U.S. Food and Drug Administration. Test Performed by: [facility] [address] [place] [address] 9 REFERENCE VALUE Cutoff: 500 10 REFERENCE [...] REFERENCE VALUE Cutoff: 100 17 Briana Henderson, MS Contin; Also a minor metabolite (10%) of codeine and can be seen in low concentrations (<2,000 ng/mL) with poppy seed ingestion. 18 Metabolite of morphine REFERENCE VALUE Cutoff: 100 19 Metabolite of heroin 20 Lortab, [place], Vicodin; Also a very minor metabolite of [...] oxycodone and several metabolites (noroxycodone, noroxymorphone, and optupmitrla-6-fepq-glucuronide). Suspect use of oxycodone and/or oxymorphone within the past three days. Test detected the presence of tapentadol and two of its metabolites (n-desmethyltapentadol and wosrmdibdh-hnje-zlsvinoghdk). Suspect use of tapentadol within the past three days. ADDITIONAL INFORMATION This test was developed and its performance characteristics determined by [facility] in a manner consistent with CLIA requirements. This test has not been cleared or approved by the U.S. Food and Drug Administration. Test Performed by: [facility] [address] [place] [address] 49 REFERENCE VALUE Cutoff: 100 50 REFERENCE [...] developed and its performance characteristics determined by [facility] in a manner consistent with CLIA requirements. This test has not been cleared or approved by the U.S. Food and Drug Administration. Test Performed by: [facility] [address] [place] [address] 58 [id number] SEE RESULT BELOW Name: DESHAUNONSHIRLEY : [address]: Radha Marinelli NP Acct: [id number] Unit: [id number] AGE: 57 Location: [facility] Re10/03/18 SEX: F Status: REG REF SPEC: [id number] TONY: 10/03/18-[address]: Radha Marinelli NP REQ: [id number] RECD: [id number] STATUS: SOUT _ ORDERED: TP IMAGE ANALYS, HPV/Thin Prep, HPV 16/18 GENE COMMENTS: [id number] Negative for Intraepithelial lesion or Malignancy Date [...] Signed by and Reported on: DENISE Shahid(ASCP) 0918 This Pap test was evaluated with the assistance of the ThinPrep Test Imaging System. Due to cytologic findings at the bank appraiser microscope, comprehensive manual rescreening by a Recreation Establishment Manager may be required. The Pap Smear is [...] years. END OF REPORT DEPARTMENT OF PATHOLOGY, [address] [place] [address] Ole Martin M.D. Director [facility] # [id number] FAX:[phone] 61 Because ethnic data is not always [...] <15 (or dialysis) 62 Test Performed by: [address] [address] 63 Because ethnic data is not always [...] Deficient Range <145 65 Test Performed by: [address] [address] 66 Either of the two following conditions [...] developed and its performance characteristics determined by [facility] in a manner consistent with CLIA requirements. This test has not been cleared or approved by the U.S. Food and Drug Administration. Test Performed by: [facility] [address] [place] [address] 67 Comment: 60 minute 68 AM 8.7-22.4 [...] 5 Kidney failure <15 (or dialysis) 74 *Ascorbic acid is present which may interfere with detection of blood. 75 Acute inflammation: >10.00 76 AM 8.7-22.4 PM <10 77 REFERENCE VALUE 7.2-63 (a.m. collection) Test Performed by: [facility] [address] [place] [address] 78 Because ethnic data is not always readily [...] 15-29 5 Kidney failure <15 (or dialysis) 79 [facility] Severe Sepsis and Septic Shock Management Bundle Measure requires all lactic acids initially measuring >2.0 mmol/L be repeated. 80 REFERENCE VALUE <1.0 (Negative) 81 REFERENCE VALUE <1.0 (Negative) Test Performed by: [place] [address] 82 Because ethnic data is not always readily [...] 15-29 5 Kidney failure <15 (or dialysis) 83 REFERENCE VALUE 6:00-10:30 AM Collection 0.121-1.065 mcg/dL ADDITIONAL INFORMATION This test was developed and its performance characteristics determined by [facility] in a manner consistent with CLIA requirements. This test has not been cleared or approved by the U.S. Food and Drug Administration. Test Performed by: [facility] - [address] [address] 84 Immunoglobulin G (IgG), S was cancelled on 11/21/2017 at 10:09; Reason: Test IGG is cancelled due to be ordered with Test IGGS Test Performed by: [facility] - [address] [address] 85 REFERENCE VALUE 18.4 - 106.0 86 REFERENCE VALUE 2.4 - 121.0 Test Performed by: [facility] - [address] [address] 87 TV: 1000ML START COLLECTION TIME 08/06/17 @0600 END COLLECTION TIME @ 0800 88 ADDITIONAL INFORMATION This test was developed and its performance characteristics determined by [facility] in a manner consistent with CLIA requirements. This test has not been cleared or approved by the U.S. Food and Drug Administration. Test Performed by: [facility] - [address] [address] 89 ADDITIONAL INFORMATION Liquid Chromatography-Tandem Mass Spectrometry (LC-MS/MS). Values obtained from different assay methods or kits may be different and cannot be used interchangeably. The results cannot be interpreted as absolute evidence for the presence or absence of malignant disease. This test was developed and its performance characteristics determined by [facility] in a manner consistent with CLIA requirements. This test has not been cleared or approved by the U.S. Food and Drug Administration. Test Performed by: [facility] - [address] [address] 90 ADDITIONAL INFORMATION Liquid Chromatography-Tandem Mass Spectrometry (LC-MS/MS). Values obtained from different assay methods or kits may be different and cannot be used interchangeably. The results cannot be interpreted as absolute evidence for the presence or absence of malignant disease. This test was developed and its performance characteristics determined by [facility] in a manner consistent with CLIA requirements. This test has not been cleared or approved by the U.S. Food and Drug Administration. Test Performed by: [facility] - [address] [address] Test Performed by: [facility] - [address] [address] 92 REFERENCE VALUE <=13 (Fasting) ADDITIONAL INFORMATION This test was developed and its performance characteristics determined by [facility] in a manner consistent with CLIA requirements. This test has not been cleared or approved by the U.S. Food and Drug Administration. Test Performed by: [facility] - [address] [address] 93 Negative for cANCA and pANCA patterns by immunofluorescence. ADDITIONAL INFORMATION This test was developed and its performance characteristics determined by [facility] in a manner consistent with CLIA requirements. This test has not been cleared or approved by the U.S. Food and Drug Administration. Test Performed by: [address] [address] 94 REFERENCE VALUE <1.0 (Negative) 95 REFERENCE VALUE <1.0 (Negative) Test Performed by: [address] [address] Test Performed by: [address] [address] 97 RESULT: 01:02,01:03 REFERENCE VALUE Not Applicable 98 RESULT: 06:02,06:03 DQ Serologic Equivalent: 6,6 REFERENCE VALUE Not Applicable 99 The absence of HLA celiac permissive genes would make the presence of celiac disease unlikely. ADDITIONAL INFORMATION Method: Molecular typing of HLA antigens performed using reverse SSOP and/or SSP methods, reported as serological equivalents and low to medium resolution molecular values. Performing Laboratory CLIA# [id number] Test Performed by: [address] [address] 100 REFERENCE VALUE <4.0 (Negative) Test Performed by: [facility] - [address] [address] 101 Negative serology. Celiac disease unlikely. However, approximately 10% of patients with celiac disease are seronegative. Also, patients who are already adhering to a gluten-free diet may be seronegative. If celiac disease is highly clinically suspected, consider HLA-DQ typing. Test Performed by: [facility] - [address] [address] 102 REFERENCE VALUE Not Applicable 103 RESULT: HLA-B27 antigen was not detected. ADDITIONAL INFORMATION Method: Flow Cytometry Performing Laboratory CLIA# [id number] Test Performed by: [facility] - [address] [address] 104 Please check this week 105 Please check this week 106 Please check this week 107 ADDITIONAL INFORMATION This test was developed and its performance characteristics determined by [facility] in a manner consistent with CLIA requirements. This test has not been cleared or approved by the U.S. Food and Drug Administration. 108 ADDITIONAL INFORMATION This test was developed and its performance characteristics determined by [facility] in a manner consistent with CLIA requirements. This test has not been cleared or approved by the U.S. Food and Drug Administration. 109 ADDITIONAL INFORMATION This test was developed and its performance characteristics determined by [facility] in a manner consistent with CLIA requirements. This test has not been cleared or approved by the U.S. Food and Drug Administration. Test Performed by: [facility] [place] [id number] 110 Please check this week 111 Acute inflammation: >10.00 112 REFERENCE VALUE <20.0 (Negative) Test Performed by: [facility] [place] [address] 113 REFERENCE VALUE <=1.0 (Negative) Test Performed by: [place] [address] 114 Serologic response to B. burgdorferi infection is not detected, but cannot rule out early infection during which low or undetectable antibody levels to B. burgdorferi may be present. If clinically indicated, a new serum specimen should be submitted in 7-14 days. Test Performed by: [place] [address] 115 Test Performed by: [place] [address] 116 RESULT: Results suggest past infection. ADDITIONAL INFORMATION [...] primary infection with EBV. Test Performed by: [place] [address] 117 Because ethnic data is not always [...] 5 Kidney failure <15 (or dialysis) 118 Acute inflammation: >10.00 119 Acute inflammation: >10.00 120 Test Performed by: [place] [address] 121 Would you like an EBV if Monospot is Negative?: N 122 RESULT: No apparent monoclonal protein on serum electrophoresis. Test Performed by: [place] [address] 123 Normal Range 180 to 914 Indeterminate Range 145 to 180 Deficient Range <145 124 Serologic response to B. burgdorferi infection is not detected, but cannot rule out early infection during which low or undetectable antibody levels to B. burgdorferi may be present. If clinically indicated, a new serum specimen should be submitted in 7-14 days. Test Performed by: [place] [address] 125 Because ethnic data is not always readily [...] 15-29 5 Kidney failure <15 (or dialysis) 126 [place] Severe Sepsis and Septic Shock Management Bundle Measure requires all lactic acids initially measuring >2.0 mmol/L be repeated. 127 Serologic response to B. burgdorferi infection is not detected, but cannot rule out early infection during which low or undetectable antibody levels to B. burgdorferi may be present. If clinically indicated, a new serum specimen should be submitted in 7-14 days. Test Performed by: [facility] - [address] [address] 128 Because ethnic data is not always readily [...] 15-29 5 Kidney failure <15 (or dialysis) 129 Master Baker: [id number] ADDITIONAL INFORMATION This test was developed and its performance characteristics determined by [facility] in a manner consistent with CLIA requirements. This test has not been cleared or approved by the U.S. Food and Drug Administration. 131 ADDITIONAL INFORMATION This test was developed and its performance characteristics determined by [facility] in a manner consistent with CLIA requirements. This test has not been cleared or approved by the U.S. Food and Drug Administration. Test Performed by: [facility] - [address] [address] 132 ADDITIONAL INFORMATION This test was developed and its performance characteristics determined by [facility] in a manner consistent with CLIA requirements. This test has not been cleared or approved by the U.S. Food and Drug Administration. Test Performed by: [facility] [address] [place] [address] 133 Normal Range 180 to 914 Indeterminate Range 145 to 180 Deficient Range <145 134 Therapeutic target for the treatment of diabetes Mellitus patients is <7% HBA1C, and in selective patients <6.0%.Please refer to [place] [employer] Diabetic care guidelines for further information. 135 ADDITIONAL INFORMATION This test was developed and its performance characteristics determined by [facility] in a manner consistent with CLIA requirements. This test has not been cleared or approved by the U.S. Food and Drug Administration. Test Performed by: [facility] [address] [place] [address] 136 Desirable <150 Borderline high 150-199 High 200-499 Very High >500 137 Desirable <200 Borderline high 200-239 High >239 138 Low <40 Desirable: 40-60 High: >60 139 Desirable: <100 mg/dL Near Optimal: 100-129 mg/dL Borderline High: 130-159 mg/dL High: 160-189 mg/dL Very High: >189 mg/dL 140 Because ethnic data is not always readily [...] 15-29 5 Kidney failure <15 (or dialysis) 141 ADDITIONAL INFORMATION This test was developed and its performance characteristics determined by [facility] in a manner consistent with CLIA requirements. This test has not been cleared or approved by the U.S. Food and Drug Administration. 142 ADDITIONAL INFORMATION This test was developed and its performance characteristics determined by [facility] in a manner consistent with CLIA requirements. This test has not been cleared or approved by the U.S. Food and Drug Administration. Test Performed by: [facility] - [address] [address] 143 Because ethnic data is not always readily [...] 15-29 5 Kidney failure <15 (or dialysis) 144 Acute inflammation: >10.00 145 99th percentile=0.04 ng/mL Troponin results at [facility] and [facility] are not interchangeable. 146 <5.0 Negative 5.0 - 25.0 Indeterminate (Repeat testing recommended after 72 hours) >25.0 Positive Perimenopausal women can display HCG levels of up to 20 mIU/mL 147 SEE RESULT BELOW Name: SHIRLEY ZARAGOZA : [address]: Momo Jewell MD Acct: [id number] Unit: [id number] AGE: 55 Location: ED Re09/27/16 SEX: F Status: DEP ER SPEC: [id number] TONY: 09/27/[address]: Peter Rodriguez MD REQ: [id number] RECD: 09/27/16 STATUS: KARY HUERTA DR: [facility] Radha Marinelli COPY COORDINATOR _ SOURCE: URINE SPDESC: ORDERED: Urine Culture Procedure Result Reported Site Urine Culture Final 09/30/16- 819 ML Organism 1 ENTEROCOCCUS FAECALIS Saunemin Count 10-25,000 (Moderate) CFU/ML Organism 2 NORMAL JASMIN Saunemin Count 1-10,000 (Few) CFU/ML 1. ENTEROCOCCUS FAECALIS [...] performed at Main Lab DEPARTMENT OF PATHOLOGY, [address] [place] [address] Ole Martin M.D. Director [facility] # [id number] Patient: SHIRLEY ZARAGOZA [id number] (Continued) Specimen: [id number] Collected: 09/27/16 Received: 09/27/16 (Continued) Procedure Result Reported Site Urine Culture Final (continued) * These antibiotics are not available in the [facility] Formulary Contact the Microbiology Department for any additional antibiotic reporting. * ML - MAIN LAB ([facility]1) . END OF REPORT * ML=Testing performed at Main Lab DEPARTMENT OF PATHOLOGY, [address] [place] [address] Ole Martin M.D. Director [facility] # [id number] 148 *Ascorbic acid is present which may interfere with detection of blood. 149 [facility] Severe Sepsis and Septic Shock Management Bundle Measure requires all lactic acids initially measuring >2.0 mmol/L be repeated. 150 SEE RESULT BELOW Name: SHIRLEY ALVAREZ : [address]: Nigel Hilliard MD Acct: [id number] Unit: [id number] AGE: 55 Location: ENDO Re08/09/16 SEX: F Status: DEP REF SPEC: [id number] TONY: 08/09/16- SUBM DR: Nigel Hilliard MD REQ: [id number] RECD: 08/09/161356 STATUS: OMER HUERTA DR: Radha Marinelli COPY COORDINATOR _ ORDERED: LEVEL IV/2 FINAL DIAGNOSIS 1. [...] performed at Main Lab DEPARTMENT OF PATHOLOGY, [address] [place] [address] Ole Martin M.D. Director [facility] # [id number] RUN DATE: 08/10/16 [facility] LAB LIVE PAGE 2 Patient: ZARAGOZAALFREDO GREENESHIRLEY J [id number] (Continued) GROSS DESCRIPTION (Continued) Signed (signature on file) Ole Martin MD 1522 END OF REPORT * ML=Testing performed at Main Lab DEPARTMENT OF PATHOLOGY, [address] [place] [address] Ole Martin M.D. Director [facility] # [id number] 151 Because ethnic data is not always readily [...] 15-29 5 Kidney failure <15 (or dialysis) 152 Acute inflammation: >10.00 153 *Ascorbic acid is present which may interfere with detection of blood. 154 SEE RESULT BELOW Name: SHIRLEY ZARAGOZA : [address]: Cordell Davison MD Acct: [id number] Unit: [id number] AGE: 55 Location: ED Re07/18/16 SEX: F Status: DEP ER SPEC: [id number] TONY: 07/18/[address]: Elizabeth HOPPER REQ: [id number] RECD: 07/18/16 STATUS: KARY HUERTA DR: Cordell Carbajal COPY COORDINATOR _ SOURCE: URINE SPDESC: ORDERED: Urine Culture Procedure Result Reported Site Urine Culture Final 07/19/16- 0833 ML No growth of clinically significant organisms * ML - MAIN LAB ([facility]) . END OF REPORT * ML=Testing performed at Main Lab DEPARTMENT OF PATHOLOGY, [address] [place] [address] Ole Martin M.D. Director [facility] # [id number] [address] [place] [address] Severe Sepsis and Septic Shock Management Bundle Measure requires all lactic acids initially measuring >2.0 mmol/L be repeated. 156 *Ascorbic acid is present which may interfere with detection of blood. 157 Acute inflammation: >10.00 158 Copy Result to: DADAMARICHUY OSEI ([id number]) 159 Reference Range and Interpretation: TnI (ng/mL) Interpretation Less Than 0.03 ng/mL Not supportive of diagnosis of PA 0.03 - 0.50 ng/mL Indeterminate: suggest serial studies if clinically indicated. Greater than 0.5 ng/mL Consistent with diagnosis of PA 160 Because ethnic data is not always [...] [address]: Tammy Sibley MD Acct: [id number] Unit: [id number] AGE: 54 Location: [facility] Re08/24/15 SEX: F Status: REG REF SPEC: [id number] TONY: 08/24/15-0 [facility] DR: Tammy Sibley MD REQ: [id number] RECD: 08/24/15 STATUS: KARY HUERTA DR: Petra Lilly MD _ SOURCE: URINE SPDESC: ORDERED: Urine Culture Procedure Result Reported Site Urine Culture Final 08/26/15- 0846 ML No Growth (<1,000 CFU/mL) * ML - MAIN LAB ([facility]) . END OF REPORT * ML=Testing performed at Main Lab DEPARTMENT OF PATHOLOGY, [address] [place] [address] Ole Martin M.D. Director [facility] # [id number] 162 RESULT: No apparent monoclonal protein on serum electrophoresis. Test Performed by: [place] [address] Information Manager: Remy Garcia II, M.D., Ph.D. 163 PT IS FASTING 164 Acute inflammation: >10.00 165 PT IS FASTING 166 PT IS FASTING 167 PT IS FASTING 168 Desirable <150 Borderline high 150-199 High 200-499 Very High >500 169 Desirable <200 Borderline high 200-239 High >239 170 Low <40 Desirable: 40-60 High: >60 171 Desirable: <100 mg/dL Near Optimal: 100-129 mg/dL Borderline High: 130-159 mg/dL High: 160-189 mg/dL Very High: >189 mg/dL 172 PT IS FASTING 173 PT IS FASTING 174 Because ethnic data is not always readily [...] 15-29 5 Kidney failure <15 (or dialysis) 175 Desirable <150 Borderline high 150-199 High 200-499 Very High >500 176 Desirable <200 Borderline high 200-239 High >239 177 Low <40 Desirable: 40-60 High: >60 178 Desirable: <100 mg/dL Near Optimal: 100-129 mg/dL Borderline High: 130-159 mg/dL High: 160-189 mg/dL Very High: >189 mg/dL 179 Acute inflammation: >10.00 180 PT IS FASTING 181 PT IS FASTING 182 PT IS FASTING 183 PT IS FASTING 184 PT IS [...] (or dialysis) Procedures Date Code Description Status 01/17/2019 40191 Destruction Of Benign Lesions Any Method 1-14 lesions Completed 12/30/2018 98284 Holter Monitor Review (24 hr)dr huizar & interp only Completed 12/24/2018 96712 ECG Monitor/Recording W/Visual Superimposition Completed Scanning 12/11/2018 36477 Stress Test Completed 12/11/2018 33399 Myocardial Perfusion Imaging Tomographic (Spect) Completed Multiple Studies 11/09/2018 06169 EKG Tracing & Interpretation Completed 09/07/2018 04607 Inject/Drain Joint/Bursa Major W/O US Completed 05/28/2018 31624 Destruction Of Benign Lesions Any Method 1-14 lesions Completed 05/10/2018 69554 Trigger PT Inj(S) Single Or Multiple Points 1 Or 2 Completed Muscles 04/30/2018 15533 Allergy Test, Patch Or Application Completed 04/30/2018 21757 Allergy Test, Patch Or Application Completed 04/25/2018 68794 Destruction Of Benign Lesions Any Method 1-14 lesions Completed 03/02/2018 17236497 Mammogram Completed 01/18/2018 26487 Holter Monitor Review (24 hr)dr huizar & interp only Completed 01/12/2018 24537 ECG Monitor/Recording W/Visual Superimposition Completed Scanning 01/12/2018 39715 ECG Monitor/Recording W/Visual Superimposition Completed Scanning 01/12/2018 50144 Inject/Drain Joint/Bursa Major W/O US Completed 12/19/2017 69987 EKG Tracing & Interpretation Completed 12/15/2017 96757 Destruction Of Benign Lesions Any Method 1-14 lesions Completed 12/04/2017 90494 EKG Tracing & Interpretation Completed 11/07/2017 67140 Echocardiogram, Limited Study Completed 10/27/201733883 Inject/Drain Joint/Bursa Major W/O US Completed 09/21/2017 93726 ECHO Transthoracic, Real-Time 2D With Doppler And Completed Color Flow 09/21/2017 62881 ECHO Transthoracic, Real-Time 2D With Doppler And Completed Color Flow 09/15/201720850 Inject/Drain Joint/Bursa Major W/O US Completed 08/11/201766152 Inject/Drain Joint/Bursa Major W/O US Completed 07/25/2017 14561 EKG Tracing & Interpretation Completed 07/07/2017 200555063 Bone Mineral Density Test Completed 04/21/2017 61657 EKG Tracing & Interpretation Completed 04/17/2017 60731 Stress Test Supervsn W/Out I/R Completed 04/17/2017 18357 Treadmill Interp/Report Only Completed 04/16/2017 98160 EKG, Interpretation Only Completed 04/15/2017 02244 EKG, Interpretation Only Completed 04/14/2017 29179 EKG, Interpretation Only Completed 04/14/2017 43859 EKG Tracing & Interpretation Completed 02/17/2017 77853 Nerve Conduction 03-04 Studies Completed 02/17/2017 63024 Needle Electromyography Each Extremity W/Related Completed Paraspinal Areas 02/14/2017 48327801 Mammogram Completed 10/25/2016 73312 Chemodenervation Of Muscles Innervated By Facial Completed Nerves, Bilat 08/09/2016 20609110 Colonoscopy Completed 06/26/2016 53053 Event Monitor/Phys Review/Interp. Completed 06/24/2016 43323 Chemodenervation Of Muscles Innervated By Facial Completed Nerves, Bilat 05/24/2016 23176 Stress Test Completed 05/24/2016 28098 Myocardial Perfusion Imaging Tomographic (Spect) Completed Multiple Studies 05/17/2016 24119 ECHO Stress Test Incl Perf Contiuous ekg Monitoring Completed W/Phys Superv 05/13/2016 51898 EKG Tracing & Interpretation Completed 04/21/2016 39897 Closed TX Scaphoid (Navicular) W/O Manipulation Completed 03/09/2016 42329 Chemodenervation Of Muscles Innervated By Facial Completed Nerves, Bilat 01/13/2016 62115888 Mammogram Completed 12/07/2015 08417 Chemodenervation Of Muscles Innervated By Facial Completed Nerves, Bilat 11/16/2015 54215 Polysomnography Sleep Staging 4+ Parameters Completed 09/07/2015 62500 Chemodenervation Of Muscles Innervated By Facial Completed Nerves, Bilat 09/01/2015 23083 EKG, Interpretation Only Completed 08/17/2015 75266 EKG Tracing & Interpretation Completed 08/17/2015 81660 EKG Tracing & Interpretation Completed 07/17/2015 29771 Stress Test Completed 07/17/2015 72972 Myocardial Perfusion Imaging Tomographic (Spect) Completed Multiple Studies 06/10/2015 42564 ECHO Transthoracic, Real-Time 2D With Doppler And Completed Color Flow 06/05/2015 31376 EKG Tracing & Interpretation Completed 06/04/2015 54550 Holter Monitoring 24 HR New Completed 06/01/2015 97002 Chemodenervation Of Muscles Innervated By Facial Completed Nerves, Bilat 05/28/2015 36859 Holter Monitoring 24 HR New Completed 02/17/2015 48328 Chemodenervation Of Muscles Innervated By Facial Completed Nerves, Bilat 09/15/2014 15214 Chemodenervation Of Muscles Innervated By Facial Completed Nerves, Bilat 06/04/2014 08050 Chemodenervation Of Muscles Innervated By Facial Completed Nerves, Bilat 02/20/2014 38047 Chemodenervation Of Muscles Innervated By Facial Completed Nerves, Bilat 11/14/2013 35792 Chemodenervation Of Muscles Innervated By Facial Completed Nerves, Bilat 08/14/2013 64190 Chemodenervation Of Muscles Innervated By Facial Completed Nerves, Bilat 05/16/2013 58377 Chemodenervation Of Muscles Innervated By Facial Completed Nerves, Bilat 02/11/2013 02459 Chemodenervation Of Muscles Innervated By Facial Completed Nerves, Bilat 10/22/2012 03642 Chemodenervation Of Muscles Innervated By Facial Completed Nerves, Bilat 07/18/2012 61687 Destruction W/Neurolytic Agent,Neck Muscles Completed 07/18/2012 04516 Destruction W/Neurolytic Agent, Facial Nerve Muscle, Completed Unilateral 04/16/2012 13658 Destruction W/Neurolytic Agent,Neck Muscles Completed 04/16/2012 37210 Destruction W/Neurolytic Agent, Facial Nerve Muscle, Completed Unilateral Encounters Type Date Location Provider Dx Diagnosis Office Visit 01/30/2019 Neurohospitalist [facility] Adilia Dawson, H57.12 Ocular pain, 11:00a M.DAshley left eye R51 Headache R41.89 Oth symptoms and signs w cognitive functions and awareness Office Visit 01/17/2019 10:30a [facility] Dermatology Simon Tyler MD L71.8 Other rosacea L82.0 Inflamed seborrheic keratosis Z78.9 Other specified health status L53.8 Other specified erythematous conditions Office Visit 12/31/2018 3:20p [facility] Internal Radha Marinelli, E78.2 Mixed hyperlipidemia Medicine N.P. 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) G47.14 Hypersomnia due to medical condition F51.04 Psychophysiologic insomnia Office Visit 12/19/2018 Neurohospitalist Adilia H02.412 Mechanical 9:00a [facility] Chloe Dawson ptosis of left eyelid R51 Headache R41.89 Oth symptoms and signs w cognitive functions and awareness R25.1 Tremor, unspecified G47.33 Obstructive sleep apnea (adult) (pediatric) Office Visit 12/17/2018 3:20p [facility] Petra Lilly, R07.9 Chest pain, Of [facility] Chloe unspecified I10 Essential (primary) hypertension R00.0 Tachycardia, unspecified H57.12 Ocular pain, left eye Office Visit 11/09/2018 [place] Petra Lilly, R94.31 Abnormal 2:20p Cardiology Of Chloe electrocardiogram [facility] [ECG] [EKG] I10 Essential (primary) hypertension R00.0 Tachycardia, unspecified R07.9 Chest pain, unspecified Office Visit 10/03/2018 9:20a [facility] Internal Radha Marinelli, Z00.01 Encounter for [...] recurrent, unspecified Office Visit 09/10/2018 4:10p Jamey Tyler, L71.8 Other rosacea Office Visit 09/07/2018 1:00p Orth[facility] Sony, S83.221A Prph tear of Services Of Riana MARTINEZ medial meniscus, current injury, r knee, init S83.411A Sprain of medial collateral ligament of right knee, init Office Visit 07/06/2018 Orthopedic Nitorae Cardoza, S83.411A Sprain of medial 1:00p Services Of MD heather Mayers ligament of right knee, init W01.0xxA Fall [...] 05/04/2018 10:30a J[facility]y Tyler L23.9 Allergic contact dermatitis, unspecified cause Office Visit 05/02/2018 3:40p Jamey Tyler L23.9 Allergic contact dermatitis, unspecified cause Office Visit 04/25/2018 9:20a Jamey Tyler, L30.8 Other specified MD dermatitis L20.84 Intrinsic (allergic) eczema L82.0 Inflamed seborrheic keratosis L53.8 Other specified erythematous conditions Z78.9 Other specified health status Office Visit 03/30/2018 8:50a [facility] Dermatology Simon Tyler MD L71.8 Other rosacea L23.9 Allergic contact dermatitis, unspecified cause Office Visit 03/23/2018 [facility] Internal Zuri R07.89 Other chest pain 4:00p Medicine Chloe Lopez Office Visit 03/12/2018 [facility] Internal Radha Marinelli, R07.89 Other chest pain 10:00a Medicine N.P. Office Visit 03/08/2018 [facility] Internal Radha Marinelli, R07.89 Other chest pain 10:40a Medicine N.P. 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 cruciate ligament of left knee, init Office Visit 01/05/2018 8:45a Orthopedic Vijay Hugo, M19.011 Primary Services Of osteoarthritis C.M.A. , right shoulder S46.001D Unsp inj musc/tend the rotator cuff of r shoulder, subs Office Visit 12/19/2017 2:00p [facility] Priyanka Boone R07.9 Chest pain, Of [facility] Marko N.PAshley unspecified R06.09 Other forms of dyspnea G47.33 Obstructive sleep apnea (adult) (pediatric) R00.2 Palpitations Office Visit 12/15/2017 10:20a [facility] Dermatology Simon Tyler MD L71.8 Other rosacea L82.0 Inflamed seborrheic keratosis L53.8 Other specified erythematous conditions L29.8 Other pruritus R20.8 Other disturbances of skin sensation R58 Hemorrhage, not elsewhere classified Z78.9 Other specified health status Office Visit 12/15/2017 1:20p [facility] Internal Radha Mairnelli, G89.29 Other chronic Medicine N.P. pain E87.1 Hypo-osmolality and hyponatremia Office Visit 12/04/2017 [place] Petrajonathan Lilly, Z01.810 Encounter for 4:00p Cardiology Of M.Fidelina preprocedural [facility] cardiovascular examination M75.101 Unsp rotatr-cuff tear/ruptr [...] Rheumatology Wan Salazar M79.7 Fibromyalgia Services Of Jamey Corona Z79.1 half-way (current) use of non-steroidal non-inflam (Nsaid) R79.82 Elevated C-reactive protein (CRP) R60.0 Localized edema M54.2 Cervicalgia D84.9 Immunodeficiency, unspecified Office Visit 11/13/2017 3:30p [facility] Dermatology Simon Tyler MD L71.8 Other rosacea B35.1 Tinea unguium L82.1 Other seborrheic keratosis D22.5 Melanocytic nevi of trunk L81.4 Other melanin hyperpigmentation 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 L03.115 Cellulitis of right lower limb J34.81 Nasal mucositis (ulcerative) B35.3 Tinea pedis Office Visit 10/27/2017 1:00p Orthopedic Nito Cardoza, S83.512A Sprain of Services Of anterior C.M.A. cruciate ligament of left knee, init S93.491D Sprain of other ligament of right ankle, subs encntr M25.462 Effusion, left knee Office Visit 09/29/2017 8:40a [facility] Petra Lilly, R07.9 Chest pain, Of Jamey AT [facility] Chloe unspecified R00.2 Palpitations I36.1 Nonrheumatic tricuspid (valve) insufficiency Office Visit 09/26/2017 4:00p [facility] Internal Uzri G25.81 Restless legs Medicine Chloe Lopez syndrome Office Visit 08/25/2017 1:00p Orthopedic Nito Cardoza, S93.491D Sprain of Services Of other ligament C.M.A. of right ankle, subs encntr S83.512A Sprain of anterior cruciate ligament of left knee, init M25.462 Effusion, left knee Office Visit 08/22/2017 10:00a Rheumatology Wan S46.001D Unsp inj Services Of Jmaey Salazar M.D. musc/tend the rotator cuff of r shoulder, subs R22.31 Localized swelling, mass and lump, right upper limb M79.7 Fibromyalgia M85.89 Oth disrd of bone density and structure, multiple sites M19.079 Primary osteoarthritis, unspecified ankle and foot Office Visit 08/11/2017 Orthopedic Vijay S46.001D Unsp inj musc/tend the 1:30p Services Of MD Oanh rotator cuff of r C.M.A. shoulder, subs Office Visit 07/31/2017 [place] Adilia G43.919 Migraine, unsp, 1:30p Neurologic Cowdery, intractable, without Services Of Jamey Corona status migrainosus Office Visit 07/25/2017 [place] R94.31 Abnormal 2:30p Cardiology Ny Lilly, electrocardiogram Jamey Corona [ECG] [EKG] R07.9 Chest pain, unspecified R11.0 Nausea R11.10 Vomiting, unspecified R00.0 Tachycardia, unspecified R00.2 Palpitations Office Visit 07/14/2017 2:45p Orthopedic Nito Cardoza, S83.512A Sprain of Services Of anterior C.M.A. cruciate ligament of left knee, init S93.491D Sprain of other ligament of right ankle, subs encntr Office Visit 07/05/2017 2:00p Rheumatology Services Wan Salazar M79.1 Myalgia Of Clerical Aide Teacher M.D. R79.82 Elevated C-reactive protein (CRP) M54.6 Pain [...] left knee Office Visit 06/13/2017 Orthopedic Nito Cardoza, S83.402A Sprain of unsp 1:00p Services Of collateral C.M.A. ligament of left knee, init encntr M25.462 Effusion, left knee S93.491A Sprain of other ligament of right ankle, initial encounter Office Visit 06/07/2017 8:00a Orthopedic Vijay S63.501A Unspecified Services Of MD Oanh sprain of right C.M.A. wrist, initial encounter S43.401A Unspecified sprain of right shoulder joint, init encntr Office Visit 05/30/2017 1:00p Orthopedic Nito Cardoza S93.491A Sprain of other Services Of ligament of C.M.A. right ankle, initial encounter M76.71 Peroneal tendinitis, right leg Office Visit 05/22/2017 11:40a [facility] Internal Radha Marinelli M79.7 Fibromyalgia Medicine N.P. R11.0 Nausea R51 Headache M25.50 Pain in unspecified joint L98.9 Disorder of the skin and subcutaneous tissue, unspecified Office Visit 05/05/2017 11:20a [facility] Internal Radha Varn, R10.84 Generalized Medicine N.P. abdominal pain R53.83 Other fatigue R21 Rash and other nonspecific skin eruption Office Visit 04/21/2017 2:30p [facility] Effie Gaitan, R07.9 Chest pain, Of [facility] [place] unspecified R53.83 Other fatigue R06.02 Shortness of breath G47.33 Obstructive sleep apnea (adult) (pediatric) Office Visit 04/19/2017 1:20p [facility] Internal Robby Solomon, R07.9 Chest pain, Medicine COPY COORDINATOR unspecified R53.83 Other fatigue M54.5 Low back pain R10.819 Abdominal tenderness, unspecified site Office Visit 04/17/2017 10:53a [facility] Sony R07.9 Chest pain, Assoc,pc MD Raza unspecified Hospitalists E03.8 Other specified hypothyroidism G47.33 Obstructive sleep apnea (adult) (pediatric) F41.8 Other specified anxiety disorders Office Visit 04/16/2017 10:52a [facility] Sony R07.9 Chest pain, Assoc,pc MD Raza unspecified Hospitalists G47.33 Obstructive sleep apnea (adult) (pediatric) E03.8 Other specified hypothyroidism F41.8 Other specified anxiety disorders Office Visit 04/15/2017 10:52a [facility] Sony R07.9 Chest pain, Assoc,mateusz Person MD unspecified Hospitalists G47.33 Obstructive sleep apnea (adult) (pediatric) E03.8 Other specified hypothyroidism F41.8 Other specified anxiety disorders Office Visit 04/15/2017 11:45a [facility] Judd Kitchen R07.9 Chest pain, Of Jamey Sanz M.D. unspecified R94.31 Abnormal electrocardiogram [ECG] [EKG] Office Visit 04/14/2017 10:51a [facility] Ajit Vang, R07.9 Chest pain, Assoc,mateusz Corona unspecified Hospitalists G47.33 Obstructive sleep apnea (adult) (pediatric) Office Visit 04/14/2017 1:45p [facility] Petra Vijaya, R06.02 Shortness of Of [facility] M.D. breath K57.92 Dvtrcli of intest, part unsp, w/o perf or abscess w/o bleed Z82.49 Family hx of ischem heart dis and oth dis of the circ sys R07.9 Chest pain, unspecified E16.2 Hypoglycemia, unspecified Office Visit 03/24/2017 2:40p [facility] Internal Radha Marinelli, R53.81 Other malaise Medicine N.P. Office Visit 02/09/2017 10:20a [facility] Internal Radha Marinelli, H66.91 Otitis media, Medicine N.P. unspecified, right ear B37.0 Candidal stomatitis R21 Rash and other nonspecific skin eruption N95.1 Menopausal and female climacteric states Office Visit 01/23/2017 Bret Pat Samir, G43.919 Migraine, unsp, 1:30p Neurologic M.D. intractable, Services Of [facility] without status migrainosus R20.2 Paresthesia of skin Office Visit 01/09/2017 1:00p [facility] Internal Radha Marinelli, R73.01 Impaired Medicine N.P. fasting glucose M54.5 Low back pain E78.2 Mixed hyperlipidemia H92.01 Otalgia, right ear Office Visit 11/23/2016 10:20a [facility] Internal Radha Marinelli, M25.511 Pain in right Medicine N.P. shoulder M25.512 Pain in left shoulder E66.9 Obesity, unspecified Office Visit 09/30/2016 9:40a [facility] Radha Marinelli, R10.32 Left lower Medicine N.P. quadrant pain M54.5 Low back pain J18.9 Pneumonia, unspecified organism M46.06 Spinal enthesopathy, lumbar region Office Visit 09/27/2016 2:20p [facility] Radha Marinelli, R10.12 Left upper Medicine N.P. quadrant pain R10.32 Left lower quadrant pain R10.817 Generalized abdominal tenderness K57.92 Dvtrcli of intest, part unsp, w/o perf or abscess w/o bleed Office Visit 09/20/2016 3:40p [facility] Radha Marinelli, J18.9 Pneumonia , Medicine N.P. unspecified organism N20.0 Calculus of kidney Office Visit 08/05/2016 9:15a [facility] Effie Gaitan, R07.9 Chest pain, Of Clerical Aide Teacher PA unspecified G47.33 Obstructive sleep apnea (adult) (pediatric) Office Visit 07/26/2016 2:40p [facility] Radha Isis, E03.9 Hypothyroidism, Medicine N.P. unspecified N90.7 Vulvar cyst Office Visit 06/15/2016 2:00p [facility] Robby Carbajal, J01.90 Acute sinusitis, Medicine COPY COORDINATOR unspecified Office Visit 05/31/2016 2:45p [facility] Petra R07.9 Chest pain, Of Clerical Aide Teacher Vijaya, unspecified M.D. R00.2 Palpitations G47.33 Obstructive sleep apnea (adult) (pediatric) Office Visit 05/13/2016 11:00a [facility] Petra Lilly, R06.02 Shortness of Of Clerical Aide Teacher AT [facility] M.D. breath R00.0 Tachycardia, unspecified G47.33 Obstructive sleep apnea (adult) (pediatric) R07.9 Chest pain, unspecified Office Visit 12/18/2015 3:15p [facility] Petra Lilly, R06.02 Shortness of Of Clerical Aide Teacher M.D. 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 breath R00.0 Tachycardia, unspecified Office Visit 09/23/2015 8:15a [facility] Samantha G47.9 Sleep disorder, Sleep Services Of MD Kourtney unspecified Clerical Aide Teacher E66.09 Other obesity due to excess calories K21.9 Gastro-esophageal reflux disease without esophagitis Office Visit 09/17/2015 3:30p [facility] Petra Lilly, N20.0 Calculus of Of Clerical Aide Teacher M.D. kidney R00.0 Tachycardia, unspecified R06.00 Dyspnea, unspecified R00.2 Palpitations G47.9 Sleep disorder, unspecified Office Visit 09/02/2015 2:16p [facility] Lexus N20.0 Calculus of Assoc,mateusz Moreno D.O. 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 F32.9 Major depressive disorder, single episode, unspecified Office Visit 09/01/2015 2:14p [facility] Jose C Yanez, N20.0 Calculus of Assoc,mateusz N.P. 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 F32.9 Major depressive disorder, single episode, unspecified Office Visit 08/17/2015 3:00p [facility] Effie Gaitan, R00.0 Tachycardia, Of Clerical Aide Teacher PA unspecified R06.00 Dyspnea, unspecified G47.9 Sleep disorder, unspecified I36.1 Nonrheumatic tricuspid (valve) insufficiency R07.9 Chest pain, unspecified Office Visit 08/03/2015 3:30p [facility] Effie Gaitan, R00.0 Tachycardia, Of Clerical Aide Teacher PA unspecified I36.1 Nonrheumatic tricuspid (valve) insufficiency G47.9 Sleep disorder, unspecified R06.00 Dyspnea, unspecified Office Visit 07/22/2015 3:00p [facility] Petra Lilly, R06.00 Dyspnea, Of Clerical Aide Teacher M.D. unspecified G47.9 Sleep disorder, unspecified R94.39 Abnormal result of other cardiovascular function study Office Visit 06/05/2015 10:00a [facility] Petra Lilly, R00.0 Tachycardia, Of Clerical Aide Teacher M.D. unspecified R06.02 Shortness of breath R01.1 Cardiac murmur, unspecified Office Visit 03/23/2015 3:15p [facility] Adilia Hollyy, 346.91 Migraine Unspec Services Of Clerical Aide Teacher Chloe W/ Intractable W/O Status Migrainosus 785.0 Tachycardia Unspec 724.03 Spinal Stenosis, Lumbar Region W/ Neurogenic Claudication Office Visit 12/03/2014 Neurosurgery Twan Deras, 724.03 Spinal Stenosis , 11:00a Services Of Jamey Corona Lumbar Region W/ Neurogenic Claudication Office Visit 11/13/2014 Neurosurgery Twan Deras, 724.03 Spinal Stenosis , 2:30p Services Of [facility] M.D. Lumbar Region W/ Neurogenic Claudication Office Visit 02/11/2013 [facility] Adilia Dawson, 346.91 Migraine Unspec W/ 2:15p Services Of Clerical Aide Teacher M.D. Intractable W/O Status Migrainosus Office Visit 10/22/2012 [facility] Adilia Dawson, 346.91 Migraine Unspec W/ 11:00a Services Of Clerical Aide Teacher M.D. Intractable W/O Status Migrainosus Office Visit 07/18/2012 [facility] Adilia Dawson, 346.91 Migraine Unspec W/ 3:00p Services Of Clerical Aide Teacher M.D. Intractable W/O Status Migrainosus 728.85 Spasm Muscle Office Visit 05/03/2012 4:15p [facility] Adilia Dawson, 723.1 Cervicalgia Services Of Clerical Aide Teacher M.D. Office Visit 04/26/2012 4:00p [facility] Adilia Dawson, 723.1 Cervicalgia Services Of [facility] M.DAshley 850.0 Concussion W/ No Loss Of Consciousness Office Visit 04/16/2012 1:30p [facility] Adilia Dawson, 346.91 Migraine Unspec Services Of Clerical Aide Teacher M.DAshley W/ Intractable W/O Status Migrainosus Plan of Treatment Future Appointment(s):02/27/2019 11:00 am - Adilia Dawson M.D. at [facility] Cixcte9802/12/2019 11:30 am - Vijay Hugo MD at [facility]03/25/2019 8:30 am - Samira Nino DNP, RN, MACHINE SETTER [employer]OMAT[employer]- at [facility]02/04/2019 10:20 am - Radha Marinelli, N.P. at [facility] Dzgdksyn10/05/2019 2:40 pm - Petra Lilly M.D. at [facility]04/10/2019 10:00 am - Adilia Dawson M.D. at [facility] Jpduuy6810/04/2019 9:20 am - Radha Marinelli, N.P. at [facility] [id number] - Adilia Dawson M.D.H57.12 Ocular pain, left eyeReferral:[facility], NeurologyFollow up:please request records from Dr. Coronado at Dr. Chamorro's office follow up after scan and labsR51 CcgtorksU13.89 Other symptoms and signs involving cognitive functions and a
--- OUTSIDE RECORDS SUMMARY | 2019-02-10 13:48 | XMS REPORT | Continuity of Care Document ---
:1960 External Reference #:[id number] Author Name Chester Coronado M.D. Address [address] [place] [address] Care Team Providers Name Role Phone Tammy Sibley M.D. 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 ETOH Use Occasionally consumes alcohol Tobacco Use Start: Unknown End: Patient is a former smoker Unknown Recreational Drug Use Denies Drug Use Smoking Status Reviewed: 01/24/19 Patient is a former smoker Allergies, Adverse Reactions, Alerts Active Allergies Reaction Severity Comments Date Penicillins 01/03/2019 Ultram 01/03/2019 Abilify 01/03/2019 Contrast Dye 01/03/2019 Cyproheptadine 01/03/2019 Medications Active Medications SIG Qnty Indications Ordering Date Provider Neomycin/Polymyxin/Dexam apply one drop to 10ml H49.Giancarlo Briggs 01/24/2019 ethasone Left eye, three Chloe Coronado 0.1% Suspension times a day for 2 weeks Omeprazole Unknown 20mg Capsules DR Chang Loratadine Tejasntzer, Simon 10mg Tablets M.D. Prazosin HCL Unknown [...] bedtime Tablets Doxycycline Hyclate Unknown 50mg Capsules Procedures Date Code Description Status 01/03/2019 99540 New Patient Comprehensive Exam Completed 09/26/2005 90255 Determination Of Refractive State Completed 09/26/2005 13414 Est Patient Comprehensive Exam Completed 09/21/2005 10350 Rescheduled Appointment Completed 06/10/2004 14174 Determination Of Refractive State Completed Encounters Type Date Location Provider Dx Diagnosis Office Visit 06/10/2004 Wan Chamorro, Jacques Rea, 372.72 Conjunctival 9:00a , pc [place]. Hemorrhage Plan of Treatment 01/24/2019 - Chester Coronado M.D.H49.02 Third [oculomotor] nerve palsy, left eyeNew Medication:Neomycin/Polymyxin/Dexamethasone 0.1 % - apply one drop to Left eye, three times a day for 2 weeksComments:Smoking can increase the risk of developing or worsening any eye related disease, as well as affect your overall health. If you are a smoker, we strongly recommend that you quit.If you are not a smoker, we strongly recommend that you do not start. I WILL PRESCRIBE AN ANTIBIOTIC STEROID EYE DROP, USE1 DROP 3 TIMES A DAY TO THE LEFT EYE FOR 14 DAYS THEN DISCONTINUE.Follow up:2 Week Follow Up DIPLOPIA CHECK At your next visit, we are not planning to dilate your eyes. However, if you have any changes in your vision or new symptoms, there are certain situations that requireus to dilate your eyes. If Dr. Coronado requests any additional testing, that may require extra time. If you have any questions before your next appointment, please call our office at .
--- OUTSIDE RECORDS SUMMARY | 2019-02-10 13:49 | XMS REPORT | Continuity of Care Document ---
:1960 External Reference #:[id number] Author Name Alfonzo Craiglavon Care Team Providers Name Role Phone Radha Marinelli NP Primary Care Physician Unavailable Payers Date Identification Numbers Payment Provider Subscriber Effective: Policy Number: [id number] [employer]ets Shirley 2015 Junie PayID: [id number] [address] [address] [place] [address] Expires: 2016 PayID: [id number] Bankruptcy Shirley Zaman [address] [address] Problems Active Problems Provider Date Chronic diastolic heart failure Petra Lilly M.D. Onset: 12/18/2015 Tricuspid valve disorder, Petra Lilly M.D. 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 Onset: 09/15/2014 Spinal stenosis of lumbar region Twan Deras M.D. Onset: 11/13/2014 Kidney stone Petra Lilly M.D. Onset: 09/17/2015 Obesity Samantha Oconnell MD Onset: 09/23/2015 Gastroesophageal reflux disease Samantha Oconnell MD Onset: 09/23/2015 Dyspnea Petra Lilly M.D. Onset: 10/27/2015 Hypersomnia Samira Nino DNP, RN, Onset: 12/18/2015 [facility] Sprain of cruciate ligament of knee Nito [...] syndrome Samira Nino DNP, RN, Onset: 01/22/2019 [facility] Psychophysiologic insomnia Samira Nino DNP, RN, Onset: 01/22/2019 [facility] Family History Date Family Member(s) Observation Comments General Hyperlipidemia General [place] Maternal aunt age 52 General Breast Cancer [...] Status Lives With Occupation Currently Working Occupation [employer] Tobacco Use Start: Unknown End: Former Cigarette Unknown Smoker Tobacco Use Start: Unknown Quit in 1992 Smoking Status Reviewed: 01/23/19 Quit in 1992 ETOH Use Currently consumes [...] a week mdd 2.. Flexeril take 1-2po [id number] 60tabs Adilia Dawson, 05/03/2012 5mg Tablets prn [...] four 120ml B37.0 Radha Marinelli, 01/30/2018 - [id number]/ML times a day, swish N.P. 03/22/2018 Suspension and swallow for 14 days (pt not using) Doxycycline Hyclate take 1 tablet by Simon Tyler, 12/15/2017 - mouth twice a day 11/08/2018 100mg Tablets Cyclobenzaprine HCL take 1 tablet by Angel 12/13/2017 - 5mg mouth three times Jenny 11/08/2018 Tablets a day as Needed ( COMPUTER TECHNICIAN-BC taking 1 tablet po as needed every [...] 07/16/2017 - Minerals capsule/tablet by Chloe 09/28/2017 [id number] mouth twice daily Chewtabs B12 Fast Dissolve sl daily 90tabs Wan Salazar, 07/05/2017 - Chloe 12/18/2018 5000mcg Tablets Dispers Naltrexone HCL 4.5 mg compounded 15gm M79.1 Wan aSlazar, 07/05/2017 - Powder in capsules by Chloe [...] four 120ml B37.0 Radha Marinelli, 02/09/2017 - [id number]/ML times a day, swish N.P. 07/30/2017 Suspension [...] 0.1% Solution times a day as needed [place] 1 by mouth q6 hour 25tabs Magdalene [...] 1 po [address] contrast Evans Thyroid 1 by mouth twice 90tabs Twan [...] 500mg Tablets day 01/30/2018 Meclizine HCL hasnt last picker from [place], - 25mg phar steven [...] Unknown - Ultra day 05/22/2015 500mcg Tablets Evans Thyroid take one by mouth Unknown - [...] Indications Ordering Provider Date Technetium TC 99M Tetrofosmtahmina, Davin Gillette, 12/11/2018 Per Unit Dose Up To 40 M.D., [facility] Millicuries Injection Triamcinolone (Kenalog) Nito Cardoza [...] Per Unit Dose Up To 40 M.D., [facility] Injection Injection Onabotulinumtoxin AAdilia M.D. 03/09/2016 1 Unit Injection Injection Onabotulinumtoxin AAdilia M.D. 12/07/2015 1 Unit Injection Injection Onabotulinumtoxin [...] Injection Injection Onabotulinumtoxin A, Adilia Dawson M.D. 08/14/2013 1 Unit Injection Injection Onabotulinumtoxin A, Adilia Dawson M.D. 05/16/2013 1 Unit Injection Injection Onabotulinumtoxin Ras, Adilia Dawson M.D. 02/11/2013 1 Unit Injection Injection Onabotulinumtoxin Adilia Mcginnis M.D. 10/22/2012 1 Unit Injection Injection Onabotulinumtoxin Adilia Mcginnis M.D. 07/18/2012 1 Unit Injection Injection Onabotulinumtoxin AAdilia M.D. 04/16/2012 1 Unit Injection Vital Signs Date Vital Result Comment 01/23/2019 11:08am Height 64 inches 5'4" Weight [...] Result H/L Range Note Lipid Profile 12/24/2018 [facility] Triglycerides 243 mg/dL 1 (Trig/Chol/HDL) [address] [place] [address] [phone] Cholesterol 271 mg/dL 2 HDL Cholesterol 46.1 mg/dL 3 LDL Cholesterol 176 mg/dL 4 Comp Metabolic Panel 12/24/2018 [facility] Sodium 140 mmol/L N 135-[address] [place] [address] [phone] Potassium 4.4 mmol/L N 3.5-5.0 Chloride 105 [...] Egfr 64.0 >60 5 Laboratory test 12/24/2018 [facility] Hemoglobin A1c 5.5 % N 4.0-5.6 [address] (Glyco HGB) [place] [address] [phone] Vitamin B12 323 pg/mL N 180-914 7 Tapentadol 12/07/2018 [facility] Tapentadol >[id number] Cutoff: [address] Urine ng/[place] [address] [phone] N-desmethyltapentadol Present ng/mL Cutoff:25 8 Drug Abuse 20 12/07/2018 [facility] Urine Amphetamine Negative ng/mL [address] [place] [address] [phone] Urine Barbiturates Negative ng/mL 10 Urine Benzodiazepines Presumptive Posi <SEE NOTE> Abnormal 11 ng/mL Urine Cocaine Negative ng/mL 12 Urine Phencyclidine Negative ng/mL Cutoff: 25 Urine Tetrahydrocannabinol Negative ng/mL Cutoff: 50 13 Creatinine, Urine 218.9 mg/dL Specific Currie 1.011 pH 7.5 Oxidants Negative 14 Adulterants Comment Normal Codeine, Ur Not Detected ng/mL Cutoff: 25 15 Yqkanme-6-nmsu-glucuronide, Ur Not Detected ng/mL 16 Morphine, Ur Not Detected ng/mL Cutoff: 25 17 Yrjihxwy-5-cvjl-glucuronide, U Not Detected ng/mL 18 6-monoacetylmorphine, Ur Not Detected ng/mL Cutoff: 25 19 Hydrocodone, Ur Not Detected ng/mL Cutoff: 25 20 Norhydrocodone, Ur Not Detected ng/mL Cutoff: 25 21 Dihydrocodeine, Ur Not Detected ng/mL Cutoff: 25 22 Hydromorphone, Ur Not Detected ng/mL Cutoff: 25 23 Dhvvqjqhavnik6oftacfmvktinuby Not Detected ng/mL 24 Oxycodone, Ur Present ng/mL Abnormal Cutoff: 25 25 Noroxycodone, Ur Present ng/mL Abnormal Cutoff: 25 26 Oxymorphone, Ur Not Detected ng/mL Cutoff: 25 27 Dyrqtkefwvl-5-snos-glucuronide Present ng/mL Abnormal 28 Noroxymorphone, Ur Present ng/mL Abnormal Cutoff: 25 29 Fentanyl, Ur Not Detected ng/mL Cutoff: 2 30 Norfentanyl, Ur Not Detected ng/mL Cutoff: 2 31 Meperidine, Ur Not Detected ng/mL Cutoff: 25 32 Normeperidine, Ur Not Detected ng/mL Cutoff: 25 33 Naloxone, Ur Not Detected ng/mL Cutoff: 25 34 Qsqzredq-1-ryxt-glucuronide, U Not Detected ng/mL 35 Methadone, Ur [...] Ur Present ng/mL Abnormal Cutoff: 50 43 Vcfvekrkzc-fcjo-gmzwmjdgoyg, U Present ng/mL Abnormal 44 Buprenorphine, Ur Not Detected ng/mL Cutoff: 5 45 Norbuprenorphine, Ur Not Detected ng/mL Cutoff: 5 46 Norbuprenorphine glucuronide Not Detected ng/mL Cutoff: 20 47 Opioid Interpretation See Comment 48 Urine Benzodiazepines 12/07/2018 [facility] Urine Lorazepam 243 ng/mL [address] GC/[place] [address] [phone] Urine Nordiazepam GC/MS Negative ng/mL 50 Urine [...] Benzodiazepine Interp Positive. 57 Laboratory test 10/03/2018 [facility] Cytology SEE RESULT 58, [address] [place] [address] [phone] Comp Metabolic 08/20/2018 [facility] Sodium 139 mmol/L N 135- 14 [address] [place] [address] [phone] Potassium 4.5 mmol/L N 3.5-5.0 Chloride 104 [...] Egfr 78.4 >60 61 Liver Function 08/20/2018 [facility] Direct 0.10 mg/dL N 0.03- 0.[address] [place] [address] [phone] Indirect Bilirubin 0.3 mg/dL N 0.3-1.0 Immunoglobulins 08/20/2018 [facility] Immunoglobulin G 1100 767 - 62 Serum Quant [address] mg/dL 1590 [place] [address] [phone] Immunoglobulin M 70 mg/dL 37 - 286 Immunoglobulin A 207 mg/dL 61 - 356 Comp Metabolic Panel 03/20/2018 [facility] Sodium 140 mmol/L N 135-[address] [place] [address] [phone] Potassium 3.8 mmol/L N 3.5-5.0 Chloride 104 [...] Egfr 75.5 >60 63 Liver Function 03/20/2018 [facility] Direct 0.00 mg/dL Low 0.03-0.[address] [place] [address] [phone] Laboratory test 03/20/2018 [facility] Folic Acid 9.12 ng/mL > 3.[address] (Folate) [place] [address] [phone] Vitamin B12 738 pg/mL N 180-914 64 Immunoglobulins 03/20/2018 [facility] Immunoglobulin G 970 767 - 65 Serum Quant [address] mg/dL 1590 [place] [address] [phone] Immunoglobulin M 64 mg/dL 37 - 286 Immunoglobulin A 206 mg/dL 61 - 356 S.Pneumoniae Igg 01/12/2018 [facility] S. pneumoniae 1.4 g/mL >=2.3 AB [address] Type 1 [place] [address] [phone] S. pneumoniae Type 2 IgG AB 25.7 [...] 7.2 g/mL >=1.7 66 Laboratory test 12/21/2017 [facility] Cortisol 28.81 g/dL 67, [address] [place] [address] [phone] Laboratory test 12/21/2017 [facility] Cortisol 26.63 g/dL 69, 70 finding [address] [place] [address] [phone] Laboratory test 12/21/2017 [facility] Cortisol 20.39 g/dL 71, 72 finding [address] [place] [address] [phone] Comp Metabolic 12/18/2017 [facility] Sodium 139 mmol/L N 139- 14 [address] [address] [phone] Potassium 4.6 mmol/L N 3.5-5.0 Chloride 103 [...] Egfr 77.3 >60 73 Urinalysis Profile 12/02/2017 [facility] Urine Color Yellow [address] [place] [address] [phone] Urine Appearance Cloudy Urine Specific Currie 1.016 N 1.010-1.030 Urine pH 7.0 N 5-9 Urine Urobilinogen Negative Negative Urine Ketones Negative Negative Urine Protein Negative Negative Urine Leukocytes Negative Negative Urine Blood Negative Negative * * Abnormal Negative 74 Urine Nitrite Negative Negative Urine Bilirubin Negative Negative Urine Glucose Negative Negative Laboratory test finding 12/02/2017 [facility] Lipase 40 U/L N 11.0-82.0 [address] [place] [address] [phone] C Reactive Protein 4.02 mg/L N < 5.00 75 Cortisol 5.84 g/dL 76 TSH (Thyroid Stim Horm) 2.30 mcIU/mL N 0.34-5.60 Acth 19 pg/mL 77 Comp Metabolic Panel 12/02/2017 [facility] Sodium 140 mmol/L N 139-[address] [place] [address] [phone] Potassium 4.1 mmol/L N 3.5-5.0 Chloride 104 [...] Egfr 81.5 >60 78 Laboratory test 12/02/2017 [facility] Lactic Acid 0.8 mmol/L N 0.5-2.[address] [place] [address] [phone] Troponin-I (TnI) 0.00 ng/mL <0.04 Inr/Protime 12/02/2017 [facility] Inr 0.81 N 0.77-1.[address] [place] [address] [phone] CBC Auto Diff 12/02/2017 [facility] White Blood 6.3 10^3/uL N 3.5-10.[address] [place] [address] [phone] Red Blood Count 4.64 10^6/uL N 4.0-5.4 [...] Blood Cells % 0.2 Laboratory test 12/02/2017 [facility] Partial Thrombo 30.6 N 26.0-36.[address] [place] [address] [phone] Laboratory test 11/20/2017 [facility] Erythrocyte Sed 17 mm/Hr N 0-[address] [place] [address] [phone] Ssa/SSB Abs Igg 11/20/2017 [facility] SS-A/Ro <0.2 U [address] [place] [address] [phone] SS-B/La Antibody <0.2 U 81 Laboratory test 11/20/2017 [facility] Creatine 113 U/L N 10- [address] Kinase(CK) [place] [address] [phone] Comp Metabolic 11/20/2017 [facility] Sodium 138 N 133-[address] mmol/[place] [address] [phone] Potassium 4.4 mmol/L N 3.5-5.0 Chloride 103 [...] Egfr 76.7 >60 82 Laboratory test 11/20/2017 [facility] Free Cortisol 0.101 Abnormal [address] Serum g/[place] [address] [phone] TSH (Thyroid Stim Horm) 3.62 mcIU/mL N 0.34-5.60 Thyroperoxidase AB 0.34 IU/mL N <9 Immunoglobulin G (Igg) TNP () 84 Igg Subclasses 11/20/2017 [facility] Total IgG 721 mg/dL Abnormal 767 - [address] 1590 [place] [address] [phone] Immunoglobulin G1 372 mg/dL 341 - 894 Immunoglobulin G2 277 mg/dL 171 - 632 Immunoglobulin G3 16.3 mg/dL Abnormal 85 Immunoglobulin G4 11.5 mg/dL 86 CBC Auto Diff 09/27/2017 [facility] White Blood 7.8 10^3/uL N 3.5-10.[address] [place] [address] [phone] Red Blood Count 4.43 10^6/uL N 4.0-5.4 [...] Blood Cells % 0 Laboratory test 09/27/2017 [facility] Ferritin 72.5 ng/mL N 11 -307 finding [address] [place] [address] [phone] Iron & Iron Binding 09/27/2017 [facility] Iron 133 g/dL N 50 -212 Capacity [address] [place] [address] [phone] Unsaturated Iron Binding 242 g/dL Total Iron Binding Capacity 375 g/dL N 250-450 % Iron Saturation 35 % N 15-55 Catecholamine 24HR 08/07/2017 [facility] Urine Collection 24 h [address] [place] [address] [phone] Urine Total Volume 1000 mL Urine Norepinephrine 47 mcg/24h 15-80 Urine Epinephrine 7.7 mcg/24h <21 Urine Dopamine 134 mcg/24h 65-400 88 Hiaa,5- 08/07/2017 [facility] Urine 5Hiaa 3.7 mg/24h <=8.0 [address] [place] [address] [phone] Urine Collection Duration 24 h Urine Total Volume 1000 mL 89 Urine Vma 24HR 08/07/2017 [facility] Urine Vma, Adult 3.1 mg/ 24h <8.0 [address] [place] [address] [phone] Urine Collection Duration 24 h Urine Total Volume 1000 mL 90 Laboratory test 07/07/2017 [facility] Creatine 154 U/L N 10- 223 91 finding 101 [facility] Kinase(CK) [place], [place] [address] [phone] Laboratory test 07/07/2017 [facility] Angiotensin 41 U/L N 8 - 53 [address] Converting Enzyme [place], [place] [address] [phone] Homocysteine 9 mcmol/L N 93 Anca AB Ser If 07/07/2017 [facility] C-Anca Negative N Negative [address] [place], [place] [address] [phone] P-Anca Negative N Negative 94 Tick-Borne Panel 07/07/2017 [facility] Babesia Negative N Negative PCR Blood [address] [place] [address] [phone] Babesia ducani Negative N Negative Babesia divergens/Mo-1 Negative N Negative 95 Anaplasma phagocytophilum Negative N Negative Ehrlichia chaffeensis Negative N Negative Ehrlichia ewingii/canis Negative N Negative Ehrlichia muris-like Negative N Negative 96 B. miyamotoi PCR, B Negative N Negative 97 Laboratory test 07/07/2017 [facility] T3 Free 3.60 pg/mL N 2.5 -3.9 [address] [place] [address] [phone] Free T4 (Free Thyroxine) 0.75 ng/dL N 0.61-1.12 99 Thyroperoxidase AB 0.34 IU/mL N <9 100 Hla B27 07/07/2017 [facility] Hla B27 Negative N [address] [place] [address] [phone] Hla B27 Interp See Comment N 102 Celiac Panel 07/07/2017 [facility] Tissue <1.2 U/mL N [address] [place] [address] Ab [phone] Immunoglobulin A 207 mg/dL N 61 - 356 Celiac Interpretation See Comment N 104 Ssa/SSB Abs Igg 07/07/2017 [facility] SS-A/Ro Antibody <0.2 U N [address] [place] [address] [phone] SS-B/La Antibody <0.2 U N 106 Celiac Hla 07/07/2017 [facility] Hla-Dqa1 SEE BELOW N [address] [place] [address] [phone] Hla-DQB1 SEE BELOW N 108 Celiac Gene Pairs Present? No N Celiac Gene Interpretation See Comment N 109 Immunoglobulins 07/07/2017 [facility] Immunoglobulin G 765 Abnormal 767 - 110 Serum Quant [address] mg/dL 1590 [place] [address] [phone] Immunoglobulin M 67 mg/dL N 37 - 286 Immunoglobulin A 200 mg/dL N 61 - 356 Laboratory test 05/22/2017 [facility] C Reactive 3.08 mg/L N < 5.00 [address] [place] [address] [phone] Cyclic Citrullinated Pep Igg <15.6 U N 112 Anti Nuclear Antibody 0.2 U N 113 Lyme Disease Serology Negative N Negative 114 Rheumatoid Factor <15 IU/mL N <15 115 Erythrocyte Sed Rate 18 mm/Hr N 0-30 Fatuma Key 05/05/2017 [facility] Ebv Capsid Positive N Negative Comprehensive [address] [place] [address] [phone] Ebv Capsid Ag IgM Ab Negative N Negative Fatuma-Key Nuclear Antigen Positive N Negative Fatuma-Key Virus Interp See Comment N 116 Comp Metabolic Panel 05/05/2017 [facility] Sodium 139 mmol/L N 133-[address] [place] [address] [phone] Potassium 4.2 mmol/L N 3.5-5.0 Chloride 106 [...] N >60 117 CBC Auto Diff 05/05/2017 [facility] White Blood 5.8 10^3/uL N 3.5-10.[address] [place] [address] [phone] Red Blood Count 4.37 10^6/uL N 4.0-5.4 [...] Cells % 0 N Laboratory test 05/05/2017 [facility] Erythrocyte Sed 19 mm/Hr N 0-[address] [place] [address] [phone] C Reactive Protein 7.59 mg/L High < 5.00 118 Laboratory test 04/19/2017 [facility] TSH (Thyroid 1.29 mcIU/mL N 0.34-5.[address] Stim Horm) [place] [address] [phone] CBC Auto Diff 04/19/2017 [facility] White Blood 5.5 10^3/uL N 3.5-10.[address] [place] [address] [phone] Red Blood Count 4.49 10^6/uL N 4.0-5.4 [...] Cells % 0.1 N Laboratory test 04/19/2017 [facility] Vitamin B12 264 pg/mL N 180-914 119 finding [address] [place] [address] [phone] Lyme Disease Serology Negative N Negative 120 Protein 04/19/2017 [facility] Total 6.9 g/dL N 6.3 - Electrophoresis [address] [email or web address] Protein(Pep) 7.9 [place] [address] [phone] Albumin 3.5 g/dL N 3.4-4.7 Alpha-1 Globulin 0.2 g/dL N 0.1-0.3 Alpha-2 Globulin 1.1 g/dL Abnormal 0.6-1.0 Beta Globulin 1.1 g/dL N 0.7-1.2 Gamma Globulin 0.9 g/dL N 0.6-1.6 Albumin/Globulin Ratio 1.05 N Impression See Comment N 121 Laboratory test finding 04/19/2017 [facility] Amylase 27 U/L Low 29-103 [address] [place] [address] [phone] Lipase 42 U/L N 11.0-82.0 Monospot Negative N Negative 122 CMV Igg/Igm 04/19/2017 [facility] Cytomegalovirus IgG Negative N Negative [address] [place] [address] [phone] Cytomegalovirus IgM Antibody Negative N Negative Laboratory test 04/19/2017 [facility] C Reactive 6.47 mg/L High < 5.00 [address] [place] [address] [phone] Laboratory test 04/14/2017 [facility] Lactic Acid 0.7 N 0.5- 2.0 [address] mmol/[place] [address] [phone] Comp Metabolic 04/14/2017 [facility] Sodium 137 N 133-[address] mmol/[place] [address] [phone] Potassium 3.9 mmol/L N 3.5-5.0 Chloride 105 [...] 84.7 N >60 126 Laboratory test 04/14/2017 [facility] Troponin-I 0.00 ng/mL N <0.[address] (TnI) [place] [address] [phone] CBC Auto Diff 04/14/2017 [facility] White Blood 6.5 N 3.5- 10.[address] Count 10^3/[place] [address] [phone] Red Blood Count 4.50 10^6/uL N 4.0-5.4 [...] % 0.1 N CBC Auto Diff 03/24/2017 [facility] White Blood 7.1 10^3/uL N 3.5-10.[address] [place] [address] [phone] Red Blood Count 4.62 10^6/uL N 4.0-5.4 [...] % 0.1 N Comp Metabolic Panel 03/24/2017 [facility] Sodium 140 mmol/L N 133-[address] [place] [address] [phone] Potassium 4.2 mmol/L N 3.5-5.0 Chloride 104 [...] 59.4 N >60 127 Laboratory test 03/24/2017 [facility] Ferritin 57.0 ng/mL N 11 -[address] [place] [address] [phone] Lyme Disease Serology Negative N Negative 128 Laboratory test 03/06/2017 [facility] Point of Care 108 mg/dL High 74-106 [address] [place] [address] [phone] Vitamin B6 01/02/2017 [facility] Pyridoxal 21 g/L N 5-[address] 5[place] [address] [phone] Pyridoxic Acid 14 g/L N 3-30 131 Laboratory test 01/02/2017 [facility] Vitamin B1 160 nmol/L N 70-180 132 finding 101 [place] [address] [phone] Vitamin B6 01/02/2017 [facility] Pyridoxal 21 g/L N 5-[address] 5[place] [address] [phone] Pyridoxic Acid 14 g/L N 3-30 134 Laboratory test 01/02/2017 [facility] Folic Acid 13.85 ng/mL N >3.99 finding 101 (Folate) [place] [address] [phone] Vitamin B12 297 pg/mL N 180-594 135 Vitamin D Total 25(Oh) 24.6 ng/mL Low 30-50 Hemoglobin A1c 5.8 % N Less than 6.0 136 Vitamin B1 (Whole Blood) 160 nmol/L N 70-180 137 Iron & Iron Binding 01/02/2017 [facility] Iron 98 g/dL N 50- [address] [place] [address] [phone] Unsaturated Iron Binding 311 g/dL N Total Iron Binding Capacity 409 g/dL N 250-450 % Iron Saturation 24 % N 15-55 Lipid Profile 01/02/2017 [facility] Triglycerides 257 mg/dL N 138 (Trig/Chol/HDL) [address] [place] [address] [phone] Cholesterol 251 mg/dL N 139 HDL Cholesterol 46.5 mg/dL N 140 LDL Cholesterol 153 mg/dL N 141 Comp Metabolic Panel 01/02/2017 [facility] Sodium 140 mmol/L N 133-[address] [place] [address] [phone] Potassium 4.3 mmol/L N 3.5-5.0 Chloride 106 [...] 60.3 N >60 Egfr 77.6 N >60 142 CBC No Diff 01/02/2017 [facility] White Blood 7.0 10^3/uL N 3.5-10.[address] [place] [address] [phone] Red Blood Count 4.65 10^6/uL N 4.0-5.4 Hemoglobin 13.4 g/dL N 12.0-16.0 Hematocrit 41 % N 35-47 Mean Corpuscular Volume 88 fL N 80-97 Mean Corpuscular Hemoglobin 29 pg N 27-31 Mean Corpuscular HGB Conc 33 g/dL N 31-36 Red Cell Distribution Width 14 % N 10.5-15 Platelet Count 222 10^3/uL N 150-450 Mean Platelet Volume 10 um3 N 7.4-10.4 Urine Culture And 09/27/2016 [facility] Urine Culture SEE RESULT [address] [place] [address] [phone] Laboratory test 09/27/2016 [facility] Lipase 35 U/L N 11.0- finding [address] 82.0 [place] [address] [phone] C Reactive Protein 3.69 mg/L N < 5.00 144 Troponin-I (TnI) 0.00 ng/mL N <0.04 145 HCG 2.54 mIU/mL N 146 Comp Metabolic Panel 09/27/2016 [facility] Sodium 137 mmol/L N 133-[address] [place] [address] [phone] Potassium 3.6 mmol/L N 3.5-5.0 Chloride 107 [...] >60 147 Calcium 9.3 mg/dL N 8.6-10.3 Urinalysis Profile 09/27/2016 [facility] Urine Color Yellow N [address] [place] [address] [phone] Urine Appearance Cloudy N Urine Specific Currie 1.017 N 1.010-1.030 Urine pH 7.0 N [...] Crystals Present Abnormal Absent Laboratory test 09/27/2016 [facility] Lactic Acid 1.1 mmol/L N 0.5-2.[address] [place] [address] [phone] CBC Auto Diff 09/27/2016 [facility] White Blood 6.2 10^3/uL N 3.5-10.[address] [place] [address] [phone] Red Blood Count 4.47 10^6/uL N 4.0-5.4 [...] Cells % 0 N Laboratory test 08/09/2016 [facility] Surgical SEE RESULT [address] [place] [address] [phone] Laboratory test 08/05/2016 [facility] TSH (Thyroid 1.44 mcIU/mL N 0.34- finding [address] Stim Horm) 5.60 [place] [address] [phone] Hepatitis C Antibody Nonreactive N Nonreactive CBC Auto Diff 07/18/2016 [facility] White Blood 7.6 10^3/uL N 3.5-10.[address] [place] [address] [phone] Red Blood Count 4.37 10^6/uL N 4.0-5.4 [...] Blood Cells % 0.1 N Laboratory test finding 07/18/2016 [facility] Lipase 37 U/L N 11.0-82.0 [address] [place] [address] [phone] C Reactive Protein 2.83 mg/L N < 5.00 151 Comp Metabolic Panel 07/18/2016 [facility] Sodium 138 mmol/L N 133-145 [address] [place] [address] [phone] Potassium 4.3 mmol/L N 3.5-5.0 Chloride 109 [...] Egfr 56.9 N >60 152 Laboratory test 07/18/2016 [facility] Lactic Acid 1.5 mmol/L N 0.5-2.0 153 finding [address] [place] [address] [phone] Urinalysis 07/18/2016 [facility] Urine Color Yellow N Profile [address] [place] [address] [phone] Urine Appearance Clear N Urine Specific Currie 1.011 N 1.010-1.030 Urine pH 7.0 N 5-9 Urine Urobilinogen Negative N Negative Urine Ketones Negative N Negative Urine Protein Negative N Negative Urine Leukocytes Negative N Negative Urine Blood Negative N Negative * * Abnormal Negative 154 Urine Nitrite Negative N Negative Urine Bilirubin Negative N Negative Urine Glucose Negative N Negative Urinalysis Profile 07/18/2016 [facility] Urine Color Yellow N [address] [place] [address] [phone] Urine Appearance Cloudy N Urine Specific Currie 1.019 N 1.010-1.030 Urine pH 6.0 N 5-9 Urine Urobilinogen Negative N Negative Urine Ketones Negative N Negative Urine Protein Negative N Negative Urine Leukocytes 1+ Abnormal Negative Urine Blood Negative N Negative * * Abnormal Negative 155 Urine Nitrite Negative N Negative Urine Bilirubin Negative N Negative Urine Glucose Negative N Negative Urine White Blood Cell 2+(11-20/hpf) Abnormal Absent Urine Red Blood Cell Absent N Absent Urine Bacteria Absent N Absent Urine Squamous Epithelial Cell Present Abnormal Absent Urine Culture And 07/18/2016 [facility] Urine Culture SEE RESULT [address] [place] [address] [phone] Xray 06/08/2016 [facility] MRI Wrist Right <pending> [address] [place] [address] [phone] Laboratory test 05/13/2016 [facility] C Reactive 1.43 mg/L N < [address] Protein 5.00 [place] [address] [phone] Erythrocyte Sed Rate 11 mm/Hr N 0-30 158 Troponin-I (TnI) 0.00 ng/mL N <0.03 159 Basic Metabolic Panel 08/24/2015 [facility] Sodium 141 mmol/L N 133-[address] [place] [address] [phone] Potassium 4.1 mmol/L N 3.5-5.0 Chloride 110 mmol/L N 101-111 Co2 Carbon Dioxide 26 mmol/L N 22-32 Anion Gap 5 mmol/L N 2-11 Glucose 88 mg/dL N 70-100 Blood Urea Nitrogen 14 mg/dL N 6-24 Creatinine 0.97 mg/dL High 0.51-0.95 BUN/Creatinine Ratio 14.4 N 8-20 Calcium 8.6 mg/dL N 8.6-10.3 Egfr Non- 60.1 N >60 Egfr 77.3 N >60 160 Laboratory test 08/24/2015 [facility] TSH (Thyroid 1.14 ?IU/mL N 0.34-5.[address] Stim [place]orm) [place] [address] [phone] T3 Free 3.20 pg/mL N 2.5-3.9 Free T4 (Free Thyroxine) 0.58 ng/mL Low 0.61-1.12 Urine Culture And Sensitivities SEE RESULT BELOW 161 Protein 08/05/2015 [facility] Total 6.6 g/dL N 6.3 - Electrophoresis [address] Protein(Pep) 7.9 [place] [address] [phone] Albumin 3.5 g/dL N 3.4-4.7 Alpha-1 Globulin 0.2 g/dL N 0.1-0.3 Alpha-2 Globulin 1.1 g/dL Abnormal 0.6-1.0 Beta Globulin 1.0 g/dL N 0.7-1.2 Gamma Globulin 0.8 g/dL N 0.6-1.6 Albumin/Globulin Ratio 1.12 N Impression See Comment N 162 Laboratory test 05/19/2015 [facility] C Reactive 1.26 mg/L N < 5.00 163, [address] [place] [address] [phone] Free T4 (Free Thyroxine) 0.60 ng/mL Low 0.61-1.12 165 Vitamin D Total 25(Oh) 31.5 ng/mL N 30-50 Erythrocyte Sed Rate 12 mm/Hr N 0-30 166 Huma (Antinuclear Antibodies) Negative N Negative 167 Lipid Profile 05/19/2015 [facility] Triglycerides 216 mg/dL N 168 (Trig/Chol/HDL) [address] [place] [address] [phone] Cholesterol 280 mg/dL N 169 HDL Cholesterol 52.8 mg/dL N 170 LDL Cholesterol 184 mg/dL N 171 Comp Metabolic Panel 05/19/2015 [facility] Sodium 139 mmol/L N 133-[address] [place] [address] [phone] Potassium 4.2 mmol/L N 3.5-5.0 Chloride 109 [...] 77.3 N >60 Egfr 99.4 N >60 172 CBC Auto Diff 05/19/2015 [facility] White Blood 5.5 10^3/uL N 4.8-10.[address] Count [place] [id number] [phone] Red Blood Count 4.38 10^6/uL N 4.0-5.4 [...] Cells % 0 N Laboratory test 05/19/2015 [facility] Vitamin D 31.5 ng/mL N 30-[address] Total 25(Oh) [place], [place] [id number] [phone] Erythrocyte Sed Rate 12 mm/Hr N 0-30 173 Huma (Antinuclear Antibodies) Negative N Negative 174 CBC Auto Diff 05/19/2015 [facility] White Blood 5.5 10^3/uL N 4.8-10.[address] [place] [address] [phone] Red Blood Count 4.38 10^6/uL N 4.0-5.4 [...] Cells % 0 N Laboratory test 05/19/2015 [facility] C Reactive 1.26 mg/L N < 5.00 [address] [place] [address] [phone] Free T4 (Free Thyroxine) 0.60 ng/mL Low 0.61-1.12 176 Lipid Profile 05/19/2015 [facility] Triglycerides 216 mg/dL N 177 (Trig/Chol/HDL) [address] [place] [address] [phone] Cholesterol 280 mg/dL N 178 HDL Cholesterol 52.8 mg/dL N 179 LDL Cholesterol 184 mg/dL N 180 Comp Metabolic Panel 05/19/2015 [facility] Sodium 139 mmol/L N 133-[address] [place] [address] [phone] Potassium 4.2 mmol/L N 3.5-5.0 Chloride 109 [...] 77.3 N >60 Egfr 99.4 N >60 181 Laboratory test 05/19/2015 [facility] TSH (Thyroid 2.17 ?IU/mL N 0.34-5.[address] Stim [place]orm) [place] [address] [phone] T3 Free 2.40 pg/mL Low 2.5-3.9 183 Laboratory test 05/19/2015 [facility] TSH (Thyroid 2.17 ?IU/mL N 0.34-5.[address] Stim Horm) [place] [address] [phone] T3 Free 2.40 pg/mL Low 2.5-3.9 185 Creatinine 11/20/2014 [facility] Creatinine 0.85 mg/dL N 0.51- 0.[address] [place] [address] [phone] Egfr Non- 70.2 N >60 Egfr 90.3 N >60 186 Laboratory test 11/20/2014 [facility] Blood Urea 15 mg/dL N 6- [address] [place] [address] [phone] CBC Auto Diff 11/20/2014 [facility] White Blood 7.4 10^3/uL N 4.8-10.[address] [place] [address] [phone] Red Blood Count 4.67 10^6/uL N 4.0-5.4 [...] Cells % 0 N Laboratory test 11/20/2014 [facility] Activated 31.7 N 26.0- 36.3 [address] [place] [place] [address] Thrombo Time [phone] Inr/Protime 11/20/2014 [facility] Inr 0.86 N 0.78-1.[address] [place] [address] [phone] 1 Desirable: <150 Borderline High: 150-199 High: [...] in selective patients <6.0%. Please refer to [place] [employer] diabetic care guidelines for further information. 7 Normal Range 180 to 914 Indeterminate Range 145 to 180 Deficient Range <145 8 ADDITIONAL INFORMATION Testing performed by Liquid Chromatography-Tandem Mass Spectrometry (LC-MS/MS). This test was developed and its performance characteristics determined by [facility] in a manner consistent with CLIA requirements. This test has not been cleared or approved by the U.S. Food and Drug Administration. Test Performed by: [facility] [address] [place] [address] 9 REFERENCE VALUE Cutoff: 500 10 REFERENCE [...] 100 19 Metabolite of heroin 20 Lortab, [place], Vicodin; Also a very minor metabolite of [...] oxycodone and several metabolites (noroxycodone, noroxymorphone, and rcpjxrfioje-3-yzch-glucuronide). Suspect use of oxycodone and/or oxymorphone within the past three days. Test detected the presence of tapentadol and two of its metabolites (n-desmethyltapentadol and fjisrsrecm-dkdy-shvlknrvkok). Suspect use of tapentadol within the past three days. ADDITIONAL INFORMATION This test was developed and its performance characteristics determined by [facility] in a manner consistent with CLIA requirements. This test has not been cleared or approved by the U.S. Food and Drug Administration. Test Performed by: [facility] [address] [place] [address] 49 REFERENCE VALUE Cutoff: 100 50 REFERENCE [...] developed and its performance characteristics determined by [facility] in a manner consistent with CLIA requirements. This test has not been cleared or approved by the U.S. Food and Drug Administration. Test Performed by: [facility] [address] [place] [address] 58 [id number] SEE RESULT BELOW Name: SHIRLEY ZAMAN : [address]: Radha Marinelli NP Acct: [id number] Unit: [id number] AGE: 57 Location: [facility] Re10/03/18 SEX: F Status: REG REF SPEC: [id number] TOYN: 10/03/18-[address] [facility] [address]: Radha Marinelli NP REQ: [id number] RECD: 10/03/18438 STATUS: SOUT _ ORDERED: TP IMAGE ANALYS, HPV/Thin Prep, HPV 16/18 GENE COMMENTS: [id number] Negative for Intraepithelial lesion or Malignancy Date [...] was evaluated with the assistance of the e[employer] TechnologiesPrep Test Imaging System. Due to cytologic findings at the lacquer sizer microscope, comprehensive manual rescreening by a Labor Relations Manager may be required. The Pap Smear [...] years. END OF REPORT DEPARTMENT OF PATHOLOGY, [address] [place] [address] Ole Martin M.D. Director [facility] # [id number] 60 FAX:[phone] 61 Because ethnic data is not always [...] <15 (or dialysis) 62 Test Performed by: [place] [address] 63 Because ethnic data is not always [...] Deficient Range <145 65 Test Performed by: [address] [address] 66 Either of the two following conditions [...] developed and its performance characteristics determined by [facility] in a manner consistent with CLIA requirements. This test has not been cleared or approved by the U.S. Food and Drug Administration. Test Performed by: [facility] [address] [place] [address] 67 Comment: 60 minute 68 AM 8.7-22.4 [...] VALUE 7.2-63 (a.m. collection) Test Performed by: [facility] [address] [place] [address] 78 Because ethnic data is not always [...] 5 Kidney failure <15 (or dialysis) 79 [facility] Severe Sepsis and Septic Shock Management Bundle Measure requires all lactic acids initially measuring >2.0 mmol/L be repeated. 80 REFERENCE VALUE <1.0 (Negative) 81 REFERENCE VALUE <1.0 (Negative) Test Performed by: [address] [address] 82 Because ethnic data is not always [...] developed and its performance characteristics determined by [facility] in a manner consistent with CLIA requirements. This test has not been cleared or approved by the U.S. Food and Drug Administration. Test Performed by: [facility] - [address] [address] 84 Immunoglobulin G (IgG), S was cancelled on 11/21/2017 at 10:09; Reason: Test IGG is cancelled due to be ordered with Test IGGS Test Performed by: [facility] - [address] [address] 85 REFERENCE VALUE 18.4 - 106.0 86 REFERENCE VALUE 2.4 - 121.0 Test Performed by: [facility] - [address] [address] 87 TV: 1000ML START COLLECTION TIME 08/06/17 @0600 END COLLECTION TIME @ 0800 88 ADDITIONAL INFORMATION This test was developed and its performance characteristics determined by [facility] in a manner consistent with CLIA requirements. This test has not been cleared or approved by the U.S. Food and Drug Administration. Test Performed by: [facility] - [address] [address] 89 ADDITIONAL INFORMATION Liquid Chromatography-Tandem Mass Spectrometry (LC-MS/MS). Values obtained from different assay methods or kits may be different and cannot be used interchangeably. The results cannot be interpreted as absolute evidence for the presence or absence of malignant disease. This test was developed and its performance characteristics determined by [facility] in a manner consistent with CLIA requirements. This test has not been cleared or approved by the U.S. Food and Drug Administration. Test Performed by: [facility] - [address] [address] 90 ADDITIONAL INFORMATION Liquid Chromatography-Tandem Mass Spectrometry (LC-MS/MS). Values obtained from different assay methods or kits may be different and cannot be used interchangeably. The results cannot be interpreted as absolute evidence for the presence or absence of malignant disease. This test was developed and its performance characteristics determined by [facility] in a manner consistent with CLIA requirements. This test has not been cleared or approved by the U.S. Food and Drug Administration. Test Performed by: [facility] - [address] [address] 91 Please check this week 92 Test Performed by: [address] [address] 93 REFERENCE VALUE <=13 (Fasting) ADDITIONAL INFORMATION This test was developed and its performance characteristics determined by [facility] in a manner consistent with CLIA requirements. This test has not been cleared or approved by the U.S. Food and Drug Administration. Test Performed by: [facility] - [address] [address] 94 Negative for cANCA and pANCA patterns by immunofluorescence. ADDITIONAL INFORMATION This test was developed and its performance characteristics determined by [facility] in a manner consistent with CLIA requirements. This test has not been cleared or approved by the U.S. Food and Drug Administration. Test Performed by: [facility] - [address] [address] 95 ADDITIONAL INFORMATION This test was developed and its performance characteristics determined by [facility] in a manner consistent with CLIA requirements. This test has not been cleared or approved by the U.S. Food and Drug Administration. 96 ADDITIONAL INFORMATION This test was developed and its performance characteristics determined by [facility] in a manner consistent with CLIA requirements. This test has not been cleared or approved by the U.S. Food and Drug Administration. 97 ADDITIONAL INFORMATION This test was developed and its performance characteristics determined by [facility] in a manner consistent with CLIA requirements. This test has not been cleared or approved by the U.S. Food and Drug Administration. Test Performed by: [place] [address] 98 Please check this week 99 Please check this week 100 Please check this week 101 REFERENCE VALUE Not Applicable 102 RESULT: HLA-B27 antigen was not detected. ADDITIONAL INFORMATION Method: Flow Cytometry Performing Laboratory CLIA# [id number] Test Performed by: [place] [id number] 103 REFERENCE VALUE <4.0 (Negative) Test Performed by: [place] [id number] 104 Negative serology. Celiac disease unlikely. However, approximately 10% of patients with celiac disease are seronegative. Also, patients who are already adhering to a gluten-free diet may be seronegative. If celiac disease is highly clinically suspected, consider HLA-DQ typing. Test Performed by: [address] [address] 105 REFERENCE VALUE <1.0 (Negative) 106 REFERENCE VALUE <1.0 (Negative) Test Performed by: [address] [address] 107 RESULT: 01:02,01:03 REFERENCE VALUE Not Applicable 108 RESULT: 06:02,06:03 DQ Serologic Equivalent: 6,6 REFERENCE VALUE Not Applicable 109 The absence of HLA celiac permissive genes would make the presence of celiac disease unlikely. ADDITIONAL INFORMATION Method: Molecular typing of HLA antigens performed using reverse SSOP and/or SSP methods, reported as serological equivalents and low to medium resolution molecular values. Performing Laboratory CLIA# [id number] Test Performed by: [place] [address] 110 Test Performed by: [place] [address] 111 Acute inflammation: >10.00 112 REFERENCE VALUE <20.0 (Negative) Test Performed by: [place] [address] 113 REFERENCE VALUE <=1.0 (Negative) Test Performed by: [place] [address] 114 Serologic response to B. burgdorferi infection is not detected, but cannot rule out early infection during which low or undetectable antibody levels to B. burgdorferi may be present. If clinically indicated, a new serum specimen should be submitted in 7-14 days. Test Performed by: [place] [address] 115 Test Performed by: [place] [address] 116 RESULT: Results suggest past infection. ADDITIONAL [...] primary infection with EBV. Test Performed by: [place] [address] 117 Because ethnic data is not always [...] (or dialysis) 118 Acute inflammation: >10.00 119 Normal Range 180 to 914 Indeterminate Range 145 to 180 Deficient Range <145 120 Serologic response to B. burgdorferi infection is not detected, but cannot rule out early infection during which low or undetectable antibody levels to B. burgdorferi may be present. If clinically indicated, a new serum specimen should be submitted in 7-14 days. Test Performed by: [place] [address] 121 RESULT: No apparent monoclonal protein on serum electrophoresis. Test Performed by: [place] [address] 122 Would you like an EBV if Monospot is Negative?: N 123 Test Performed by: [place] [address] 124 Acute inflammation: >10.00 125 [facility] Severe Sepsis and Septic Shock Management Bundle [...] submitted in 7-14 days. Test Performed by: [facility] - [address] [address] 129 [place]: [id number] ADDITIONAL INFORMATION This test was developed and its performance characteristics determined by [facility] in a manner consistent with CLIA requirements. This test has not been cleared or approved by the U.S. Food and Drug Administration. 131 ADDITIONAL INFORMATION This test was developed and its performance characteristics determined by [facility] in a manner consistent with CLIA requirements. This test has not been cleared or approved by the U.S. Food and Drug Administration. Test Performed by: [facility] - [address] [address] 132 ADDITIONAL INFORMATION This test was developed and its performance characteristics determined by [facility] in a manner consistent with CLIA requirements. This test has not been cleared or approved by the U.S. Food and Drug Administration. Test Performed by: [facility] - [address] [address] 133 ADDITIONAL INFORMATION This test was developed and its performance characteristics determined by [facility] in a manner consistent with CLIA requirements. This test has not been cleared or approved by the U.S. Food and Drug Administration. 134 ADDITIONAL INFORMATION This test was developed and its performance characteristics determined by [facility] in a manner consistent with CLIA requirements. This test has not been cleared or approved by the U.S. Food and Drug Administration. Test Performed by: [facility] - [address] [address] 135 Normal Range 180 to 914 Indeterminate Range 145 to 180 Deficient Range <145 136 Therapeutic target for the treatment of diabetes Mellitus patients is <7% HBA1C, and in selective patients <6.0%.Please refer to [place] [employer] Diabetic care guidelines for further information. 137 ADDITIONAL INFORMATION This test was developed and its performance characteristics determined by [facility] in a manner consistent with CLIA requirements. This test has not been cleared or approved by the U.S. Food and Drug Administration. Test Performed by: [facility] - [address] [address] 138 Desirable <150 Borderline high 150-199 High 200-499 Very High >500 139 Desirable <200 Borderline high 200-239 High >239 140 Low <40 Desirable: 40-60 High: >60 141 Desirable: <100 mg/dL Near Optimal: 100-129 mg/dL Borderline High: 130-159 mg/dL High: 160-189 mg/dL Very High: >189 mg/dL 142 Because ethnic data is not always readily [...] 15-29 5 Kidney failure <15 (or dialysis) 143 SEE RESULT BELOW Name: SHIRLEY ZARAGOZA : [address]: Momo Jewell MD Acct: [id number] Unit: [id number] AGE: 55 Location: ED Re09/27/16 SEX: F Status: DEP ER SPEC: [id number] TONY: 09/27/[address]: Peter Rodriguez MD REQ: [id number] RECD: 09/27/16 STATUS: KARY HUERTA DR: [facility] Radha Marinelli MARKETING PRODUCTION COORDINATOR _ SOURCE: URINE SPDESC: ORDERED: Urine Culture Procedure Result Reported Site Urine Culture Final 09/30/16- 819 ML Organism 1 ENTEROCOCCUS FAECALIS [place] Count 10-25,000 (Moderate) CFU/ML Organism 2 NORMAL JASMIN [place] Count 1-10,000 (Few) CFU/ML 1. ENTEROCOCCUS FAECALIS [...] performed at Main Lab DEPARTMENT OF PATHOLOGY, [address] [place] [address] Ole Martin M.D. Director [facility] # [id number] Patient: SHIRLEY ZARAGOZA [id number] (Continued) Specimen: [id number] Collected: 09/27/16 Received: 09/27/16 (Continued) Procedure Result Reported Site Urine Culture Final (continued) * These antibiotics are not available in the [facility] Formulary Contact the Microbiology Department for any additional antibiotic reporting. * ML - MAIN LAB ([facility]) . END OF REPORT * ML=Testing performed at Main Lab DEPARTMENT OF PATHOLOGY, [address] [place] [address] Ole Martin M.D. Director [facility] # [id number] 144 Acute inflammation: >10.00 145 99th percentile=0.04 ng/mL Troponin results at [facility] and [facility] are not interchangeable. 146 <5.0 Negative 5.0 [...] 5 Kidney failure <15 (or dialysis) 148 *Ascorbic acid is present which may interfere with detection of blood. 149 [facility] Severe Sepsis and Septic Shock Management Bundle Measure requires all lactic acids initially measuring >2.0 mmol/L be repeated. 150 SEE RESULT BELOW Name: SHIRLEY ALVAREZ : [address]: Nigel Hilliard MD Acct: [id number] Unit: [id number] AGE: 55 Location: ENDO Re08/09/16 SEX: F Status: DEP REF SPEC: [id number] TONY: 08/09/16- SUBM DR: Nigel Hilliard MD REQ: [id number] RECD: 08/09/161356 STATUS: OMER HUERTA DR: Radha Marinelli MARKETING PRODUCTION COORDINATOR _ ORDERED: LEVEL IV/2 FINAL DIAGNOSIS [...] performed at Main Lab DEPARTMENT OF PATHOLOGY, [address] [place] [address] Ole Martin M.D. Director [facility] # [id number] RUN DATE: 08/10/16 [facility] LAB LIVE PAGE 2 Patient: SHIRLEY ALVAREZ [id number] (Continued) GROSS DESCRIPTION (Continued) Signed (signature on file) Ole Martin MD 1522 END OF REPORT * ML=Testing performed at Main Lab DEPARTMENT OF PATHOLOGY, [address] [place] [address] Ole Martin M.D. Director [facility] # [id number] 151 Acute inflammation: >10.00 152 Because ethnic data is not always [...] 5 Kidney failure <15 (or dialysis) 153 [facility] Severe Sepsis and Septic Shock Management Bundle Measure requires all lactic acids initially measuring >2.0 mmol/L be repeated. 154 *Ascorbic acid is present which may interfere with detection of blood. 155 *Ascorbic acid is present which may interfere with detection of blood. 156 SEE RESULT BELOW Name: SHIRLEY ZARAGOZA : [address]: Cordell Davison MD Acct: [id number] Unit: [id number] AGE: 55 Location: ED Re07/18/16 SEX: F Status: DEP ER SPEC: [id number] TONY: 07/18/[address] [facility] [address]: Elizabeth HOPPER REQ: [id number] RECD: 07/18/16 STATUS: KARY HUERTA DR: Cordell Carbajal MARKETING PRODUCTION COORDINATOR _ SOURCE: URINE [facility]: ORDERED: Urine Culture Procedure Result Reported Site Urine Culture Final 07/19/16- 0833 ML No growth of clinically significant organisms * ML - MAIN LAB ([facility]) . END OF REPORT * ML=Testing performed at Main Lab DEPARTMENT OF PATHOLOGY, [address] [place] [address] Ole Martin M.D. Director [facility] # [id number] 157 Acute inflammation: >10.00 158 Copy Result to: TAMMY SIBLEY ([id number]) 159 Reference Range and Interpretation: TnI (ng/mL) Interpretation Less Than 0.03 ng/mL Not supportive of diagnosis of [place] 0.03 - 0.50 ng/mL Indeterminate: suggest serial studies if clinically indicated. Greater than 0.5 ng/mL Consistent with diagnosis of [place] 160 Because ethnic data is not always [...] [address]: Tammy Sibley MD Acct: [id number] Unit: [id number] AGE: 54 Location: [facility] Re08/24/15 SEX: F Status: REG REF SPEC: [id number] TONY: 08/24/15-[address] [facility] [address]: Tammy Sibley MD REQ: [id number] RECD: 08/24/15 STATUS: KARY HUERTA DR: Petra Lilly MD _ SOURCE: URINE SPDESC: ORDERED: Urine Culture Procedure Result Reported Site Urine Culture Final 08/26/15- 0846 ML No Growth (<1,000 CFU/mL) * ML - MAIN LAB ([facility]) . END OF REPORT * ML=Testing performed at Main Lab DEPARTMENT OF PATHOLOGY, [address] [place] [address] Ole Martin M.D. Director [facility] # [id number] 162 RESULT: No apparent monoclonal protein on serum electrophoresis. Test Performed by: [place] [address] Business Employment Specialist: Remy Garcia II, M.D., Ph.D. 163 PT [...] 160-189 mg/dL Very High: >189 mg/dL 172 Because ethnic data is not always readily [...] 15-29 5 Kidney failure <15 (or dialysis) 173 PT IS FASTING 174 PT IS FASTING 175 Acute inflammation: >10.00 176 PT IS FASTING 177 Desirable <150 Borderline high 150-199 High 200-499 Very High >500 178 Desirable <200 Borderline high 200-239 High >239 179 Low <40 Desirable: 40-60 High: >60 180 Desirable: <100 mg/dL Near Optimal: 100-129 mg/dL Borderline High: 130-159 mg/dL High: 160-189 mg/dL Very High: >189 mg/dL 181 Because ethnic data is not always readily [...] 15-29 5 Kidney failure <15 (or dialysis) 182 PT IS FASTING 183 PT IS FASTING 184 PT IS FASTING 185 PT IS FASTING 186 Because ethnic data is not always readily [...] 15-29 5 Kidney failure <15 (or dialysis) 187 Effective October 31, 2014 at 12:00pm there is an updated reference range. Procedures Date Code Description Status 01/17/2019 22799 Destruction Of Benign Lesions Any Method 1-14 lesions Completed 12/30/2018 21296 Holter Monitor Review (24 hr)dr review & interp only Completed 12/24/2018 85946 ECG Monitor/Recording W/Visual Superimposition Completed Scanning 12/11/2018 74601 Stress Test Completed 12/11/2018 39966 Myocardial Perfusion Imaging Tomographic (Spect) Completed Multiple Studies 11/09/2018 01988 EKG Tracing & Interpretation Completed 09/07/2018 24259 Inject/Drain Joint/Bursa Major W/O US Completed 05/28/2018 71507 Destruction Of Benign Lesions Any Method 1-14 lesions Completed 05/10/2018 69643 Trigger PT Inj(S) Single Or Multiple Points 1 Or 2 Completed Muscles 04/30/2018 11186 Allergy Test, Patch Or Application Completed 04/30/2018 96540 Allergy Test, Patch Or Application Completed 04/25/2018 81842 Destruction Of Benign Lesions Any Method 1-14 lesions Completed 03/02/2018 53897800 Mammogram Completed 01/18/2018 29721 Holter Monitor Review (24 hr)dr review & interp only Completed 01/12/2018 33407 ECG Monitor/Recording W/Visual Superimposition Completed Scanning 01/12/2018 51859 ECG Monitor/Recording W/Visual Superimposition Completed Scanning 01/12/2018 60185 Inject/Drain Joint/Bursa Major W/O US Completed 12/19/2017 50857 EKG Tracing & Interpretation Completed 12/15/2017 32035 Destruction Of Benign Lesions Any Method 1-14 lesions Completed 12/04/2017 45959 EKG Tracing & Interpretation Completed 11/07/2017 03291 Echocardiogram, Limited Study Completed 10/27/2017 42265 Inject/Drain Joint/Bursa Major W/O US Completed 09/21/2017 39843 ECHO Transthoracic, Real-Time 2D With Doppler And Completed Color Flow 09/21/2017 81023 ECHO Transthoracic, Real-Time 2D With Doppler And Completed Color Flow 09/15/2017 57939 Inject/Drain Joint/Bursa Major W/O US Completed 08/11/2017 17697 Inject/Drain Joint/Bursa Major W/O US Completed 07/25/2017 10489 EKG Tracing & Interpretation Completed 07/07/2017 577890681 Bone Mineral Density Test Completed 04/21/2017 53731 EKG Tracing & Interpretation Completed 04/17/2017 86185 Stress Test Supervsn W/Out I/R Completed 04/17/2017 84203 Treadmill Interp/Report Only Completed 04/16/2017 11301 EKG, Interpretation Only Completed 04/15/2017 19138 EKG, Interpretation Only Completed 04/14/2017 77325 EKG, Interpretation Only Completed 04/14/2017 32328 EKG Tracing & Interpretation Completed 02/17/2017 69014 Nerve Conduction 03-04 Studies Completed 02/17/2017 02470 Needle Electromyography Each Extremity W/Related Completed Paraspinal Areas 02/14/2017 17358828 Mammogram Completed 10/25/2016 40389 Chemodenervation Of Muscles Innervated By Facial Completed Nerves, Bilat 08/09/2016 15708954 Colonoscopy Completed 06/26/2016 29403 Event Monitor/Phys Review/Interp. Completed 06/24/2016 26867 Chemodenervation Of Muscles Innervated By Facial Completed Nerves, Bilat 05/24/2016 81829 Stress Test Completed 05/24/2016 43639 Myocardial Perfusion Imaging Tomographic (Spect) Completed Multiple Studies 05/17/2016 92725 ECHO Stress Test Incl Perf Contiuous ekg Monitoring Completed W/Phys Superv 05/13/2016 56554 EKG Tracing & Interpretation Completed 04/21/2016 85031 Closed TX Scaphoid (Navicular) W/O Manipulation Completed 03/09/2016 98784 Chemodenervation Of Muscles Innervated By Facial Completed Nerves, Bilat 01/13/2016 79089154 Mammogram Completed 12/07/2015 21295 Chemodenervation Of Muscles Innervated By Facial Completed Nerves, Bilat 11/16/2015 15042 Polysomnography Sleep Staging 4+ Parameters Completed 09/07/2015 43996 Chemodenervation Of Muscles Innervated By Facial Completed Nerves, Bilat 09/01/2015 57885 EKG, Interpretation Only Completed 08/17/2015 28987 EKG Tracing & Interpretation Completed 08/17/2015 60743 EKG Tracing & Interpretation Completed 07/17/2015 81130 Stress Test Completed 07/17/2015 50781 Myocardial Perfusion Imaging Tomographic (Spect) Completed Multiple Studies 06/10/2015 88238 ECHO Transthoracic, Real-Time 2D With Doppler And Completed Color Flow 06/05/2015 66143 EKG Tracing & Interpretation Completed 06/04/2015 55207 Holter Monitoring 24 HR New Completed 06/01/2015 21181 Chemodenervation Of Muscles Innervated By Facial Completed Nerves, Bilat 05/28/2015 48413 Holter Monitoring 24 HR New Completed 02/17/2015 27403 Chemodenervation Of Muscles Innervated By Facial Completed Nerves, Bilat 09/15/2014 24606 Chemodenervation Of Muscles Innervated By Facial Completed Nerves, Bilat 06/04/2014 82997 Chemodenervation Of Muscles Innervated By Facial Completed Nerves, Bilat 02/20/2014 68999 Chemodenervation Of Muscles Innervated By Facial Completed Nerves, Bilat 11/14/2013 29708 Chemodenervation Of Muscles Innervated By Facial Completed Nerves, Bilat 08/14/2013 29767 Chemodenervation Of Muscles Innervated By Facial Completed Nerves, Bilat 05/16/2013 06975 Chemodenervation Of Muscles Innervated By Facial Completed Nerves, Bilat 02/11/2013 07492 Chemodenervation Of Muscles Innervated By Facial Completed Nerves, Bilat 10/22/2012 73123 Chemodenervation Of Muscles Innervated By Facial Completed Nerves, Bilat 07/18/2012 08096 Destruction W/Neurolytic Agent,Neck Muscles Completed 07/18/2012 52877 Destruction W/Neurolytic Agent, Facial Nerve Muscle, Completed Unilateral 04/16/2012 89911 Destruction W/Neurolytic Agent,Neck Muscles Completed 04/16/2012 74057 Destruction W/Neurolytic Agent, Facial Nerve Muscle, Completed Unilateral Encounters Type Date Location Provider Dx Diagnosis Office Visit 12/31/2018 [facility] Internal Radha Marinelli, E78.2 Mixed hyperlipidemia 3:20p Medicine N.P. R94.4 Abnormal results of kidney function studies Office Visit 12/21/2018 Pulmonology And Samira G47.33 Obstructive sleep 10:00a Sleep Services Of SHARIFA Nino, RN, apnea (adult) [facility] COMPUTER TECHNICIAN-BC (pediatric) G47.14 Hypersomnia due to medical condition F51.04 Psychophysiologic insomnia Office Visit 12/19/2018 [facility] Adilia H02.412 Mechanical 9:00a Clinic Chloe Dawson ptosis of left eyelid R51 Headache R41.89 Oth symptoms and signs w cognitive functions and awareness R25.1 Tremor, unspecified G47.33 Obstructive sleep apnea (adult) (pediatric) Office Visit 12/17/2018 3:20p [facility] Petra Lilly, R07.9 Chest pain, Of [facility] Chloe unspecified I10 Essential (primary) hypertension R00.0 Tachycardia, unspecified H57.12 Ocular pain, left eye Office Visit 11/09/2018 [facility] Petra Lilly, R94.31 Abnormal 2:20p Cardiology Of Chloe electrocardiogram [facility] [ECG] [EKG] I10 Essential (primary) hypertension R00.0 Tachycardia, unspecified R07.9 Chest pain, unspecified Office Visit 10/03/2018 9:20a [facility] Internal Radha Marinelli, Z00.01 Encounter for Medicine [...] disorder, recurrent, unspecified Office Visit 09/10/2018 4:10p [facility] Dermatology Simon Tyler, L71.8 Other rosacea Office Visit 09/07/2018 1:00p Orthopedic Nitorae Cardoza, S83.221A [facility] tear of Services Of Riana MARTINEZ medial meniscus, current injury, r knee, init S83.411A Sprain of medial collateral ligament of right knee, init Office Visit 07/06/2018 Orthopedic Nito Sony, S83.411A Sprain of medial 1:00p Services Of MD heather Del ToroMAshleyA. 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, unspecified L82.0 Inflamed seborrheic keratosis Z78.9 Other specified health status R20.8 Other disturbances of skin sensation L29.8 Other pruritus Office Visit 05/10/2018 3:40p Rheumatology Services Wan Salazar M54.2 Cervicalgia Of Jamey Corona M79.1 Myalgia L50.1 Idiopathic urticaria R22.31 Localized swelling, mass and lump, right upper limb Office Visit 05/04/2018 10:30a [facility] Dermatology Simon Tyler L23.9 Allergic contact MD dermatitis, unspecified cause Office Visit 05/02/2018 3:40p [facility] Dermatology Simon Tyler L23.9 Allergic contact MD dermatitis, unspecified cause Office Visit 04/25/2018 9:20a [facility] Dermatology Simon Tyler, L30.8 Other specified MD dermatitis L20.84 Intrinsic (allergic) eczema L82.0 Inflamed seborrheic keratosis L53.8 Other specified erythematous conditions Z78.9 Other specified health status Office Visit 03/30/2018 8:50a [facility] Dermatology Simon Tyler MD L71.8 Other rosacea L23.9 Allergic contact dermatitis, unspecified cause Office Visit 03/23/2018 [facility] Internal Zuri R07.89 Other chest pain 4:00p Medicine Chloe Lopez Office Visit 03/12/2018 [facility] Internal Radha Marinelli, R07.89 Other chest pain 10:00a Medicine N.P. Office Visit 03/08/2018 [facility] Internal Radha Marinelli, R07.89 Other chest pain 10:40a Medicine N.P. 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 unspecified R06.09 Other forms of dyspnea G47.33 Obstructive sleep apnea (adult) (pediatric) R00.2 Palpitations Office Visit 12/15/2017 10:20a [facility] Dermatology Simon Tyler MD L71.8 Other rosacea L82.0 Inflamed seborrheic keratosis L53.8 Other specified erythematous conditions L29.8 Other pruritus R20.8 Other disturbances of skin sensation R58 Hemorrhage, not elsewhere classified Z78.9 Other specified health status Office Visit 12/15/2017 1:20p [facility] Internal Radha Marinelli, G89.29 Other chronic Medicine N.P. pain E87.1 Hypo-osmolality and hyponatremia Office Visit 12/04/2017 [facility] Petra Lilly, Z01.810 Encounter for 4:00p Cardiology Ny Corona preprocedural [facility] cardiovascular examination M75.101 Unsp rotatr-cuff tear/ruptr of [...] M79.7 Fibromyalgia Services Of Jamey Corona Z79.1 prison (current) use of non-steroidal non-inflam (Nsaid) R79.82 Elevated C-reactive protein (CRP) R60.0 Localized edema M54.2 Cervicalgia D84.9 Immunodeficiency, unspecified Office Visit 11/13/2017 3:30p [facility] Dermatology Simon Tyler MD L71.8 Other rosacea B35.1 Tinea unguium L82.1 Other seborrheic keratosis D22.5 Melanocytic nevi of trunk L81.4 Other melanin hyperpigmentation 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 L03.115 Cellulitis of right lower limb J34.81 Nasal mucositis (ulcerative) B35.3 Tinea pedis Office Visit 10/27/2017 1:00p Orthopedic Nito Cardoza, S83.512A Sprain of Services Of anterior C.M.A. cruciate ligament of left knee, init S93.491D Sprain of other ligament of right ankle, subs encntr M25.462 Effusion, left knee Office Visit 09/29/2017 8:40a [facility] Petra Lilly, R07.9 Chest pain, Of [facility] Chloe unspecified R00.2 Palpitations I36.1 Nonrheumatic tricuspid (valve) insufficiency Office Visit 09/26/2017 4:00p [facility] Internal Zuri G25.81 Restless legs Medicine Chloe [...] r C.M.A. shoulder, subs Office Visit 07/31/2017 Bret Pat G43.919 Migraine, unsp, 1:30p Neurologic Cowdery, intractable, without Services Of Jamey Corona status migrainosus Office Visit 07/25/2017 [facility] Petra R94.31 Abnormal 2:30p Cardiology Of Vijaya electrocardiogram Jamey Corona [ECG] [EKG] R07.9 Chest pain, unspecified R11.0 Nausea R11.10 Vomiting, unspecified R00.0 Tachycardia, unspecified R00.2 Palpitations Office Visit 07/14/2017 2:45p Orthopedic Nito Cardoza S83.512A Sprain of Services Of anterior C.M.A. cruciate ligament of left knee, init S93.491D Sprain of other ligament of right ankle, subs encntr Office Visit 07/05/2017 2:00p Rheumatology Services Wan Salazar MKathrine.1 Myalgia Of Jamey Corona R79.82 Elevated C-reactive protein (CRP) M54.6 Pain [...] joint, init encntr Office Visit 05/30/2017 1:00p Hardy Cardoza S93.491A Sprain of other Services Of ligament of C.M.A. right ankle, initial encounter M76.71 Peroneal tendinitis, right leg Office Visit 05/22/2017 11:40a [facility] Internal Radha Marinelli, M79.7 Fibromyalgia Medicine N.P. R11.0 Nausea R51 Headache M25.50 Pain in unspecified joint L98.9 Disorder of the skin and subcutaneous tissue, unspecified Office Visit 05/05/2017 11:20a [facility] Internal Radha Marinelli, R10.84 Generalized Medicine N.P. abdominal pain R53.83 Other fatigue R21 Rash and other nonspecific skin eruption Office Visit 04/21/2017 2:30p [facility] Effie Gaitan, R07.9 Chest pain, Of [facility] [place] unspecified R53.83 Other fatigue R06.02 Shortness of breath G47.33 Obstructive sleep apnea (adult) (pediatric) Office Visit 04/19/2017 1:20p [facility] Internal Robby Carbajal, R07.9 Chest pain, Medicine MARKETING PRODUCTION COORDINATOR unspecified R53.83 Other fatigue M54.5 Low back pain R10.819 Abdominal tenderness, unspecified site Office Visit 04/17/2017 10:53a [facility] Sony R07.9 Chest pain, Assoc,mateusz Person MD unspecified Hospitalists E03.8 Other specified hypothyroidism G47.33 Obstructive sleep apnea (adult) (pediatric) F41.8 Other specified anxiety disorders Office Visit 04/16/2017 10:52a [facility] Sony R07.9 Chest pain, Assoc,pc MD Raza unspecified Hospitalists G47.33 Obstructive sleep apnea (adult) (pediatric) E03.8 Other specified hypothyroidism F41.8 Other specified anxiety disorders Office Visit 04/15/2017 11:45a [facility] Judd Kitchen R07.9 Chest pain, Of Jamey Sanz M.D. unspecified R94.31 Abnormal electrocardiogram [ECG] [EKG] Office Visit 04/15/2017 10:52a [facility] Sony R07.9 Chest pain, Assoc,mateusz Person MD unspecified Hospitalists G47.33 Obstructive sleep apnea (adult) (pediatric) E03.8 Other specified hypothyroidism F41.8 Other specified anxiety disorders Office Visit 04/14/2017 10:51a [facility] Ajit Vang, R07.9 Chest pain, Assoc,mateusz Corona unspecified Hospitalists G47.33 Obstructive sleep apnea (adult) (pediatric) Office Visit 04/14/2017 1:45p [facility] Petra Lilly, R06.02 Shortness of Of Jamey M.DAshley breath K57.92 Dvtrcli of intest, part unsp, w/o perf or abscess w/o bleed Z82.49 Family hx of ischem heart dis and oth dis of the circ sys R07.9 Chest pain, unspecified E16.2 Hypoglycemia, unspecified Office Visit 03/24/2017 2:40p [facility] Internal Radha Marinelli, R53.81 Other malaise Medicine N.P. Office Visit 02/09/2017 10:20a [facility] Internal Radha Marinelli, H66.91 Otitis media, Medicine N.P. unspecified, right ear B37.0 Candidal stomatitis R21 Rash and other nonspecific skin eruption N95.1 Menopausal and female climacteric states Office Visit 01/23/2017 Bret Dawson, G43.919 Migraine, unsp, 1:30p Neurologic M.D. intractable, Services Of [facility] without status migrainosus R20.2 Paresthesia of skin Office Visit 01/09/2017 1:00p [facility] Internal Radha Marinelli, R73.01 Impaired Medicine N.P. fasting glucose M54.5 Low back pain E78.2 Mixed hyperlipidemia H92.01 Otalgia, right ear Office Visit 11/23/2016 10:20a [facility] Internal Radha Marinelli, M25.511 Pain in right Medicine N.P. shoulder M25.512 Pain in left shoulder E66.9 Obesity, unspecified Office Visit 09/30/2016 9:40a [facility] Internal Radha Marinelli, R10.32 Left lower Medicine N.P. quadrant pain M54.5 Low back pain J18.9 Pneumonia, unspecified organism M46.06 Spinal enthesopathy, lumbar region Office Visit 09/27/2016 2:20p [facility] Internal Radha Marinelli, R10.12 Left upper Medicine N.P. quadrant pain R10.32 Left lower quadrant pain R10.817 Generalized abdominal tenderness K57.92 Dvtrcli of intest, part unsp, w/o perf or abscess w/o bleed Office Visit 09/20/2016 3:40p [facility] Internal Radha Marinelli, J18.9 Pneumonia , Medicine N.P. unspecified organism N20.0 Calculus of kidney Office Visit 08/05/2016 9:15a [facility] Effie Gaitan, R07.9 Chest pain, Of [facility] [place] unspecified G47.33 Obstructive sleep apnea (adult) (pediatric) Office Visit 07/26/2016 2:40p [facility] Internal Radha Marinelli, E03.9 Hypothyroidism, Medicine N.P. unspecified N90.7 Vulvar cyst Office Visit 06/15/2016 2:00p [facility] Internal Robby Carbajal, J01.90 Acute sinusitis, Medicine MARKETING PRODUCTION COORDINATOR unspecified Office Visit 05/31/2016 2:45p [facility] Petra R07.9 Chest pain, Of [facility] Vijaya, unspecified M.D. R00.2 Palpitations G47.33 Obstructive sleep apnea (adult) (pediatric) Office Visit 05/13/2016 11:00a [facility] Petra Lilly, R06.02 Shortness of Of [employer] [place] [facility] [place]. breath R00.0 Tachycardia, unspecified G47.33 Obstructive sleep apnea (adult) (pediatric) R07.9 Chest pain, unspecified Office Visit 12/18/2015 3:15p [facility] Petra Lilly, R06.02 Shortness of Of Wood Craftsman M.D. breath I50.32 Chronic diastolic (congestive) heart failure G47.33 Obstructive sleep apnea (adult) (pediatric) Office Visit 12/18/2015 Pulmonology And Samira G47.33 Obstructive sleep 9:15a Sleep Services Of SHARIFA Nino, LEE, apnea (adult) [facility] COMPUTER TECHNICIAN- (pediatric) G47.10 Hypersomnia, unspecified Office Visit 10/27/2015 3:30p [facility] Petra Lilly, R06.02 Shortness of Of [employer] Craftsman M.D. breath R00.0 Tachycardia, unspecified Office Visit 09/23/2015 8:15a Pulmonology And Samantha G47.9 Sleep disorder, Sleep Services Of MD Kourtney unspecified Wood Craftsman E66.09 Other obesity due to excess calories K21.9 Gastro-esophageal reflux disease without esophagitis Office Visit 09/17/2015 3:30p [facility] Petra Lilly, N20.0 Calculus of Of [employer] Craftsman M.D. kidney R00.0 Tachycardia, unspecified R06.00 Dyspnea, unspecified R00.2 Palpitations G47.9 Sleep disorder, unspecified Office Visit 09/02/2015 2:16p [facility] Lexus N20.0 Calculus of Assoc,mateusz Moreno D.O. 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 F32.9 Major depressive disorder, single episode, unspecified Office Visit 08/17/2015 3:00p [facility] Effie Gaitan, R00.0 Tachycardia, Of [employer] [place] unspecified R06.00 Dyspnea, unspecified G47.9 Sleep disorder, unspecified I36.1 Nonrheumatic tricuspid (valve) insufficiency R07.9 Chest pain, unspecified Office Visit 08/03/2015 3:30p [facility] Effie Gaitan, R00.0 Tachycardia, Of [employer] [place] unspecified I36.1 Nonrheumatic tricuspid (valve) insufficiency G47.9 Sleep disorder, unspecified R06.00 Dyspnea, unspecified Office Visit 07/22/2015 3:00p [facility] Petra Lilly, R06.00 Dyspnea, Of [employer] M.D. unspecified G47.9 Sleep disorder, unspecified R94.39 Abnormal result of other cardiovascular function study Office Visit 06/05/2015 10:00a [facility] Petra Lilly, R00.0 Tachycardia, Of [employer] M.D. unspecified R06.02 Shortness of breath R01.1 Cardiac murmur, unspecified Office Visit 03/23/2015 3:15p [facility] Adilia Dawson, 346.91 Migraine Unspec Services Of Wood Craftsman M.D. W/ Intractable W/O Status Migrainosus 785.0 Tachycardia Unspec 724.03 Spinal Stenosis, Lumbar Region W/ Neurogenic Claudication Office Visit 12/03/2014 Neurosurgery Twan Deras, 724.03 Spinal Stenosis , 11:00a Services Of Wood Craftsman M.D. Lumbar Region W/ Neurogenic Claudication Office Visit 11/13/2014 Neurosurgery Twan Deras, 724.03 Spinal Stenosis , 2:30p Services Of [employer] Craftsman M.D. Lumbar Region W/ Neurogenic Claudication Office Visit 02/11/2013 [facility] Adilia Dawson, 346.91 Migraine Unspec W/ 2:15p Services Of Wood Craftsman M.D. Intractable W/O Status Migrainosus Office Visit 10/22/2012 [facility] Sofie Dawson, 346.91 Migraine Unspec W/ 11:00a Services Of [employer] Craftsman M.D. Intractable W/O Status Migrainosus Office Visit 07/18/2012 [facility], 346.91 Migraine Unspec W/ 3:00p Services Of Wood Craftsman M.D. Intractable W/O Status Migrainosus 728.85 Spasm Muscle Office Visit 05/03/2012 4:15p [facility] Adilia Dawson, 723.1 Cervicalgia Services Of [facility] Chloe Office Visit 04/26/2012 4:00p [facility] Adilia Dawson, 723.1 Cervicalgia Services Of [facility] Chloe 850.0 Concussion W/ No Loss Of Consciousness Office Visit 04/16/2012 1:30p [facility] Adilia Dawson, 346.91 Migraine Unspec Services Of [facility] Chloe W/ Intractable W/O Status Migrainosus Plan of Treatment Future Appointment(s):02/12/2019 11:30 am - Vijay Hugo MD at Orthopedic Services Of M.A.03/25/2019 8:30 am - Samira Nino DNP, RN, COMPUTER TECHNICIAN- at Pulmonology And Sleep Services Of [facility]02/04/2019 10:20 am - Radha Marinelli, N.P. at [facility] Internal Eaudrbke29/05/2019 2:40 pm - Petra Lilly M.D. at [facility]04/10/2019 10:00 am - Adilia Dawson M.D. at Neurohospitalist [id number]/04/2019 9:20 am - Radha Marinelli, N.P. at [facility] Internal [id number] - Vijay Hugo, MDS46.001D Unspecified injury of muscle(s) and tendon(s) of the rotatorNew Therapy:Physical TherapyFollow up:Follow up: 2 pbqskC46.491A Other sprain of right elbow, initial encounter
--- OUTSIDE RECORDS SUMMARY | 2019-02-10 13:50 | XMS REPORT | Continuity of Care Document ---
:1960 External Reference #:[id number] Author Name DeenaNessa willoughbylyn Care Team Providers Name Role Phone Radha Marinelli NP Primary Care Physician Unavailable Payers Date Identification Numbers Payment Provider Subscriber Effective: Policy Number: [id number] BS [employer]ets Shirley 2015 Junie PayID: [id number] [address] [address] [place] [address] Expires: 2016 PayID: [id number] Bankruptcy Shirley Zaman [address] [address] Problems Active Problems Provider Date Chronic diastolic heart failure Petra Lilly M.D. Onset: 12/18/2015 Tricuspid valve disorder, Petra Lilly M.D. 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 Onset: 09/15/2014 Spinal stenosis of lumbar region Twan Deras M.D. Onset: 11/13/2014 Kidney stone Petra Lilly M.D. Onset: 09/17/2015 Obesity Samantha Oconnell MD Onset: 09/23/2015 Gastroesophageal reflux disease Samantha Oconnell MD Onset: 09/23/2015 Dyspnea Petra Lilly M.D. Onset: 10/27/2015 Hypersomnia Samira Nino DNP, RN, Onset: 12/18/2015 BANK RECONCILIATOR-BC Sprain of cruciate ligament of knee Nito [...] Family Member(s) Observation Comments General Hyperlipidemia General CT Maternal aunt age 52 General Breast Cancer [...] Status Lives With Occupation Currently Working Occupation [employer] Tobacco Use Start: Unknown End: Former Cigarette Unknown Smoker Tobacco Use Start: Unknown Quit in 1992 Smoking Status Reviewed: 01/22/19 Quit in 1992 ETOH Use Currently consumes [...] take 1-2 tablets by 30tabs G25.81 Robby Carbajal NP 09/26/2017 Dihydrochloride mouth once daily 1 0.125mg [...] a week mdd 2.. Flexeril take 1-2po [id number] 60tabs Adilia Dawson, 05/03/2012 5mg Tablets prn [...] daily Am Lila Courtney, Hydrochloride ER (XL) 300mg Tablets ER 24HR [...] four 120ml B37.0 Radha Marinelli, 01/30/2018 - [id number]/ML times a day, swish N.P. 03/22/2018 Suspension and swallow for 14 days (pt not using) Doxycycline Hyclate take 1 tablet by Simon Tyler, 12/15/2017 - mouth twice a day 11/08/2018 100mg Tablets Cyclobenzaprine HCL take 1 tablet by Angel, 12/13/2017 - 5mg mouth three times Jenny, 11/08/2018 Tablets a day as Needed ( BANK RECONCILIATOR-BC taking 1 tablet po as needed every 3 days) Meloxicam take one tab twice 30tabs M79.7 Wan Salazar, 11/20/2017 - 7.5mg Tablets daily as needed M.DAshley 03/22/2018 for pain, avoid other nsaids Doxycycline [...] 07/16/2017 - Minerals capsule/tablet by Chloe 09/28/2017 [id number] mouth twice daily Chewtabs B12 Fast Dissolve [...] four 120ml B37.0 Radha Marinelli, 02/09/2017 - 641354Lppz/ML times a day, swish N.P. 07/30/2017 Suspension [...] 0.1% Solution times a day as needed [place] 1 by mouth q6 hour 25tabs Magdalene 04/21/2016 - 5-325mg Tablets as needed pain Osorio, Evita.DAshley 06/15/2016 Atenolol 1 by mouth twice a 180tabs R00.0 Petrajonathan Lilly, 09/17/2015 - 25mg Tablets day M.D. [...] 1 po [address] contrast [place] Thyroid 1 by mouth twice 90tabs Twan [...] 500mg Tablets day 01/30/2018 Meclizine HCL hasnt picker / packer from [facility], - 25mg phar yet Remy Del Toro MD 11/08/2018 Tablets Terbinafine HCL [...] Unknown - Ultra day 05/22/2015 500mcg Tablets [place]ile Thyroid take one by mouth Unknown - [...] Per Unit Dose Up To 40 M.D., [facility] Millicuries Injection Triamcinolone (Kenalog) Nito Cardoza [...] Per Unit Dose Up To 40 M.D., [facility] Spence Millicuries Injection Injection Onabotulinumtoxin AAdilia M.D. 03/09/2016 [...] M.D. 05/16/2013 1 Unit Injection Injection Onabotulinumtoxin A, Adilia Dawson M.D. 02/11/2013 1 Unit Injection Injection Onabotulinumtoxin AAdilia M.D. 10/22/2012 1 Unit Injection Injection Onabotulinumtoxin A, Adilia Dawson M.D. 07/18/2012 1 Unit Injection Injection Onabotulinumtoxin A, Adilia Dawson M.D. 04/16/2012 1 Unit Injection Vital Signs Date Vital Result Comment 01/22/2019 10:32am Height 64 inches 5'4" Heart [...] 80 mmHg Pain Level 5 at times 9/10 BMI (Body Mass Index) 35.5 kg/m2 12/19/2017 [...] Result H/L Range Note Lipid Profile 12/24/2018 [facility] Triglycerides 243 mg/dL 1 (Trig/Chol/HDL) [address] [place] [address] [phone] Cholesterol 271 mg/dL 2 HDL Cholesterol 46.1 mg/dL 3 LDL Cholesterol 176 mg/dL 4 Comp Metabolic Panel 12/24/2018 [facility] Sodium 140 mmol/L N 135-145 [address] [place] [address] [phone] Potassium 4.4 mmol/L N 3.5-5.0 Chloride 105 [...] Egfr 64.0 >60 5 Laboratory test 12/24/2018 [facility] Hemoglobin A1c 5.5 % N 4.0-5.6 [address] (Glyco HGB) [place] [address] [phone] Vitamin B12 323 pg/mL N 180-914 7 Tapentadol 12/07/2018 [facility] Tapentadol >440345 Cutoff: [address] Urine ng/[place] [address] [phone] N-desmethyltapentadol Present ng/mL Cutoff:25 8 Urine Benzodiazepines 12/07/2018 [facility] Urine Lorazepam 243 ng/mL [address] GC/[place] [address] [phone] Urine Nordiazepam GC/MS Negative ng/mL 10 Urine Oxazepam GC/MS 107 ng/mL 11 Urine Temazepam GC/MS Negative ng/mL 12 Ur Oh Ethyl Flurazepam GC/MS Negative ng/mL 13 Ur 7 [place] Clonazepam GC/MS Negative ng/mL 14 Ur 7 NH Flunitrazepam GC/MS Negative ng/mL Cutoff: 50 Ur Alpha Oh Alprazolam GC/MS Negative ng/mL 15 Ur Alpha Oh Triazolam GC/MS Negative ng/mL 16 Ur Benzodiazepine Interp Positive. 17 Drug Abuse 20 12/07/2018 [facility] Urine Amphetamine Negative ng/mL [address] [place] [address] [phone] Urine Barbiturates Negative ng/mL 19 Urine Benzodiazepines Presumptive Posi <SEE NOTE> Abnormal 20 ng/mL Urine Cocaine Negative ng/mL 21 Urine Phencyclidine Negative ng/mL Cutoff: 25 Urine Tetrahydrocannabinol Negative ng/mL Cutoff: 50 22 Creatinine, Urine 218.9 mg/dL Specific [place] 1.011 pH 7.5 Oxidants Negative 23 Adulterants Comment Normal Codeine, Ur Not Detected ng/mL Cutoff: 25 24 Fyfqkvv-4-axpp-glucuronide, Ur Not Detected ng/mL 25 Morphine, Ur Not Detected ng/mL Cutoff: 25 26 Triflixr-7-vqbr-glucuronide, U Not Detected ng/mL 27 6-monoacetylmorphine, Ur Not Detected ng/mL Cutoff: 25 28 Hydrocodone, Ur Not Detected ng/mL Cutoff: 25 29 Norhydrocodone, Ur Not Detected ng/mL Cutoff: 25 30 Dihydrocodeine, Ur Not Detected ng/mL Cutoff: 25 31 Hydromorphone, Ur Not Detected ng/mL Cutoff: 25 32 Vxbvqdlqkmaew8tjejgriwdrheazj Not Detected ng/mL 33 Oxycodone, Ur Present ng/mL Abnormal Cutoff: 25 34 Noroxycodone, Ur Present ng/mL Abnormal Cutoff: 25 35 Oxymorphone, Ur Not Detected ng/mL Cutoff: 25 36 Rstujyqjfal-8-mypk-glucuronide Present ng/mL Abnormal 37 Noroxymorphone, Ur Present ng/mL Abnormal Cutoff: 25 38 Fentanyl, Ur Not Detected ng/mL Cutoff: 2 39 Norfentanyl, Ur Not Detected ng/mL Cutoff: 2 40 Meperidine, Ur Not Detected ng/mL Cutoff: 25 41 Normeperidine, Ur Not Detected ng/mL Cutoff: 25 42 Naloxone, Ur Not Detected ng/mL Cutoff: 25 43 Uqdzoano-4-txzm-glucuronide, U Not Detected ng/mL 44 Methadone, Ur Not Detected ng/mL Cutoff: 25 45 Eddp, Ur Not Detected ng/mL Cutoff: 25 46 Propoxyphene, Ur Not Detected ng/mL Cutoff: 25 47 Norpropoxyphene, Ur Not Detected ng/mL Cutoff: 25 48 Tramadol, Ur Not Detected ng/mL Cutoff: 25 49 O-desmethyltramadol, Ur Not Detected ng/mL Cutoff: 25 50 Tapentadol, Ur Present ng/mL Abnormal Cutoff: 25 51 N-desmethyltapentadol, Ur Present ng/mL Abnormal Cutoff: 50 52 Xoyysusiue-crlm-mwfytngqfkh, U Present ng/mL Abnormal 53 Buprenorphine, Ur Not Detected ng/mL Cutoff: 5 54 Norbuprenorphine, Ur Not Detected ng/mL Cutoff: 5 55 Norbuprenorphine glucuronide Not Detected ng/mL Cutoff: 20 56 Opioid Interpretation See Comment 57 Laboratory test 10/03/2018 [facility] Cytology SEE RESULT 58, [address] [place] [address] [phone] Comp Metabolic 08/20/2018 [facility] Sodium 139 mmol/L N 135- 14 [address] [place] [address] [phone] Potassium 4.5 mmol/L N 3.5-5.0 Chloride 104 [...] Egfr 78.4 >60 61 Liver Function 08/20/2018 [facility] Direct 0.10 mg/dL N 0.03- 0.[address] [place] [address] [phone] Indirect Bilirubin 0.3 mg/dL N 0.3-1.0 Immunoglobulins 08/20/2018 [facility] Immunoglobulin G 1100 767 - 62 Serum Quant [address] mg/dL 1590 [place] [address] [phone] Immunoglobulin M 70 mg/dL 37 - 286 Immunoglobulin A 207 mg/dL 61 - 356 Comp Metabolic Panel 03/20/2018 [facility] Sodium 140 mmol/L N 135-[address] [place] [address] [phone] Potassium 3.8 mmol/L N 3.5-5.0 Chloride 104 [...] Egfr 75.5 >60 63 Liver Function 03/20/2018 [facility] Direct 0.00 mg/dL Low 0.03-0.[address] [place] [address] [phone] Laboratory test 03/20/2018 [facility] Folic Acid 9.12 ng/mL > 3.[address] (Folate) [place] [address] [phone] Vitamin B12 738 pg/mL N 180-914 64 Immunoglobulins 03/20/2018 [facility] Immunoglobulin G 970 767 - 65 Serum Quant [address] mg/dL 1590 [place] [address] [phone] Immunoglobulin M 64 mg/dL 37 - 286 Immunoglobulin A 206 mg/dL 61 - 356 S.Pneumoniae Igg 01/12/2018 [facility] S. pneumoniae 1.4 g/mL >=2.3 AB [address] Type 1 [place] [address] [phone] S. pneumoniae Type 2 IgG AB 25.7 [...] 7.2 g/mL >=1.7 66 Laboratory test 12/21/2017 [facility] Cortisol 28.81 g/dL 67, [address] [place] [address] [phone] Laboratory test 12/21/2017 [facility] Cortisol 26.63 g/dL 69, [address] [place] [address] [phone] Laboratory test 12/21/2017 [facility] Cortisol 20.39 g/dL 71, [address] [place] [address] [phone] Comp Metabolic 12/18/2017 [facility] Sodium 139 mmol/L N 139- [address] [place] [address] [phone] Potassium 4.6 mmol/L N 3.5-5.0 Chloride 103 [...] Non- 60.1 >60 Egfr 77.3 >60 73 Laboratory test 12/02/2017 [facility] Partial 30.6 seconds N 26.0-36.[address] [place] [address] [phone] CBC Auto Diff 12/02/2017 [facility] White Blood 6.3 10^3/uL N 3.5-10.[address] [place] [address] [phone] Red Blood Count 4.64 10^6/uL N 4.0-5.4 [...] Blood Cells % 0.2 Laboratory test 12/02/2017 [facility] Lactic Acid 0.8 mmol/L N 0.5-2.0 74 finding [address] [place] [address] [phone] Troponin-I (TnI) 0.00 ng/mL <0.04 Comp Metabolic Panel 12/02/2017 [facility] Sodium 140 mmol/L N 139-145 [address] [place] [address] [phone] Potassium 4.1 mmol/L N 3.5-5.0 Chloride 104 [...] 81.5 >60 75 Laboratory test finding 12/02/2017 [facility] Lipase 40 U/L N 11.0-82.[address] [place] [address] [phone] C Reactive Protein 4.02 mg/L N < 5.00 76 Cortisol 5.84 g/dL 77 TSH (Thyroid Stim Horm) 2.30 mcIU/mL N 0.34-5.60 Acth 19 pg/mL 78 Urinalysis Profile 12/02/2017 [facility] Urine Color Yellow [address] [place] [address] [phone] Urine Appearance Cloudy Urine Specific [place] 1.016 N 1.010-1.030 Urine pH 7.0 N 5-9 Urine Urobilinogen Negative Negative Urine Ketones Negative Negative Urine Protein Negative Negative Urine Leukocytes Negative Negative Urine Blood Negative Negative * * Abnormal Negative 79 Urine Nitrite Negative Negative Urine Bilirubin Negative Negative Urine Glucose Negative Negative Inr/Protime 12/02/2017 [facility] Inr 0.81 N 0.77-1.[address] [place] [address] [phone] Laboratory test 11/20/2017 [facility] Erythrocyte Sed 17 mm/Hr N 0-[address] [place] [address] [phone] Ssa/SSB Abs Igg 11/20/2017 [facility] SS-A/Ro Antibody <0.[address] [place] [address] [phone] SS-B/La Antibody <0.2 U 81 Laboratory test 11/20/2017 [facility] Creatine 113 U/L N 10- 223 finding 101 Kinase(CK) [place] [address] [phone] Comp Metabolic 11/20/2017 [facility] Sodium 138 N 133-[address] mmol/[place] [address] [phone] Potassium 4.4 mmol/L N 3.5-5.0 Chloride 103 [...] Egfr 76.7 >60 82 Laboratory test 11/20/2017 [facility] Free Cortisol 0.101 Abnormal [address] Serum g/[place] [address] [phone] TSH (Thyroid Stim Horm) 3.62 mcIU/mL N 0.34-5.60 Thyroperoxidase AB 0.34 IU/mL N <9 Immunoglobulin G (Igg) TNP () 84 Igg Subclasses 11/20/2017 [facility] Total IgG 721 mg/dL Abnormal 767 - [address] [place] [address] [phone] Immunoglobulin G1 372 mg/dL 341 - 894 Immunoglobulin G2 277 mg/dL 171 - 632 Immunoglobulin G3 16.3 mg/dL Abnormal 85 Immunoglobulin G4 11.5 mg/dL 86 CBC Auto Diff 09/27/2017 [facility] White Blood 7.8 10^3/uL N 3.5-10.[address] [place] [address] [phone] Red Blood Count 4.43 10^6/uL N 4.0-5.4 [...] Blood Cells % 0 Laboratory test 09/27/2017 [facility] Ferritin 72.5 ng/mL N 11 -[address] [place] [address] [phone] Iron & Iron Binding 09/27/2017 [facility] Iron 133 g/dL N 50 -[address] [place] [address] [phone] Unsaturated Iron Binding 242 g/dL Total Iron Binding Capacity 375 g/dL N 250-450 % Iron Saturation 35 % N 15-55 Urine Vma 24HR 08/07/2017 [facility] Urine Vma, Adult 3.1 mg/ 24h <8.[address] [place] [address] [phone] Urine Collection Duration 24 h Urine Total Volume 1000 mL 88 Hiaa,5- 08/07/2017 [facility] Urine 5Hiaa 3.7 mg/24h <=8.[address] [place] [address] [phone] Urine Collection Duration 24 h Urine Total Volume 1000 mL 89 Catecholamine 24HR 08/07/2017 [facility] Urine Collection 24 h Urine Fract [address] [place] [address] [phone] Urine Total Volume 1000 mL Urine Norepinephrine 47 mcg/24h 15-80 Urine Epinephrine 7.7 mcg/24h <21 Urine Dopamine 134 mcg/24h 65-400 90 Laboratory test 07/07/2017 [facility] Angiotensin 41 U/L N 8 - [address] [place] [address] [phone] Homocysteine 9 mcmol/L N 92 Anca AB Ser If 07/07/2017 [facility] C-Anca Negative N Negative [address] [place] [address] [phone] P-Anca Negative N Negative 93 Ssa/SSB Abs Igg 07/07/2017 [facility] SS-A/Ro Antibody <0.2 U N [address] [place] [address] [phone] SS-B/La Antibody <0.2 U N 95 Immunoglobulins 07/07/2017 [facility] Immunoglobulin G 765 Abnormal 767 - 96 Serum Quant [address] mg/dL 1590 [place] [address] [phone] Immunoglobulin M 67 mg/dL N 37 - 286 Immunoglobulin A 200 mg/dL N 61 - 356 Celiac Hla 07/07/2017 [facility] Hla-Dqa1 SEE BELOW N [address] [place] [address] [phone] Hla-DQB1 SEE BELOW N 98 Celiac Gene Pairs Present? No N Celiac Gene Interpretation See Comment N 99 Celiac Panel 07/07/2017 [facility] Tissue <1.2 U/mL N [address] [place] [address] Ab [phone] Immunoglobulin A 207 mg/dL N 61 - 356 Celiac Interpretation See Comment N 101 Hla B27 07/07/2017 [facility] Hla B27 Negative N [address] [place] [address] [phone] Hla B27 Interp See Comment N 103 Laboratory test 07/07/2017 [facility] T3 Free 3.60 pg/mL N 2.5 -3.[address] [place] [address] [phone] Free T4 (Free Thyroxine) 0.75 ng/dL N 0.61-1.12 105 Thyroperoxidase AB 0.34 IU/mL N <9 106 Tick-Borne Panel 07/07/2017 [facility] Babesia Negative N Negative PCR Blood [address] [place] [address] [phone] Babesia ducani Negative N Negative Babesia divergens/Mo-1 Negative N Negative 107 Anaplasma phagocytophilum Negative N Negative Ehrlichia chaffeensis Negative N Negative Ehrlichia ewingii/canis Negative N Negative Ehrlichia muris-like Negative N Negative 108 B. miyamotoi PCR, B Negative N Negative 109 Laboratory test 07/07/2017 [facility] Creatine 154 U/L N 10- 223 [address] Kinase(CK) [place] [address] [phone] Laboratory test 05/22/2017 [facility] C Reactive 3.08 mg/L N < 5.00 [address] [place] [address] [phone] Cyclic Citrullinated Pep Igg <15.6 U N 112 Anti Nuclear Antibody 0.2 U N 113 Lyme Disease Serology Negative N Negative 114 Rheumatoid Factor <15 IU/mL N <15 115 Erythrocyte Sed Rate 18 mm/Hr N 0-30 Fatuma Key 05/05/2017 [facility] Ebv Capsid Positive N Negative Comprehensive [address] [place] [place] [address] [phone] Ebv Capsid Ag IgM Ab Negative N Negative Fatuma-Key Nuclear Antigen Positive N Negative Fatuma-Key Virus Interp See Comment N 116 Comp Metabolic Panel 05/05/2017 [facility] Sodium 139 mmol/L N 133-[address] [place] [address] [phone] Potassium 4.2 mmol/L N 3.5-5.0 Chloride 106 [...] N >60 117 CBC Auto Diff 05/05/2017 [facility] White Blood 5.8 10^3/uL N 3.5-10.[address] [place] [address] [phone] Red Blood Count 4.37 10^6/uL N 4.0-5.4 [...] Cells % 0 N Laboratory test 05/05/2017 [facility] Erythrocyte Sed 19 mm/Hr N 0-[address] [place] [address] [phone] C Reactive Protein 7.59 mg/L High < 5.00 118 Laboratory test 04/19/2017 [facility] TSH (Thyroid 1.29 mcIU/mL N 0.34-5.[address] Stim Horm) [place] [address] [phone] CBC Auto Diff 04/19/2017 [facility] White Blood 5.5 10^3/uL N 3.5-10.[address] [place] [address] [phone] Red Blood Count 4.49 10^6/uL N 4.0-5.4 [...] Cells % 0.1 N Laboratory test 04/19/2017 [facility] Vitamin B12 264 pg/mL N 180-914 119 finding [address] [place] [address] [phone] Lyme Disease Serology Negative N Negative 120 Protein 04/19/2017 [facility] Total 6.9 g/dL N 6.3 - Electrophoresis [address] [facility] Protein(Pep) 7.9 [place] [address] [phone] Albumin 3.5 g/dL N 3.4-4.7 Alpha-1 Globulin 0.2 g/dL N 0.1-0.3 Alpha-2 Globulin 1.1 g/dL Abnormal 0.6-1.0 Beta Globulin 1.1 g/dL N 0.7-1.2 Gamma Globulin 0.9 g/dL N 0.6-1.6 Albumin/Globulin Ratio 1.05 N Impression See Comment N 121 Laboratory test finding 04/19/2017 [facility] Amylase 27 U/L Low 29-103 [address] [place] [address] [phone] Lipase 42 U/L N 11.0-82.0 Monospot Negative N Negative 122 CMV Igg/Igm 04/19/2017 [facility] Cytomegalovirus IgG Negative N Negative [address] [facility] [place] [address] [phone] Cytomegalovirus IgM Antibody Negative N Negative Laboratory test 04/19/2017 [facility] C Reactive 6.47 mg/L High < 5.00 124 finding [address] [place] [address] [phone] CBC Auto Diff 04/14/2017 [facility] White Blood 6.5 N 3.5- 10.[address] Count 10^3/[place] [address] [phone] Red Blood Count 4.50 10^6/uL N 4.0-5.4 [...] Cells % 0.1 N Laboratory test 04/14/2017 [facility] Troponin-I (TnI) 0.00 ng/ mL N <0.04 finding [address] [place] [address] [phone] Comp Metabolic 04/14/2017 [facility] Sodium 137 mmol/L N 133- 145 Panel [address] [place] [address] [phone] Potassium 3.9 mmol/L N 3.5-5.0 Chloride 105 [...] 84.7 N >60 125 Laboratory test 04/14/2017 [facility] Lactic Acid 0.7 mmol/L N 0.5-2.0 [address] [place] [address] [phone] CBC Auto Diff 03/24/2017 [facility] White Blood 7.1 10^3/uL N 3.5-10.[address] [place] [address] [phone] Red Blood Count 4.62 10^6/uL N 4.0-5.4 [...] % 0.1 N Comp Metabolic Panel 03/24/2017 [facility] Sodium 140 mmol/L N 133-145 [address] [place] [address] [phone] Potassium 4.2 mmol/L N 3.5-5.0 Chloride 104 [...] 59.4 N >60 127 Laboratory test 03/24/2017 [facility] Ferritin 57.0 ng/mL N 11 -307 finding [address] [place] [address] [phone] Lyme Disease Serology Negative N Negative 128 Laboratory test 03/06/2017 [facility] Point of 108 mg/dL High 74-[address] [facility] [place] [address] [phone] CBC No Diff 01/02/2017 [facility] White Blood 7.0 N 3.5-10.[address] [facility] Count 10^3/[place] [address] [phone] Red Blood Count 4.65 10^6/uL N 4.0-5.4 [...] um3 N 7.4-10.4 Comp Metabolic Panel 01/02/2017 [facility] Sodium 140 mmol/L N 133-145 [address] [place] [address] [phone] Potassium 4.3 mmol/L N 3.5-5.0 Chloride 106 [...] 77.6 N >60 130 Lipid Profile 01/02/2017 [facility] Triglycerides 257 mg/dL N 131 (Trig/Chol/HDL) [address] [place] [address] [phone] Cholesterol 251 mg/dL N 132 HDL Cholesterol 46.5 mg/dL N 133 LDL Cholesterol 153 mg/dL N 134 Iron & Iron Binding 01/02/2017 [facility] Iron 98 g/dL N 50- 212 [address]acity [address] [place] [address] [phone] Unsaturated Iron Binding 311 g/dL N Total Iron Binding Capacity 409 g/dL N 250-450 % Iron Saturation 24 % N 15-55 Laboratory test 01/02/2017 [facility] Folic Acid 13.85 ng/mL N >3.[address] [facility] (Folate) [place] [address] [phone] Vitamin B12 297 pg/mL N 180-914 135 Vitamin D Total 25(Oh) 24.6 ng/mL Low 30-50 Hemoglobin A1c 5.8 % N Less than 6.0 136 Vitamin B1 (Whole Blood) 160 nmol/L N 70-180 137 Vitamin B6 01/02/2017 [facility] Pyridoxal 5-Phosphate 21 g/L N 5-[address] [place] [address] [phone] Pyridoxic Acid 14 g/L N 3-30 139 Laboratory test 01/02/2017 [facility] Vitamin B1 160 nmol/L N 70-180 [address] [place] [address] [phone] Vitamin B6 01/02/2017 [facility] Pyridoxal 21 g/L N 5-[address] 5-[place] [address] [phone] Pyridoxic Acid 14 g/L N 3-30 142 CBC Auto Diff 09/27/2016 [facility] White Blood 6.2 10^3/uL N 3.5-10.[address] [place] [address] [phone] Red Blood Count 4.47 10^6/uL N 4.0-5.4 [...] Cells % 0 N Laboratory test 09/27/2016 [facility] Lactic Acid 1.1 mmol/L N 0.5-2.0 143 finding [address] [place] [address] [phone] Urinalysis 09/27/2016 [facility] Urine Color Yellow N Profile [address] [place] [address] [phone] Urine Appearance Cloudy N Urine Specific [place] 1.017 N 1.010-1.030 Urine pH 7.0 N 5-9 Urine Urobilinogen Negative N Negative Urine Ketones Negative N Negative Urine Protein Negative N Negative Urine Leukocytes Trace Abnormal Negative Urine Blood Negative N Negative * * Abnormal Negative 144 Urine Nitrite Negative N Negative Urine Bilirubin Negative N Negative Urine Glucose Negative N Negative Urine White Blood Cell 1+(6-10/hpf) Abnormal Absent Urine Red Blood Cell 1+(3-5/hpf) Abnormal Absent Urine Bacteria Absent N Absent Urine Squamous Epithelial Cell Present Abnormal Absent Urine Amorphous Crystals Present Abnormal Absent Comp Metabolic Panel 09/27/2016 [facility] Sodium 137 mmol/L N 133-145 [address] [place] [address] [phone] Potassium 3.6 mmol/L N 3.5-5.0 Chloride 107 [...] 49.2 N >60 Egfr 63.2 N >60 145 Calcium 9.3 mg/dL N 8.6-10.3 Laboratory test finding 09/27/2016 [facility] Lipase 35 U/L N 11.0-82.0 [address] [place] [address] [phone] C Reactive Protein 3.69 mg/L N < 5.00 146 Troponin-I (TnI) 0.00 ng/mL N <0.04 147 HCG 2.54 mIU/mL N 148 Urine Culture And 09/27/2016 [facility] Urine Culture SEE RESULT [address] [place] [address] [phone] Laboratory test 08/09/2016 [facility] Surgical SEE RESULT [address] [address] Order [phone] Laboratory test 08/05/2016 [facility] TSH (Thyroid 1.44 N 0.34 - finding [address] Stim Horm) mcIU/mL 5.60 [place] [address] [phone] Hepatitis C Antibody Nonreactive N Nonreactive Urinalysis Profile 07/18/2016 [facility] Urine Color Yellow [place] [address] [place] [address] [phone] Urine Appearance Clear N Urine Specific [place] 1.011 N 1.010-1.030 Urine pH 7.0 N 5-9 Urine Urobilinogen Negative N Negative Urine Ketones Negative N Negative Urine Protein Negative N Negative Urine Leukocytes Negative N Negative Urine Blood Negative N Negative * * Abnormal Negative 151 Urine Nitrite Negative N Negative Urine Bilirubin Negative N Negative Urine Glucose Negative N Negative Laboratory test 07/18/2016 [facility] Lactic Acid 1.5 mmol/L N 0.5-2.[address] [place] [address] [phone] Comp Metabolic 07/18/2016 [facility] Sodium 138 mmol/L N 133- [address] [place] [address] [phone] Potassium 4.3 mmol/L N 3.5-5.0 Chloride 109 [...] 44.3 N >60 Egfr 56.9 N >60 153 Laboratory test finding 07/18/2016 [facility] Lipase 37 U/L N 11.0-82.[address] [place] [address] [phone] C Reactive Protein 2.83 mg/L N < 5.00 154 Urine Culture And 07/18/2016 [facility] Urine Culture SEE RESULT [address] [place] [address] [phone] CBC Auto Diff 07/18/2016 [facility] White Blood 7.6 10^3/uL N 3.5-[address] Count 0.8 [place] [address] [phone] Red Blood Count 4.37 10^6/uL N 4.0-5.4 [...] Cells % 0.1 N Urinalysis Profile 07/18/2016 [facility] Urine Color Yellow N [address] [place] [address] [phone] Urine Appearance Cloudy N Urine Specific [place] 1.019 N 1.010-1.030 Urine pH 6.0 N [...] Urine Squamous Epithelial Cell Present Abnormal Absent Xray 06/08/2016 [facility] MRI Wrist Right <pending> [address] [place] [address] [phone] Laboratory test 05/13/2016 [facility] C Reactive 1.43 mg/L N < [address] Protein 5.00 [place] [address] [phone] Erythrocyte Sed Rate 11 mm/Hr N 0-30 158 Troponin-I (TnI) 0.00 ng/mL N <0.03 159 Laboratory test 08/24/2015 [facility] TSH (Thyroid 1.14 ?IU/mL N 0.34-5.[address] Stim Horm) [place] [address] [phone] T3 Free 3.20 pg/mL N 2.5-3.9 Free T4 (Free Thyroxine) 0.58 ng/mL Low 0.61-1.12 Urine Culture And Sensitivities SEE RESULT BELOW 160 Basic Metabolic Panel 08/24/2015 [facility] Sodium 141 mmol/L N 133-[address] [place] [address] [phone] Potassium 4.1 mmol/L N 3.5-5.0 Chloride 110 mmol/L N 101-111 Co2 Carbon Dioxide 26 mmol/L N 22-32 Anion Gap 5 mmol/L N 2-11 Glucose 88 mg/dL N 70-100 Blood Urea Nitrogen 14 mg/dL N 6-24 Creatinine 0.97 mg/dL High 0.51-0.95 BUN/Creatinine Ratio 14.4 N 8-20 Calcium 8.6 mg/dL N 8.6-10.3 Egfr Non- 60.1 N >60 Egfr 77.3 N >60 161 Protein 08/05/2015 [facility] Total 6.6 g/dL N 6.3 - Electrophoresis [address] Protein(Pep) 7.9 [place] [address] [phone] Albumin 3.5 g/dL N 3.4-4.7 Alpha-1 Globulin 0.2 g/dL N 0.1-0.3 Alpha-2 Globulin 1.1 g/dL Abnormal 0.6-1.0 Beta Globulin 1.0 g/dL N 0.7-1.2 Gamma Globulin 0.8 g/dL N 0.6-1.6 Albumin/Globulin Ratio 1.12 N Impression See Comment N 162 CBC Auto 05/19/2015 [facility] White Blood 5.5 10^3/uL N 4.8- 10.8 [address] [place] [address] [phone] Red Blood Count 4.38 10^6/uL N 4.0-5.4 [...] Cells % 0 N Laboratory test 05/19/2015 [facility] TSH (Thyroid 2.17 ?IU/mL N 0.34-5.[address] Stim Horm) [place] [address] [phone] T3 Free 2.40 pg/mL Low 2.5-3.9 165 Comp Metabolic Panel 05/19/2015 [facility] Sodium 139 mmol/L N 133-[address] [place] [address] [phone] Potassium 4.2 mmol/L N 3.5-5.0 Chloride 109 [...] 77.3 N >60 Egfr 99.4 N >60 166 Laboratory test 05/19/2015 [facility] Vitamin D 31.5 ng/mL N 30-[address] Total 25(Oh) [place] [address] [phone] Erythrocyte Sed Rate 12 mm/Hr N 0-30 167 Huma (Antinuclear Antibodies) Negative N Negative 168 Lipid Profile 05/19/2015 [facility] Triglycerides 216 mg/dL N 169 (Trig/Chol/HDL) [address] [place] [address] [phone] Cholesterol 280 mg/dL N 170 HDL Cholesterol 52.8 mg/dL N 171 LDL Cholesterol 184 mg/dL N 172 Laboratory test 05/19/2015 [facility] C Reactive 1.26 mg/L N < 5.[address] [place] [address] [phone] Free T4 (Free Thyroxine) 0.60 ng/mL Low 0.61-1.12 174 Vitamin D Total 25(Oh) 31.5 ng/mL N 30-50 Erythrocyte Sed Rate 12 mm/Hr N 0-30 175 Huma (Antinuclear Antibodies) Negative N Negative 176 CBC Auto Diff 05/19/2015 [facility] White Blood 5.5 10^3/uL N 4.8-10.[address] [place] [address] [phone] Red Blood Count 4.38 10^6/uL N 4.0-5.4 [...] Cells % 0 N Laboratory test 05/19/2015 [facility] C Reactive 1.26 mg/L N < 5.[address] [place] [address] [phone] Free T4 (Free Thyroxine) 0.60 ng/mL Low 0.61-1.12 178 Lipid Profile 05/19/2015 [facility] Triglycerides 216 mg/dL N 179 (Trig/Chol/HDL) [address] [place] [address] [phone] Cholesterol 280 mg/dL N 180 HDL Cholesterol 52.8 mg/dL N 181 LDL Cholesterol 184 mg/dL N 182 Comp Metabolic Panel 05/19/2015 [facility] Sodium 139 mmol/L N 133-[address] [place] [address] [phone] Potassium 4.2 mmol/L N 3.5-5.0 Chloride 109 [...] 77.3 N >60 Egfr 99.4 N >60 183 Laboratory test 05/19/2015 [facility] TSH (Thyroid 2.17 ?IU/mL N 0.34-5.60 [address] Stim Horm) [place] [address] [phone] T3 Free 2.40 pg/mL Low 2.5-3.9 185 Creatinine 11/20/2014 [facility] Creatinine 0.85 mg/dL N 0.51- 0.[address] [place] [address] [phone] Egfr Non- 70.2 N >60 Egfr 90.3 N >60 186 Laboratory test 11/20/2014 [facility] Blood Urea 15 mg/dL N 6- [address] [place] [address] [phone] CBC Auto Diff 11/20/2014 [facility] White Blood 7.4 10^3/uL N 4.8-10.[address] Count [place], [place] [address] [phone] Red Blood Count 4.67 10^6/uL N 4.0-5.4 [...] Cells % 0 N Laboratory test 11/20/2014 [facility] Activated 31.7 N 26.0- 36.3 [address] [place] [address] Thrombo Time [phone] Inr/Protime 11/20/2014 [facility] Inr 0.86 N 0.78-1.07 [address] [place] [address] [phone] 1 Desirable: <150 Borderline High: 150-199 High: [...] in selective patients <6.0%. Please refer to [employer] diabetic care guidelines for further information. 7 Normal Range 180 to 914 Indeterminate Range 145 to 180 Deficient Range <145 8 ADDITIONAL INFORMATION Testing performed by Liquid Chromatography-Tandem Mass Spectrometry (LC-MS/MS). This test was developed and its performance characteristics determined by [facility] in a manner consistent with CLIA requirements. This test has not been cleared or approved by the U.S. Food and Drug Administration. Test Performed by: [facility] [address] [place] [address] 9 REFERENCE VALUE Cutoff: 100 10 REFERENCE VALUE Cutoff: 100 11 REFERENCE VALUE Cutoff: 100 12 REFERENCE VALUE Cutoff: 100 13 REFERENCE VALUE Cutoff: 100 14 REFERENCE VALUE Cutoff: 100 15 REFERENCE VALUE Cutoff: 100 16 REFERENCE VALUE Cutoff: 100 17 ADDITIONAL INFORMATION This report is intended for use in clinical monitoring and management of patients. It is not intended for use in employment-related testing. This test was developed and its performance characteristics determined by [facility] in a manner consistent with CLIA requirements. This test has not been cleared or approved by the U.S. Food and Drug Administration. Test Performed by: [facility] [address] [place] [id number] 18 REFERENCE VALUE Cutoff: 500 19 REFERENCE VALUE Cutoff: 200 20 Presumptive Positive Drug confirmation to follow. Presumptive Positive means that the screening method is positive, but the test needs to be run by a confirmatory method before being finalized. REFERENCE VALUE Cutoff: 100 21 REFERENCE VALUE Cutoff: 150 22 ADDITIONAL INFORMATION This report is intended for use in clinical monitoring or management of patients. It is not intended for use in employment-related testing. 23 REFERENCE VALUE Cutoff: 200 mg/L 24 Tylenol 3 25 Metabolite of codeine REFERENCE VALUE Cutoff: 100 26 Briana Henderson, Contin; Also a minor metabolite (10%) of codeine and can be seen in low concentrations (<2,000 ng/mL) with poppy seed ingestion. 27 Metabolite of morphine REFERENCE VALUE Cutoff: 100 28 Metabolite of heroin 29 Lortab, [place], Vicodin; Also a very minor metabolite of codeine and impurity (<1%) of oxycodone. 30 Metabolite of hydrocodone 31 Metabolite of hydrocodone 32 Dilaudid, Exalgo; Also a metabolite of hydrocodone and a minor (<5%) metabolite of morphine. 33 Metabolite of hydromorphone REFERENCE VALUE Cutoff: 100 34 Endocet, Percocet, Oxycontin 35 Metabolite of oxycodone 36 Numorphan, Opana; Also a metabolite of oxycodone. 37 Metabolite of oxymorphone REFERENCE VALUE Cutoff: 100 38 Metabolite of oxymorphone 39 Actiq, Duragesic, Fentora 40 Metabolite of fentanyl 41 Demerol 42 Metabolite of meperidine 43 Narcan 44 Metabolite of naloxone REFERENCE VALUE Cutoff: 100 45 Dolophine 46 Metabolite of methadone 47 Darvon, Darvocet 48 Metabolite of propoxyphene 49 Tradol, Ultram, Ultracet 50 Metabolite of tramadol 51 Nucynta 52 Metabolite of tapentadol 53 Metabolite of tapentadol REFERENCE VALUE Cutoff: 100 54 Buprenex, Suboxone 55 Metabolite of buprenorphine 56 Metabolite of buprenorphine 57 Test detected the presence of oxycodone and several metabolites (noroxycodone, noroxymorphone, and nqykxepepmd-9-ymfn-glucuronide). Suspect use of oxycodone and/or oxymorphone within the past three days. Test detected the presence of tapentadol and two of its metabolites (n-desmethyltapentadol and fmebcwngup-guza-cgjohofluwk). Suspect use of tapentadol within the past three days. ADDITIONAL INFORMATION This test was developed and its performance characteristics determined by [facility] in a manner consistent with CLIA requirements. This test has not been cleared or approved by the U.S. Food and Drug Administration. Test Performed by: [facility] [address] [place] [address] 58 [id number] SEE RESULT BELOW Name: GORAN ZAMANU : [address]: Radha Marinelli NP Acct: [id number] Unit: [id number] AGE: 57 Location: [facility] Re10/03/18 SEX: F Status: REG REF SPEC: [id number] TONY: 10/03/18-[address]: Radha Marinelli NP REQ: [id number] RECD: 10/03/18 STATUS: SOUT _ ORDERED: TP IMAGE ANALYS, HPV/Thin Prep, HPV 16/18 GENE COMMENTS: [id number] Negative for Intraepithelial lesion or Malignancy Date [...] was evaluated with the assistance of the [employer] Test Imaging System. Due to cytologic findings at the management trainee microscope, comprehensive manual rescreening by a Medical Oncology Physician may be required. The Pap Smear is [...] years. END OF REPORT DEPARTMENT OF PATHOLOGY, [address] [place] [address] Ole Martin M.D. Director [facility] # [id number] 60 FAX:[phone] 61 Because ethnic data is not always [...] <15 (or dialysis) 62 Test Performed by: [address] [address] 63 Because ethnic data is not always [...] Deficient Range <145 65 Test Performed by: [address] [address] 66 Either of the two following conditions [...] its performance characteristics determined by [facility] in a manner consistent with CLIA requirements. This test has not been cleared or approved by the U.S. Food and Drug Administration. Test Performed by: [facility] [address] [address] 67 Comment: 60 minute 68 AM 8.7-22.4 [...] 5 Kidney failure <15 (or dialysis) [address] [facility] Severe Sepsis and Septic Shock Management [...] VALUE 7.2-63 (a.m. collection) Test Performed by: [facility] [address] [place] [address] 79 *Ascorbic acid is present which may interfere with detection of blood. 80 REFERENCE VALUE <1.0 (Negative) 81 REFERENCE VALUE <1.0 (Negative) Test Performed by: [facility] [address] [place] [address] 82 Because ethnic data is not always [...] its performance characteristics determined by [facility] in a manner consistent with CLIA requirements. This test has not been cleared or approved by the U.S. Food and Drug Administration. Test Performed by: [facility] [address] [place] [address] 84 Immunoglobulin G (IgG), S was cancelled on 11/21/2017 at 10:09; Reason: Test IGG is cancelled due to be ordered with Test IGGS Test Performed by: [facility] - [address] [address] 85 REFERENCE VALUE 18.4 - 106.0 86 REFERENCE VALUE 2.4 - 121.0 Test Performed by: [facility] - [address] [address] 87 TV: 1000ML START COLLECTION TIME 08/06/17 [...] its performance characteristics determined by [facility] in a manner consistent with CLIA requirements. This test has not been cleared or approved by the U.S. Food and Drug Administration. Test Performed by: [facility] - [address] [address] 89 ADDITIONAL INFORMATION Liquid Chromatography-Tandem Mass Spectrometry (LC-MS/MS). Values obtained from different assay methods or kits may be different and cannot be used interchangeably. The results cannot be interpreted as absolute evidence for the presence or absence of malignant disease. This test was developed and its performance characteristics determined by [facility] in a manner consistent with CLIA requirements. This test has not been cleared or approved by the U.S. Food and Drug Administration. Test Performed by: [facility] - [address] [address] 90 ADDITIONAL INFORMATION This test was developed and its performance characteristics determined by [facility] in a manner consistent with CLIA requirements. This test has not been cleared or approved by the U.S. Food and Drug Administration. Test Performed by: [facility] [address] [place] [address] 91 Test Performed by: [facility] - [address] [address] 92 REFERENCE VALUE <=13 (Fasting) ADDITIONAL INFORMATION This test was developed and its performance characteristics determined by [facility] in a manner consistent with CLIA requirements. This test has not been cleared or approved by the U.S. Food and Drug Administration. Test Performed by: [facility] - [address] [address] 93 Negative for cANCA and pANCA patterns by immunofluorescence. ADDITIONAL INFORMATION This test was developed and its performance characteristics determined by [facility] in a manner consistent with CLIA requirements. This test has not been cleared or approved by the U.S. Food and Drug Administration. Test Performed by: [facility] [address] [place] [address] 94 REFERENCE VALUE <1.0 (Negative) 95 REFERENCE VALUE <1.0 (Negative) Test Performed by: [facility] [address] [place] [address] 96 Test Performed by: [facility] - [address] [address] 97 RESULT: 01:02,01:03 REFERENCE VALUE Not Applicable 98 RESULT: 06:02,06:03 DQ Serologic Equivalent: 6,6 REFERENCE VALUE Not Applicable 99 The absence of HLA celiac permissive genes would make the presence of celiac disease unlikely. ADDITIONAL INFORMATION Method: Molecular typing of HLA antigens performed using reverse SSOP and/or SSP methods, reported as serological equivalents and low to medium resolution molecular values. Performing Laboratory CLIA# [id number] Test Performed by: [address] [address] 100 REFERENCE VALUE <4.0 (Negative) Test Performed by: [address] [address] 101 Negative serology. Celiac disease unlikely. However, approximately 10% of patients with celiac disease are seronegative. Also, patients who are already adhering to a gluten-free diet may be seronegative. If celiac disease is highly clinically suspected, consider HLA-DQ typing. Test Performed by: [address] [address] 102 REFERENCE VALUE Not Applicable 103 RESULT: HLA-B27 antigen was not detected. ADDITIONAL INFORMATION Method: Flow Cytometry Performing Laboratory CLIA# [id number] Test Performed by: [address] [address] 104 Please check this week 105 Please check this week 106 Please check this week 107 ADDITIONAL INFORMATION This test was developed and its performance characteristics determined by [facility] in a manner consistent with CLIA requirements. This test has not been cleared or approved by the U.S. Food and Drug Administration. 108 ADDITIONAL INFORMATION This test was developed and its performance characteristics determined by [facility] in a manner consistent with CLIA requirements. This test has not been cleared or approved by the U.S. Food and Drug Administration. 109 ADDITIONAL INFORMATION This test was developed and its performance characteristics determined by [facility] in a manner consistent with CLIA requirements. This test has not been cleared or approved by the U.S. Food and Drug Administration. Test Performed by: [address] [address] 110 Please check this week 111 Acute inflammation: >10.00 112 REFERENCE VALUE <20.0 (Negative) Test Performed by: [address] [address] 113 REFERENCE VALUE <=1.0 (Negative) Test Performed by: [address] [address] 114 Serologic response to B. burgdorferi infection is not detected, but cannot rule out early infection during which low or undetectable antibody levels to B. burgdorferi may be present. If clinically indicated, a new serum specimen should be submitted in 7-14 days. Test Performed by: [place] [address] 115 Test Performed by: [place] [address] 116 RESULT: Results suggest past infection. ADDITIONAL [...] primary infection with EBV. Test Performed by: [place] [address] 117 Because ethnic data is not always [...] submitted in 7-14 days. Test Performed by: [facility] [address] [place] [address] 121 RESULT: No apparent monoclonal protein on serum electrophoresis. Test Performed by: [facility] [address] [place] [address] 122 Would you like an EBV if Monospot is Negative?: N 123 Test Performed by: [facility] [address] [place] [address] 124 Acute inflammation: >10.00 125 Because ethnic data is not always [...] 5 Kidney failure <15 (or dialysis) [address] [facility] Severe Sepsis and Septic Shock Management Bundle Measure requires all lactic acids initially measuring >2.0 mmol/L be repeated. 127 Because ethnic data is not always [...] submitted in 7-14 days. Test Performed by: [facility] - [address] [address] 129 Security Operations Center Analyst: [id number] 130 Because ethnic data is not always [...] and in selective patients <6.0%.Please refer to [employer] Diabetic care guidelines for further information. 137 ADDITIONAL INFORMATION This test was developed and its performance characteristics determined by [facility] in a manner consistent with CLIA requirements. This test has not been cleared or approved by the U.S. Food and Drug Administration. Test Performed by: [facility] - [address] [address] 138 ADDITIONAL INFORMATION This test was developed and its performance characteristics determined by [facility] in a manner consistent with CLIA requirements. This test has not been cleared or approved by the U.S. Food and Drug Administration. 139 ADDITIONAL INFORMATION This test was developed and its performance characteristics determined by [facility] in a manner consistent with CLIA requirements. This test has not been cleared or approved by the U.S. Food and Drug Administration. Test Performed by: [facility] - [address] [address] 140 ADDITIONAL INFORMATION This test was developed and its performance characteristics determined by [facility] in a manner consistent with CLIA requirements. This test has not been cleared or approved by the U.S. Food and Drug Administration. Test Performed by: [facility] - [address] [address] 141 ADDITIONAL INFORMATION This test was developed and its performance characteristics determined by [facility] in a manner consistent with CLIA requirements. This test has not been cleared or approved by the U.S. Food and Drug Administration. 142 ADDITIONAL INFORMATION This test was developed and its performance characteristics determined by [facility] in a manner consistent with CLIA requirements. This test has not been cleared or approved by the U.S. Food and Drug Administration. Test Performed by: [facility] - [address] [address] [facility] Severe Sepsis and Septic Shock Management Bundle Measure requires all lactic acids initially measuring >2.0 mmol/L be repeated. 144 *Ascorbic acid is present which may interfere with detection of blood. 145 Because ethnic data is not always readily [...] 15-29 5 Kidney failure <15 (or dialysis) 146 Acute inflammation: >10.00 147 99th percentile=0.04 ng/mL Troponin results at [facility] and [facility] are not interchangeable. 148 <5.0 Negative 5.0 - 25.0 Indeterminate (Repeat testing recommended after 72 hours) >25.0 Positive Perimenopausal women can display HCG levels of up to 20 mIU/mL 149 SEE RESULT BELOW Name: SHIRLEY ZARAGOZA : [address]: Momo Jewell MD Acct: [id number] Unit: [id number] AGE: 55 Location: ED Re09/27/16 SEX: F Status: DEP ER SPEC: [id number] TONY: 09/27/[address]: Peter Rodriguez MD REQ: [id number] RECD: 09/27/16 STATUS: KARY HUERTA DR: [facility] Radha Marinelli VOCATIONAL REHABILITATION SUPERVISOR _ SOURCE: URINE SPDESC: ORDERED: Urine Culture Procedure Result Reported Site Urine Culture Final 09/30/16- 819 ML Organism 1 ENTEROCOCCUS FAECALIS [place] Count 10-25,000 (Moderate) CFU/ML Organism 2 NORMAL JASMIN [place] Count 1-10,000 (Few) CFU/ML 1. ENTEROCOCCUS FAECALIS [...] performed at Main Lab DEPARTMENT OF PATHOLOGY, [address] [place] [address] Ole Martin M.D. Director [facility] # [id number] Patient: SHIRLEY ZARAGOZA [id number] (Continued) Specimen: [id number] Collected: 09/27/16 Received: 09/27/16 (Continued) Procedure Result Reported Site Urine Culture Final (continued) * These antibiotics are not available in the [facility] Formulary Contact the Microbiology Department for any additional antibiotic reporting. * ML - MAIN LAB ([facility]) . END OF REPORT * ML=Testing performed at Main Lab DEPARTMENT OF PATHOLOGY, [address] [place] [address] Ole Martin M.D. Director [facility] # [id number] 150 SEE RESULT BELOW Name: SHIRLEY ALVAREZ : [address]: Nigel Hilliard MD Acct: [id number] Unit: [id number] AGE: 55 Location: ENDO Re08/09/16 SEX: F Status: DEP REF SPEC: [id number] TONY: 08/09/16- [facility] DR: Nigel Hilliard MD REQ: [id number] RECD: 08/09/166574 STATUS: OMER HUERTA DR: Radha Marinelli VOCATIONAL REHABILITATION SUPERVISOR _ ORDERED: LEVEL IV/2 FINAL DIAGNOSIS 1. [...] performed at Main Lab DEPARTMENT OF PATHOLOGY, [address] [place] [address] Ole Martin M.D. Director [facility] # [id number] RUN DATE: 08/10/16 [facility] LAB LIVE PAGE 2 Patient: SHIRLEY ALVAREZ [id number] (Continued) GROSS DESCRIPTION (Continued) Signed (signature on file) Ole Martin MD 1522 END OF REPORT * ML=Testing performed at Main Lab DEPARTMENT OF PATHOLOGY, [address] [place] [address] Ole Martin M.D. Director [facility] # [id number] 151 *Ascorbic acid is present which may interfere with detection of blood. 152 [facility] Severe Sepsis and Septic Shock Management Bundle Measure requires all lactic acids initially measuring >2.0 mmol/L be repeated. 153 Because ethnic data is not always readily [...] 15-29 5 Kidney failure <15 (or dialysis) 154 Acute inflammation: >10.00 155 SEE RESULT BELOW Name: SHIRLEY ZARAGOZA : [address]: Cordell Davison MD Acct: [id number] Unit: [id number] AGE: 55 Location: ED Re07/18/16 SEX: F Status: DEP ER SPEC: [id number] TNOY: 07/18/[address]: Elizabeth HOPPER REQ: [id number] RECD: 07/18/16 STATUS: KARY HUERTA DR: Cordell Carbajal VOCATIONAL REHABILITATION SUPERVISOR _ SOURCE: URINE SPDESC: ORDERED: Urine Culture Procedure Result Reported Site Urine Culture Final 07/19/1633 ML No growth of clinically significant organisms * ML - MAIN LAB ([facility]) . END OF REPORT * ML=Testing performed at Main Lab DEPARTMENT OF PATHOLOGY, [address] [place] [address] Ole Martin M.D. Director [facility] # [id number] 156 *Ascorbic acid is present which may interfere with detection of blood. 157 Acute inflammation: >10.00 158 Copy Result to: TAMMY SIBLEY ([id number]) 159 Reference Range and Interpretation: TnI (ng/mL) Interpretation Less Than 0.03 ng/mL Not supportive of diagnosis of CT 0.03 - 0.50 ng/mL Indeterminate: suggest serial studies if clinically indicated. Greater than 0.5 ng/mL Consistent with diagnosis of CT 160 SEE RESULT BELOW Name: SHIRLEY ZARAGOZA : [address]: Tammy Sibley MD Acct: [id number] Unit: [id number] AGE: 54 Location: [facility] Re08/24/15 SEX: F Status: REG REF SPEC: [id number] TONY: 08/24/[address] [facility] [address]: Tammy Sibley MD REQ: [id number] RECD: 08/24/15 STATUS: COMP DEANNA DR: Petra Lilly MD _ SOURCE: URINE SPDESC: ORDERED: Urine Culture Procedure Result Reported Site Urine Culture Final 08/26/15- 0846 ML No Growth (<1,000 CFU/mL) * ML - MAIN LAB ([facility]) . END OF REPORT * ML=Testing performed at Main Lab DEPARTMENT OF PATHOLOGY, [address] [place] [address] Ole Martin M.D. Director [facility] # [id number] 161 Because ethnic data is not always readily [...] 15-29 5 Kidney failure <15 (or dialysis) 162 RESULT: No apparent monoclonal protein on serum electrophoresis. Test Performed by: [place] [address] [employer] Machine Operator: Remy Garcia II, M.D., Ph.D. 163 PT IS FASTING 164 PT IS FASTING 165 PT IS FASTING 166 Because ethnic data is not always readily [...] 15-29 5 Kidney failure <15 (or dialysis) 167 PT IS FASTING 168 PT IS FASTING 169 Desirable <150 Borderline high 150-199 High 200-499 Very High >500 170 Desirable <200 Borderline high 200-239 High >239 171 Low <40 Desirable: 40-60 High: >60 172 Desirable: <100 mg/dL Near Optimal: 100-129 mg/dL Borderline High: 130-159 mg/dL High: 160-189 mg/dL Very High: >189 mg/dL 173 Acute inflammation: >10.00 174 PT IS FASTING 175 PT IS [...] 160-189 mg/dL Very High: >189 mg/dL 183 Because ethnic data is not always readily [...] 15-29 5 Kidney failure <15 (or dialysis) 184 PT IS FASTING 185 PT IS [...] range. Procedures Date Code Description Status 01/17/2019 74321 Destruction Of Benign Lesions Any Method 1-14 lesions Completed 12/30/2018 90359 Holter Monitor Review (24 hr)dr review & interp only Completed 12/24/2018 40732 ECG Monitor/Recording W/Visual Superimposition Completed Scanning 12/11/2018 11895 Stress Test Completed 12/11/2018 88562 Myocardial Perfusion Imaging Tomographic (Spect) Completed Multiple Studies 11/09/2018 35296 EKG Tracing & Interpretation Completed 09/07/2018 30915 Inject/Drain Joint/Bursa Major W/O US Completed 05/28/2018 97832 Destruction Of Benign Lesions Any Method 1-14 lesions Completed 05/10/2018 19977 Trigger PT Inj(S) Single Or Multiple Points 1 Or 2 Completed Muscles 04/30/2018 54680 Allergy Test, Patch Or Application Completed 04/30/2018 38569 Allergy Test, Patch Or Application Completed 04/25/2018 07763 Destruction Of Benign Lesions Any Method 1-14 lesions Completed 03/02/2018 41584389 Mammogram Completed 01/18/2018 74150 Holter Monitor Review (24 hr)dr review & interp only Completed 01/12/2018 29853 ECG Monitor/Recording W/Visual Superimposition Completed Scanning 01/12/2018 03632 ECG Monitor/Recording W/Visual Superimposition Completed Scanning 01/12/2018 41923 Inject/Drain Joint/Bursa Major W/O US Completed 12/19/2017 05283 EKG Tracing & Interpretation Completed 12/15/2017 05813 Destruction Of Benign Lesions Any Method 1-14 lesions Completed 12/04/2017 80089 EKG Tracing & Interpretation Completed 11/07/2017 59429 Echocardiogram, Limited Study Completed 10/27/2017 19809 Inject/Drain Joint/Bursa Major W/O US Completed 09/21/2017 62589 ECHO Transthoracic, Real-Time 2D With Doppler And Completed Color Flow 09/21/2017 42442 ECHO Transthoracic, Real-Time 2D With Doppler And Completed Color Flow 09/15/2017 78376 Inject/Drain Joint/Bursa Major W/O US Completed 08/11/2017 97656 Inject/Drain Joint/Bursa Major W/O US Completed 07/25/2017 91639 EKG Tracing & Interpretation Completed 07/07/2017 [id number] Bone Mineral Density Test Completed 04/21/2017 30498 EKG Tracing & Interpretation Completed 04/17/2017 93276 Stress Test Supervsn W/Out I/R Completed 04/17/2017 26477 Treadmill Interp/Report Only Completed 04/16/2017 37094 EKG, Interpretation Only Completed 04/15/2017 11323 EKG, Interpretation Only Completed 04/14/2017 49146 EKG, Interpretation Only Completed 04/14/2017 33150 EKG Tracing & Interpretation Completed 02/17/2017 82377 Nerve Conduction 03-04 Studies Completed 02/17/2017 38509 Needle Electromyography Each Extremity W/Related Completed Paraspinal Areas 02/14/2017 89228480 Mammogram Completed 10/25/2016 40560 Chemodenervation Of Muscles Innervated By Facial Completed Nerves, Bilat 08/09/2016 [id number] Colonoscopy Completed 06/26/2016 66978 Event Monitor/Phys Review/Interp. Completed 06/24/2016 55978 Chemodenervation Of Muscles Innervated By Facial Completed Nerves, Bilat 05/24/2016 85476 Stress Test Completed 05/24/2016 35500 Myocardial Perfusion Imaging Tomographic (Spect) Completed Multiple Studies 05/17/2016 52634 ECHO Stress Test Incl Perf Contiuous ekg Monitoring Completed W/Phys Superv 05/13/2016 78189 EKG Tracing & Interpretation Completed 04/21/2016 57135 Closed TX Scaphoid (Navicular) W/O Manipulation Completed 03/09/2016 62598 Chemodenervation Of Muscles Innervated By Facial Completed Nerves, Bilat 01/13/2016 75192505 Mammogram Completed 12/07/2015 30364 Chemodenervation Of Muscles Innervated By Facial Completed Nerves, Bilat 11/16/2015 14003 Polysomnography Sleep Staging 4+ Parameters Completed 09/07/2015 55478 Chemodenervation Of Muscles Innervated By Facial Completed Nerves, Bilat 09/01/2015 95859 EKG, Interpretation Only Completed 08/17/2015 58800 EKG Tracing & Interpretation Completed 08/17/2015 11402 EKG Tracing & Interpretation Completed 07/17/2015 24976 Stress Test Completed 07/17/2015 32712 Myocardial Perfusion Imaging Tomographic (Spect) Completed Multiple Studies 06/10/2015 15830 ECHO Transthoracic, Real-Time 2D With Doppler And Completed Color Flow 06/05/2015 41078 EKG Tracing & Interpretation Completed 06/04/2015 04876 Holter Monitoring 24 HR New Completed 06/01/2015 48460 Chemodenervation Of Muscles Innervated By Facial Completed Nerves, Bilat 05/28/2015 22167 Holter Monitoring 24 HR New Completed 02/17/2015 99829 Chemodenervation Of Muscles Innervated By Facial Completed Nerves, Bilat 09/15/2014 52450 Chemodenervation Of Muscles Innervated By Facial Completed Nerves, Bilat 06/04/2014 11594 Chemodenervation Of Muscles Innervated By Facial Completed Nerves, Bilat 02/20/2014 90306 Chemodenervation Of Muscles Innervated By Facial Completed Nerves, Bilat 11/14/2013 53905 Chemodenervation Of Muscles Innervated By Facial Completed Nerves, Bilat 08/14/2013 50039 Chemodenervation Of Muscles Innervated By Facial Completed Nerves, Bilat 05/16/2013 24882 Chemodenervation Of Muscles Innervated By Facial Completed Nerves, Bilat 02/11/2013 92339 Chemodenervation Of Muscles Innervated By Facial Completed Nerves, Bilat 10/22/2012 99877 Chemodenervation Of Muscles Innervated By Facial Completed Nerves, Bilat 07/18/2012 70181 Destruction W/Neurolytic Agent,Neck Muscles Completed 07/18/2012 12150 Destruction W/Neurolytic Agent, Facial Nerve Muscle, Completed Unilateral 04/16/2012 65351 Destruction W/Neurolytic Agent,Neck Muscles Completed 04/16/2012 18854 Destruction W/Neurolytic Agent, Facial Nerve Muscle, Completed Unilateral Encounters Type Date Location Provider Dx Diagnosis Office Visit 12/31/2018 [facility] Internal Radha Marinelli, E78.2 Mixed hyperlipidemia 3:20p Medicine N.P. 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-BC (pediatric) G47.14 Hypersomnia due to medical condition F51.04 Psychophysiologic insomnia Office Visit 12/19/2018 Neurohospitalist Adilia H02.412 Mechanical 9:00a Clinic Chloe Dawson ptosis of left eyelid R51 Headache R41.89 Oth symptoms and signs w cognitive functions and awareness R25.1 Tremor, unspecified G47.33 Obstructive sleep apnea (adult) (pediatric) Office Visit 12/17/2018 3:20p [facility] Petra Lilly, R07.9 Chest pain, Of [facility] Chloe unspecified I10 Essential (primary) hypertension R00.0 Tachycardia, unspecified H57.12 Ocular pain, left eye Office Visit 11/09/2018 [place] Petra Lilly, R94.31 Abnormal 2:20p Cardiology Of M.Fidelina electrocardiogram [facility] [ECG] [EKG] I10 Essential (primary) hypertension R00.0 Tachycardia, unspecified R07.9 Chest pain, unspecified Office Visit 10/03/2018 9:20a [facility] Internal Radha Marinelli, Z00.01 Encounter for Medicine [...] disorder, recurrent, unspecified Office Visit 09/10/2018 4:10p [facility] Dermatology Simon Tyler, L71.8 Other rosacea Office Visit 09/07/2018 1:00p Orthopedic Nito Cardoza, S83.221A Prph tear of Services Of Riana MARTINEZ medial meniscus, current injury, r knee, init S83.411A Sprain of medial collateral ligament of right knee, init Office Visit 07/06/2018 Orthopedic Nito Cardoza, S83.411A Sprain of medial 1:00p Services Of MD heather Mayers ligament of right knee, init W01.0xxA Fall same lev from slip/trip w/o strike against object, init Office Visit 05/28/2018 3:40p [facility] Dermatology Simon Tyler MD L71.8 Other rosacea L23.9 Allergic contact dermatitis, unspecified cause 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, unspecified L82.0 Inflamed seborrheic keratosis Z78.9 Other specified health status R20.8 Other disturbances of skin sensation L29.8 Other pruritus Office Visit 05/10/2018 3:40p Rheumatology Services Wan Salazar M54.2 Cervicalgia Of Jamey Corona M79.1 Myalgia L50.1 Idiopathic urticaria R22.31 Localized swelling, mass and lump, right upper limb Office Visit 05/04/2018 10:30a [facility] Dermatology Simon Tyler L23.9 Allergic contact MD dermatitis, unspecified cause Office Visit 05/02/2018 3:40p [facility] Dermatology Simon Tyler L23.9 Allergic contact MD dermatitis, unspecified cause Office Visit 04/25/2018 9:20a [facility] Dermatology Simon Tyler, L30.8 Other specified MD dermatitis L20.84 Intrinsic (allergic) eczema L82.0 Inflamed seborrheic keratosis L53.8 Other specified erythematous conditions Z78.9 Other specified health status Office Visit 03/30/2018 8:50a [facility] Dermatology Simon Tyler MD L71.8 Other rosacea L23.9 Allergic contact dermatitis, unspecified cause Office Visit 03/23/2018 [facility] Internal Zuri R07.89 Other chest pain 4:00p Maria R Lopez M.D. Office Visit 03/12/2018 [facility] Internal Radha Marinelli, R07.89 Other chest pain 10:00a Medicine N.P. Office Visit 03/08/2018 [facility] Internal Radha Marinelli, R07.89 Other chest pain 10:40a Medicine N.P. 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 , right shoulder S46.001D Unsp inj musc/tend the rotator cuff of r shoulder, subs Office Visit 12/19/2017 2:00p [facility] Priyanka Boone R07.9 Chest pain, Of [facility] Foster, N.P. unspecified R06.09 Other forms of dyspnea G47.33 Obstructive sleep apnea (adult) (pediatric) R00.2 Palpitations Office Visit 12/15/2017 10:20a [facility] Dermatology Simon Tyler MD L71.8 Other rosacea L82.0 Inflamed seborrheic keratosis L53.8 Other specified erythematous conditions L29.8 Other pruritus R20.8 Other disturbances of skin sensation R58 Hemorrhage, not elsewhere classified Z78.9 Other specified health status Office Visit 12/15/2017 1:20p [facility] Internal Radha Marinelli, G89.29 Other chronic Medicine N.P. 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 L03.115 Cellulitis of right lower limb J34.81 Nasal mucositis (ulcerative) B35.3 Tinea pedis Office Visit 10/27/2017 1:00p Orthopedic Nito Cardoza, S83.512A Sprain of Services Of anterior C.M.A. cruciate ligament of left knee, init S93.491D Sprain of other ligament of right ankle, subs encntr M25.462 Effusion, left knee Office Visit 09/29/2017 8:40a [facility] Petra Lilly, R07.9 Chest pain, Of [facility] MBethany unspecified R00.2 Palpitations I36.1 Nonrheumatic tricuspid (valve) insufficiency Office Visit 09/26/2017 4:00p [facility] Internal Zuri G25.81 Restless legs Medicine Chloe [...] Jamey Corona status migrainosus Office Visit 07/25/2017 [place] Petra R94.31 Abnormal 2:30p Cardiology Of Vijaya, electrocardiogram Jamey Corona [ECG] [EKG] R07.9 Chest pain, unspecified R11.0 Nausea R11.10 Vomiting, unspecified R00.0 Tachycardia, unspecified R00.2 Palpitations Office Visit 07/14/2017 2:45p Orthopedic Nito Cardoza, S83.512A Sprain of Services Of anterior C.M.A. cruciate ligament of left knee, init S93.491D Sprain of other ligament of right ankle, subs encntr Office Visit 07/05/2017 2:00p Rheumatology Services Wan Salazar M79.1 Myalgia Of Jamey Corona R79.82 Elevated C-reactive [...] encntr Office Visit 05/30/2017 1:00p Orthopedic Nito Cardoza, S93.491A Sprain of other Services Of ligament of C.M.A. right ankle, initial encounter M76.71 Peroneal tendinitis, right leg Office Visit 05/22/2017 11:40a [facility] Internal Radha Marinelli, M79.7 Fibromyalgia Medicine N.P. R11.0 Nausea R51 Headache M25.50 Pain in unspecified joint L98.9 Disorder of the skin and subcutaneous tissue, unspecified Office Visit 05/05/2017 11:20a [facility] Internal Radha Marinelli, R10.84 Generalized Medicine N.P. 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 R53.83 Other fatigue M54.5 Low back pain R10.819 Abdominal tenderness, unspecified site Office Visit 04/17/2017 10:53a [place] Sonya Cardoza R07.9 Chest pain, Assoc,mateusz Person MD unspecified Hospitalists E03.8 Other specified hypothyroidism G47.33 Obstructive sleep apnea (adult) (pediatric) F41.8 Other specified anxiety disorders Office Visit 04/16/2017 10:52a [facility] Sony R07.9 Chest pain, Assoc,pc MD Raza unspecified Hospitalists G47.33 Obstructive sleep apnea (adult) (pediatric) E03.8 Other specified hypothyroidism F41.8 Other specified anxiety disorders Office Visit 04/15/2017 11:45a [facility] Judd Kitchen R07.9 Chest pain, Of Jamey Sanz M.D. unspecified R94.31 Abnormal electrocardiogram [ECG] [EKG] Office Visit 04/15/2017 10:52a [facility] Sony R07.9 Chest pain, Assoc,pc MD Raza unspecified Hospitalists G47.33 Obstructive sleep apnea (adult) (pediatric) E03.8 Other specified hypothyroidism F41.8 Other specified anxiety disorders Office Visit 04/14/2017 10:51a [facility] Ajit Vang, R07.9 Chest pain, Assoc,pc Chloe unspecified Hospitalists G47.33 Obstructive sleep apnea (adult) (pediatric) Office Visit 04/14/2017 1:45p [facility] Petra Lilly, R06.02 Shortness of Of [facility] M.DAshley breath K57.92 Dvtrcli of intest, part unsp, w/o perf or abscess w/o bleed Z82.49 Family hx of ischem heart dis and oth dis of the circ sys R07.9 Chest pain, unspecified E16.2 Hypoglycemia, unspecified Office Visit 03/24/2017 2:40p [facility] Internal Radha Marinelli, R53.81 Other malaise Medicine N.P. Office Visit 02/09/2017 10:20a [facility] Internal Radha Marinelli, H66.91 Otitis media, Medicine N.P. unspecified, right ear B37.0 Candidal stomatitis R21 Rash and other nonspecific skin eruption N95.1 Menopausal and female climacteric states Office Visit 01/23/2017 [place] Adilia Dawson, G43.919 Migraine, unsp, 1:30p Neurologic M.D. intractable, Services Of [facility] without status migrainosus R20.2 Paresthesia of skin Office Visit 01/09/2017 1:00p [facility] Internal Radha Marinelli, R73.01 Impaired Medicine N.P. fasting glucose M54.5 Low back pain E78.2 Mixed hyperlipidemia H92.01 Otalgia, right ear Office Visit 11/23/2016 10:20a [facility] Internal Radha Gomezn, M25.511 Pain in right Medicine N.P. shoulder M25.512 Pain in left shoulder E66.9 Obesity, unspecified Office Visit 09/30/2016 9:40a [facility] Internal Radha Varn, R10.32 Left lower Medicine N.P. quadrant pain M54.5 Low back pain J18.9 Pneumonia, unspecified organism M46.06 Spinal enthesopathy, lumbar region Office Visit 09/27/2016 2:20p [facility] Internal Radha Varn, R10.12 Left upper Medicine N.P. quadrant pain R10.32 Left lower quadrant pain R10.817 Generalized abdominal tenderness K57.92 Dvtrcli of intest, part unsp, w/o perf or abscess w/o bleed Office Visit 09/20/2016 3:40p [facility] Internal Radha Gomezn, J18.9 Pneumonia , Medicine N.P. unspecified organism N20.0 Calculus of kidney Office Visit 08/05/2016 9:15a [facility] Effie Gaitan, R07.9 Chest pain, Of [employer] PA unspecified G47.33 Obstructive sleep apnea (adult) (pediatric) Office Visit 07/26/2016 2:40p [facility] Internal Radha Dyern, E03.9 Hypothyroidism, Medicine N.P. 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 R00.2 Palpitations G47.33 Obstructive sleep apnea (adult) (pediatric) Office Visit 05/13/2016 11:00a [facility] Petra Lilly, R06.02 Shortness of Of [employer] [facility] [place] [facility] M.D. breath R00.0 Tachycardia, unspecified G47.33 Obstructive sleep apnea (adult) (pediatric) R07.9 Chest pain, unspecified Office Visit 12/18/2015 3:15p [facility] Petra Lilly, R06.02 Shortness of Of [employer] M.D. breath I50.32 Chronic diastolic (congestive) heart failure G47.33 Obstructive sleep apnea (adult) (pediatric) Office Visit 12/18/2015 Pulmonology And Samira G47.33 Obstructive sleep 9:15a Sleep Services Of SHARIFA Nino, RN, apnea (adult) [employer] BANK RECONCILIATOR-BC (pediatric) G47.10 Hypersomnia, unspecified Office Visit 10/27/2015 3:30p [facility] Petra Lilly, R06.02 Shortness of Of [employer] M.D. breath R00.0 Tachycardia, unspecified Office Visit 09/23/2015 8:15a Pulmonology And Samantha G47.9 Sleep disorder, Sleep Services Of MD Kourtney unspecified [employer] E66.09 Other obesity due to excess calories K21.9 Gastro-esophageal reflux disease without esophagitis Office Visit 09/17/2015 3:30p [facility] Petra Lilly, N20.0 Calculus of Of [employer] M.D. kidney R00.0 Tachycardia, unspecified R06.00 Dyspnea, unspecified R00.2 Palpitations G47.9 Sleep disorder, unspecified Office Visit 09/02/2015 2:16p [facility] N20.0 Calculus of Assoc,pc Carlin Moreno 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 F32.9 Major depressive disorder, single episode, unspecified Office Visit 09/01/2015 2:14p [facility] Jose C Yanez, N20.0 Calculus of Assoc,pc N.P. 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 F32.9 Major depressive disorder, single episode, unspecified Office Visit 08/17/2015 3:00p [facility] Effie Gaitan, R00.0 Tachycardia, Of [employer] PA unspecified R06.00 Dyspnea, unspecified G47.9 Sleep disorder, unspecified I36.1 Nonrheumatic tricuspid (valve) insufficiency R07.9 Chest pain, unspecified Office Visit 08/03/2015 3:30p [facility] Effie Gaitan, R00.0 Tachycardia, Of [employer] PA unspecified I36.1 Nonrheumatic tricuspid (valve) insufficiency G47.9 Sleep disorder, unspecified R06.00 Dyspnea, unspecified Office Visit 07/22/2015 3:00p [facility] Petra Stutsman, R06.00 Dyspnea, Of Belt Sewer M.D. unspecified G47.9 Sleep disorder, unspecified R94.39 Abnormal result of other cardiovascular function study Office Visit 06/05/2015 10:00a [facility] Petra Stutsman, R00.0 Tachycardia, Of [place] Sewer M.D. unspecified R06.02 Shortness of breath R01.1 Cardiac murmur, unspecified Office Visit 03/23/2015 3:15p [facility] Adilia Dawson, 346.91 Migraine Unspec Services Of [place] Sewer M.D. W/ Intractable W/O Status Migrainosus 785.0 Tachycardia Unspec 724.03 Spinal Stenosis, Lumbar Region W/ Neurogenic Claudication Office Visit 12/03/2014 [facility] Twan Deras, 724.03 Spinal Stenosis , 11:00a Services Of [place] Sewer M.D. Lumbar Region W/ Neurogenic Claudication Office Visit 11/13/2014 [facility] Twan Deras, 724.03 Spinal Stenosis , 2:30p Services Of [place] Sewer M.D. Lumbar Region W/ Neurogenic Claudication Office Visit 02/11/2013 [facility] Adilia Dawson, 346.91 Migraine Unspec W/ 2:15p Services Of [place] Sewer M.D. Intractable W/O Status Migrainosus Office Visit 10/22/2012 [facility] Adilia Dawson, 346.91 Migraine Unspec W/ 11:00a Services Of [place] Sewer M.D. Intractable W/O Status Migrainosus Office Visit 07/18/2012 [facility] Dawson, 346.91 Migraine Unspec W/ 3:00p Services Of [place] Sewer M.D. Intractable W/O Status Migrainosus 728.85 Spasm Muscle Office Visit 05/03/2012 4:15p [facility] Adilia Dawson, 723.1 Cervicalgia Services Of [place] Sewer M.D. Office Visit 04/26/2012 4:00p Bret Dawson, 723.1 Cervicalgia Services Of [place]er M.DAshley 850.0 Concussion W/ No Loss Of Consciousness Office Visit 04/16/2012 1:30p Madisondimitri Dawson, 346.91 Migraine Unspec Services Of [place] Sewer M.D. W/ Intractable W/O Status Migrainosus Plan of Treatment Future Appointment(s):01/23/2019 10:45 am - Vijay Hugo MD at [facility]03/25/2019 8:30 am - Samira Nino DNP, RN, BANK RECONCILIATOR- at [facility]02/04/2019 10:20 am - Radha Marinelli, N.P. at [facility] Internal [id number]/28/2019 1:00 pm - Vijay Hugo MD at [facility]..03/08/2019 2:40 pm - Petra Lilly M.D. at [facility]04/10/2019 10:00 am - Adilia Dawson M.D. at [facility] [id number] 9:20 am - Radha Marinelli, N.P. at [facility] Internal Baeghaen75/21/2019 - Samira Nino DNP, LEE, [facility]47.33 Obstructive sleep apnea (adult) ( pediatric)New Orders:Sleep-Homecare, Ordered: 01/22/19Sleep Study, Ordered: Follow up:2 monthsRecommendations:Continue PAP device, Benefitting and compliant with treatment. Increase CPAP auto 10-15 cm, recommend in-lab study due to central apnea 19/hour) noted on CPAP auto 7-12 cm. Call 1-week after the in-labstudy for results. Cleaning Wipe off mask daily (baby wipe-no scent, or warm water) Clean mask, tubing, filter, and water chamber weekly in mild no scent dish soap and water. Hang to dry. If you have any sleepiness while driving you MUST avoid operating a vehicle or machinery. If you have difficulty with your equipment, or need to replace your mask or hoses, please contact your homecare agency. Aweight change of 20 pounds or more may have an effect on your equipment; if you are experiencing problems please call for an appointment. If you have any further questions, please call the [facility] at [phone].W47.37 Central sleep apnea in conditions classified elsewhereRecommendations:see assessment #1F51.04 Psychophysiologic insomniaRecommendations:Continue with sleep hygiene measures as previously discussed. Consider CBT-I once the apnea is treated and you have time for this treatment.E66.9 Obesity, unspecifiedRecommendations:avoid weight gain
[2019-02-10 13:54] VITALS: BP 130/85
--- NOTE | 2019-02-10 14:17 | UC ---
Throat Pain/Nasal Greg HPI - HPI Summary HPI Summary: here with a few c/o today 1. stye in right eye 2. left side of mouth painful and sinus pain - History of Current Complaint Chief Complaint: UCRespiratory Stated Complaint: DENTAL PAIN EYE ISSUE Time Seen by Provider: 02/10/19 14:01 Hx Obtained From: Patient ?: No Onset/Duration: Gradual Onset Severity: Moderate Pain Intensity: 6 Pain Scale Used: 0-10 Numeric Cough: None Associated Signs & Symptoms: Positive: Sinus Discomfort, Nasal Discharge - Allergies/Home Medications Allergies/Adverse Reactions: Allergies Allergy/AdvReac Type Severity Reaction Status Date / Time Penicillins Allergy Severe Unknown Verified 02/10/19 13:55 Reaction Details cyproheptadine Allergy Nausea And Verified 02/10/19 13:55 [From Periactin] Vomiting Iodinated Contrast- Oral and Allergy Rash Verified 02/10/19 13:55 IV Dye pregabalin [From Lyrica] Allergy suicidal Verified 02/10/19 13:55 Sulfa (Sulfonamide Allergy Rash Verified 02/10/19 13:55 Antibiotics) tramadol Allergy psychosis Verified 02/10/19 13:55 chocolate flavor AdvReac Headache Verified 02/10/19 13:55 morphine AdvReac Nausea Verified 02/10/19 13:55 mold Allergy Hives Uncoded 02/10/19 13:55 coconut flavor AdvReac Headache Uncoded 02/10/19 13:55 onion AdvReac Headache Uncoded 02/10/19 13:55 PMH/Surg Hx/FS Hx/Imm Hx Previously Healthy: No Cardiovascular History: Hypertension Psychological History: Anxiety, Depression - Surgical History Surgical History: Yes Surgery Procedure, Year, and Place: RIGHT MASTECTOMY left lumpectomy. L4-5 - CYST REMOVED. KIDNEY STONES - 02/19, surgical removal w/ stent placement w/ Dr Falk - Family History Known Family History: Negative: Cardiac Disease, Hypertension, Diabetes Family History: no reported cardio vascular issues in family lineage - Social History Occupation: Employed Part-time Lives: With Family Alcohol Use: Occasionally Alcohol Amount: 1-2 drinks per week Substance Use Type: None Substance Use Comment - Amount & Last Used: oxycodone-follows with pain clinic Smoking Status (MU): Former Smoker Type: Cigarettes Amount Used/How Often: about 1 pack a week Have You Smoked in the Last Year: No When Did the Patient Quit Smoking/Using Tobacco: quit 1992 - Immunization History Most Recent Influenza Vaccination: never Most Recent Tetanus Shot: 2009 Most Recent Pneumonia Vaccination: received in past Review of Systems All Other Systems Reviewed And Are Negative: No Constitutional: Positive: Negative Skin: Positive: Negative Eyes: Positive: Eye Redness - right ENT: Positive: Dental Pain - mouth pain, Nasal Discharge, Sinus Congestion Respiratory: Positive: Negative Cardiovascular: Positive: Negative Gastrointestinal: Positive: Negative Genitourinary: Positive: Negative Motor: Positive: Negative Neurovascular: Positive: Negative Musculoskeletal: Positive: Negative Neurological: Positive: Negative Psychological: Positive: Negative Is Patient Immunocompromised?: No Physical Exam Triage Information Reviewed: Yes Appearance: Well-Appearing, No Pain Distress, Well-Nourished Vital Signs: Initial Vital Signs Temp 98.7 F 02/10/19 13:49 Pulse 81 02/10/19 13:49 Resp 18 02/10/19 13:49 BP 130/85 02/10/19 13:49 Pulse Ox 100 02/10/19 13:49 Vital Signs Reviewed: Yes Eye Exam: Normal Eyes: Positive: Conjunctiva Clear, Other: - stye bottom lid of right eye ENT Exam: Normal ENT: Positive: Normal ENT inspection, Hearing grossly normal, Pharynx normal, Nasal congestion, Nasal drainage, TMs normal, Sinus tenderness, Uvula midline, Other - left upper mouth pain. Negative: Trismus, Muffled voice, Hoarse voice Dental Exam: Normal Neck exam: Normal Neck: Positive: Supple Respiratory Exam: Normal Respiratory: Positive: Chest non-tender, Lungs clear, Normal breath sounds, No respiratory distress Cardiovascular Exam: Normal Cardiovascular: Positive: RRR, No Murmur, Pulses Normal, Brisk Capillary Refill Musculoskeletal Exam: Normal Musculoskeletal: Positive: Strength Intact, ROM Intact Neurological Exam: Normal Neurological: Positive: Alert, Muscle Tone Normal Psychological Exam: Normal Skin Exam: Normal Throat Pain/Nasal Course/Dx - Course Course Of Treatment: warm compress right eye, clindamycin flonase for sinus/mouth pain follow with pcp - Differential Dx/Diagnosis Provider Diagnosis: Hordeolum internum right eye, unspecified eyelid, Mucositis oral Discharge - Sign-Out/Discharge Documenting (check all that apply): Patient Departure All imaging exams completed and their final reports reviewed: No Studies - Discharge Plan Condition: Stable Disposition: HOME Prescriptions: Chlorhexidine MOUTHWASH 0.12%* [Peridex Mouth Wash 0.12%*] 15 ml MT BID #473 ml Clindamycin Cap(NF) [Clindamycin Cap 300 mg Cap(NF)] 300 mg PO Q6H #28 cap Fluticasone NASAL SPRAY 50MCG* [Flonase NASAL SPRAY 50MCG*] 2 spray BOTH NARES DAILY #1 btl Patient Education Materials: Stye (ED), Oral Mucositis (ED), Warm Compress or Soak (ED) Referrals: Radha Marinelli NP [Primary Care Provider] - 1 Week - Billing Disposition and Condition Condition: STABLE Disposition: Home
== END 2019-02-10 14:30 | disposition home or self-care (01) ==
LOC: UCEAST 12:43
DX: H00.013 Hordeolum externum right eye, unspecified eyelid (principal); K12.30 Oral mucositis (ulcerative), unspecified; I10 Essential (primary) hypertension; F41.9 Anxiety disorder, unspecified; F32.9 Major depressive disorder, single episode, unspecified; Z88.0 Allergy status to penicillin; Z88.2 Allergy status to sulfonamides; Z88.5 Allergy status to narcotic agent; Z87.891 Personal history of nicotine dependence
CPT/HCPCS: 99212; G0463